=== PATIENT | female | born 1935 | race Caucasian/White ===

== ENCOUNTER → 2017-11-17 | Outpatient (CLI) | payer MEDICARE, OTHER ==
[2017-11-17 09:54] LABS: Calcium 9.6 mg/dL (8.4-10.2); Potassium 4.7 mmol/L (3.5-5.1); Total Bilirubin 0.3 mg/dL (0.2-1.3); Total Protein 6.7 g/dL (6.3-8.2)
[2017-11-17 20:37] LABS: Hemoglobin A1C 9.2 % (4.0-6.0)
== END | disposition home or self-care (01) ==
LOC: LABWHC1 08:15
PROVIDERS: ATTEND Internal Medicine Endocrinology, Diabetes & Metabolism
DX: E11.65 Type 2 diabetes mellitus with hyperglycemia (principal); E55.9 Vitamin D deficiency, unspecified
CPT/HCPCS: 36415; 80053; 80061; 82043; 82306; 82570; 83036; 84443

== ENCOUNTER 2018-09-14 23:30 | Emergency (ER) | payer MEDICARE, OTHER ==
[2018-09-14 23:53] LABS: Glucose,Whole Blood >600 mg/dL (75-99)
[2018-09-15] MEDS ORDERED: SODIUM CHLORIDE 0.9% 1,000 ML IV ONE (00:22)
--- NOTE | 2018-09-15 00:31 | ED ---
Recheck HPI - General Chief Complaint: Recheck/Abnormal Lab/Rx Stated Complaint: Blood sugar <600 Time Seen by Provider: 09/15/18 00:07 Source: patient Mode of arrival: ambulatory Limitations: no limitations - History of Present Illness Initial Comments: Geovanna is an 83-year-old female with a history of type 1 insulin-dependent diabetes who presents the emergency department today for evaluation of hyperglycemia. Patient reports her sugars been mildly high throughout the day, she believes is about 200 at lunchtime, 300 at supper and this evening she noted it was greater than 600. Patient has an insulin pump and is concerned she may have had a pump failure. Prior coming to the emergency department she did give herself 2 units of insulin and change her pump. Patient reports that she's otherwise been in her usual state of health with absolutely no complaints. She's had no fevers, chills, nausea, vomiting. She's been eating her regular diet. Patient is a very strict compliant diabetic, she weighs all of her foods at documents everything that she eats. She has not had any diabetic emergencies for approximately 4 years and her last one was also due to pump failure. The patient reports that she's feeling well aside from a constant urge to urinate, she is experiencing no dysuria or hematuria or malodorous urine. - Related Data Home Medications Medication Instructions Recorded Confirmed B12/Levomefolate Calcium/B-6 1 each PO DAILY 02/15/15 11/16/15 [Foltx Tablet] Ergocalciferol [Vitamin D2 50,000 units PO WE 02/15/15 11/16/15 (DRISDOL)] Insulin Lispro [humaLOG] See Protocol SQ CONTINUOUS 02/15/15 11/16/15 Ketorolac Tromethamine [Acular LS 1 drop LEFT EYE BID 02/15/15 11/16/15 0.4%] LORazepam [Ativan] 0.5 mg PO TID 02/15/15 11/16/15 Lansoprazole [Prevacid] 15 mg PO HS 02/15/15 11/16/15 Latanoprost Ophth [Xalatan 0.005%] 1 drops LEFT EYE HS 02/15/15 11/16/15 Levothyroxine Sodium [Synthroid] 50 mcg PO MOTUTHFRSA 02/15/15 11/16/15 Levothyroxine Sodium [Synthroid] 75 mcg PO SUWE 02/15/15 11/16/15 Propylene Glycol/Peg 400/Pf 1 drop BOTH EYES DAILY PRN 02/15/15 11/16/15 [Systane 0.3-0.4% Eye Drops] Previous Rx's Medication Instructions Recorded Artificial Tears-Hypromellose 1 drops BOTH EYES BID PRN #0 bottle 11/25/15 [Artificial Tear Drops] Aspirin 162 mg PO DAILY #60 chew 11/25/15 Atorvastatin [Lipitor] 80 mg PO HS #30 tab 11/25/15 Bxdjijjueyopus-FC-Dwvrgdwlod 1 each PO DAILY@1200 tab 11/25/15 [Folbic] Docusate [Colace] 100 mg PO DAILY cap 11/25/15 Ergocalciferol [Vitamin D2 50,000 unit PO WE cap 11/25/15 (DRISDOL)] HYDROcodone/APAP 5-325MG [[place] 1 each PO Q4HR PRN #30 tab 11/25/15 5-325] Ketorolac Tromethamine [Acular Ls 1 drop RIGHT EYE BID 11/25/15 0.4%] Latanoprost Ophth [Xalatan 0.005%] 1 drops RIGHT EYE HS ml 11/25/15 Levothyroxine Sodium [Synthroid] 50 mcg PO MoTuThFrSa@0630 tab 11/25/15 Levothyroxine Sodium [Synthroid] 75 mcg PO SuWe@0630 tab 11/25/15 Metoprolol Tartrate [Lopressor] 25 mg PO BID #60 tab 11/25/15 Ramipril [Altace] 20 mg PO HS #30 cap 11/25/15 predniSONE 1 mg PO DAILY #30 tab 11/25/15 Allergies Allergy/AdvReac Type Severity Reaction Status Date / Time Iodinated Contrast- Oral and Allergy Anaphylaxis Verified 09/14/18 23:48 IV Dye iodine Allergy Swelling Verified 09/14/18 23:48 NSAIDS (Non-Steroidal Allergy Rash/Hives Verified 09/14/18 23:48 Anti-Inflamma Sulfa (Sulfonamide Allergy Rash/Hives Verified 09/14/18 23:48 Antibiotics) Review of Systems ROS Statement: Those systems with pertinent positive or pertinent negative responses have been documented in the HPI. ROS Other: All systems not noted in ROS Statement are negative. Past Medical History Past Medical History: Cancer, CVA/TIA, Diabetes Mellitus, Hypertension Additional Past Medical History / Comment(s): temporal arteritis, breast CA, padgets disease History of Any Multi-Drug Resistant Organisms: None Reported Past Surgical History: Hysterectomy Additional Past Surgical History / Comment(s): right mastectomy Past Anesthesia/Blood Transfusion Reactions: No Reported Reaction Past Psychological History: Anxiety Smoking Status: Former smoker Past Alcohol Use History: None Reported Past Drug Use History: None Reported - Past Family History Mother Family Medical History: Cancer, Diabetes Mellitus Father Family Medical History: Cancer, Coronary Artery Disease (CAD) General Exam - General Exam Comments Initial Comments: Physical Exam GENERAL: Patient is well-developed and well-nourished. Patient is nontoxic and well- hydrated and is in no distress. HENT: Normocephalic, Atraumatic. EYES: PERRL, EOMI PULMONARY: Unlabored respirations. No audible rales rhonchi or wheezing was noted. No Kuss[place]al respirations CARDIOVASCULAR: There is a regular rate and rhythm without any murmurs gallops or rubs. ABDOMEN: Soft and nontender with normal bowel sounds. SKIN: Skin is clear with no lesions or rashes and otherwise unremarkable. : Deferred NEUROLOGIC: Patient is alert and oriented x3. Moving all extremities spontaneously MUSCULOSKELETAL: Normal extremities with adequate strength and full range of motion. No lower extremity swelling or edema. No calf tenderness. PSYCHIATRIC: Normal psychiatric evaluation. Limitations: no limitations Limitations: no limitations Course Vital Signs 09/14/18 09/15/18 09/15/18 23:44 03:35 03:46 Temperature 98.6 F 97.1 F L 97.1 F L Pulse Rate 72 65 60 Respiratory 18 16 16 Rate Blood Pressure 143/77 127/58 127/65 O2 Sat by Pulse 95 96 100 Oximetry Medical Decision Making - Medical Decision Making Patient was seen and evaluated Triage blood glucose was greater than 600 DKA order set ordered sign bedside commode provided as the patient has difficulty with ambulating and is urinating frequently Absent consistent with hyperglycemia with no evidence of DKA Patient was noted to be mildly hyperkalemic, IV insulin was ordered Patient was evaluated for 90 minutes after IV insulin, her glucose is trending downward but not dangerous matter. At this time the patient is comfortable with the plan for discharge home, she will continue to monitor her glucose, She has replaced her insulin pump needle and tubing and believes it is flushing well now. At this time I feel the patient is stable for discharge home, I suspect that her hyperglycemia secondary to pump failure however it is now functioning and the patient is comfortable for discharge home. Patient lives at home with her daughters who will observe her. Patient will awaken 4 AM to monitor her glucose. Return parameters were discussed all questions pertaining care were answered patient was discharged home in stable condition. - Lab Data Result diagrams: 09/15/18 00:39 09/15/18 00:39 Lab Results 09/14/18 09/15/18 09/15/18 Range/Units 23:51 00:21 00:39 WBC (3.8-10.6) k/uL RBC (3.80-5.40) m/uL Hgb (11.4-16.0) gm/dL Hct (34.0-46.0) % MCV (80.0-100.0) fL MCH (25.0-35.0) pg MCHC (31.0-37.0) g/dL RDW (11.5-15.5) % Plt Count (150-450) k/uL Neutrophils % % Lymphocytes % % Monocytes % % Eosinophils % % Basophils % % Neutrophils # (1.3-7.7) k/uL Lymphocytes # (1.0-4.8) k/uL Monocytes # (0-1.0) k/uL Eosinophils # (0-0.7) k/uL Basophils # (0-0.2) k/uL Sodium 133 L (137-145) mmol/L Potassium 5.8 H (3.5-5.1) mmol/L Chloride 97 L (98-107) mmol/L Carbon Dioxide 25 (22-30) mmol/L Anion Gap 11 mmol/L BUN 36 H (7-17) mg/dL Creatinine 1.22 H (0.52-1.04) mg/dL Est GFR (CKD-EPI)AfAm 48 (>60 ml/min/1.73 sqM) Est GFR (CKD-EPI)NonAf 41 (>60 ml/min/1.73 sqM) Glucose 588 H* (74-99) mg/dL POC Glucose (mg/dL) >600 H (75-99) mg/dL POC Glu Document Preparer Microfilming ID Lisette Ball Plasma Lactic Acid Alex (0.7-2.0) mmol/L Calcium 9.3 (8.4-10.2) mg/dL Total Bilirubin 0.4 (0.2-1.3) mg/dL AST 27 (14-36) U/L ALT 22 (9-52) U/L Alkaline Phosphatase 76 (38-126) U/L Troponin I (0.000-0.034) ng/mL Total Protein 6.6 (6.3-8.2) g/dL Albumin 4.0 (3.5-5.0) g/dL Lipase 164 (23-300) U/L Urine Color Light Yellow Urine Appearance Clear (Clear) Urine pH 5.0 (5.0-8.0) Ur Specific [place] 1.023 (1.001-1.035) Urine Protein Negative (Negative) Urine Glucose (UA) 4+ H (Negative) Urine Ketones 1+ H (Negative) Urine Blood Trace H (Negative) Urine Nitrite Negative (Negative) Urine Bilirubin Negative (Negative) Urine Urobilinogen <2.0 (<2.0) mg/dL Ur Leukocyte Esterase Negative (Negative) Urine RBC 2 (0-5) /hpf Urine WBC 3 (0-5) /hpf Urine WBC Clumps Rare H (None) /hpf Ur Squamous Epith Cells <1 (0-4) /hpf Acetone, Qual Negative (Negative) 09/15/18 09/15/18 09/15/18 Range/Units 00:39 00:39 00:39 WBC 5.4 (3.8-10.6) k/uL RBC 4.00 (3.80-5.40) m/uL Hgb 12.6 (11.4-16.0) gm/dL Hct 40.0 (34.0-46.0) % MCV 100.1 H (80.0-100.0) fL MCH 31.6 (25.0-35.0) pg MCHC 31.6 (31.0-37.0) g/dL RDW 12.7 (11.5-15.5) % Plt Count 241 (150-450) k/uL Neutrophils % 75 % Lymphocytes % 11 % Monocytes % 7 % Eosinophils % 3 % Basophils % 1 % Neutrophils # 4.1 (1.3-7.7) k/uL Lymphocytes # 0.6 L (1.0-4.8) k/uL Monocytes # 0.4 (0-1.0) k/uL Eosinophils # 0.2 (0-0.7) k/uL Basophils # 0.0 (0-0.2) k/uL Sodium (137-145) mmol/L Potassium (3.5-5.1) mmol/L Chloride (98-107) mmol/L Carbon Dioxide (22-30) mmol/L Anion Gap mmol/L BUN (7-17) mg/dL Creatinine (0.52-1.04) mg/dL Est GFR (CKD-EPI)AfAm (>60 ml/min/1.73 sqM) Est GFR (CKD-EPI)NonAf (>60 ml/min/1.73 sqM) Glucose (74-99) mg/dL POC Glucose (mg/dL) (75-99) mg/dL POC Glu Document Preparer Microfilming ID Plasma Lactic Acid Alex 1.4 (0.7-2.0) mmol/L Calcium (8.4-10.2) mg/dL Total Bilirubin (0.2-1.3) mg/dL AST (14-36) U/L ALT (9-52) U/L Alkaline Phosphatase (38-126) U/L Troponin I <0.012 (0.000-0.034) ng/mL Total Protein (6.3-8.2) g/dL Albumin (3.5-5.0) g/dL Lipase (23-300) U/L Urine Color Urine Appearance (Clear) Urine pH (5.0-8.0) Ur Specific [place] (1.001-1.035) Urine Protein (Negative) Urine Glucose (UA) (Negative) Urine Ketones (Negative) Urine Blood (Negative) Urine Nitrite (Negative) Urine Bilirubin (Negative) Urine Urobilinogen (<2.0) mg/dL Ur Leukocyte Esterase (Negative) Urine RBC (0-5) /hpf Urine WBC (0-5) /hpf Urine WBC Clumps (None) /hpf Ur Squamous Epith Cells (0-4) /hpf Acetone, Qual (Negative) 09/15/18 09/15/18 09/15/18 Range/Units 02:21 02:53 03:33 WBC (3.8-10.6) k/uL RBC (3.80-5.40) m/uL Hgb (11.4-16.0) gm/dL Hct (34.0-46.0) % MCV (80.0-100.0) fL MCH (25.0-35.0) pg MCHC (31.0-37.0) g/dL RDW (11.5-15.5) % Plt Count (150-450) k/uL Neutrophils % % Lymphocytes % % Monocytes % % Eosinophils % % Basophils % % Neutrophils # (1.3-7.7) k/uL Lymphocytes # (1.0-4.8) k/uL Monocytes # (0-1.0) k/uL Eosinophils # (0-0.7) k/uL Basophils # (0-0.2) k/uL Sodium (137-145) mmol/L Potassium (3.5-5.1) mmol/L Chloride (98-107) mmol/L Carbon Dioxide (22-30) mmol/L Anion Gap mmol/L BUN (7-17) mg/dL Creatinine (0.52-1.04) mg/dL Est GFR (CKD-EPI)AfAm (>60 ml/min/1.73 sqM) Est GFR (CKD-EPI)NonAf (>60 ml/min/1.73 sqM) Glucose (74-99) mg/dL POC Glucose (mg/dL) 424 H 360 H 289 H (75-99) mg/dL POC Glu Document Preparer Microfilming CRYSTAL Lewis, Jamaal Joshua, Jamaal Lewis, Jamaal Plasma Lactic Acid Alex (0.7-2.0) mmol/L Calcium (8.4-10.2) mg/dL Total Bilirubin (0.2-1.3) mg/dL AST (14-36) U/L ALT (9-52) U/L Alkaline Phosphatase (38-126) U/L Troponin I (0.000-0.034) ng/mL Total Protein (6.3-8.2) g/dL Albumin (3.5-5.0) g/dL Lipase (23-300) U/L Urine Color Urine Appearance (Clear) Urine pH (5.0-8.0) Ur Specific [place] (1.001-1.035) Urine Protein (Negative) Urine Glucose (UA) (Negative) Urine Ketones (Negative) Urine Blood (Negative) Urine Nitrite (Negative) Urine Bilirubin (Negative) Urine Urobilinogen (<2.0) mg/dL Ur Leukocyte Esterase (Negative) Urine RBC (0-5) /hpf Urine WBC (0-5) /hpf Urine WBC Clumps (None) /hpf Ur Squamous Epith Cells (0-4) /hpf Acetone, Qual (Negative) Disposition Clinical Impression: Hyperglycemia due to type 1 diabetes mellitus, Insulin pump mechanical complication Disposition: HOME SELF-CARE Condition: Good Instructions: Diabetic Ketoacidosis (DC), Type 1 Diabetes in Adults: New Diagnosis (ED) Is patient prescribed a controlled substance at d/c from ED?: No Referrals: Tony Thomas DO [Primary Care Provider] - 1-2 days
[2018-09-15 00:52] LABS: Basophils % (A) 1 %; Eosinophils # (A) 0.2 k/uL (0-0.7); Eosinophils % (A) 3 %; HGB 12.6 gm/dL (11.4-16.0); Lymphocytes # (A) 0.6 k/uL (1.0-4.8); Lymphocytes % (A) 11 %; MCH 31.6 pg (25.0-35.0); MCHC 31.6 g/dL (31.0-37.0); MCV 100.1 fL (80.0-100.0); Mean Platelet Volume 7.7; Monocytes # (A) 0.4 k/uL (0-1.0); Monocytes % (A) 7 %; Neutrophils # (A) 4.1 k/uL (1.3-7.7); Neutrophils % (A) 75 %; Platelet Count 241 k/uL (150-450); RDW 12.7 % (11.5-15.5); WBC 5.4 k/uL (3.8-10.6)
[2018-09-15 01:04] LABS: ALT 22 U/L (9-52); AST 27 U/L (14-36); Alkaline Phosphatase 76 U/L (38-126); Anion Gap 11 mmol/L; Blood Urea Nitrogen 36 mg/dL (7-17); Calcium 9.3 mg/dL (8.4-10.2); Carbon Dioxide 25 mmol/L (22-30); Chloride 97 mmol/L (98-107); Lipase 164 U/L (23-300); Potassium 5.8 mmol/L (3.5-5.1); Sodium 133 mmol/L (137-145); Total Bilirubin 0.4 mg/dL (0.2-1.3); Total Protein 6.6 g/dL (6.3-8.2)
[2018-09-15 01:12] LABS: Glucose 588 mg/dL (74-99)
[2018-09-15 01:17] LABS: Appearance,Urine Clear (Clear); Bilirubin,Urine Negative (Negative); Blood,Urine Trace (Negative); Color,Urine Light Yellow; Glucose,Urine (UA) 4+ (Negative); Ketones,Urine 1+ (Negative); Leukocyte Esterase,Urine Negative (Negative); Nitrite,Urine Negative (Negative); Protein,Urine Negative (Negative); RBC,Urine 2 /hpf (0-5); Specific Gravity,Urine 1.023 (1.001-1.035); Squamous Epithelial Cell,Urine <1 /hpf (0-4); Urobilinogen,Urine <2.0 mg/dL (<2.0); WBC,Urine 3 /hpf (0-5)
[2018-09-15] MEDS ORDERED: INSULIN REGULAR 100 UNIT/ML VIAL IV ONE (01:55)
[2018-09-15 02:33] LABS: Glucose,Whole Blood 424 mg/dL (75-99)
[2018-09-15 02:55] LABS: Glucose,Whole Blood 360 mg/dL (75-99)
[2018-09-15 03:35] LABS: Glucose,Whole Blood 289 mg/dL (75-99)
[2018-09-15 03:40] VITALS: RESP 16; TEMP 97.1
[2018-09-15 03:48] VITALS: BP 127/65; PULSE 60
== END 2018-09-15 03:46 | disposition home or self-care (01) ==
LOC: EC 23:30
DX: T85.694A Other mechanical complication of insulin pump, initial encounter (principal); E10.65 Type 1 diabetes mellitus with hyperglycemia; E87.5 Hyperkalemia; I10 Essential (primary) hypertension; F41.9 Anxiety disorder, unspecified; Z86.73 Personal history of transient ischemic attack (TIA), and cerebral infarction without residual deficits; Z87.891 Personal history of nicotine dependence; Z85.3 Personal history of malignant neoplasm of breast; Z79.4 Long term (current) use of insulin; Z79.899 Other long term (current) drug therapy; Z88.2 Allergy status to sulfonamides; Z88.6 Allergy status to analgesic agent; Z88.8 Allergy status to other drugs, medicaments and biological substances; Z91.041 Radiographic dye allergy status
CPT/HCPCS: 36415; 80053; 81001; 82009; 83605; 83690; 83930; 84484; 85025; 96360; 99284

== ENCOUNTER 2018-10-13 18:15 | Emergency (ER) | payer MEDICARE, OTHER ==
--- NOTE | 2018-10-13 21:01 | CT ---
EXAMINATION TYPE: CT brain cricket dwyer DATE OF EXAM: 10/13/2018 COMPARISON: CT brain 11/05/2011 HISTORY: Fall. Headache. Neck pain CT DLP: 1134.4 mGycm Automated exposure control for dose reduction was used. TECHNIQUE: CT scan of the head and cervical spine are performed without contrast. FINDINGS: There is cerebral cortical atrophy. There is no mass effect nor midline shift. There is n o sign of intracranial hemorrhage. The calvarium is intact. The cervical vertebra have fairly normal alignment. There is moderate narrowing and spur formation at C5-6. Facet joints are intact. There is mild facet arthropathy. The skull base is intact. IMPRESSION: Cerebral atrophy. No acute intracranial abnormality. Brain unchanged. Spondylotic change at C5-6. No fracture seen.
--- NOTE | 2018-10-13 21:03 | XR ---
EXAMINATION TYPE: XR ribs LT w pa chest xray DATE OF EXAM: 10/13/2018 COMPARISON: 11/25/2015 HISTORY: Pneumonia chest pain TECHNIQUE: 5 views FINDINGS: There is no heart failure nor confluent pneumonic infiltrate. There is no sign of pleural e ffusion or pneumothorax. Heart size is normal. Thoracic aorta is atheromatous. The left ribs appear i ntact. IMPRESSION: No active cardiopulmonary disease. No rib fracture. There is clearing of bilateral pleura l effusion compared to old exam.
--- NOTE | 2018-10-13 21:15 | ED ---
General Adult HPI - General Chief complaint: Fall Stated complaint: fall, back pain Time Seen by Provider: 10/13/18 19:45 Source: patient, RN notes reviewed Mode of arrival: ambulatory Limitations: no limitations - History of Present Illness Initial comments: Patient 83-year-old female presenting to the emergency room today with a chief complaint of a fall that occurred earlier. Patient states that she accidentally rolled out of bed this afternoon. Patient admits that she did hit the left side of her head. She does admit to pain to the left side of the ribs. States is worse with certain movements when she goes from a seated to standing position. Patient denies any other injury or complaint. States she's not on any blood thinners. Patient denies any recent fever, chills, shortness of breath, chest pain, back pain, abdominal pain, nausea or vomiting, numbness or tingling, dysuria or hematuria, constipation or diarrhea, headaches or visual changes, or any other complaints. - Related Data Home Medications Medication Instructions Recorded Confirmed Insulin Lispro [humaLOG] See Protocol SQ CONTINUOUS 02/15/15 10/13/18 LORazepam [Ativan] 0.5 mg PO TID 02/15/15 10/13/18 Propylene Glycol/Peg 400/Pf 1 drop BOTH EYES DAILY PRN 02/15/15 10/13/18 [Systane 0.3-0.4% Eye Drops] Doxycycline [Vibramycin] 50 mg PO BID 10/13/18 10/13/18 Escitalopram [Lexapro] 5 mg PO HS 10/13/18 10/13/18 Ezetimibe [Zetia] 10 mg PO DAILY 10/13/18 10/13/18 Levothyroxine Sodium [Synthroid] 75 mcg PO MOTUWETHFRSA 10/13/18 10/13/18 Loratadine [Claritin] 10 mg PO DAILY 10/13/18 10/13/18 Losartan [Cozaar] 25 mg PO HS 10/13/18 10/13/18 Pantoprazole [Protonix] 40 mg PO HS 10/13/18 10/13/18 Polyethylene Glycol 3350 [Miralax] 17 gm PO DAILY 10/13/18 10/13/18 Pravastatin Sodium [Pravachol] 20 mg PO HS 10/13/18 10/13/18 amLODIPine [Norvasc] 2.5 mg PO HS 10/13/18 10/13/18 Previous Rx's Medication Instructions Recorded Artificial Tears-Hypromellose 1 drops BOTH EYES BID PRN #0 bottle 11/25/15 [Artificial Tear Drops] Aspirin 162 mg PO DAILY #60 chew 11/25/15 Pypocduphkikvr-FT-Lywqpqdmxc 1 each PO DAILY@1200 tab 11/25/15 [Folbic] Ergocalciferol [Vitamin D2 50,000 unit PO WE cap 11/25/15 (DRISDOL)] Ketorolac Tromethamine [Acular Ls 1 drop RIGHT EYE BID 11/25/15 0.4%] Latanoprost Ophth [Xalatan 0.005%] 1 drops RIGHT EYE HS ml 11/25/15 Metoprolol Tartrate [Lopressor] 25 mg PO BID #60 tab 11/25/15 predniSONE 1 mg PO DAILY #30 tab 11/25/15 Allergies Allergy/AdvReac Type Severity Reaction Status Date / Time Iodinated Contrast- Oral and Allergy Anaphylaxis Verified 10/13/18 20:52 IV Dye iodine Allergy Swelling Verified 10/13/18 20:52 NSAIDS (Non-Steroidal Allergy Rash/Hives Verified 10/13/18 20:52 Anti-Inflamma Sulfa (Sulfonamide Allergy Rash/Hives Verified 10/13/18 20:52 Antibiotics) Review of Systems ROS Statement: Those systems with pertinent positive or pertinent negative responses have been documented in the HPI. ROS Other: All systems not noted in ROS Statement are negative. Past Medical History Past Medical History: Cancer, CVA/TIA, Diabetes Mellitus, Hypertension Additional Past Medical History / Comment(s): temporal arteritis, breast CA, padgets disease History of Any Multi-Drug Resistant Organisms: None Reported Past Surgical History: Hysterectomy Additional Past Surgical History / Comment(s): right mastectomy Past Anesthesia/Blood Transfusion Reactions: No Reported Reaction Past Psychological History: Anxiety Smoking Status: Former smoker Past Alcohol Use History: None Reported Past Drug Use History: None Reported - Past Family History Mother Family Medical History: Cancer, Diabetes Mellitus Father Family Medical History: Cancer, Coronary Artery Disease (CAD) General Exam - General Exam Comments Initial Comments: General: The patient is awake and alert, in no distress, and does not appear acutely ill. Eye: Pupils are equal, round and reactive to light, extra-ocular movements are intact. No nystagmus. There is normal conjunctiva bilaterally. No signs of icterus. Ears, nose, mouth and throat: There are moist mucous membranes and no oral lesions. Neck: The neck is supple Cardiovascular: There is a regular rate and rhythm. No murmur, rub or gallop is appreciated. Respiratory: Lungs are clear to auscultation, respirations are non-labored, breath sounds are equal. No wheezes, stridor, rales, or rhonchi. Gastrointestinal: Abdomen soft on palpation. Musculoskeletal: Normal ROM,. Tender to palpation over the lateral aspect of the lower left ribs. No step-off or deformity appreciated. Tenderness in cervical, thoracic or lumbar spine. Strength 5/5. Sensation intact. Pulses equal bilaterally 2+. Neurological: A&O x 3. CN II-XII intact, There are no obvious motor or sensory deficits. Coordination appears grossly intact. Speech is normal. Skin: Skin is warm and dry and no rashes or lesions are noted. Psychiatric: Cooperative, appropriate mood & affect, normal judgment. Limitations: no limitations Course Vital Signs 10/13/18 18:18 Temperature 97.5 F L Pulse Rate 72 Respiratory 20 Rate Blood Pressure 156/70 O2 Sat by Pulse 99 Oximetry Medical Decision Making - Medical Decision Making CT the head negative. X-ray of the left ribs and chest are negative for any acute abnormalities. Results were discussed with patient. Patient advised Tylenol for pain. Advised follow-up the family doctor if symptoms persist or return if any symptoms increase or worsen. Disposition Clinical Impression: Fall, Contusion of rib on left side Disposition: HOME SELF-CARE Condition: Good Instructions: Rib Contusion (ED) Additional Instructions: Please use medication as discussed. Please follow-up with family doctor in the next 2 days of symptoms have not improved. Please return to emergency room if the symptoms increase or worsen or for any other concerns. Is patient prescribed a controlled substance at d/c from ED?: No Referrals: Tony Thomas DO [Primary Care Provider] - 1-2 days Time of Disposition: 21:14
[2018-10-13 21:27] VITALS: BP 151/66; PULSE 78; RESP 16; TEMP 98.2
== END 2018-10-13 21:28 | disposition home or self-care (01) ==
LOC: EC 18:15
DX: S20.212A Contusion of left front wall of thorax, initial encounter (principal); E11.9 Type 2 diabetes mellitus without complications; I10 Essential (primary) hypertension; F41.9 Anxiety disorder, unspecified; Z86.73 Personal history of transient ischemic attack (TIA), and cerebral infarction without residual deficits; Z85.3 Personal history of malignant neoplasm of breast; Z87.891 Personal history of nicotine dependence; Z79.4 Long term (current) use of insulin; Z79.899 Other long term (current) drug therapy; Z91.048 Other nonmedicinal substance allergy status; Z91.041 Radiographic dye allergy status; Z88.6 Allergy status to analgesic agent; Z88.2 Allergy status to sulfonamides; W06.XXXA Fall from bed, initial encounter; Y92.009 Unspecified place in unspecified non-institutional (private) residence as the place of occurrence of the external cause
CPT/HCPCS: 70450; 72125; 99284

== ENCOUNTER 2019-11-12 09:19 | Inpatient (IN) | payer MEDICARE, OTHER ==
[2019-11-12] MEDS ORDERED: SODIUM CHLORIDE 0.9% 1,000 ML IV STA (10:17)
--- NOTE | 2019-11-12 10:24 | ED ---
General Adult HPI - General Chief complaint: Weakness Stated complaint: near syncope Time Seen by Provider: 11/12/19 09:35 Source: patient, family, EMS, RN notes reviewed Mode of arrival: EMS Limitations: altered mental status, physical limitation - History of Present Illness Initial comments: Patient is a pleasant 84-year-old female present to the emergency department with syncopal versus near syncopal episode. Patient occasionally has staring episodes when her sugar is low. Sugar was checked and was 130. Patient woke up this morning and went to the bathroom. Patient was walking to breakfast and slow down and started becoming less responsive.Please use medication as discussed. Please follow-up with family doctor in the next 2 days of symptoms have not improved. Please return to emergency room if the symptoms increase or worsen or for any other concerns. Legs felt weak and was lowered to the ground by the family. Family states patient was unresponsive for just a couple of seconds. Patient states at this time she feels fine and is symptom-free, no complaints. No headache or chest pain or back pain or abdominal pain. No dyspnea. No weakness. No change in mental status. - Related Data Home Medications Medication Instructions Recorded Confirmed Insulin Lispro [humaLOG] See Protocol SQ CONTINUOUS 02/15/15 10/13/18 LORazepam [Ativan] 0.5 mg PO TID 02/15/15 10/13/18 Propylene Glycol/Peg 400/Pf 1 drop BOTH EYES DAILY PRN 02/15/15 10/13/18 [Systane 0.3-0.4% Eye Drops] Doxycycline [Vibramycin] 50 mg PO BID 10/13/18 10/13/18 Escitalopram [Lexapro] 5 mg PO HS 10/13/18 10/13/18 Ezetimibe [Zetia] 10 mg PO DAILY 10/13/18 10/13/18 Levothyroxine Sodium [Synthroid] 75 mcg PO MOTUWETHFRSA 10/13/18 10/13/18 Loratadine [Claritin] 10 mg PO DAILY 10/13/18 10/13/18 Losartan [Cozaar] 25 mg PO HS 10/13/18 10/13/18 Pantoprazole [Protonix] 40 mg PO HS 10/13/18 10/13/18 Polyethylene Glycol 3350 [Miralax] 17 gm PO DAILY 10/13/18 10/13/18 Pravastatin Sodium [Pravachol] 20 mg PO HS 10/13/18 10/13/18 amLODIPine [Norvasc] 2.5 mg PO HS 10/13/18 10/13/18 Previous Rx's Medication Instructions Recorded Artificial Tears-Hypromellose 1 drops BOTH EYES BID PRN #0 bottle 11/25/15 [Artificial Tear Drops] Aspirin 162 mg PO DAILY #60 chew 11/25/15 Emavjurrugnxfw-VK-Nzmodskkxw 1 each PO DAILY@1200 tab 11/25/15 [Folbic] Ergocalciferol [Vitamin D2 50,000 unit PO WE cap 11/25/15 (DRISDOL)] Ketorolac Tromethamine [Acular Ls 1 drop RIGHT EYE BID 11/25/15 0.4%] Latanoprost Ophth [Xalatan 0.005%] 1 drops RIGHT EYE HS ml 11/25/15 Metoprolol Tartrate [Lopressor] 25 mg PO BID #60 tab 11/25/15 predniSONE 1 mg PO DAILY #30 tab 11/25/15 Allergies Allergy/AdvReac Type Severity Reaction Status Date / Time Iodinated Contrast Media Allergy Anaphylaxis Verified 11/12/19 09:40 iodine Allergy Swelling Verified 11/12/19 09:40 NSAIDS (Non-Steroidal Allergy Rash/Hives Verified 11/12/19 09:40 Anti-Inflamma Sulfa (Sulfonamide Allergy Rash/Hives Verified 11/12/19 09:40 Antibiotics) Review of Systems ROS Statement: Those systems with pertinent positive or pertinent negative responses have been documented in the HPI. ROS Other: All systems not noted in ROS Statement are negative. Constitutional: Denies: fever Eyes: Denies: eye pain ENT: Denies: ear pain Respiratory: Denies: cough Cardiovascular: Denies: chest pain Endocrine: Denies: fatigue Gastrointestinal: Denies: abdominal pain Genitourinary: Denies: dysuria Musculoskeletal: Denies: back pain Skin: Denies: rash Neurological: Reports: as per HPI Past Medical History Past Medical History: Cancer, CVA/TIA, Diabetes Mellitus, Hypertension Additional Past Medical History / Comment(s): temporal arteritis, breast CA, padgets disease History of Any Multi-Drug Resistant Organisms: None Reported Past Surgical History: Hysterectomy Additional Past Surgical History / Comment(s): right mastectomy Past Anesthesia/Blood Transfusion Reactions: No Reported Reaction Past Psychological History: Anxiety Smoking Status: Former smoker Past Alcohol Use History: None Reported Past Drug Use History: None Reported - Past Family History Mother Family Medical History: Cancer, Diabetes Mellitus Father Family Medical History: Cancer, Coronary Artery Disease (CAD) General Exam Limitations: altered mental status, physical limitation General appearance: alert, in no apparent distress Head exam: Present: normocephalic Eye exam: Present: normal appearance, PERRL, EOMI ENT exam: Present: normal oropharynx Neck exam: Present: normal inspection Respiratory exam: Present: normal lung sounds bilaterally Cardiovascular Exam: Present: regular rate, normal rhythm GI/Abdominal exam: Present: soft. Absent: tenderness Extremities exam: Present: normal inspection Back exam: Present: normal inspection Neurological exam: Present: alert, CN II-XII intact. Absent: motor sensory deficit Expanded Neurological exam: Present: protecting the airway Patient oriented to: Present: person, place. Absent: time Speech: Present: fluid speech Cranial nerves: EOM's Intact: Normal, Facial Sensation: Normal Sensory exam: Upper Extremity Light Touch: Normal, Lower Extremity Light Touch: Normal Motor strength exam: RUE: 5, LUE: 5, RLE: 5, LLE: 5 Eye Response: (4) open spontaneously Motor Response: (6) obeys commands Verbal Response: (5) oriented Psychiatric exam: Present: normal affect, normal mood Skin exam: Present: normal color Course Vital Signs 11/12/19 11/12/19 09:21 11:06 Temperature 97.9 F Pulse Rate 75 76 Respiratory 18 18 Rate Blood Pressure 142/70 126/54 O2 Sat by Pulse 97 100 Oximetry EKG Findings - EKG Comments: EKG Findings:: Sinus rhythm at 74. For screening AV block with a OR of 222. QRS 86. QT 394. QTC 437. Normal axis. Normal QRS. No acute ST change. Medical Decision Making - Medical Decision Making Patient reevaluated and updated. Family present and updated. Case discussed with Dr. Thomas, who will admit his patient. - Lab Data Result diagrams: 11/12/19 09:49 11/12/19 09:49 Lab Results 11/12/19 11/12/19 11/12/19 Range/Units 09:49 09:49 09:49 WBC 7.3 (3.8-10.6) k/uL RBC 4.48 (3.80-5.40) m/uL Hgb 13.8 (11.4-16.0) gm/dL Hct 43.1 (34.0-46.0) % MCV 96.2 (80.0-100.0) fL MCH 30.7 (25.0-35.0) pg MCHC 31.9 (31.0-37.0) g/dL RDW 13.0 (11.5-15.5) % Plt Count 221 (150-450) k/uL Neutrophils % 75 % Lymphocytes % 8 % Monocytes % 11 % Eosinophils % 2 % Basophils % 1 % Neutrophils # 5.5 (1.3-7.7) k/uL Lymphocytes # 0.6 L (1.0-4.8) k/uL Monocytes # 0.8 (0-1.0) k/uL Eosinophils # 0.2 (0-0.7) k/uL Basophils # 0.1 (0-0.2) k/uL PT 9.5 (9.0-12.0) sec INR 0.9 (<1.2) APTT 23.2 (22.0-30.0) sec Sodium 137 (137-145) mmol/L Potassium 4.9 (3.5-5.1) mmol/L Chloride 99 (98-107) mmol/L Carbon Dioxide 29 (22-30) mmol/L Anion Gap 9 mmol/L BUN 31 H (7-17) mg/dL Creatinine 0.97 (0.52-1.04) mg/dL Est GFR (CKD-EPI)AfAm 63 (>60 ml/min/1.73 sqM) Est GFR (CKD-EPI)NonAf 54 (>60 ml/min/1.73 sqM) Glucose 150 H (74-99) mg/dL Calcium 9.8 (8.4-10.2) mg/dL Magnesium 1.9 (1.6-2.3) mg/dL Total Bilirubin 0.6 (0.2-1.3) mg/dL AST 38 H (14-36) U/L ALT 20 (4-34) U/L Alkaline Phosphatase 89 (38-126) U/L Troponin I (0.000-0.034) ng/mL Total Protein 7.2 (6.3-8.2) g/dL Albumin 4.3 (3.5-5.0) g/dL 11/12/19 Range/Units 09:49 WBC (3.8-10.6) k/uL RBC (3.80-5.40) m/uL Hgb (11.4-16.0) gm/dL Hct (34.0-46.0) % MCV (80.0-100.0) fL MCH (25.0-35.0) pg MCHC (31.0-37.0) g/dL RDW (11.5-15.5) % Plt Count (150-450) k/uL Neutrophils % % Lymphocytes % % Monocytes % % Eosinophils % % Basophils % % Neutrophils # (1.3-7.7) k/uL Lymphocytes # (1.0-4.8) k/uL Monocytes # (0-1.0) k/uL Eosinophils # (0-0.7) k/uL Basophils # (0-0.2) k/uL PT (9.0-12.0) sec INR (<1.2) APTT (22.0-30.0) sec Sodium (137-145) mmol/L Potassium (3.5-5.1) mmol/L Chloride (98-107) mmol/L Carbon Dioxide (22-30) mmol/L Anion Gap mmol/L BUN (7-17) mg/dL Creatinine (0.52-1.04) mg/dL Est GFR (CKD-EPI)AfAm (>60 ml/min/1.73 sqM) Est GFR (CKD-EPI)NonAf (>60 ml/min/1.73 sqM) Glucose (74-99) mg/dL Calcium (8.4-10.2) mg/dL Magnesium (1.6-2.3) mg/dL Total Bilirubin (0.2-1.3) mg/dL AST (14-36) U/L ALT (4-34) U/L Alkaline Phosphatase (38-126) U/L Troponin I <0.012 (0.000-0.034) ng/mL Total Protein (6.3-8.2) g/dL Albumin (3.5-5.0) g/dL - Radiology Data Radiology results: report reviewed (Computed tomography scan of the brain shows age-related changes, no acute process), image reviewed (Chest x-ray shows no acute process) Disposition Clinical Impression: Syncope Disposition: ADMITTED IP TO THIS HOSP Is patient prescribed a controlled substance at d/c from ED?: No Referrals: Tony Thomas DO [Primary Care Provider] - 1-2 days Decision Time: 11:53
[2019-11-12 10:29] LABS: Basophils # (A) 0.1 k/uL (0-0.2); Basophils % (A) 1 %; Eosinophils # (A) 0.2 k/uL (0-0.7); Eosinophils % (A) 2 %; HCT 43.1 % (34.0-46.0); HGB 13.8 gm/dL (11.4-16.0); Lymphocytes # (A) 0.6 k/uL (1.0-4.8); Lymphocytes % (A) 8 %; MCH 30.7 pg (25.0-35.0); MCHC 31.9 g/dL (31.0-37.0); MCV 96.2 fL (80.0-100.0); Mean Platelet Volume 8.3; Monocytes # (A) 0.8 k/uL (0-1.0); Monocytes % (A) 11 %; Neutrophils # (A) 5.5 k/uL (1.3-7.7); Neutrophils % (A) 75 %; Platelet Count 221 k/uL (150-450); RBC 4.48 m/uL (3.80-5.40); WBC 7.3 k/uL (3.8-10.6)
[2019-11-12 10:49] LABS: Albumin 4.3 g/dL (3.5-5.0); Calcium 9.8 mg/dL (8.4-10.2); Magnesium 1.9 mg/dL (1.6-2.3); Potassium 4.9 mmol/L (3.5-5.1); Total Bilirubin 0.6 mg/dL (0.2-1.3); Total Protein 7.2 g/dL (6.3-8.2)
--- NOTE | 2019-11-12 11:04 | CT ---
EXAMINATION TYPE: CT brain wo con DATE OF EXAM: 11/12/2019 HISTORY: Altered mental status CT DLP: 1095.4 mGycm. Automated Exposure Control for Dose Reduction was Utilized. TECHNIQUE: CT scan of the head is performed without contrast. COMPARISON: CT brain October 13, 2018 and older CTs. FINDINGS: There is no acute intracranial hemorrhage or midline shift identified. There is diffuse v entricular and sulcal prominence consistent with diffuse age-related cerebral atrophy. There is low- attenuation in the periventricular white matter consistent with chronic small vessel ischemic change. Calcification of the distal internal carotid and vertebral arteries bilaterally is redemonstrated. V isualized sinuses are clear and globes are intact IMPRESSION: No acute intracranial hemorrhage or midline shift. There is mohf-ay-byhscudw diffuse ag e-related cerebral atrophy and mild chronic small vessel ischemic change redemonstrated. No signific ant change from most recent prior CT.
[2019-11-12 11:06] LABS: INR 0.9 (<1.2); Partial Thromboplastin Time 23.2 sec (22.0-30.0); Prothrombin Time 9.5 sec (9.0-12.0)
--- NOTE | 2019-11-12 11:06 | XR ---
EXAMINATION TYPE: XR chest 2V DATE OF EXAM: 11/12/2019 COMPARISON: 10/13/2018 HISTORY: Syncope TECHNIQUE: Frontal and lateral views of the chest are obtained. FINDINGS: There is no focal air space opacity, pleural effusion, or pneumothorax seen. There is hernando lar unfolding of the aorta and post CABG change. There is tortuosity of the descending thoracic aorta . Surgical clips are seen within the right breast. There is diffuse osseous demineralization. The oss eous structures are intact. IMPRESSION: No acute cardiopulmonary process.
[2019-11-12] MEDS ORDERED: ACETAMINOPHEN TAB 500 MG TAB PO STA (11:10)
[2019-11-12] MEDS ORDERED: NALOXONE 0.4 MG/ML 1 ML VIAL IV PRN (11:54)
[2019-11-12 13:06] LABS: Appearance,Urine Cloudy (Clear); Bacteria,Urine Occasional /hpf; Bilirubin,Urine Negative (Negative); Blood,Urine Trace (Negative); Color,Urine Yellow; Glucose,Urine (UA) Negative (Negative); Ketones,Urine 1+ (Negative); Leukocyte Esterase,Urine Large (Negative); Nitrite,Urine Negative (Negative); PH, Urine 5.5 (5.0-8.0); Protein,Urine Trace (Negative); RBC,Urine 2 /hpf (0-5); Specific Gravity,Urine 1.015 (1.001-1.035); Squamous Epithelial Cell,Urine <1 /hpf (0-4); Urobilinogen,Urine <2.0 mg/dL (<2.0); WBC,Urine 81 /hpf (0-5)
[2019-11-12 13:21] LABS: Glucose,Whole Blood 312 mg/dL (75-99)
--- NOTE | 2019-11-12 16:55 | P.CRDCN ---
History of Present Illness History of present illness: This is Katt Chaudhari PA-C dictating a consult on this patient The patient was interviewed and examined by me as well as by Dr. Church Case discussed with Dr. Church and he agrees with the plan of care HPI Patient is an 84-year-old female with a past medical history significant for CAD status post CABG, diabetes, hypertension, peripheral neuropathy, legally blind, temporal arteritis who presented with syncope. Patient's daughter is at the bedside, the patient is unable to recall the events of her syncopal episode and history was obtained from her daughter. She is a patient of Dr. MARCOS Hampton. Her daughter states she was in the bathroom brushing her teeth and then she walked out looking very pale with a "fixed" look in her eyes. She was walking with her walker. Her other daughter was there and witnessed the incident. She slowly lowered her to the ground and she did not fall or completely lose consciousness according to the EMS note. This has never happened to her before. She has had a lot of recent falls however they were mechanical falls due to difficulty ac cessing certain rooms in her home with her walker. She did not eat breakfast that morning. Her daughter states her blood sugar was normal. According to the EMS note her vital signs were stable and her blood pressure was in the 160s over 80s. The patient states she did not have any chest pain, shortness of breath, palpitations, nausea or vomiting, or diaphoresis before or during or after the incident. Upon arrival to the emergency department, her pulse was 75 and blood pressure was 142/70, oxygen saturation 97% on room air. EKG shows sinus mechanism with mild first-degree AV block, very subtle ST depressions in the lateral precordial leads, less than 0.5 mm. Chest x-ray showed no acute process. Brain CT showed no acute intracranial hemorrhage or midline shift, mild to moderate diffuse age-related renal atrophy and mild chronic small vessel ischemic change. No change from most recent prior CT. Patient seen and examined resting in bed in the emergency department. Denies any dizziness, nausea, chest pain, shortness of breath, palpitations. She is complaining of back discomfort she recently injured her spine a few months ago when she fell. ROS: No fevers, chills or rigors, no cough, phlegm or expectoration, no nausea, vomiting or diarrhea, no hematuria, dysuria, Positive for back pain no strokes or seizures, no skin lesions. EXAMINATION: Patient is afebrile, pulse in the 80s, respirations 16, blood pressure 129/49, oxygen saturation 94% on room air Patient seen and examined resting in bed, appears in no acute distress Lungs are clear to auscultation bilaterally no wheezing or rhonchi or crackles appreciated Heart is regular, systolic murmur audible No visible elevated JVD No lower extremity edema REVIEW OF LABS, ECG & MEDICAL DATA WBC 7.3, hemoglobin 13.8, platelets 221, potassium 4.9, BUN 31, creatinine 0.97 Troponin negative 1 IMPRESSION / ASSESSMENT: Presyncope, possibly related to orthostatic hypotension, mildly prolonged MT interval, first troponin negative CAD status post CABG Diabetes, not well controlled, daughter states her last A1c was 9 Hypertension Peripheral neuropathy Temporal arteritis PLAN: Obtain orthostatic blood pressure Monitor telemetry for any arrhythmias or bradycardia trend troponins Past Medical History Past Medical History: Cancer, CVA/TIA, Diabetes Mellitus, Hyperlipidemia, Hypertension, Myocardial Infarction (OR), Thyroid Disorder Additional Past Medical History / Comment(s): R breast cancer/padget's disease with mastectomy, TIA x3 in 2010, IDDM type II with insulin pump, legally blind bilaterally/diabetic retinopathy, diabetic neuropathy bilateral feet, temporal arteritis, tailbone fracture a few months ago still has pain, hypothyroid, c onstipation, varicosities. Last Myocardial Infarction Date:: 2015 History of Any Multi-Drug Resistant Organisms: None Reported Past Surgical History: Breast Surgery, Coronary Bypass/CABG, Heart Catheterization, Hysterectomy Additional Past Surgical History / Comment(s): 2016 CABG 3 vessel, right mas tectomy, R temporal arteritis, bilateral cataracts removed/bilateral laser eye surgery. Past Anesthesia/Blood Transfusion Reactions: No Reported Reaction Additional Past Anesthesia/Blood Transfusion Reaction / Comment(s): Pt has received blood in past without reaction. Smoking Status: Former smoker - Past Family History Mother Family Medical History: Cancer, Diabetes Mellitus, Vascular Disorder Additional Family Medical History / Comment(s): Breast cancer, autoimmune disease, aneurysm in brain Father Family Medical History: Cancer, Coronary Artery Disease (CAD) Additional Family Medical History / Comment(s): Laryngeal cancer. Father was a smoker. Medications and Allergies Home Medications Medication Instructions Recorded Confirmed Type LORazepam [Ativan] 0.5 mg PO BID 02/15/15 11/12/19 History Propylene Glycol/Peg 400/Pf 1 drop BOTH EYES DAILY PRN 02/15/15 11/12/19 History [Systane 0.3-0.4% Eye Drops] Latanoprost Ophth [Xalatan 0.005%] 1 drops RIGHT EYE HS ml 11/25/15 11/12/19 Rx Metoprolol Tartrate [Lopressor] 25 mg PO BID #60 tab 11/25/15 11/12/19 Rx predniSONE 1 mg PO DAILY #30 tab 11/25/15 11/12/19 Rx Escitalopram [Lexapro] 5 mg PO HS 10/13/18 11/12/19 History Ezetimibe [Zetia] 10 mg PO DAILY 10/13/18 11/12/19 History Levothyroxine Sodium [Synthroid] 75 mcg PO MOTUWETHFRSA@1200 10/13/18 11/12/19 History Loratadine [Claritin] 10 mg PO DAILY@1200 10/13/18 11/12/19 History Losartan [Cozaar] 25 mg PO HS 10/13/18 11/12/19 History Pantoprazole [Protonix] 40 mg PO HS 10/13/18 11/12/19 History Pravastatin Sodium [Pravachol] 20 mg PO HS 10/13/18 11/12/19 History amLODIPine [Norvasc] 2.5 mg PO HS 10/13/18 11/12/19 History Aspirin 162 mg PO HS 11/12/19 11/12/19 History Lnqtrspwluksas-OP-Xapmhsjova 1 tab PO AC-BRKFST 11/12/19 11/12/19 History [Folbic] Insulin Aspart (For Pump) [NovoLOG 0.01 unit SQ-PUMP CONTINUOUS 11/12/19 11/12/19 History (For Pump)] Vitamin D3(Unknown Dose) 1 tab PO DAILY 11/12/19 11/12/19 History Allergies Allergy/AdvReac Type Severity Reaction Status Date / Time Iodinated Contrast Media Allergy Anaphylaxis Verified 11/12/19 12:21 iodine Allergy Swelling Verified 11/12/19 12:21 NSAIDS (Non-Steroidal Allergy Rash/Hives Verified 11/12/19 12:21 Anti-Inflamma Sulfa (Sulfonamide Allergy Rash/Hives Verified 11/12/19 12:21 Antibiotics) Physical Exam Vitals: Vital Signs Temp Pulse Resp BP Pulse Ox 11/12/19 15:16 81 16 129/49 94 L 11/12/19 15:15 74 100/59 11/12/19 13:30 78 16 115/52 95 11/12/19 11:06 76 18 126/54 100 11/12/19 09:21 97.9 F 75 18 142/70 97 Intake and Output 11/12/19 11/12/19 11/12/19 06:59 14:59 22:59 Other: Weight 71.668 kg Results 11/12/19 09:49 11/12/19 09:49 Cardiac Enzymes 11/12/19 11/12/19 Range/Units 09:49 09:49 AST 38 H (14-36) U/L Troponin I <0.012 (0.000-0.034) ng/mL Coagulation 11/12/19 Range/Units 09:49 PT 9.5 (9.0-12.0) sec APTT 23.2 (22.0-30.0) sec CBC 11/12/19 Range/Units 09:49 WBC 7.3 (3.8-10.6) k/uL RBC 4.48 (3.80-5.40) m/uL Hgb 13.8 (11.4-16.0) gm/dL Hct 43.1 (34.0-46.0) % Plt Count 221 (150-450) k/uL Comprehensive Metabolic Panel 11/12/19 Range/Units 09:49 Sodium 137 (137-145) mmol/L Potassium 4.9 (3.5-5.1) mmol/L Chloride 99 (98-107) mmol/L Carbon Dioxide 29 (22-30) mmol/L BUN 31 H (7-17) mg/dL Creatinine 0.97 (0.52-1.04) mg/dL Glucose 150 H (74-99) mg/dL Calcium 9.8 (8.4-10.2) mg/dL AST 38 H (14-36) U/L ALT 20 (4-34) U/L Alkaline Phosphatase 89 (38-126) U/L Total Protein 7.2 (6.3-8.2) g/dL Albumin 4.3 (3.5-5.0) g/dL Current Medications Generic Name Dose Route Start Last Admin Trade Name Freq PRN Reason Stop Dose Admin Sodium Chloride 1,000 mls @ 100 mls/hr 11/12/19 10:17 11/12/19 11:44 Saline 0.9% IV 11/12/19 20:16 100 mls/hr .Q10H STA Administration Sodium Chloride 1,000 mls @ 75 mls/hr 11/12/19 12:00 Saline 0.9% IV .[id number] [facility] Naloxone HCl 0.2 mg 11/12/19 11:54 Narcan IV Q2M PRN Opioid Reversal Intake and Output 11/12/19 11/12/19 11/12/19 06:59 14:59 22:59 Other: Weight 71.668 kg Patient Weight 11/13/19 06:59 Weight 71.668 kg 11/12/19 09:49 11/12/19 09:49
[2019-11-12] MEDS: traMADol 50 MG TAB PO PRN (19:35)
[2019-11-12 19:59] VITALS: RESP 18
[2019-11-12] MEDS: SODIUM CHLORIDE 0.9% 1,000 ML IV SCH ×2 (20:39→23:39)
[2019-11-12 22:33] LABS: Glucose,Whole Blood 371 mg/dL (75-99)
[2019-11-12] MEDS ORDERED: INSULIN ASPART (NovoLOG) 100 UNIT/ML VIAL SQ PRN (22:37)
[2019-11-12] MEDS ORDERED: INSULIN PUMP BASAL RATES 1 EACH MISC MISCELLANE PRN (22:37)
[2019-11-12] MEDS ORDERED: ARTIFICIAL TEARS-HYPROMELLOSE DROPS 15 ML BTL BOTH EYES PRN (23:00)
[2019-11-12] MEDS ORDERED: Insulin Aspart (For Pump) 100 UNIT/ML VIAL SQ-PUMP SCH (23:00)
[2019-11-13 03:57] LABS: Glucose,Whole Blood 255 mg/dL (75-99)
[2019-11-13] MEDS: traMADol 50 MG TAB PO PRN ×3 (03:58→20:03)
[2019-11-13 06:41] LABS: Glucose,Whole Blood 252 mg/dL (75-99)
[2019-11-13] MEDS: LORazepam 0.5 MG TAB PO SCH ×2 (09:02→20:03)
[2019-11-13] MEDS: EZETIMIBE 10 MG TAB PO SCH (09:03)
[2019-11-13] MEDS: CYANOCOBALAMIN-FA-PYRIDOXINE 1 EACH TAB PO SCH (09:03)
[2019-11-13] MEDS: predniSONE 1 MG TAB PO SCH (09:03)
[2019-11-13] MEDS: METOPROLOL TARTRATE 25 MG TAB PO SCH ×2 (09:03→20:03)
--- NOTE | 2019-11-13 10:59 | P.PN ---
Subjective This is a pleasant 84-year-old female past medical history significant for coronary artery disease status post bypass grafting, diabetes mellitus, hypertension, peripheral neuropathy and temporal arteriolitis. She follows in the office with Dr. Hampton. She is seen and examined sitting up in bed in no acute distress. Family is at the bedside. The patient denies any further symptoms of feeling lightheaded. Telemetry tracings have been unremarkable. Per the daughter at the bedside the patient seems to be increasingly confused since this episode. Neurology has been placed on consult. Blood pressure 152/76 heart rate 90 afebrile maintaining oxygen saturation on room air. Laboratory data reviewed, cardiac enzymes negative 3. Currently maintained on aspirin 162 mg daily, lopressor 25 mg BID, amlodipine 2.5 mg at bedtime, zetia 10 mg daily and losartan 25 mg at bedtime. GENERAL: Well-appearing, well-nourished and in no acute distress. NECK: Supple without JVD or thyromegaly. LUNGS: Breath sounds clear to auscultation bilaterally. Respiration equal and unlabored. No wheezes, rales or rhonchi. HEART: Regular rate and rhythm with systolic ejection murmur at the left sternal border, no rubs or gallops. S1 and S2 heard. EXTREMITIES: Normal range of motion, no edema. No clubbing or cyanosis. Peripheral pulses intact. ASSESSMENT Near syncope, likely secondary to orthostatic hypotension History of coronary artery disease status post bypass grafting Hypertension Diabetes mellitus Peripheral neuropathy PLAN Decrease aspirin to 81 mg daily. Ongoing evaluation per neurology. Follow up in the office with Dr. Hampton, recommend outpatient event monitoring. Nurse Practitioner note has been reviewed, I agree with a documented findings and plan of care. Patient was seen and examined. Objective - Vital Signs Vital signs: Vital Signs Temp 97.5 F L 11/13/19 07:10 Pulse 90 11/13/19 07:10 Resp 18 11/13/19 07:10 BP 152/76 11/13/19 07:10 Pulse Ox 95 11/13/19 07:10 Intake & Output 11/12/19 11/13/19 11/13/19 18:59 06:59 18:59 Intake Total 200 Balance 200 Weight 71.668 kg 135 kg Intake: Oral 200 Other: Voiding Method Bedside Commode Bedside Commode # Voids 1 1 - Labs CBC & Chem 7: 11/12/19 09:49 11/12/19 09:49 Labs: Abnormal Lab Results - Last 24 Hours (Table) 11/12/19 11/12/19 11/12/19 Range/Units 12:13 13:19 22:32 POC Glucose (mg/dL) 312 H 371 H (75-99) mg/dL Urine Appearance Cloudy H (Clear) Urine Protein Trace H (Negative) Urine Ketones 1+ H (Negative) Urine Blood Trace H (Negative) Ur Leukocyte Esterase Large H (Negative) Urine WBC 81 H (0-5) /hpf Urine Bacteria Occasional H (None) /hpf 11/13/19 11/13/19 Range/Units 03:52 06:39 POC Glucose (mg/dL) 255 H 252 H (75-99) mg/dL Urine Appearance (Clear) Urine Protein (Negative) Urine Ketones (Negative) Urine Blood (Negative) Ur Leukocyte Esterase (Negative) Urine WBC (0-5) /hpf Urine Bacteria (None) /hpf
[2019-11-13 11:41] LABS: Glucose,Whole Blood 305 mg/dL (75-99)
[2019-11-13] MEDS ORDERED: LEVOTHYROXINE 75 MCG TAB PO SCH (12:00)
[2019-11-13] MEDS ORDERED: LORATADINE 10 MG TAB PO SCH (12:00)
[2019-11-13] MEDS ORDERED: INSULIN PUMP ACTIVE INSULIN 1 EACH MISC MISCELLANE PRN (12:18)
[2019-11-13] MEDS ORDERED: INSULIN PUMP TARGET GLUCOSE 1 EACH MISC MISCELLANE PRN (12:18)
[2019-11-13] MEDS ORDERED: INSPUCOR MISCELLANE PRN (12:18)
[2019-11-13] MEDS ORDERED: INSULIN PUMP BASAL RATES 1 EACH MISC MISCELLANE PRN (12:20)
--- NOTE | 2019-11-13 12:57 | P.CNNES ---
History of Present Illness Consult date: 11/13/19 Reason for Consult: syncope History of Present Illness: HISTORY OF PRESENT ILLNESS: Thank you for allowing me to evaluate Ms. Geovanna Chaney. Ms. Chaney is an 84 year-old woman with PMhx of DM, HTN, breast cancer, stroke/T IA, Paget's disease, temporal arteritis, anxiety, who presented to [facility] after an episode of near syncope. Patient's daughter, who lives with patient, is at bedside. Daughter states she has some staring episodes when her sugar is low, but during this episode, her sugar was 130. Yesterday morning, patient got up and went to the bathroom, and while waiting for breakfast, patient's daughter found pt having a blank stare for a few seconds, and then her legs getting week, and pt almost falling but daughter caught the patient. Daughter states that patient never lost consciousness, but had the blank stare and patient soon came out of it. Patient did not have any abnormal movements, tongue biting, or urinary/bowel incontinence. Daughter states that the night before, patient's sugar was in the 400s, but her sugar is brittle/labile, and for that reason, pt has an insulin pump. Daughter was going to take pt to cross roller for the insulin pump adjustment yesterday, but patient had the blank-stare episode. Patient has not been sick recent, didn't complain of any headache, nausea, vomiting, diarrhea, constipation. Patient also denies dysuria or increased frequency. PAST MEDICAL HISTORY: DM, HTN, breast cancer, stroke/TIA, Paget's disease, temporal arteritis, anxiety PAST SURGICAL HISTORY: Hysterectomy, R mastectomy HOME MEDICATIONS: Metoprolol, prednisone, amlodipine, pravastatin, losartan, protonix, Ezetimibe, Escitalopram, levothyroxine, ASA, Vitamin B12, insulin pump ALLERGIES: Contrast, iodine, NSAIDs, sulfa SOCIAL HISTORY: Former smoker FAMILY HISTORY: Mother with cancer and DM. Father with cancer and CAD REVIEW OF SYSTEMS: The 14 systems are reviewed and no additional points are identified compared to the review of systems documented history and physical PHYSICAL EXAMINATION: VITAL SIGNS: T 97.5 HR 90 RR 18 BP 152/76 O2 sat 95% on RA GEN.: NAD, pleasant and cooperative HEENT: NCAT, sclera without icterus NECK: Supple SKIN AND EXTREMITIES: Warm to touch, no edema NEURO: MENTAL STATUS: [Patient alert and oriented to self, place, time. Able to name the current president. Speech fluent, able to name and repeat, following all commands readily. CRANIAL NERVES II THROUGH XII: II: Pupils are equal and minimally reactive to light symmetrically. Patient with diabetic retinopathy, difficulty seeing clearly but able to tell shape. III, IV, : No ptosis. Extraocular movements full. No nystagmus. V: Facial sensation intact from V1-3. VII. No clear facial asymmetry. VIII: Hearing intact to finger rub bilaterally. IX, X: Symmetric palate elevation. XI: Shoulder shrug intact. XII: Tongue midline without fasciculation or atrophy. MOTOR: Normal bulk/tone. No pronator drift. Action tremor of b/l UE. Strength is 5/5 throughout all 4 extremities. SENSORY: Intact to light touch in all 4 extremities. REFLEXES: 2+ throughout. Toes are downgoing. COORDINATION: Finger to nose intact. No dysmetria. GAIT: Patient able to stand up on her own. She feels that her legs will give out when she walks. DIAGNOSTIC TESTING: LABORATORY: WBC 7.3 Hgb 13.8 Platelet 221 Na 137 K 4.9 Cl 99 CO2 29 BUN 31 Cr 0.97 glucose 150 AST 38 ALT 20 AlkPhos 89 urinalysis positive for leukesterase, WBC IMAGING: CT Head w/o contrast 11/12/2019: No intracranial hemorrhage or midline shift. There is mild to moderate diffuse age-related cervical atrophy mild chronic small vessel ischemic changes redemonstrated. No sleep change from most recent prior CT taken on 10/13/2018. ASSESSMENT/RECOMMENDATIONS: 84 year-old woman with PMhx of DM, HTN, breast cancer, stroke/TIA, Paget's disease, temporal arteritis, anxiety, who presented to [facility] after an episode of near syncope. Patient's blood glucose has been consistently elevated, since last night, it's been in [id number], along with patient found with UTI. Patient likely had her event in the setting of hyperglycemia and infe ction causing a dehydrated state. No additional studies recommended at this time. Neurology will sign off at this time. Please feel free to contact Neurology again if with additional questions or concerns. Past Medical History Past Medical History: Cancer, CVA/TIA, Diabetes Mellitus, Hyperlipidemia, Hypertension, Myocardial Infarction ([place]), Thyroid Disorder Additional Past Medical History / Comment(s): R breast cancer/padget's disease with mastectomy, TIA x3 in 2010, IDDM type II with insulin pump, legally blind bilaterally/diabetic retinopathy, diabetic neuropathy bilateral feet, temporal arteritis, tailbone fracture a few months ago still has pain, hypothyroid, constipation, varicosities. Last Myocardial Infarction Date:: 2015 History of Any Multi-Drug Resistant Organisms: None Reported Past Surgical History: Breast Surgery, Coronary Bypass/CABG, Heart Catheterization, Hysterectomy Additional Past Surgical History / Comment(s): 2016 CABG 3 vessel, right mastectomy, R temporal arteritis, bilateral cataracts removed/bilateral laser eye surgery. Past Anesthesia/Blood Transfusion Reactions: No Reported Reaction Additional Past Anesthesia/Blood Transfusion Reaction / Comment(s): Pt has received blood in past without reaction. Smoking Status: Former smoker - Past Family History Mother Family Medical History: Cancer, Diabetes Mellitus, Vascular Disorder Additional Family Medical History / Comment(s): Breast cancer, autoimmune disease, aneurysm in brain Father Family Medical History: Cancer, Coronary Artery Disease (CAD) Additional Family Medical History / Comment(s): Laryngeal cancer. Father was a smoker. Medications and Allergies Home Medications Medication Instructions Recorded Confirmed Type LORazepam [Ativan] 0.5 mg PO BID 02/15/15 11/12/19 History Propylene Glycol/Peg 400/Pf 1 drop BOTH EYES DAILY PRN 02/15/15 11/12/19 History [Systane 0.3-0.4% Eye Drops] Latanoprost Ophth [Xalatan 0.005%] 1 drops RIGHT EYE HS ml 11/25/15 11/12/19 Rx Metoprolol Tartrate [Lopressor] 25 mg PO BID #60 tab 11/25/15 11/12/19 Rx predniSONE 1 mg PO DAILY #30 tab 11/25/15 11/12/19 Rx Escitalopram [Lexapro] 5 mg PO HS 10/13/18 11/12/19 History Ezetimibe [Zetia] 10 mg PO DAILY 10/13/18 11/12/19 History Levothyroxine Sodium [Synthroid] 75 mcg PO MOTUWETHFRSA@1200 10/13/18 11/12/19 History Loratadine [Claritin] 10 mg PO DAILY@1200 10/13/18 11/12/19 History Losartan [Cozaar] 25 mg PO HS 10/13/18 11/12/19 History Pantoprazole [Protonix] 40 mg PO HS 10/13/18 11/12/19 History Pravastatin Sodium [Pravachol] 20 mg PO HS 10/13/18 11/12/19 History amLODIPine [Norvasc] 2.5 mg PO HS 10/13/18 11/12/19 History Aspirin 162 mg PO HS 11/12/19 11/12/19 History Lchahocakoqhmb-XG-Flbcydibtl 1 tab PO AC-BRKFST 11/12/19 11/12/19 History [Folbic] Insulin Aspart (For Pump) [NovoLOG 0.01 unit SQ-PUMP CONTINUOUS 11/12/19 11/12/19 History (For Pump)] Vitamin D3(Unknown Dose) 1 tab PO DAILY 11/12/19 11/12/19 History Allergies Allergy/AdvReac Type Severity Reaction Status Date / Time Iodinated Contrast Media Allergy Anaphylaxis Verified 11/12/19 12:21 iodine Allergy Swelling Verified 11/12/19 12:21 NSAIDS (Non-Steroidal Allergy Rash/Hives Verified 11/12/19 12:21 Anti-Inflamma Sulfa (Sulfonamide Allergy Rash/Hives Verified 11/12/19 12:21 Antibiotics) Physical Examination - Vital Signs Vital Signs: Vital Signs Temp Pulse Pulse Resp BP BP Pulse Ox 11/13/19 07:10 97.5 F L 90 18 152/76 95 11/13/19 04:00 98.0 F 96 18 167/76 93 L 11/13/19 00:00 82 18 11/12/19 23:19 97.6 F 82 18 151/70 96 11/12/19 20:00 98.1 F 82 18 153/74 94 L 11/12/19 19:57 98.1 F 75 18 129/49 98 11/12/19 15:16 81 16 129/49 94 L 11/12/19 15:15 74 100/59 11/12/19 13:30 78 16 115/52 95 11/12/19 11:06 76 18 126/54 100 Intake and Output 11/12/19 11/13/19 11/13/19 22:59 06:59 14:59 Intake Total 200 Balance 200 Intake: Oral 200 Other: Voiding Method Bedside Commode Bedside Commode Bedside Commode # Voids 1 1 Weight 135 kg Results - Laboratory Findings CBC and BMP: 11/12/19 09:49 11/12/19 09:49 Abnormal Lab Findings: Abnormal Labs 11/12/19 11/12/19 11/12/19 09:49 09:49 12:13 Lymphocytes # 0.6 L BUN 31 H Glucose 150 H POC Glucose (mg/dL) AST 38 H Urine Appearance Cloudy H Urine Protein Trace H Urine Ketones 1+ H Urine Blood Trace H Ur Leukocyte Esterase Large H Urine WBC 81 H Urine Bacteria Occasional H 11/12/19 11/12/19 11/13/19 13:19 22:32 03:52 Lymphocytes # BUN Glucose POC Glucose (mg/dL) 312 H 371 H 255 H AST Urine Appearance Urine Protein Urine Ketones Urine Blood Ur Leukocyte Esterase Urine WBC Urine Bacteria 11/13/19 06:39 Lymphocytes # BUN Glucose POC Glucose (mg/dL) 252 H AST Urine Appearance Urine Protein Urine Ketones Urine Blood Ur Leukocyte Esterase Urine WBC Urine Bacteria
[2019-11-13] MEDS: INSULIN PUMP MEAL BOLUS 1 UNIT MISC MISCELLANE SCH ×4 (14:25→22:39)
[2019-11-13] MEDS: SODIUM CHLORIDE 0.9% 1,000 ML IV SCH ×2 (15:44→23:57)
[2019-11-13 16:43] LABS: Glucose,Whole Blood 380 mg/dL (75-99)
[2019-11-13 20:18] LABS: Glucose,Whole Blood 410 mg/dL (75-99)
[2019-11-13] MEDS ORDERED: LOSARTAN 25 MG TAB PO SCH (21:00)
[2019-11-13] MEDS ORDERED: ASPIRIN 81 MG PO SCH ×2 (21:00)
[2019-11-13] MEDS ORDERED: PRAVASTATIN SODIUM 20 MG TAB PO SCH (21:00)
[2019-11-13] MEDS ORDERED: ESCITALOPRAM 5 MG TAB PO SCH (21:00)
[2019-11-13] MEDS ORDERED: PANTOPRAZOLE 40 MG TABLET PO SCH (21:00)
[2019-11-13] MEDS ORDERED: LATANOPROST 0.005% OPHTH DROPS 2.5 ML BTL RIGHT EYE SCH (21:00)
[2019-11-13] MEDS ORDERED: amLODIPine 2.5 MG TAB PO SCH (21:00)
--- NOTE | 2019-11-13 21:15 | P.HPIM ---
History of Present Illness H&P Date: 11/13/19 This is a pleasant 84-year-old white female who is admitted after daughter witnessed her on her way to the bathroom getting lightheaded dizzy and feeling faint she immediately sat her down and she did not sustain a fall patient does not recall the events of yesterday that led up to the hospitalization. Of note she was found to have sugars in the 200-300 range and at admission was found to have a urinary tract infection. As well as dehydration. Patient was confused and trouble finding her words. Also patient family said she was very weak in the knees and could not ambulate this has since resolved and she seems to be getting back to baseline she denies any current loss of consciousness headache dizziness blurred vision and slurred speech and her strength is equal and strong bilateral upper and lower extremities. She is currently with family at bedside. Review of Systems GENERAL: Patient denies fever. Denies chills. EYES: Denies blurred vision. Denies vision changes. Denies eye pain. EARS, NOSE, MOUTH, & THROAT: Denies headache. Denies sore throat. Denies ear pain. RESPIRATORY: Denies cough. Denies shortness of breath. Denies sputum production. Denies hemoptysis. CARDIOVASCULAR: Denies chest pain or pressure. Denies palpitations. Denies arrhythmias. GASTROINTESTINAL: Denies abdominal pain. Denies diarrhea. Denies constipation. Denies nausea. Denies vomiting. Denies heartburn. Denies blood in the stool. GENITOURINARY: Has ch ronic urinary frequency. burning. cloudy urine. Denies blood in the urine. MUSCULOSKELETAL: Denies myalgias. Denies joint swelling. Denies decreased range of motion beyond patients baseline. INTEGUMENTARY: Denies pruitis. Denies rash. PSYCHIATRIC: Denies suicidal or homicial ideations. ENDOCRINE: Denies weight change admits to diabetes with hyperglycemic events. HEMATOLOGIC: Denies bleeding disorders. Past Medical History Past Medical History: Cancer, CVA/TIA, Diabetes Mellitus, Hyperlipidemia, Hypertension, Myocardial Infarction ([place]), Thyroid Disorder Additional Past Medical History / Comment(s): R breast cancer/padget's disease w ith mastectomy, TIA x3 in 2010, IDDM type II with insulin pump, legally blind bilaterally/diabetic retinopathy, diabetic neuropathy bilateral feet, temporal arteritis, tailbone fracture a few months ago still has pain, hypothyroid, constipation, varicosities. Last Myocardial Infarction Date:: 2015 History of Any Multi-Drug Resistant Organisms: None Reported Past Surgical History: Breast Surgery, Coronary Bypass/CABG, Heart Catheterization, Hysterectomy Additional Past Surgical History / Comment(s): 2016 CABG 3 vessel, right mastectomy, R temporal arteritis, bilateral cataracts removed/bilateral laser eye surgery. Past Anesthesia/Blood Transfusion Reactions: No Reported Reaction Additional Past Anesthesia/Blood Transfusion Reaction / Comment(s): Pt has received blood in past without reaction. Smoking Status: Former smoker - Past Family History Mother Family Medical History: Cancer, Diabetes Mellitus, Vascular Disorder Additional Family Medical History / Comment(s): Breast cancer, autoimmune disease, aneurysm in brain Father Family Medical History: Cancer, Coronary Artery Disease (CAD) Additional Family Medical History / Comment(s): Laryngeal cancer. Father was a smoker. Medications and Allergies Home Medications Medication Instructions Recorded Confirmed Type LORazepam [Ativan] 0.5 mg PO BID 02/15/15 11/12/19 History Propylene Glycol/Peg 400/Pf 1 drop BOTH EYES DAILY PRN 02/15/15 11/12/19 History [Systane 0.3-0.4% Eye Drops] Latanoprost Ophth [Xalatan 0.005%] 1 drops RIGHT EYE HS ml 11/25/15 11/12/19 Rx Metoprolol Tartrate [Lopressor] 25 mg PO BID #60 tab 11/25/15 11/12/19 Rx predniSONE 1 mg PO DAILY #30 tab 11/25/15 11/12/19 Rx Escitalopram [Lexapro] 5 mg PO HS 10/13/18 11/12/19 History Ezetimibe [Zetia] 10 mg PO DAILY 10/13/18 11/12/19 History Levothyroxine Sodium [Synthroid] 75 mcg PO MOTUWETHFRSA@1200 10/13/18 11/12/19 History Loratadine [Claritin] 10 mg PO DAILY@1200 10/13/18 11/12/19 History Losartan [Cozaar] 25 mg PO HS 10/13/18 11/12/19 History Pantoprazole [Protonix] 40 mg PO HS 10/13/18 11/12/19 History Pravastatin Sodium [Pravachol] 20 mg PO HS 10/13/18 11/12/19 History amLODIPine [Norvasc] 2.5 mg PO HS 10/13/18 11/12/19 History Aspirin 162 mg PO HS 11/12/19 11/12/19 History Qoptnwjonwrbiw-CL-Dftlarxzud 1 tab PO AC-BRKFST 11/12/19 11/12/19 History [Folbic] Insulin Aspart (For Pump) [NovoLOG 0.01 unit SQ-PUMP CONTINUOUS 11/12/19 11/12/19 History (For Pump)] Vitamin D3(Unknown Dose) 1 tab PO DAILY 11/12/19 11/12/19 History Allergies Allergy/AdvReac Type Severity Reaction Status Date / Time Iodinated Contrast Media Allergy Anaphylaxis Verified 11/12/19 12:21 iodine Allergy Swelling Verified 11/12/19 12:21 NSAIDS (Non-Steroidal Allergy Rash/Hives Verified 11/12/19 12:21 Anti-Inflamma Sulfa (Sulfonamide Allergy Rash/Hives Verified 11/12/19 12:21 Antibiotics) Physical Exam Osteopathic Statement: *. No significant issues noted on an osteopathic structural exam other than those noted in the History and Physical/Consult. Vitals: Vital Signs Temp Pulse Resp BP Pulse Ox 11/13/19 19:37 98.2 F 77 18 144/75 94 L 11/13/19 16:22 97.4 F L 77 154/65 92 L 11/13/19 11:20 98.1 F 73 18 147/80 94 L 11/13/19 07:10 97.5 F L 90 18 152/76 95 11/13/19 04:00 98.0 F 96 18 167/76 93 L 11/13/19 00:00 82 18 11/12/19 23:19 97.6 F 82 18 151/70 96 Intake and Output 11/13/19 11/13/19 11/13/19 06:59 14:59 22:59 Intake Total 200 Balance 200 Intake: Other 200 Other: Voiding Method Bedside Commode Bedside Commode Bedside Commode # Voids 1 1 Weight 135 kg GENERAL: This is a -84 year-old in no apparent distress at the time of examination. Pleasant and cooperative. HEENT: Head is atraumatic, normocephalic. Pupils are equal, round, and reactive to light. Sclerae anicteric. Conjunctivae are clear. Mucus membranes of the mouth are moist. Neck is supple. RESPIRATORY: Clear to auscultation. No wheezes, rales, or rhonchi side. No chest wall tenderness is noted on palpation or with deep breathing. CARDIOVASCULAR: Regular rate and rhythm. . GASTROINTESTINAL: No distention noted. Abdomen soft and round. Normal active bowel sounds auscultated x 4 quadrants. No pain or tenderness noted upon palpation. INTEGUMENTARY: No cyanosis. No jaundice. No rashes noted. No cellulitis noted. EXTREMITIES: 2+ peripheral pulses. No evidence of peripheral edema. No calf tenderness noted. NEUROLOGIC: Cranial nerves II-XII intact. PSYCHIATRIC: Awake, alert, and oriented X 3. Appropriate affect. Intact judgement and insight. Results CBC & Chem 7: 11/12/19 09:49 11/12/19 09:49 Labs: Abnormal Lab Results - Last 24 Hours (Table) 11/12/19 11/13/19 11/13/19 Range/Units 22:32 03:52 06:39 POC Glucose (mg/dL) 371 H 255 H 252 H (75-99) mg/dL 11/13/19 11/13/19 11/13/19 Range/Units 11:39 16:42 20:15 POC Glucose (mg/dL) 305 H 380 H 410 H (75-99) mg/dL Microbiology - Last 24 Hours (Table) 11/13/19 10:05 Urine Culture - Preliminary Urine,Voided Thrombosis Risk Factor Assmnt - Choose All That Apply Any of the Below Risk Factors Present?: Yes Other Risk Factors: Yes Each Risk Factor Represents 2 Points: Malignancy Each Risk Factor Represents 3 Points: Age 75 years or older Other congenital or acquired thrombophilia - If yes, enter type in comment: No Thrombosis Risk Factor Assessment Total Risk Factor Score: 5 Thrombosis Risk Factor Assessment Level: High Risk Assessment and Plan (1) Acute urinary tract infection Current Visit: Yes Status: Acute Code(s): N39.0 - URINARY TRACT INFECTION, SITE NOT SPECIFIED SNOMED Code(s): 809517171 (2) Acute metabolic encephalopathy Current Visit: Yes Status: Acute Code(s): G93.41 - METABOLIC ENCEPHALOPATHY SNOMED Code(s): 89872651 (3) Syncope Current Visit: Yes Status: Acute Code(s): R55 - SYNCOPE AND COLLAPSE SNOMED Code(s): 382277781 (4) Acute hyperglycemia Current Visit: No Status: Acute Code(s): R73.9 - HYPERGLYCEMIA, UNSPECIFIED SNOMED Code(s): 522720848 (5) Diabetes mellitus type 2, uncontrolled Current Visit: No Status: Acute Code(s): E11.65 - TYPE 2 DIABETES MELLITUS WITH HYPERGLYCEMIA SNOMED Code(s): 347356768 (6) History of CVA (cerebrovascular accident) Current Visit: No Status: Acute Code(s): Z86.73 - PRSNL HX OF TIA (TIA), AND CEREB INFRC W/O RESID DEFICITS SNOMED Code(s): 672085474 (7) Hypertension Current Visit: No Status: Acute Code(s): I10 - ESSENTIAL (PRIMARY) HYPERTENSION SNOMED Code(s): 09821449 (8) Insulin dependent diabetes mellitus Current Visit: No Status: Acute Code(s): E11.9 - TYPE 2 DIABETES MELLITUS WITHOUT COMPLICATIONS SNOMED Code(s): 92827843 (9) Acute dehydration Current Visit: Yes Status: Acute Code(s): E86.0 - DEHYDRATION SNOMED Code(s): 27282000 Plan: Plan admit patient full consultations by cardiology and neurology in progress will continue to monitor patient over the next 24 hours for any signs of TIA. Add antibiotics for urinary tract infection. Family's at bedside and questions answered. We'll discharge when patient is back to baseline soon 24-36 hours
[2019-11-13 22:12] LABS: Glucose,Whole Blood 335 mg/dL (75-99)
[2019-11-14 06:50] LABS: Glucose,Whole Blood 121 mg/dL (75-99)
[2019-11-14 07:57] VITALS: BP 151/72; PULSE 82; TEMP 97.5
[2019-11-14] MEDS: predniSONE 1 MG TAB PO SCH (10:03)
[2019-11-14] MEDS: CYANOCOBALAMIN-FA-PYRIDOXINE 1 EACH TAB PO SCH (10:03)
[2019-11-14] MEDS: LORazepam 0.5 MG TAB PO SCH (10:03)
[2019-11-14] MEDS: METOPROLOL TARTRATE 25 MG TAB PO SCH (10:03)
[2019-11-14] MEDS: EZETIMIBE 10 MG TAB PO SCH (10:03)
[2019-11-14] MEDS: INSULIN PUMP MEAL BOLUS 1 UNIT MISC MISCELLANE SCH (10:04)
== END 2019-11-14 11:28 | disposition home health service (06) | DRG 689 ==
LOC: EC 09:19 → 1SOBS 12:00 → OBSVTOIN 11-14 08:48
PROVIDERS: ADMIT Family Medicine; ATTEND Family Medicine
DX: N39.0 Urinary tract infection, site not specified (principal); G93.41 Metabolic encephalopathy; E11.319 Type 2 diabetes mellitus with unspecified diabetic retinopathy without macular edema; E11.42 Type 2 diabetes mellitus with diabetic polyneuropathy; E11.65 Type 2 diabetes mellitus with hyperglycemia; I95.1 Orthostatic hypotension; I44.0 Atrioventricular block, first degree; I25.2 Old myocardial infarction; I25.10 Atherosclerotic heart disease of native coronary artery without angina pectoris; I10 Essential (primary) hypertension; H54.8 Legal blindness, as defined in USA; E86.0 Dehydration; E78.5 Hyperlipidemia, unspecified; E03.9 Hypothyroidism, unspecified; F41.9 Anxiety disorder, unspecified; R29.6 Repeated falls; R01.1 Cardiac murmur, unspecified; I83.90 Asymptomatic varicose veins of unspecified lower extremity; Z79.4 Long term (current) use of insulin; Z79.82 Long term (current) use of aspirin; Z79.890 Hormone replacement therapy; Z79.899 Other long term (current) drug therapy; Z79.52 Long term (current) use of systemic steroids; Z88.2 Allergy status to sulfonamides; Z88.6 Allergy status to analgesic agent; Z91.041 Radiographic dye allergy status; Z85.3 Personal history of malignant neoplasm of breast; Z86.73 Personal history of transient ischemic attack (TIA), and cerebral infarction without residual deficits; Z87.891 Personal history of nicotine dependence; Z90.11 Acquired absence of right breast and nipple; Z90.710 Acquired absence of both cervix and uterus; Z95.1 Presence of aortocoronary bypass graft; Z96.41 Presence of insulin pump (external) (internal); Z98.42 Cataract extraction status, left eye; Z98.41 Cataract extraction status, right eye; Z96.1 Presence of intraocular lens; Z80.2 Family history of malignant neoplasm of other respiratory and intrathoracic organs; Z82.49 Family history of ischemic heart disease and other diseases of the circulatory system; Z83.3 Family history of diabetes mellitus; Z80.3 Family history of malignant neoplasm of breast; W19.XXXA Unspecified fall, initial encounter
CPT/HCPCS: 36415; 70450; 71046; 80053; 81001; 83735; 84484; 85025; 85610; 85730; 87086; 93005; 96360; 96361; 99285

== ENCOUNTER 2020-07-17 01:15 | Emergency (ER) | payer MEDICARE, OTHER ==
[2020-07-17 01:28] VITALS: RESP 18; TEMP 97.7
[2020-07-17] MEDS ORDERED: ACETAMINOPHEN TAB 325 MG TAB PO STA (01:36)
--- NOTE | 2020-07-17 01:44 | ED ---
Lower Extremity Injury HPI - General Source: patient, family Mode of arrival: EMS <Gillian Nolan - Last Filed: 07/17/20 03:01> <Fabio Trinh - Last Filed: 07/17/20 06:22> - General Chief Complaint: Extremity Injury, Lower Stated Complaint: Flank Pain Time Seen by Provider: 07/17/20 01:26 - History of Present Illness Initial Comments: Patient is an 84-year-old female, history diabetes, hypertension, legally blind, presenting to emergency Department with complaints of left lower leg pain that started 2 hours ago. Patient denies any injuries or falls. Patient states she is trying to get into bed and was unable to lift up her left leg secondary to pain. She denies any previous injuries, surgeries to her left leg. She did adm it to history of CABG, they took vessels from her left lower leg. She is not on blood thinners. She denies history of DVTs. She denies history of fever, chills. She states she is currently being treated for UTI with Cipro. She did not take anything for her pain. She has no further complaints at this time. (Gillian Nolan) - Related Data Home Medications Medication Instructions Recorded Confirmed LORazepam [Ativan] 0.5 mg PO BID 02/15/15 11/12/19 Propylene Glycol/Peg 400/Pf 1 drop BOTH EYES DAILY PRN 02/15/15 11/12/19 [Systane 0.3-0.4% Eye Drops] Escitalopram [Lexapro] 5 mg PO HS 10/13/18 11/12/19 Ezetimibe [Zetia] 10 mg PO DAILY 10/13/18 11/12/19 Levothyroxine Sodium [Synthroid] 75 mcg PO MOTUWETHFRSA@1200 10/13/18 11/12/19 Loratadine [Claritin] 10 mg PO DAILY@1200 10/13/18 11/12/19 Losartan [Cozaar] 25 mg PO HS 10/13/18 11/12/19 Pantoprazole [Protonix] 40 mg PO HS 10/13/18 11/12/19 Pravastatin Sodium [Pravachol] 20 mg PO HS 10/13/18 11/12/19 amLODIPine [Norvasc] 2.5 mg PO HS 10/13/18 11/12/19 Aspirin 162 mg PO HS 11/12/19 11/12/19 Jztvyhhhwkerkm-JJ-Irjjyhqfxy 1 tab PO AC-BRKFST 11/12/19 11/12/19 [Folbic] Insulin Aspart (For Pump) [NovoLOG 0.01 unit SQ-PUMP CONTINUOUS 11/12/19 11/12/19 (For Pump)] Vitamin D3(Unknown Dose) 1 tab PO DAILY 11/12/19 11/12/19 Previous Rx's Medication Instructions Recorded Latanoprost Ophth [Xalatan 0.005%] 1 drops RIGHT EYE HS ml 11/25/15 Metoprolol Tartrate [Lopressor] 25 mg PO BID #60 tab 11/25/15 predniSONE 1 mg PO DAILY #30 tab 11/25/15 Cefuroxime Axetil [Ceftin] 500 mg PO BID #14 tab 11/14/19 traMADol HCl [Ultram] 50 mg PO TID PRN #9 tab 11/14/19 Hydrocodone/Acetaminophen [[place] 1 each PO Q6HR PRN #20 tab 07/17/20 5-325] Allergies Allergy/AdvReac Type Severity Reaction Status Date / Time Iodinated Contrast Media Allergy Anaphylaxis Verified 07/17/20 01:28 iodine Allergy Swelling Verified 07/17/20 01:28 NSAIDS (Non-Steroidal Allergy Rash/Hives Verified 07/17/20 01:28 Anti-Inflamma Sulfa (Sulfonamide Allergy Rash/Hives Verified 07/17/20 01:28 Antibiotics) Review of Systems ROS Other: All systems not noted in ROS Statement are negative. <Gillian Nolan - Last Filed: 07/17/20 03:01> ROS Other: All systems not noted in ROS Statement are negative. <Fabio Trinh - Last Filed: 07/17/20 06:22> ROS Statement: Those systems with pertinent positive or pertinent negative responses have been documented in the HPI. Past Medical History Past Medical History: Cancer, CVA/TIA, Diabetes Mellitus, Hyperlipidemia, Hypertension, Myocardial Infarction ([place]), Thyroid Disorder Additional Past Medical History / Comment(s): R breast cancer/padget's disease with mastectomy, TIA x3 in 2010, IDDM type II with insulin pump, legally blind bilaterally/diabetic retinopathy, diabetic neuropathy bilateral feet, temporal arteritis, tailbone fracture a few months ago still has pain, hypothyroid, constipation, varicosities. Last Myocardial Infarction Date:: 2016 History of Any Multi-Drug Resistant Organisms: None Reported Past Surgical History: Breast Surgery, Coronary Bypass/CABG, Heart Catheterization, Hysterectomy Additional Past Surgical History / Comment(s): 2016 CABG 3 vessel, right mastectomy, R temporal arteritis, bilateral cataracts removed/bilateral laser eye surgery. Past Anesthesia/Blood Transfusion Reactions: No Reported Reaction Additional Past Anesthesia/Blood Transfusion Reaction / Comment(s): Pt has received blood in past without reaction. Past Psychological History: Anxiety Smoking Status: Former smoker Past Alcohol Use History: None Reported Past Drug Use History: None Reported - Past Family History Mother Family Medical History: Cancer, Diabetes Mellitus, Vascular Disorder Additional Family Medical History / Comment(s): Breast cancer, autoimmune disease, aneurysm in brain Father Family Medical History: Cancer, Coronary Artery Disease (CAD) Additional Family Medical History / Comment(s): Laryngeal cancer. Father was a smoker. <Gillian Nolan - Last Filed: 07/17/20 03:01> General Exam <Gillian Nolan - Last Filed: 07/17/20 03:01> - General Exam Comments Initial Comments: GENERAL: Patient is well-developed and well-nourished. Patient is nontoxic and in no acute distress. HEAD: Atraumatic, normocephalic. EYES: Pupils equal round and reactive to light, extraocular movements intact, sclera anicteric, conjunctiva are normal. Eyelids were unremarkable. Legally blind. ENT: TMs normal, nares patent, oropharynx clear without exudates. Moist mucous membranes. NECK: Normal range of motion, supple without lymphadenopathy or JVD. LUNGS: Unlabored respirations. Breath sounds clear to auscultation bilaterally and equal. No wheezes rales or rhonchi. HEART: Regular rate and rhythm without murmurs, rubs or gallops. ABDOMEN: Soft, nontender, normoactive bowel sounds. No guarding, no rebound. No masses appreciated. : Deferred MUSCULOSKELETAL: Pain with palpation of the posterior aspect of the left lower leg, posterior left knee. Patient is unable to flex the left knee secondary to pain. His neurovascular intact. There is no significant lower leg edema, no erythema or signs of infection. No clubbing or cyanosis. NEUROLOGICAL: Patient is alert and oriented x 3. Motor and sensory are also intact. Cranial nerves II through XII grossly intact. Symmetrical smile. Normal speech. PSYCH: Normal mood, normal affect. SKIN: Warm, Dry, normal turgor, no rashes or lesions noted. (Gillain Nolan) Course <Gillian Nolan - Last Filed: 07/17/20 03:01> Vital Signs 07/17/20 01:26 Temperature 97.7 F Pulse Rate 64 Respiratory 18 Rate Blood Pressure 196/87 O2 Sat by Pulse 97 Oximetry - Reevaluation(s) Reevaluation #1: 07/17/20 03:01 Patient is comfortable at this time. Ultrasound is pending. Patient care transferred to Dr. Trinh at 3:02 (Gillian Nolan) Medical Decision Making <Gillian Nolan - Last Filed: 07/17/20 03:01> - Medical Decision Making Patient is an 84-year-old female here for left lower leg pain 2 hours. She denies any injuries or trauma, no previous surgeries or injuries. (Gillian Nolan) Disposition <Gillian Nolan - Last Filed: 07/17/20 03:01> Is patient prescribed a controlled substance at d/c from ED?: Yes When asked, does pt state using other controlled substances?: No If prescribed controlled substance>3 days was MAPS reviewed?: Prescribed <3 Days If opioid is for acute pain is fill amount 7 days or less?: Yes If Rx opioid, was Start Talking consent form obtained?: Yes <Fabio Trinh - Last Filed: 07/17/20 06:22> Clinical Impression: Leg pain Disposition: HOME SELF-CARE Condition: Good Instructions (If sedation given, give patient instructions): Leg Pain (ED) Prescriptions: Hydrocodone/Acetaminophen [[place] 5-325] 1 each PO Q6HR PRN #20 tab PRN Reason: Pain Referrals: Tony Thomas DO [Primary Care Provider] - 1-2 days
--- NOTE | 2020-07-17 03:13 | US ---
EXAMINATION TYPE: US venous doppler duplex LE LT DATE OF EXAM: 07/17/2020 2:56 AM COMPARISON: NONE CLINICAL HISTORY: pain, swelling. Pain and swelling to left lower extremity x 2.5 hours. No hx of DVT . Patient takes aspirin. SIDE PERFORMED: Left TECHNIQUE: The lower extremity deep venous system is examined utilizing real time linear array sonog martita with graded compression, doppler sonography and color-flow sonography. VESSELS IMAGED: External Iliac Vein (EIV) Common Femoral Vein Deep Femoral Vein Greater Saphenous Vein * Femoral Vein Popliteal Vein Small Saphenous Vein * Proximal Calf Veins (* superficial vessels) Left Leg: No evidence of DVT in veins imaged at this time from prox calf veins to EIV. Duplicate fem oral vein seen at mid and distal segments. Limitation noted while scanning posterior to the knee. Patient's leg needed to be held up. Patient un able to move into proper position due to pain. Color flow and compression of popliteal vein seen; art ifact is visualized due to limitation. IMPRESSION: No sign of deep vein thrombosis in the left leg.
[2020-07-17] MEDS ORDERED: HYDROmorphone 0.5 MG/0.5 ML SYRINGE IVP STA (04:43)
--- NOTE | 2020-07-17 05:11 | XR ---
EXAMINATION TYPE: XR femur LT DATE OF EXAM: 07/17/2020 COMPARISON: NONE HISTORY: Leg pain TECHNIQUE: 4 views FINDINGS: There is mild acetabular spurring. There is mild narrowing of the medial joint space of the knee. I see no fracture nor dislocation. There is vascular calcification. IMPRESSION: No acute abnormality of the left femur. No fracture seen.
[2020-07-17 06:43] VITALS: BP 155/66; PULSE 68
== END 2020-07-17 06:42 | disposition home or self-care (01) ==
LOC: EC 01:15
DX: M79.662 Pain in left lower leg (principal); E11.319 Type 2 diabetes mellitus with unspecified diabetic retinopathy without macular edema; E11.42 Type 2 diabetes mellitus with diabetic polyneuropathy; E03.9 Hypothyroidism, unspecified; H54.8 Legal blindness, as defined in USA; F41.9 Anxiety disorder, unspecified; E78.5 Hyperlipidemia, unspecified; I10 Essential (primary) hypertension; I25.2 Old myocardial infarction; Z79.890 Hormone replacement therapy; Z79.4 Long term (current) use of insulin; Z79.899 Other long term (current) drug therapy; Z79.82 Long term (current) use of aspirin; Z91.041 Radiographic dye allergy status; Z88.6 Allergy status to analgesic agent; Z88.2 Allergy status to sulfonamides; Z91.048 Other nonmedicinal substance allergy status; Z96.41 Presence of insulin pump (external) (internal); Z86.72 Personal history of thrombophlebitis; Z85.3 Personal history of malignant neoplasm of breast; Z86.73 Personal history of transient ischemic attack (TIA), and cerebral infarction without residual deficits; Z95.1 Presence of aortocoronary bypass graft; Z95.5 Presence of coronary angioplasty implant and graft; Z98.890 Other specified postprocedural states; Z87.891 Personal history of nicotine dependence
CPT/HCPCS: 73552; 93971; 96374; 99284; J1170

== ENCOUNTER 2020-07-22 18:11 | Emergency (ER) | payer MEDICARE, OTHER ==
[2020-07-22 18:21] VITALS: BP 138/62; PULSE 65; RESP 18; TEMP 98.3
[2020-07-22] MEDS ORDERED: HYDROcodone/APAP 5-325MG 1 EACH TAB PO STA (18:33)
[2020-07-22] MEDS ORDERED: LIDOCAINE 5% PATCH TOPICAL STA (18:33)
--- NOTE | 2020-07-22 18:36 | ED ---
General Adult HPI - General Chief complaint: Extremity Injury, Lower Stated complaint: recheck - lt hip pain Time Seen by Provider: 07/22/20 18:24 Source: patient Mode of arrival: ambulatory Limitations: no limitations - History of Present Illness Initial comments: Dictation was produced using [employer] dictation software. please excuse any grammatical, word or spelling errors. This patient was cared for during a federal and state declared state of emergency secondary to Covid 19 Chief Complaint: 84-year-old female presents with atraumatic left hip pain History of Present Illness: 84-year-old female presents with left hip pain. Patient denies any trauma to the hip. She was seen in the emergency department. One week ago where she was evaluated. She was evaluated at that time for left lower extremity pain. She had a negative femur x-ray 5 days ago. She also had a venous Doppler study that was found to be unremarkable. Patient complains of pain to the left lateral hip, patient states the pain radiates down the side of her left thigh. She denies a fever, chills or night sweats. The ROS documented in this emergency department record has been reviewed and confirmed by me. Those systems with pertinent positive or negative responses have been documented in the HPI. All other systems are other negative and/or noncontributory. PHYSICAL EXAM: General Impression: Alert and oriented x3, not in acute distress HEENT: Normocephalic atraumatic, extra-ocular movements intact, pupils equal and reactive to light bilaterally, mucous membranes moist. Cardiovascular: Heart regular rate and rhythm Chest: Able to complete full sentences, no retractions, no tachypnea Abdomen: abdomen soft, non-tender, non-distended, no organomegaly Musculoskeletal: Pulses present and equal in all extremities, no peripheral edema Left hip: No skin changes, tenderness to palpation of the ASIS, lateral greater trochanter. She does have pain with external rotation of the left lower extremity Motor: no focal deficits noted Neurological: CN II-XII grossly intact, no focal motor or sensory deficits noted Skin: Intact with no visualized rashes Psych: Normal affect and mood ED course: 84-year-old female presents with left hip pain. Signs upon arrival are within acceptable limits. Chart review was performed. She had a femur x- ray done 5 days ago showed no acute abnormality of the left femur. Hip x-ray shows no acute processes however there is fairly moderate axial joint space loss of the left hip. Patient given another patch and [place] pill. Patient will be discharged with by mouth analgesics and referral to orthopedic surgery. - Related Data Home Medications Medication Instructions Recorded Confirmed LORazepam [Ativan] 0.5 mg PO BID 02/15/15 11/12/19 Propylene Glycol/Peg 400/Pf 1 drop BOTH EYES DAILY PRN 02/15/15 11/12/19 [Systane 0.3-0.4% Eye Drops] Escitalopram [Lexapro] 5 mg PO HS 10/13/18 11/12/19 Ezetimibe [Zetia] 10 mg PO DAILY 10/13/18 11/12/19 Levothyroxine Sodium [Synthroid] 75 mcg PO MOTUWETHFRSA@1200 10/13/18 11/12/19 Loratadine [Claritin] 10 mg PO DAILY@1200 10/13/18 11/12/19 Losartan [Cozaar] 25 mg PO HS 10/13/18 11/12/19 Pantoprazole [Protonix] 40 mg PO HS 10/13/18 11/12/19 Pravastatin Sodium [Pravachol] 20 mg PO HS 10/13/18 11/12/19 amLODIPine [Norvasc] 2.5 mg PO HS 10/13/18 11/12/19 Aspirin 162 mg PO HS 11/12/19 11/12/19 Gwelyxsbdgoxgu-XQ-Yhkvjcqxyx 1 tab PO AC-BRKFST 11/12/19 11/12/19 [Folbic] Insulin Aspart (For Pump) [NovoLOG 0.01 unit SQ-PUMP CONTINUOUS 11/12/19 11/12/19 (For Pump)] Vitamin D3(Unknown Dose) 1 tab PO DAILY 11/12/19 11/12/19 Previous Rx's Medication Instructions Recorded Latanoprost Ophth [Xalatan 0.005%] 1 drops RIGHT EYE HS ml 11/25/15 Metoprolol Tartrate [Lopressor] 25 mg PO BID #60 tab 11/25/15 predniSONE 1 mg PO DAILY #30 tab 11/25/15 Cefuroxime Axetil [Ceftin] 500 mg PO BID #14 tab 11/14/19 traMADol HCl [Ultram] 50 mg PO TID PRN #9 tab 11/14/19 Hydrocodone/Acetaminophen [[place] 1 each PO Q6HR PRN #20 tab 07/17/20 5-325] HYDROcodone/APAP 5-325MG [[place] 1 tab PO Q6HR PRN 3 Days #12 tab 07/22/20 5-325] Allergies Allergy/AdvReac Type Severity Reaction Status Date / Time Iodinated Contrast Media Allergy Anaphylaxis Verified 07/22/20 18:21 iodine Allergy Swelling Verified 07/22/20 18:21 NSAIDS (Non-Steroidal Allergy Rash/Hives Verified 07/22/20 18:21 Anti-Inflamma Sulfa (Sulfonamide Allergy Rash/Hives Verified 07/22/20 18:21 Antibiotics) Review of Systems ROS Statement: Those systems with pertinent positive or pertinent negative responses have been documented in the HPI. ROS Other: All systems not noted in ROS Statement are negative. Past Medical History Past Medical History: Cancer, CVA/TIA, Diabetes Mellitus, Hyperlipidemia, Hypertension, Myocardial Infarction ([place]), Thyroid Disorder Additional Past Medical History / Comment(s): R breast cancer/padget's disease with mastectomy, TIA x3 in 2010, IDDM type II with insulin pump, legally blind bilaterally/diabetic retinopathy, diabetic neuropathy bilateral feet, temporal arteritis, tailbone fracture a few months ago still has pain, hypothyroid, constipation, varicosities. Last Myocardial Infarction Date:: 2015 History of Any Multi-Drug Resistant Organisms: None Reported Past Surgical History: Breast Surgery, Coronary Bypass/CABG, Heart Catheterization, Hysterectomy Additional Past Surgical History / Comment(s): 2016 CABG 3 vessel, right mastectomy, R temporal arteritis, bilateral cataracts removed/bilateral laser eye surgery. Past Anesthesia/Blood Transfusion Reactions: No Reported Reaction Additional Past Anesthesia/Blood Transfusion Reaction / Comment(s): Pt has received blood in past without reaction. Past Psychological History: Anxiety Smoking Status: Former smoker Past Alcohol Use History: None Reported Past Drug Use History: None Reported - Past Family History Mother Family Medical History: Cancer, Diabetes Mellitus, Vascular Disorder Additional Family Medical History / Comment(s): Breast cancer, autoimmune disease, aneurysm in brain Father Family Medical History: Cancer, Coronary Artery Disease (CAD) Additional Family Medical History / Comment(s): Laryngeal cancer. Father was a smoker. General Exam Limitations: no limitations Course Vital Signs 07/22/20 18:17 Temperature 98.3 F Pulse Rate 65 Respiratory 18 Rate Blood Pressure 138/62 O2 Sat by Pulse 100 Oximetry Disposition Clinical Impression: Hip pain Disposition: HOME SELF-CARE Condition: Good Instructions (If sedation given, give patient instructions): Hip Pain (ED) Prescriptions: HYDROcodone/APAP 5-325MG [[place] 5-325] 1 tab PO Q6HR PRN 3 Days #12 tab PRN Reason: Severe Pain Is patient prescribed a controlled substance at d/c from ED?: Yes If prescribed controlled substance>3 days was MAPS reviewed?: Prescribed <3 Days Referrals: Bravo Moctezuma MD [STAFF PHYSICIAN] - 1-2 days Time of Disposition: 19:15
--- NOTE | 2020-07-22 19:02 | XR ---
EXAMINATION TYPE: XR Hip Complete LT, XR femur LT DATE OF EXAM: 07/22/2020 CLINICAL HISTORY: Pain for 5 days. TECHNIQUE: AP and frogleg views of the left hip are obtained. 2 views left femur. COMPARISON: Left femur x-ray 5 days ago. FINDINGS: There is no acute fracture/dislocation evident in the left hip. Fairly moderate axial join t space loss left hip redemonstrated. Stable mild acetabular spurring Medial left groin calcification again seen. Images of the left femur show no acute fracture or dislocation. Moderate medial tibiofemoral and mendez llofemoral compartment narrowing left knee redemonstrated. Surgical clips from venous harvesting proc edure medially again seen. Vascular calcification redemonstrated posteriorly medially. IMPRESSION: As above. No significant change from prior study.
== END 2020-07-22 19:31 | disposition home or self-care (01) ==
LOC: EC 18:11
DX: M25.552 Pain in left hip (principal); E11.319 Type 2 diabetes mellitus with unspecified diabetic retinopathy without macular edema; E11.42 Type 2 diabetes mellitus with diabetic polyneuropathy; E78.5 Hyperlipidemia, unspecified; I10 Essential (primary) hypertension; E03.9 Hypothyroidism, unspecified; F41.9 Anxiety disorder, unspecified; I25.2 Old myocardial infarction; Z79.890 Hormone replacement therapy; Z79.4 Long term (current) use of insulin; Z79.82 Long term (current) use of aspirin; Z79.899 Other long term (current) drug therapy; Z87.891 Personal history of nicotine dependence; Z91.041 Radiographic dye allergy status; Z88.6 Allergy status to analgesic agent; Z88.2 Allergy status to sulfonamides; Z91.048 Other nonmedicinal substance allergy status; Z85.3 Personal history of malignant neoplasm of breast; Z98.890 Other specified postprocedural states; Z83.3 Family history of diabetes mellitus; Z86.73 Personal history of transient ischemic attack (TIA), and cerebral infarction without residual deficits; Z95.1 Presence of aortocoronary bypass graft; Z96.41 Presence of insulin pump (external) (internal)
CPT/HCPCS: 73502; 99283

== ENCOUNTER → 2020-08-04 | Outpatient (CLI) | payer MEDICARE, OTHER ==
[2020-08-04 18:31] LABS: African American GFR (CKD) 43.9 (60.0-200.0); Anion Gap 9.7 mmol/L (4.00-12.00); BUN/Creat Ratio 19.23 Ratio (12.00-20.00); Calcium 9.5 mg/dL (8.7-10.3); Carbon Dioxide 27.3 mmol/L (21.6-31.8); Non-African American GFR(CKD) 37.9 (60.0-200.0)
== END | disposition home or self-care (01) ==
LOC: LABWHC1 13:14
PROVIDERS: ATTEND Internal Medicine
DX: N17.9 Acute kidney failure, unspecified (principal)
CPT/HCPCS: 36415; 80048

== ENCOUNTER → 2020-09-24 | Outpatient (CLI) | payer MEDICARE, OTHER ==
[2020-09-24 13:52] LABS: Basophils % (A) 1 %; Eosinophils # (A) 0.2 k/uL (0-0.7); Eosinophils % (A) 4 %; HCT 38.7 % (34.0-46.0); HGB 12.6 gm/dL (11.4-16.0); Lymphocytes # (A) 0.7 k/uL (1.0-4.8); Lymphocytes % (A) 14 %; MCH 31.1 pg (25.0-35.0); MCHC 32.4 g/dL (31.0-37.0); MCV 95.9 fL (80.0-100.0); Mean Platelet Volume 7.7; Monocytes # (A) 0.5 k/uL (0-1.0); Monocytes % (A) 11 %; Neutrophils # (A) 3.3 k/uL (1.3-7.7); Neutrophils % (A) 68 %; Platelet Count 211 k/uL (150-450); RBC 4.04 m/uL (3.80-5.40); RDW 13.1 % (11.5-15.5); WBC 4.8 k/uL (3.8-10.6)
[2020-09-24 14:21] LABS: Albumin 3.8 g/dL (3.5-5.0); Calcium 9.2 mg/dL (8.4-10.2); Magnesium 1.8 mg/dL (1.6-2.3); Phosphorus 4.5 mg/dL (2.5-4.5); Potassium 4.9 mmol/L (3.5-5.1); Total Bilirubin 0.4 mg/dL (0.2-1.3); Total Protein 6.3 g/dL (6.3-8.2); Uric Acid 4.8 mg/dL (3.7-7.4)
[2020-09-24 14:29] LABS: Appearance,Urine Clear (Clear); Bilirubin,Urine Negative (Negative); Blood,Urine Trace (Negative); Color,Urine Light Yellow; Glucose,Urine (UA) Negative (Negative); Hyaline Casts,Urine 1 /lpf (0-2); Ketones,Urine Negative (Negative); Leukocyte Esterase,Urine Negative (Negative); Nitrite,Urine Negative (Negative); PH, Urine 5.5 (5.0-8.0); Protein,Urine Negative (Negative); RBC,Urine <1 /hpf (0-5); Specific Gravity,Urine 1.012 (1.001-1.035); Urobilinogen,Urine <2.0 mg/dL (<2.0); WBC,Urine 1 /hpf (0-5)
--- NOTE | 2020-09-24 15:00 | US ---
EXAMINATION TYPE: US kidneys/renal and bladder DATE OF EXAM: 09/24/2020 COMPARISON: CT 2009 CLINICAL HISTORY: N17.9 ACUTE KIDNEY INJURY. EXAM MEASUREMENTS: Right Kidney: 10.2 x 3.5 x 3.5 cm Left Kidney: 10.1 x 4.5 x 4.5 cm Technically difficult and limited study due to patient body habitus Right Kidney: no hydronephrosis or masses seen Left Kidney: no hydronephrosis or masses seen Bladder: not fully distended, appears wnl as seen Bilateral Jets seen: no There is no evidence for hydronephrosis at this point in time. No nephrolithiasis is seen. No ferdinand s are identified. The urinary bladder is anechoic. Bilateral ureteral jets are seen. Cortical medullary differentiation is maintained bilaterally IMPRESSION: No hydronephrosis
[2020-09-25 04:31] LABS: % Iron Saturation 26.97 (12.00-45.00)
== END | disposition home or self-care (01) ==
LOC: RADUSWWP 13:20
PROVIDERS: ATTEND Internal Medicine
DX: N17.9 Acute kidney failure, unspecified (principal); D64.9 Anemia, unspecified; E55.9 Vitamin D deficiency, unspecified; M10.9 Gout, unspecified; N39.0 Urinary tract infection, site not specified; N25.81 Secondary hyperparathyroidism of renal origin
CPT/HCPCS: 76770; 80053; 81001; 82306; 82728; 83540; 83550; 83735; 83970; 84100; 84550; 85025

== ENCOUNTER → 2020-09-30 | Outpatient (CLI) | payer MEDICARE, OTHER ==
[2020-09-30 20:00] LABS: African American GFR (CKD) 53.4 (60.0-200.0); Anion Gap 8.1 mmol/L (4.00-12.00); BUN/Creat Ratio 24.55 Ratio (12.00-20.00); Calcium 9.3 mg/dL (8.7-10.3); Carbon Dioxide 28.9 mmol/L (21.6-31.8); Non-African American GFR(CKD) 46.1 (60.0-200.0); Potassium 4.8 mmol/L (3.5-5.5)
== END | disposition home or self-care (01) ==
LOC: LABWHC1 14:15
PROVIDERS: ATTEND Internal Medicine
DX: N17.9 Acute kidney failure, unspecified (principal); D64.9 Anemia, unspecified; N39.0 Urinary tract infection, site not specified; N25.81 Secondary hyperparathyroidism of renal origin; E55.9 Vitamin D deficiency, unspecified; M10.9 Gout, unspecified
CPT/HCPCS: 36415; 80048

== ENCOUNTER 2021-03-17 23:28 | Inpatient (IN) | payer MEDICARE, OTHER ==
[2021-03-18] MEDS ORDERED: SODIUM CHLORIDE 0.9% 1,000 ML IV STA (00:02)
[2021-03-18] MEDS ORDERED: MORPHINE SULFATE 4 MG/ML SYRINGE IV STA (00:02)
--- NOTE | 2021-03-18 00:02 | ED ---
Fall HPI - General Chief Complaint: Fall Stated Complaint: Fall Time Seen by Provider: 03/17/21 23:33 Source: patient, EMS, RN notes reviewed, old records reviewed Mode of arrival: EMS Limitations: no limitations - History of Present Illness Initial Comments: This is an 85-year-old female after fall from bed, patient was at home. Patient fell on the left hip rolling out of bed. Patient has severe left hip pain left leg pain. EMS called the patient'spresented to ER unable to stand or bear weight. Severe left-sided pain. Ration does have diabetes high blood pressure high cholesterol history of heart MD Complaint: fall -: hour(s) Fall From: out of bed When Fall Occurred: unsure Fall Witnessed: no Place Fall Occurred: home Loss of Consciousness: none Prolonged Down Time?: no Symptoms Prior to Fall: none Location - Extremities: Left: Leg Severity: severe Severity scale (1-10): 9 Quality: sharp Context: tripped/slipped Associated Symptoms: denies - Related Data Home Medications Medication Instructions Recorded Confirmed LORazepam [Ativan] 0.5 mg PO BID 02/15/15 11/12/19 Propylene Glycol/Peg 400/Pf 1 drop BOTH EYES DAILY PRN 02/15/15 11/12/19 [Systane 0.3-0.4% Eye Drops] Escitalopram [Lexapro] 5 mg PO HS 10/13/18 11/12/19 Ezetimibe [Zetia] 10 mg PO DAILY 10/13/18 11/12/19 Levothyroxine Sodium [Synthroid] 75 mcg PO MOTUWETHFRSA@1200 10/13/18 11/12/19 Loratadine [Claritin] 10 mg PO DAILY@1200 10/13/18 11/12/19 Losartan [Cozaar] 25 mg PO HS 10/13/18 11/12/19 Pantoprazole [Protonix] 40 mg PO HS 10/13/18 11/12/19 Pravastatin Sodium [Pravachol] 20 mg PO HS 10/13/18 11/12/19 amLODIPine [Norvasc] 2.5 mg PO HS 10/13/18 11/12/19 Aspirin 162 mg PO HS 11/12/19 11/12/19 Kqgrgqzaxjzhqa-SM-Aosiudcpbi 1 tab PO AC-BRKFST 11/12/19 11/12/19 [Folbic] Insulin Aspart (For Pump) [NovoLOG 0.01 unit SQ-PUMP CONTINUOUS 11/12/19 11/12/19 (For Pump)] Vitamin D3(Unknown Dose) 1 tab PO DAILY 11/12/19 11/12/19 Previous Rx's Medication Instructions Recorded Latanoprost Ophth [Xalatan 0.005%] 1 drops RIGHT EYE HS ml 11/25/15 Metoprolol Tartrate [Lopressor] 25 mg PO BID #60 tab 11/25/15 predniSONE 1 mg PO DAILY #30 tab 11/25/15 Cefuroxime Axetil [Ceftin] 500 mg PO BID #14 tab 11/14/19 traMADol HCl [Ultram] 50 mg PO TID PRN #9 tab 11/14/19 Hydrocodone/Acetaminophen [[place] 1 each PO Q6HR PRN #20 tab 07/17/20 5-325] HYDROcodone/APAP 5-325MG [[place] 1 tab PO Q6HR PRN 3 Days #12 tab 07/22/20 5-325] Allergies Allergy/AdvReac Type Severity Reaction Status Date / Time Iodinated Contrast Media Allergy Anaphylaxis Verified 07/22/20 18:21 iodine Allergy Swelling Verified 07/22/20 18:21 NSAIDS (Non-Steroidal Allergy Rash/Hives Verified 07/22/20 18:21 Anti-Inflamma Sulfa (Sulfonamide Allergy Rash/Hives Verified 07/22/20 18:21 Antibiotics) Review of Systems ROS Statement: Those systems with pertinent positive or pertinent negative responses have been documented in the HPI. ROS Other: All systems not noted in ROS Statement are negative. Past Medical History Past Medical History: Cancer, CVA/TIA, Diabetes Mellitus, Hyperlipidemia, Hypertension, Myocardial Infarction ([place]), Thyroid Disorder Additional Past Medical History / Comment(s): R breast cancer/padget's disease with mastectomy, TIA x3 in 2010, IDDM type II with insulin pump, legally blind bilaterally/diabetic retinopathy, diabetic neuropathy bilateral feet, temporal arteritis, tailbone fracture a few months ago still has pain, hypothyroid, constipation, varicosities. Last Myocardial Infarction Date:: 2015 History of Any Multi-Drug Resistant Organisms: None Reported Past Surgical History: Breast Surgery, Coronary Bypass/CABG, Heart Catheterization, Hysterectomy Additional Past Surgical History / Comment(s): 2016 CABG 3 vessel, right mastectomy, R temporal arteritis, bilateral cataracts removed/bilateral laser eye surgery. Past Anesthesia/Blood Transfusion Reactions: No Reported Reaction Additional Past Anesthesia/Blood Transfusion Reaction / Comment(s): Pt has received blood in past without reaction. Past Psychological History: Anxiety Smoking Status: Former smoker Past Alcohol Use History: None Reported Past Drug Use History: None Reported - Past Family History Mother Family Medical History: Cancer, Diabetes Mellitus, Vascular Disorder Additional Family Medical History / Comment(s): Breast cancer, autoimmune disease, aneurysm in brain Father Family Medical History: Cancer, Coronary Artery Disease (CAD) Additional Family Medical History / Comment(s): Laryngeal cancer. Father was a smoker. General Exam - General Exam Comments Initial Comments: Left leg is shortened and rotated Limitations: no limitations General appearance: alert, in no apparent distress Head exam: Present: atraumatic, normocephalic, normal inspection Eye exam: Present: normal appearance, PERRL, EOMI. Absent: scleral icterus, conjunctival injection, periorbital swelling ENT exam: Present: normal exam, mucous membranes moist Neck exam: Present: normal inspection. Absent: tenderness, meningismus, lymphadenopathy Respiratory exam: Present: normal lung sounds bilaterally. Absent: respiratory distress, wheezes, rales, rhonchi, stridor Cardiovascular Exam: Present: regular rate, normal rhythm, normal heart sounds. Absent: systolic murmur, diastolic murmur, rubs, gallop, clicks GI/Abdominal exam: Present: soft, normal bowel sounds. Absent: distended, tenderness, guarding, rebound, rigid Extremities exam: Present: normal inspection, full ROM, normal capillary refill. Absent: tenderness, pedal edema, joint swelling, calf tenderness Back exam: Present: normal inspection Neurological exam: Present: alert, oriented X3, CN II-XII intact Psychiatric exam: Present: normal affect, normal mood Skin exam: Present: warm, dry, intact, normal color. Absent: rash Course Vital Signs 03/17/21 23:33 Temperature 97.7 F Pulse Rate 72 Respiratory 16 Rate Blood Pressure 192/81 O2 Sat by Pulse 98 Oximetry - Reevaluation(s) Reevaluation #1: 03/18/21 01:24 Medical records reviewed Reevaluation #2: 03/18/21 01:24 Patient has now improved pain control Reevaluation #3: 03/18/21 01:24 Patient informed results and questions have been answered - Consultations Consultation #1: Still with orthopedics on-call to admit the patient Medical Decision Making - Medical Decision Making 85 female status post slip and fall. Patient does have left hip fracture. Patient will be admitted for orthopedic evaluation management, - Lab Data Result diagrams: 03/18/21 00:27 03/18/21 00:27 Lab Results 03/18/21 03/18/21 03/18/21 Range/Units 00:27 00:27 00:27 WBC 4.6 (3.8-10.6) k/uL RBC 4.50 (3.80-5.40) m/uL Hgb 14.3 (11.4-16.0) gm/dL Hct 43.3 (34.0-46.0) % MCV 96.3 (80.0-100.0) fL MCH 31.9 (25.0-35.0) pg MCHC 33.1 (31.0-37.0) g/dL RDW 13.4 (11.5-15.5) % Plt Count 188 (150-450) k/uL MPV 8.3 Neutrophils % 80 % Lymphocytes % 8 % Monocytes % 7 % Eosinophils % 2 % Basophils % 1 % Neutrophils # 3.7 (1.3-7.7) k/uL Lymphocytes # 0.4 L (1.0-4.8) k/uL Monocytes # 0.3 (0-1.0) k/uL Eosinophils # 0.1 (0-0.7) k/uL Basophils # 0.0 (0-0.2) k/uL PT 9.7 (9.0-12.0) sec INR 0.9 (<1.2) APTT 24.6 (22.0-30.0) sec Sodium 131 L (137-145) mmol/L Potassium 5.3 H (3.5-5.1) mmol/L Chloride 95 L (98-107) mmol/L Carbon Dioxide 32 H (22-30) mmol/L Anion Gap 4 mmol/L BUN 26 H (7-17) mg/dL Creatinine 0.83 (0.52-1.04) mg/dL Est GFR (CKD-EPI)AfAm 75 (>60 ml/min/1.73 sqM) Est GFR (CKD-EPI)NonAf 65 (>60 ml/min/1.73 sqM) Glucose 238 H (74-99) mg/dL Plasma Lactic Acid Alex (0.7-2.0) mmol/L Calcium 9.6 (8.4-10.2) mg/dL Phosphorus 3.4 (2.5-4.5) mg/dL Magnesium 2.0 (1.6-2.3) mg/dL Total Bilirubin 0.3 (0.2-1.3) mg/dL AST 39 H (14-36) U/L ALT 30 (4-34) U/L Alkaline Phosphatase 126 (38-126) U/L Creatine Kinase 90 (30-135) U/L Total Protein 6.9 (6.3-8.2) g/dL Albumin 4.2 (3.5-5.0) g/dL 03/18/21 Range/Units 00:27 WBC (3.8-10.6) k/uL RBC (3.80-5.40) m/uL Hgb (11.4-16.0) gm/dL Hct (34.0-46.0) % MCV (80.0-100.0) fL MCH (25.0-35.0) pg MCHC (31.0-37.0) g/dL RDW (11.5-15.5) % Plt Count (150-450) k/uL MPV Neutrophils % % Lymphocytes % % Monocytes % % Eosinophils % % Basophils % % Neutrophils # (1.3-7.7) k/uL Lymphocytes # (1.0-4.8) k/uL Monocytes # (0-1.0) k/uL Eosinophils # (0-0.7) k/uL Basophils # (0-0.2) k/uL PT (9.0-12.0) sec INR (<1.2) APTT (22.0-30.0) sec Sodium (137-145) mmol/L Potassium (3.5-5.1) mmol/L Chloride (98-107) mmol/L Carbon Dioxide (22-30) mmol/L Anion Gap mmol/L BUN (7-17) mg/dL Creatinine (0.52-1.04) mg/dL Est GFR (CKD-EPI)AfAm (>60 ml/min/1.73 sqM) Est GFR (CKD-EPI)NonAf (>60 ml/min/1.73 sqM) Glucose (74-99) mg/dL Plasma Lactic Acid Alex 1.0 (0.7-2.0) mmol/L Calcium (8.4-10.2) mg/dL Phosphorus (2.5-4.5) mg/dL Magnesium (1.6-2.3) mg/dL Total Bilirubin (0.2-1.3) mg/dL AST (14-36) U/L ALT (4-34) U/L Alkaline Phosphatase (38-126) U/L Creatine Kinase (30-135) U/L Total Protein (6.3-8.2) g/dL Albumin (3.5-5.0) g/dL Disposition Clinical Impression: Fall, Closed left hip fracture Disposition: ADMITTED IP TO THIS HOSP Condition: Fair Is patient prescribed a controlled substance at d/c from ED?: No Referrals: Tony Thomas DO [Primary Care Provider] - 1-2 days
[2021-03-18 00:56] LABS: Basophils % (A) 1 %; Eosinophils # (A) 0.1 k/uL (0-0.7); Eosinophils % (A) 2 %; HCT 43.3 % (34.0-46.0); HGB 14.3 gm/dL (11.4-16.0); Lymphocytes # (A) 0.4 k/uL (1.0-4.8); Lymphocytes % (A) 8 %; MCH 31.9 pg (25.0-35.0); MCHC 33.1 g/dL (31.0-37.0); MCV 96.3 fL (80.0-100.0); Mean Platelet Volume 8.3; Monocytes # (A) 0.3 k/uL (0-1.0); Monocytes % (A) 7 %; Neutrophils # (A) 3.7 k/uL (1.3-7.7); Neutrophils % (A) 80 %; Platelet Count 188 k/uL (150-450); RDW 13.4 % (11.5-15.5); WBC 4.6 k/uL (3.8-10.6)
[2021-03-18 01:06] LABS: INR 0.9 (<1.2); Partial Thromboplastin Time 24.6 sec (22.0-30.0); Prothrombin Time 9.7 sec (9.0-12.0)
[2021-03-18 01:17] LABS: Albumin 4.2 g/dL (3.5-5.0); Calcium 9.6 mg/dL (8.4-10.2); Phosphorus 3.4 mg/dL (2.5-4.5); Potassium 5.3 mmol/L (3.5-5.1); Total Bilirubin 0.3 mg/dL (0.2-1.3); Total Protein 6.9 g/dL (6.3-8.2)
[2021-03-18] MEDS ORDERED: ONDANSETRON 4 MG/2 ML VIAL IVP PRN (01:26)
[2021-03-18] MEDS ORDERED: MORPHINE SULFATE 4 MG/ML SYRINGE IV PRN (01:26)
[2021-03-18] MEDS ORDERED: NALOXONE 0.4 MG/ML 1 ML VIAL IV PRN (01:26)
--- NOTE | 2021-03-18 01:31 | XR ---
EXAM: XR Pelvis Complete, 3 or More Views CLINICAL HISTORY: ITS.REASON XR Reason: fall TECHNIQUE: Frontal and lateral or oblique views of the pelvis. COMPARISON: No relevant prior studies available. IMPRESSION: Left femoral neck fracture with shortening. Hip joints demonstrate mild osteoarthrosis.
--- NOTE | 2021-03-18 01:31 | XR ---
EXAM: XR Chest, 1 View CLINICAL HISTORY: ITS.REASON XR Reason: Weakness TECHNIQUE: Frontal view of the chest. COMPARISON: 11/12/2019 FINDINGS: Lungs: No consolidation or mass. Pleural space: No acute findings Heart: Mild cardiomegaly. Prominent tortuous aorta. Bones/joints: No acute findings. IMPRESSION: No acute cardiopulmonary process. Mild cardiomegaly. Prominent tortuous aorta.
[2021-03-18] MEDS ORDERED: HYDROmorphone 1 MG/ML 1 ML SYRINGE IVP STA (03:09)
[2021-03-18] MEDS: HYDROmorphone 1 MG/ML 1 ML SYRINGE IVP PRN ×2 (08:48→18:23)
[2021-03-18 09:04] LABS: Appearance,Urine Clear (Clear); Bilirubin,Urine Negative (Negative); Blood,Urine Trace (Negative); Color,Urine Light Yellow; Glucose,Urine (UA) 3+ (Negative); Ketones,Urine 1+ (Negative); Leukocyte Esterase,Urine Negative (Negative); Nitrite,Urine Negative (Negative); PH, Urine 6.5 (5.0-8.0); Protein,Urine Trace (Negative); RBC,Urine 2 /hpf (0-5); Urobilinogen,Urine <2.0 mg/dL (<2.0); WBC,Urine 1 /hpf (0-5)
[2021-03-18] MEDS ORDERED: ARTIFICIAL TEARS-HYPROMELLOSE DROPS 15 ML BTL BOTH EYES PRN (09:49)
[2021-03-18] MEDS: LORazepam 0.5 MG TAB PO SCH ×2 (09:58→21:24)
[2021-03-18] MEDS: PANTOPRAZOLE 40 MG/10 ML VIAL IVP SCH (11:01)
[2021-03-18] MEDS: METOPROLOL TARTRATE 25 MG TAB PO SCH ×2 (11:01→21:24)
[2021-03-18] MEDS: NITROFURANTOIN MONOHYD/M-CRYST 100 MG CAP PO SCH ×2 (11:02→21:24)
[2021-03-18] MEDS: LEVOTHYROXINE 75 MCG TAB PO SCH (11:14)
[2021-03-18] MEDS: INSULIN ASPART (NovoLOG) 100 UNIT/ML VIAL SQ SCH ×3 (14:25→21:25)
--- NOTE | 2021-03-18 14:47 | P.CONS ---
History of Present Illness - Reason for Consult Consult date: 03/18/21 Medical management diabetes mellitus, hypertension, CAD Requesting physician: Bravo Moctezuma - Chief Complaint Left hip pain/fracture, status post fall - History of Present Illness This is an 85-year-old female with past medical history of CAD, CABG,TIA/CVA, diabetes mellitus, hypertension, temporal arteritis, Paget's disease and history of anxiety, presented to the ER status post fall with resulting severe left hip/ leg pain. Patient is currently sedated recently receiving Dilaudid for pain management. Family at bedside stating patient lost balance while attempting to go to bed and fell. EKG reporting sinus rhythm with first-degree AV block, nonspecific ST/T-wave abnormality-no change as per Dr. Thomas' review. Troponin negative 3. Hematology, coagulation panels unremarkable. Sodium 131 potassium 5.3 chloride 95. 26, creatinine 0.83. Glucose 238. Lactic acid 1, magnesium 2. AST 39. UA negative, coronavirus detected. Chest x-ray reported no acute cardiopulmonary process, mild cardiomegaly, prominent tortuous aorta. Left hip/pelvis x-ray reported left femoral neck fracture with shortening, hip joints demonstrated a mild osteoarthrosis. Review of Systems Review systems unable to be obtained at this time as patient recently received Dilaudid, sleeping Past Medical History Past Medical History: Cancer, CVA/TIA, Diabetes Mellitus, Hyperlipidemia, Hypertension, Myocardial Infarction ([place]), Thyroid Disorder Additional Past Medical History / Comment(s): R breast cancer/padget's disease with mastectomy, TIA x3 in 2010, IDDM type II with insulin pump, legally blind bilaterally/diabetic retinopathy, diabetic neuropathy bilateral feet, temporal arteritis, tailbone fracture a few months ago still has pain, hypothyroid, constipation, varicosities. Last Myocardial Infarction Date:: 2016 History of Any Multi-Drug Resistant Organisms: None Reported Past Surgical History: Breast Surgery, Coronary Bypass/CABG, Heart Catheterization, Hysterectomy Additional Past Surgical History / Comment(s): 2016 CABG 3 vessel, right mastectomy, R temporal arteritis, bilateral cataracts removed/bilateral laser eye surgery. Past Anesthesia/Blood Transfusion Reactions: No Reported Reaction Additional Past Anesthesia/Blood Transfusion Reaction / Comm: Pt has received blood in past without reaction. Past Psychological History: Anxiety Smoking Status: Former smoker Past Alcohol Use History: None Reported Past Drug Use History: None Reported - Past Family History Mother Family Medical History: Cancer, Diabetes Mellitus, Vascular Disorder Additional Family Medical History / Comment(s): Breast cancer, autoimmune disease, aneurysm in brain Father Family Medical History: Cancer, Coronary Artery Disease (CAD) Additional Family Medical History / Comment(s): Laryngeal cancer. Father was a smoker. Medications and Allergies Home Medications Medication Instructions Recorded Confirmed Type LORazepam [Ativan] 0.5 mg PO BID 02/15/15 03/18/21 History Propylene Glycol/Peg 400/Pf 1 drop BOTH EYES DAILY PRN 02/15/15 03/18/21 History [Systane 0.3-0.4% Eye Drops] Latanoprost Ophth [Xalatan 0.005%] 1 drops RIGHT EYE HS ml 11/25/15 03/18/21 Rx Metoprolol Tartrate [Lopressor] 25 mg PO BID #60 tab 11/25/15 03/18/21 Rx Escitalopram [Lexapro] 5 mg PO HS 10/13/18 03/18/21 History Ezetimibe [Zetia] 10 mg PO DAILY 10/13/18 03/18/21 History Levothyroxine Sodium [Synthroid] 75 mcg PO MOTUWETHFRSA@1200 10/13/18 03/18/21 H istory Loratadine [Claritin] 10 mg PO DAILY@1200 10/13/18 03/18/21 History Pantoprazole [Protonix] 40 mg PO HS 10/13/18 03/18/21 History Pravastatin Sodium [Pravachol] 20 mg PO HS 10/13/18 03/18/21 History amLODIPine [Norvasc] 2.5 mg PO HS 10/13/18 03/18/21 History Aspirin 162 mg PO HS 11/12/19 03/18/21 History Hwjwcxtwxteysv-OF-Htnsxjmiro 1 tab PO AC-BRKFST 11/12/19 03/18/21 History [Folbic] Insulin Aspart (For Pump) [NovoLOG 0.01 unit SQ-PUMP CONTINUOUS 11/12/19 03/18/21 History (For Pump)] traMADol HCl [Ultram] 50 mg PO TID PRN #9 tab 11/14/19 03/18/21 Rx Nitrofurantoin Monohyd/M-Cryst 100 mg PO Q12HR 03/18/21 03/18/21 History [Macrobid] Allergies Allergy/AdvReac Type Severity Reaction Status Date / Time Iodinated Contrast Media Allergy Anaphylaxis Verified 03/18/21 07:18 iodine Allergy Swelling Verified 03/18/21 07:18 NSAIDS (Non-Steroidal Allergy Rash/Hives Verified 03/18/21 07:18 Anti-Inflamma Sulfa (Sulfonamide Allergy Rash/Hives Verified 03/18/21 07:18 Antibiotics) Physical Exam Vitals: Vital Signs Temp Pulse Resp BP Pulse Ox 03/18/21 08:57 99.0 F 86 16 108/67 03/18/21 08:54 99.0 F 03/18/21 08:02 85 16 146/72 96 03/18/21 07:04 84 16 161/79 96 03/18/21 03:30 97.7 F 82 16 152/61 96 03/18/21 02:55 80 16 155/64 95 03/18/21 01:25 76 18 182/77 96 03/17/21 23:33 97.7 F 72 16 192/81 98 Intake and Output 03/17/21 03/18/21 03/18/21 22:59 06:59 14:59 Other: Weight 77.111 kg - Exam PHYSICAL EXAM: VITALS: As noted above. GENERAL APPEARANCE: Sitting up on stretcher ,No acute distress at rest. EYES: Pupils equal, round, conjunctiva normal. Legally blind. NECK:supple without lymphadenopathy, no JVD. LUNGS: Breath sounds essentially clear to auscultation bilaterally. Bilateral bases diminished HEART: S1, S2 audible Regular rate and rhythm. No murmurs, rubs or gallops. ABDOMEN: Soft, nontender, nondistended, normoactive bowel sounds. No guarding, no rebound. No masses or organomegaly appreciated. EXTREMITIES: 2+ peripheral pulses.Left lower extremity rotated out, warm, NEUROLOGICAL: currently unable to evaluate, recently receiving Dilaudid, sleeping SKIN: Warm, dry, No rashes Results CBC & Chem 7: 03/18/21 00:27 03/18/21 00:27 Labs: Abnormal Lab Results - Last 24 Hours (Table) 03/18/21 03/18/21 03/18/21 Range/Units 00:27 00:27 08:44 Lymphocytes # 0.4 L (1.0-4.8) k/uL Sodium 131 L (137-145) mmol/L Potassium 5.3 H (3.5-5.1) mmol/L Chloride 95 L (98-107) mmol/L Carbon Dioxide 32 H (22-30) mmol/L BUN 26 H (7-17) mg/dL Glucose 238 H (74-99) mg/dL AST 39 H (14-36) U/L Urine Protein Trace H (Negative) Urine Glucose (UA) 3+ H (Negative) Urine Ketones 1+ H (Negative) Urine Blood Trace H (Negative) Assessment and Plan Assessment: Left femoral neck fracture with shortening, status post fall, surgical intervention pending. CAD, history of CABG History of TIA, CVA Diabetes mellitus II Diabetic retinopathy Legally blind Hypothyroidism Hypertension Hyperlipidemia History of temporal arteritis History of Paget's disease History of right mastectomy History of anxiety Remote nicotine dependence Plan: Continue on current medication regime ,monitoring and symptomatic treatment. Surgical repair/pinning, pending as per orthopedic surgery. GI prophylaxis in place. DVT and pain management as per primary. Thank you Dr. Moctezuma for the consult. The impression and plan of care has been dictated as directed. : I performed a history and examination of this patient, discussed the same with the dictator. I agree with the dictator's note ,documented as a scribe. Any additional findings or plans will be noted.
[2021-03-18] MEDS: SODIUM CHLORIDE 0.9% 1,000 ML IV SCH (16:09)
[2021-03-18 17:02] LABS: Glucose,Whole Blood 386 mg/dL (75-99)
[2021-03-18 20:01] LABS: Glucose,Whole Blood 395 mg/dL (75-99)
[2021-03-18] MEDS: LATANOPROST 0.005% OPHTH DROPS 2.5 ML BTL RIGHT EYE SCH (21:25)
[2021-03-19] MEDS: SODIUM CHLORIDE 0.9% 1,000 ML IV SCH ×2 (04:15→17:35)
[2021-03-19 07:16] LABS: Glucose,Whole Blood 346 mg/dL (75-99)
[2021-03-19 08:10] LABS: Basophils % (A) 0 %; Eosinophils # (A) 0.1 k/uL (0-0.7); Eosinophils % (A) 1 %; HCT 42.7 % (34.0-46.0); HGB 13.3 gm/dL (11.4-16.0); Lymphocytes # (A) 0.4 k/uL (1.0-4.8); Lymphocytes % (A) 4 %; MCH 31.1 pg (25.0-35.0); MCHC 31.1 g/dL (31.0-37.0); MCV 100.1 fL (80.0-100.0); Mean Platelet Volume 8.8; Monocytes # (A) 0.7 k/uL (0-1.0); Monocytes % (A) 8 %; Neutrophils # (A) 7.9 k/uL (1.3-7.7); Neutrophils % (A) 85 %; Platelet Count 177 k/uL (150-450); RBC 4.26 m/uL (3.80-5.40); RDW 13.6 % (11.5-15.5); WBC 9.3 k/uL (3.8-10.6)
[2021-03-19] MEDS: INSULIN ASPART (NovoLOG) 100 UNIT/ML VIAL SQ SCH ×4 (08:18→21:10)
[2021-03-19] MEDS: PANTOPRAZOLE 40 MG/10 ML VIAL IVP SCH (08:18)
[2021-03-19] MEDS: METOPROLOL TARTRATE 25 MG TAB PO SCH ×2 (08:19→20:58)
[2021-03-19] MEDS: LORazepam 0.5 MG TAB PO SCH ×2 (08:26→20:58)
[2021-03-19 09:15] LABS: ALT 23 U/L (4-34); AST 42 U/L (14-36); African American GFR (CKD) 37 (>60 ml/min/1.73 sqM); Albumin 3.6 g/dL (3.5-5.0); Albumin/Globulin Ratio 1.4; Alkaline Phosphatase 117 U/L (38-126); Anion Gap 11 mmol/L; Blood Urea Nitrogen 38 mg/dL (7-17); Calcium 9.2 mg/dL (8.4-10.2); Carbon Dioxide 21 mmol/L (22-30); Chloride 99 mmol/L (98-107); Globulin 2.6 g/dL; Glucose 333 mg/dL (74-99); Magnesium 1.9 mg/dL (1.6-2.3); Non-African American GFR(CKD) 32 (>60 ml/min/1.73 sqM); Phosphorus 3.3 mg/dL (2.5-4.5); Potassium 5.3 mmol/L (3.5-5.1); Sodium 131 mmol/L (137-145); Total Bilirubin 0.7 mg/dL (0.2-1.3); Total Protein 6.2 g/dL (6.3-8.2)
[2021-03-19 10:04] LABS: INR 0.9 (<1.2)
--- NOTE | 2021-03-19 11:03 | P.HPOR ---
History of Present Illness H&P Date: 03/19/21 Chief Complaint: left hip fracture Patient is an 85-year-old female seen at bedside this am. She was admitted through the ED yesterday, 03/18/21, after a fall from her bed while at home the evening before. Patient fell on the left hip rolling out of bed. Patient has severe left hip pain left leg pain as expected. She denies new numbness or tingling. She denies calf pain. PMH is positive for IDDM, CAD, HTN and high cholesterol. She has no other complaints currently. She is blind and accompanied by her daughters who assist with her care. Review of Systems All systems: negative Constitutional: Denies chills, Denies fever Eyes: denies blurred vision, denies pain Ears, nose, mouth and throat: Denies headache, Denies sore throat Cardiovascular: Denies chest pain, Denies shortness of breath Respiratory: Denies cough Gastrointestinal: Denies abdominal pain, Denies diarrhea, Denies nausea, Denies vomiting Genitourinary: Denies dysuria, Denies hematuria Musculoskeletal: Denies myalgias Integumentary: Denies pruritus, Denies rash Neurological: Denies numbness, Denies weakness Psychiatric: Denies anxiety, Denies depression Endocrine: Denies fatigue, Denies weight change Past Medical History Past Medical History: Cancer, CVA/TIA, Diabetes Mellitus, Hyperlipidemia, Hypertension, Myocardial Infarction ([place]), Thyroid Disorder Additional Past Medical History / Comment(s): R breast cancer/padget's disease with mastectomy, TIA x3 in 2010, IDDM type II with insulin pump, legally blind bilaterally/diabetic retinopathy, diabetic neuropathy bilateral feet, temporal a rteritis, tailbone fracture a few months ago still has pain, hypothyroid, constipation, varicosities. Last Myocardial Infarction Date:: 2016 History of Any Multi-Drug Resistant Organisms: None Reported Past Surgical History: Breast Surgery, Coronary Bypass/CABG, Heart Catheterization, Hysterectomy Additional Past Surgical History / Comment(s): 2016 CABG 3 vessel, right mastectomy, R temporal arteritis, bilateral cataracts removed/bilateral laser eye surgery. Past Anesthesia/Blood Transfusion Reactions: No Reported Reaction Additional Past Anesthesia/Blood Transfusion Reaction / Comment(s): Pt has received blood in past without reaction. Past Psychological History: Anxiety Smoking Status: Former smoker Past Alcohol Use History: None Reported Past Drug Use History: None Reported - Past Family History Mother Family Medical History: Cancer, Diabetes Mellitus, Vascular Disorder Additional Family Medical History / Comment(s): Breast cancer, autoimmune disease, aneurysm in brain Father Family Medical History: Cancer, Coronary Artery Disease (CAD) Additional Family Medical History / Comment(s): Laryngeal cancer. Father was a smoker. Medications and Allergies Home Medications Medication Instructions Recorded Confirmed Type LORazepam [Ativan] 0.5 mg PO BID 02/15/15 03/18/21 History Propylene Glycol/Peg 400/Pf 1 drop BOTH EYES DAILY PRN 02/15/15 03/18/21 History [Systane 0.3-0.4% Eye Drops] Latanoprost Ophth [Xalatan 0.005%] 1 drops RIGHT EYE HS ml 11/25/15 03/18/21 Rx Metoprolol Tartrate [Lopressor] 25 mg PO BID #60 tab 11/25/15 03/18/21 Rx Escitalopram [Lexapro] 5 mg PO HS 10/13/18 03/18/21 History Ezetimibe [Zetia] 10 mg PO DAILY 10/13/18 03/18/21 History Levothyroxine Sodium [Synthroid] 75 mcg PO MOTUWETHFRSA@1200 10/13/18 03/18/21 History Loratadine [Claritin] 10 mg PO DAILY@1200 10/13/18 03/18/21 History Pantoprazole [Protonix] 40 mg PO HS 10/13/18 03/18/21 History Pravastatin Sodium [Pravachol] 20 mg PO HS 10/13/18 03/18/21 History amLODIPine [Norvasc] 2.5 mg PO HS 10/13/18 03/18/21 History Aspirin 162 mg PO HS 11/12/19 03/18/21 History Ngiotetawwifyx-EZ-Okqlbmcrct 1 tab PO AC-BRKFST 11/12/19 03/18/21 History [Folbic] Insulin Aspart (For Pump) [NovoLOG 0.01 unit SQ-PUMP CONTINUOUS 11/12/19 03/18/21 History (For Pump)] traMADol HCl [Ultram] 50 mg PO TID PRN #9 tab 11/14/19 03/18/21 Rx Nitrofurantoin Monohyd/M-Cryst 100 mg PO Q12HR 03/18/21 03/18/21 History [Macrobid] Allergies Allergy/AdvReac Type Severity Reaction Status Date / Time Iodinated Contrast Media Allergy Anaphylaxis Verified 03/18/21 07:18 iodine Allergy Swelling Verified 03/18/21 07:18 NSAIDS (Non-Steroidal Allergy Rash/Hives Verified 03/18/21 07:18 Anti-Inflamma Sulfa (Sulfonamide Allergy Rash/Hives Verified 03/18/21 07:18 Antibiotics) Physical Examination Inspection of the left lower extremity shows a shortened externally rotated leg. There are no wounds, erythema or ecchymoses. There is no other deformity. Nik gomes has no tenderness at the knee, ankle and foot. There is no joint effusion. She has painless passive range of motion at the knee, ankle and foot. Neurovascular status is grossly intact with motor and sensation throughout the left lower extremity. Calf is soft and Nontender. She has 2+ dorsalis pedis pulse and less than 2 second capillary refill. Results X-ray of the pelvis left hip shows displaced left femoral neck fracture - Labs Labs: Abnormal Lab Results - Last 24 Hours (Table) 03/18/21 03/18/21 03/19/21 Range/Units 17:01 19:57 06:39 MCV 100.1 H (80.0-100.0) fL Neutrophils # 7.9 H (1.3-7.7) k/uL Lymphocytes # 0.4 L (1.0-4.8) k/uL Sodium (137-145) mmol/L Potassium (3.5-5.1) mmol/L Carbon Dioxide (22-30) mmol/L BUN (7-17) mg/dL Creatinine (0.52-1.04) mg/dL Glucose (74-99) mg/dL POC Glucose (mg/dL) 386 H 395 H (75-99) mg/dL AST (14-36) U/L Total Protein (6.3-8.2) g/dL 03/19/21 03/19/21 Range/Units 06:39 07:14 MCV (80.0-100.0) fL Neutrophils # (1.3-7.7) k/uL Lymphocytes # (1.0-4.8) k/uL Sodium 131 L (137-145) mmol/L Potassium 5.3 H (3.5-5.1) mmol/L Carbon Dioxide 21 L (22-30) mmol/L BUN 38 H (7-17) mg/dL Creatinine 1.49 H (0.52-1.04) mg/dL Glucose 333 H (74-99) mg/dL POC Glucose (mg/dL) 346 H (75-99) mg/dL AST 42 H (14-36) U/L Total Protein 6.2 L (6.3-8.2) g/dL H & H 03/18/21 03/19/21 Range/Units 00:27 06:39 Hgb 14.3 13.3 (11.4-16.0) gm/dL Hct 43.3 42.7 (34.0-46.0) % Coagulation 03/18/21 03/19/21 Range/Units 00:27 09:26 INR 0.9 0.9 (<1.2) Result Diagrams: 03/19/21 06:39 03/19/21 06:39 - Diagnostic results Hip x-ray: report reviewed, image reviewed Assessment and Plan (1) Closed left hip fracture Narrative/Plan: The patient has been reviewed with Dr. Moctezuma. We have recommended proceeding with surgical intervention including left hip hemiarthroplasty for her left femoral neck fracture. The risks, complications and benefits of the surgery reviewed with the patient and her daughters. They desire to proceed. The procedure has been boarded and preoperative medical clearance has been requested. She has been nothing by mouth. She'll resume routine postop orthopedic protocol postoperatively and will require discharge planning. Current Visit: Yes Status: Acute Code(s): S72.002A - FRACTURE OF UNSP PART OF NECK OF LEFT FEMUR, INIT SNOMED Code(s): 546825648 Time with Patient: Less than 30
[2021-03-19] MEDS: INSULIN DETEMIR (LEVEMIR) 100 UNIT/ML SYR SQ SCH (11:05)
[2021-03-19] MEDS ORDERED: HYDROmorphone 0.2 MG/1 ML SYRINGE IVP PRN (11:07)
[2021-03-19] MEDS ORDERED: traMADol 50 MG TAB PO PRN (11:07)
[2021-03-19] MEDS ORDERED: MAGNESIUM HYDROXIDE 2,400 MG/10 ML CUP PO PRN (11:07)
[2021-03-19] MEDS ORDERED: HYDROmorphone 0.5 MG/0.5 ML SYRINGE IVP PRN ×2 (11:07)
[2021-03-19] MEDS ORDERED: HYDROcodone/APAP 10-325MG 1 EACH TAB PO PRN (11:07)
[2021-03-19 11:30] LABS: Glucose,Whole Blood 300 mg/dL (75-99)
[2021-03-19] MEDS ORDERED: IV FLUID CONTINUATION 1,000 ML IV ONE (11:43)
[2021-03-19] MEDS ORDERED: ONDANSETRON 4 MG/2 ML VIAL IVP ONE (12:09)
[2021-03-19] MEDS ORDERED: SODIUM CHLORIDE 0.9% 100 ML BAG ONE (13:02)
[2021-03-19] MEDS ORDERED: PHENYLEPHRINE-0.9% NACL SYG 1,000 MCG/10 ML SYRINGE ONE (13:02)
[2021-03-19] MEDS ORDERED: ePHEDrine SULFATE/0.9% NACL/PF 50 MG/5 ML SYRINGE IV ONE (13:02)
[2021-03-19] MEDS ORDERED: MIDAZOLAM 2 MG/2 ML VIAL ONE (13:02)
[2021-03-19] MEDS ORDERED: fentaNYL (PF) 50 MCG/ML 2 ML AMP ONE (13:02)
[2021-03-19] MEDS ORDERED: TRANEXAMIC ACID 1,000 MG/10 ML VIAL ONE (13:02)
[2021-03-19] MEDS ORDERED: KETAMINE 10 MG/ML 20 ML VIAL ONE (13:02)
[2021-03-19] MEDS ORDERED: PROPOFOL 10 MG/ML 20 ML VIAL IV ONE (13:02)
[2021-03-19] MEDS ORDERED: LACTATED RINGERS 1,000 ML IV ONE (13:40)
[2021-03-19] MEDS: NITROFURANTOIN MONOHYD/M-CRYST 100 MG CAP PO SCH ×2 (14:27→20:58)
[2021-03-19] MEDS: LEVOTHYROXINE 75 MCG TAB PO SCH (14:27)
[2021-03-19] MEDS: TRANEXAMIC ACID 1,000 MG in SODIUM CHLORIDE 0.9% 100 ML IVPB SCH ×2 (14:28→15:07)
[2021-03-19] MEDS: MULTIVITAMINS, THERA 1 EACH TAB PO SCH (14:28)
[2021-03-19] MEDS ORDERED: ceFAZolin 3,000 MG in SODIUM CHLORIDE 0.9% IRRIGATIO 3,000 ML IRRIGATION ONE (14:30)
--- NOTE | 2021-03-19 15:04 | P.PN ---
Subjective Progress Note Date: 03/19/21 This is an 85-year-old female with past medical history of CAD, CABG,TIA/CVA, diabetes mellitus, hypertension, temporal arteritis, Paget's disease and history of anxiety, presented to the ER status post fall with resulting severe left hip/ leg pain. Patient is currently sedated recently receiving Dilaudid for pain management. Family at bedside stating patient lost balance while attempting to go to bed and fell. EKG reporting sinus rhythm with first-degree AV block, nonspecific ST/T-wave abnormality-no change as per Dr. Thomas' review. Troponin negative 3. Hematology, coagulation panels unremarkable. Sodium 131 potassium 5.3 chloride 95. 26, creatinine 0.83. Glucose 238. Lactic acid 1, magnesium 2. AST 39. UA negative, coronavirus detected. Chest x-ray reported no acute cardiopulmonary process, mild cardiomegaly, prominent tortuous aorta. Left hip/pelvis x-ray reported left femoral neck fracture with shortening, hip joints demonstrated a mild osteoarthrosis. 03/19/2021 NPO, scheduled for left hip hemiarthroplasty today. Blood sugars elevated, small dose of Levemir ordered. Complains of left hip/left leg pain. Denies chest pain, palpitations or shortness of breath. Afebrile, T-max 99., WBC 9.3. Creatinine up to 1.49. Objective - Vital Signs Vital signs: Vital Signs Temp 98.3 F 03/19/21 04:58 Pulse 76 03/19/21 11:43 Resp 14 03/19/21 11:43 BP 142/63 03/19/21 11:43 Pulse Ox 97 03/19/21 11:43 Intake & Output 03/18/21 03/19/21 03/19/21 18:59 06:59 18:59 Intake Total 140 960 851 Output Total 250 250 400 Balance -110 710 451 Weight 77.586 kg 77.586 kg Intake: IV 851 Intake, IV Titration 80 960 Amount Sodium Chloride 0.9% 1, 80 960 000 ml @ 80 mls/hr IV . [id number] [facility] Rx#:[id number] Oral 60 Output: Urine 250 250 300 Estimated Blood Loss 100 Other: Voiding Method Indwelling Catheter Indwelling Catheter Indwelling Catheter # Voids 1 - Exam - Exam PHYSICAL EXAM: VITALS: As noted above. GENERAL APPEARANCE: Sitting up in bed ,No acute distress. EYES: Pupils equal, round, conjunctiva normal. Legally blind. NECK:supple without lymphadenopathy, no JVD. LUNGS: Breath sounds essentially clear to auscultation bilaterally. Bilateral bases diminished HEART: S1, S2 audible Regular rate and rhythm. No murmurs, rubs or gallops. ABDOMEN: Soft, nontender, nondistended, normoactive bowel sounds. No guarding, no rebound. EXTREMITIES: 2+ peripheral pulses.Left lower extremity rotated out, warm, NEUROLOGICAL: Cranial nerves II through XII grossly intact/legally blind. Alert and oriented 2. SKIN: Warm, dry, No rashes - Labs CBC & Chem 7: 03/19/21 06:39 03/19/21 06:39 Labs: Abnormal Lab Results - Last 24 Hours (Table) 03/18/21 03/18/21 03/19/21 Range/Units 17:01 19:57 06:39 MCV 100.1 H (80.0-100.0) fL Neutrophils # 7.9 H (1.3-7.7) k/uL Lymphocytes # 0.4 L (1.0-4.8) k/uL Sodium (137-145) mmol/L Potassium (3.5-5.1) mmol/L Carbon Dioxide (22-30) mmol/L BUN (7-17) mg/dL Creatinine (0.52-1.04) mg/dL Glucose (74-99) mg/dL POC Glucose (mg/dL) 386 H 395 H (75-99) mg/dL AST (14-36) U/L Total Protein (6.3-8.2) g/dL 03/19/21 03/19/21 03/19/21 Range/Units 06:39 07:14 11:26 MCV (80.0-100.0) fL Neutrophils # (1.3-7.7) k/uL Lymphocytes # (1.0-4.8) k/uL Sodium 131 L (137-145) mmol/L Potassium 5.3 H (3.5-5.1) mmol/L Carbon Dioxide 21 L (22-30) mmol/L BUN 38 H (7-17) mg/dL Creatinine 1.49 H (0.52-1.04) mg/dL Glucose 333 H (74-99) mg/dL POC Glucose (mg/dL) 346 H 300 H (75-99) mg/dL AST 42 H (14-36) U/L Total Protein 6.2 L (6.3-8.2) g/dL Assessment and Plan Assessment: Left femoral neck fracture with shortening, status post fall, surgical in tervention pending. CAD, history of CABG History of TIA, CVA Diabetes mellitus II Diabetic retinopathy Legally blind Hypothyroidism Hypertension Hyperlipidemia History of temporal arteritis History of Paget's disease History of right mastectomy History of anxiety Remote nicotine dependence Plan: Continue on current medication regime ,monitoring and symptomatic treatment. Surgical repair/pinning, pending as per orthopedic surgery. Patient currently off insulin pump. Low-dose Levemir added to med regimen in addition to NovoLog sliding scale. Close monitoring of Accu-Cheks. Pain management /anticoagulation as per orthopedic surgery. The impression and plan of care has been dictated as directed. : I performed a history and examination of this patient, discussed the same with the dictator. I agree with the dictator's note ,documented as a scribe. Any additional findings or plans will be noted.
--- NOTE | 2021-03-19 15:32 | XR ---
EXAMINATION TYPE: XR Hip Limited LT DATE OF EXAM: 03/19/2021 CLINICAL HISTORY: Left hip fracture. TECHNIQUE: Single AP portable view of left hip is obtained immediately postoperatively. COMPARISON: Pelvic and left hip x-ray from yesterday. FINDINGS: Metallic hardware from last hip arthroplasty is seen and appears satisfactory in alignment and position. There is evidence of recent surgery with adjacent subcutaneous gas noted laterally. M edial arterial vascular calcification is seen. IMPRESSION: Metallic hardware from left hip arthroplasty is satisfactory in position.
[2021-03-19] MEDS ORDERED: SODIUM CHLORIDE 0.9% 1,000 ML IV ONE (16:02)
[2021-03-19 17:07] LABS: Glucose,Whole Blood 293 mg/dL (75-99)
[2021-03-19] MEDS: SENNOSIDES-DOCUSATE SODIUM 1 EACH TAB PO SCH (20:58)
[2021-03-19] MEDS: LATANOPROST 0.005% OPHTH DROPS 2.5 ML BTL RIGHT EYE SCH (20:58)
[2021-03-19 21:00] LABS: Glucose,Whole Blood 274 mg/dL (75-99)
--- NOTE | 2021-03-20 00:09 | OP ---
OPERATIVE REPORT DATE OF PROCEDURE: 03/19/2021 SURGEON: Bravo Moctezuma MD. CURATOR OF PHOTOGRAPHY AND PRINTS: Ross FERRO. PREOPERATIVE DIAGNOSIS: Left displaced femoral neck fracture. POSTOP DIAGNOSIS: Left displaced femoral neck fracture. PROCEDURE PERFORMED: Left hip hemiarthroplasty. ANESTHESIA: Spinal with sedation. ESTIMATED BLOOD LOSS: 100 mL. TOURNIQUET: None. DRAINS: None. COMPLICATIONS: None apparent. DISPOSITION: Postanesthesia care unit. INDICATIONS: Geovanna is a very pleasant 85-year-old female who fell at home onto her left hip. She was brought via ambulance to [facility]. Workup including x-rays revealed a displaced femoral neck fracture. She is an independent ambulator at home. She lives with her daughter. Decision was made to proceed with left hip hemiarthroplasty. The risks of procedure were discussed in detail. These risks included, but were not limited to risk of infection, nerve damage, bleeding, pain, and a small risk of deep vein thrombosis which could lead to fatal pulmonary embolism. Further risks include periprosthetic fracture, and the possibility for instability in the hip in the future. All of her questions with regard to the procedure were answered to her satisfaction. Appropriate informed consent was obtained. DESCRIPTION OF THE PROCEDURE: The patient was identified in preoperative holding area. Surgical site was marked by both the patient and myself. She is given 2 grams of Ancef IV for prophylactic purposes. She was then transported to the operative suite. She was placed supine on the operative table. A spinal anesthetic was then administered and dosed per the anesthesia without apparent complication. The patient was then placed in the right lateral decubitus position well-padded in preparation for surgery. Great care was taken to ensure that her legs were appropriately padded and that a well-padded axillary roll was placed as well. The patient's left lower extremity was then prepped and draped in usual sterile fashion. Standard surgical pause undertaken to ensure that we were operating on the correct site and that appropriate preoperative antibiotics were given. All staff in the room agreement. We proceeded. The tip of the greater trochanter was marked. A planned 10-15 cm incision centered over the tip of the greater trochanter in line with the femur was then made. The incision was then made with a 10 blade scalpel. Dissection carried down sharply to the tensor fascia. The hemostasis achieved with electrocautery. The tensor fascia was then incised in line with the incision. A Charnley retractor was then placed. This exposed the underlying gluteus medius and lateral hip. A Barry's type anterolateral approach was then done. The raphae between the anterior 1/3 posterior 2/3 of the gluteus medius was identified. We then peeled off the gluteus medius, minimus and anterior capsule, anterior 3rd of the gluteus medius and minimus and anterior capsule in a sleeve. This exposed the femoral neck. I then utilized the resection guide and the reciprocating saw to make a fresh femoral neck cut. The [place] femoral head was then removed utilizing the corkscrew. This was then measured. A size 45. The 45 trial was placed on the lollipop. Had a good suction fit in the acetabulum. Acetabulum was also inspected. There was no evidence of fracture. It was also inspected for any loose bodies. I then proceeded with preparation of the proximal femur. The hip was then flexed and externally rotated over the side. This gave me good exposure of the proximal femur. The hot box spotter was then utilized to gain entry of the femoral canal. The starting reamer was then utilized. I then reamed with a 7 mm reamer. We then proceeded with broaching. Started with a size 7 broach and then incrementally increased up to a size 9 broach. It was a very tight fit with a size 9 broach. I then proceeded with trial. I started with a -3 neck and a 45 mm trial head. The hip was reduced. I then further trialed with a standard neck and a 45 mm head. It felt much better. The leg lengths were approximately equal. The had very minimal Shuck and the hip was 3 stable throughout a full range of motion. The hip was then very carefully redislocated. It was noted at this time that there was a small crack in the calcar. It did not propagate down to the lesser trochanter. However, I made a decision at this point to place a cable as to protect this from any further propagation. A cable was then passed using standard technique and then tightened. I then had the representative government relations open a size 9 Biomet Echo fracture stem, a standard neck and a 45 mm monopolar head. The fracture stem was then impacted into the proximal femur in approximately 15 degrees of anteversion. This had a very good press-fit into the proximal femur. The monopolar head and the standard neck were then impacted on the back table. This was this was then impacted onto a dry [place] taper. The hip was then very carefully reduced. It was very stable throughout a full range of motion. The leg lengths were were approximately equal and there was very minimal shuck. At this point in time, no further work was deemed necessary. We proceeded with closure. The wound was thoroughly irrigated with sterile saline solution with antibiotic added. The anterior capsule, gluteus medius and minimus were re-repaired back to the anterior aspect of the greater trochanter utilizing #5 Ethibond transosseous sutures. The raphae between the anterior 1/3 and posterior 2/3 of the gluteus medius was repaired with 0 Vicryl interrupted suture. The Charnley retractor was removed. Again the wound was thoroughly irrigated. The tensor fascia was then closed with a running #2 Quill suture. The subcutaneous tissue closed with 2-0 Vicryl interrupted suture and the skin was closed with a running 3-0 Quill suture. Dermabond applied to incision and sterile dressings were applied. The patient was placed into a hip abduction pillow. All sponge and needle counts were deemed correct prior to closure. The patient tolerated the procedure without apparent complication. She was transferred recovery room in stable condition. MMODL / IJN: [id number] /
[2021-03-20] MEDS: HYDROmorphone 1 MG/ML 1 ML SYRINGE IVP PRN (01:33)
[2021-03-20] MEDS: SODIUM CHLORIDE 0.9% 1,000 ML IV SCH ×3 (05:17→22:11)
[2021-03-20 06:43] LABS: Basophils % (A) 0 %; Eosinophils # (A) 0.1 k/uL (0-0.7); Eosinophils % (A) 1 %; HCT 35.9 % (34.0-46.0); Lymphocytes # (A) 0.4 k/uL (1.0-4.8); Lymphocytes % (A) 5 %; MCH 30.7 pg (25.0-35.0); MCHC 30.7 g/dL (31.0-37.0); MCV 100.1 fL (80.0-100.0); Mean Platelet Volume 8.4; Monocytes # (A) 0.8 k/uL (0-1.0); Monocytes % (A) 9 %; Neutrophils % (A) 83 %; Platelet Count 134 k/uL (150-450); RBC 3.59 m/uL (3.80-5.40); RDW 13.7 % (11.5-15.5); WBC 8.4 k/uL (3.8-10.6)
[2021-03-20 07:13] LABS: Glucose,Whole Blood 277 mg/dL (75-99)
[2021-03-20] MEDS: INSULIN ASPART (NovoLOG) 100 UNIT/ML VIAL SQ SCH ×4 (07:58→21:27)
[2021-03-20] MEDS: INSULIN DETEMIR (LEVEMIR) 100 UNIT/ML SYR SQ SCH (07:58)
[2021-03-20] MEDS: FAMOTIDINE 20 MG TAB PO SCH (07:59)
[2021-03-20] MEDS: METOPROLOL TARTRATE 25 MG TAB PO SCH ×2 (07:59→21:26)
[2021-03-20] MEDS: PANTOPRAZOLE 40 MG/10 ML VIAL IVP SCH (07:59)
[2021-03-20] MEDS: LORazepam 0.5 MG TAB PO SCH ×2 (07:59→21:34)
[2021-03-20] MEDS: NITROFURANTOIN MONOHYD/M-CRYST 100 MG CAP PO SCH ×2 (07:59→21:28)
[2021-03-20 11:27] LABS: Glucose,Whole Blood 440 mg/dL (75-99)
--- NOTE | 2021-03-20 12:05 | P.PN ---
Subjective Progress Note Date: 03/20/21 Principal diagnosis: Left hip fracture Patient is seen at bedside this morning. She is postop day #1 from left hip hemiarthroplasty. She has pain at the surgical site as expected but denies any new complaints. She denies numbness, tingling or calf pain. Review of systems is negative for fever, chills, chest pain, shortness of breath or other Objective - Vital Signs Vital signs: Vital Signs Temp 98.3 F 03/20/21 11:30 Pulse 80 03/20/21 11:30 Resp 16 03/20/21 11:30 BP 161/72 03/20/21 11:30 Pulse Ox 94 L 03/20/21 11:30 Intake & Output 03/19/21 03/20/21 03/20/21 18:59 06:59 18:59 Intake Total 1711 1640 Output Total 630 400 Balance 1081 1240 Weight 77.586 kg Intake: IV 1551 Intake, IV Titration 160 960 Amount Sodium Chloride 0.9% 1, 160 960 000 ml @ 80 mls/hr IV . [id number] [facility] Rx#:[id number] Oral 680 Output: Urine 530 400 Estimated Blood Loss 100 Other: Voiding Method Indwelling Catheter Indwelling Catheter Indwelling Catheter - Exam Inspection reveals a benign surgical wound. There is no active bleeding or drainage. Neurovascular status is intact throughout the lower extremity with motor and sensation fully intact. Calf is soft and nontender. 2+ dorsalis pedis pulse and less than 2 second cap refill is present. - Constitutional General appearance: Present: no acute distress - Labs CBC & Chem 7: 03/20/21 06:10 03/19/21 06:39 Labs: Abnormal Lab Results - Last 24 Hours (Table) 03/19/21 03/19/21 03/20/21 Range/Units 17:06 20:58 06:10 RBC 3.59 L (3.80-5.40) m/uL Hgb 11.0 L (11.4-16.0) gm/dL MCV 100.1 H (80.0-100.0) fL MCHC 30.7 L (31.0-37.0) g/dL Plt Count 134 L (150-450) k/uL Lymphocytes # 0.4 L (1.0-4.8) k/uL POC Glucose (mg/dL) 293 H 274 H (75-99) mg/dL 03/20/21 03/20/21 Range/Units 07:02 11:25 RBC (3.80-5.40) m/uL Hgb (11.4-16.0) gm/dL MCV (80.0-100.0) fL MCHC (31.0-37.0) g/dL Plt Count (150-450) k/uL Lymphocytes # (1.0-4.8) k/uL POC Glucose (mg/dL) 277 H 440 H (75-99) mg/dL Assessment and Plan (1) Closed left hip fracture Narrative/Plan: She will continue with routine postop orthopedic protocol including pain management, wound care, PT, DVT prophylaxis and medical management. Expect that he will transfer to home in next 1-2 days Current Visit: Yes Status: Acute Code(s): S72.002A - FRACTURE OF UNSP PART OF NECK OF LEFT FEMUR, INIT SNOMED Code(s): 456085181 Time with Patient: Less than 30
[2021-03-20] MEDS: LEVOTHYROXINE 75 MCG TAB PO SCH (12:37)
[2021-03-20] MEDS: MULTIVITAMINS, THERA 1 EACH TAB PO SCH (12:38)
[2021-03-20 13:31] LABS: African American GFR (CKD) 53.4 (60.0-200.0); Anion Gap 10.9 mmol/L (4.00-12.00); BUN/Creat Ratio 28.18 Ratio (12.00-20.00); Calcium 8.9 mg/dL (8.7-10.3); Carbon Dioxide 23.1 mmol/L (21.6-31.8); Non-African American GFR(CKD) 46.1 (60.0-200.0)
--- NOTE | 2021-03-20 14:47 | P.PN ---
Subjective Progress Note Date: 03/20/21 This is an 85-year-old female with past medical history of CAD, CABG,TIA/CVA, diabetes mellitus, hypertension, temporal arteritis, Paget's disease and history of anxiety, presented to the ER status post fall with resulting severe left hip/ leg pain. Patient is currently sedated recently receiving Dilaudid for pain management. Family at bedside stating patient lost balance while attempting to go to bed and fell. EKG reporting sinus rhythm with first-degree AV block, nonspecific ST/T-wave abnormality-no change as per Dr. Thomas' review. Troponin negative 3. Hematology, coagulation panels unremarkable. Sodium 131 potassium 5.3 chloride 95. 26, creatinine 0.83. Glucose 238. Lactic acid 1, magnesium 2. AST 39. UA negative, coronavirus detected. Chest x-ray reported no acute cardiopulmonary process, mild cardiomegaly, prominent tortuous aorta. Left hip/pelvis x-ray reported left femoral neck fracture with shortening, hip joints demonstrated a mild osteoarthrosis. 03/19/2021 NPO, scheduled for left hip hemiarthroplasty today. Blood sugars elevated, small dose of Levemir ordered. Complains of left hip/left leg pain. Denies chest pain, palpitations or shortness of breath. Afebrile, T-max 99., WBC 9.3. Creatinine up to 1.49. 03/20/2021 postop day 1 left hip hemiarthroplasty, tolerated procedure well. Pain controlled. Creatinine improving down to 1.1. Good diet intake with no nausea vomiting or diarrhea. Passing flatus. Hyperglycemic, blood sugars in the 200s, Insulin pump has not yet been resumed, family is bringing in. Afebrile, maintaining O2 sats in the 90s on 2 L nasal cannula. Denies chest pain, palpitations or increased shortness of breath. Objective - Vital Signs Vital signs: Vital Signs Temp 98.6 F 03/20/21 04:40 Pulse 86 03/20/21 04:40 Resp 16 03/20/21 04:40 BP 135/72 03/20/21 04:40 Pulse Ox 93 L 03/20/21 04:40 Intake & Output 03/19/21 03/20/21 03/20/21 18:59 06:59 18:59 Intake Total 1711 1640 Output Total 630 400 Balance 1081 1240 Weight 77.586 kg Intake: IV 1551 Intake, IV Titration 160 960 Amount Sodium Chloride 0.9% 1, 160 960 000 ml @ 80 mls/hr IV . [id number] [facility] Rx#:[id number] Oral 680 Output: Urine 530 400 Estimated Blood Loss 100 Other: Voiding Method Indwelling Catheter Indwelling Catheter Indwelling Catheter - Exam - Exam PHYSICAL EXAM: VITALS: As noted above. GENERAL APPEARANCE: Sitting up in bed ,No acute distress. EYES: Pupils equal, round, conjunctiva normal. Legally blind. NECK:supple without lymphadenopathy, no JVD. LUNGS: Breath sounds essentially clear to auscultation bilaterally. Bilateral bases diminished HEART: S1, S2 audible Regular rate and rhythm. No murmurs, rubs or gallops. ABDOMEN: Soft, nontender, nondistended, normoactive bowel sounds. No guarding, no rebound. EXTREMITIES: 2+ peripheral pulses.Left lower extremity dressing clean dry and intact, +2 DP, warm, no edema, sensation intact NEUROLOGICAL: Cranial nerves II through XII grossly intact/legally blind. Alert and oriented 2. SKIN: Warm, dry, No rashes - Labs CBC & Chem 7: 03/20/21 06:10 03/20/21 06:10 Labs: Abnormal Lab Results - Last 24 Hours (Table) 03/19/21 03/19/21 03/19/21 Range/Units 11:26 17:06 20:58 RBC (3.80-5.40) m/uL Hgb (11.4-16.0) gm/dL MCV (80.0-100.0) fL MCHC (31.0-37.0) g/dL Plt Count (150-450) k/uL Lymphocytes # (1.0-4.8) k/uL POC Glucose (mg/dL) 300 H 293 H 274 H (75-99) mg/dL 03/20/21 03/20/21 Range/Units 06:10 07:02 RBC 3.59 L (3.80-5.40) m/uL Hgb 11.0 L (11.4-16.0) gm/dL MCV 100.1 H (80.0-100.0) fL MCHC 30.7 L (31.0-37.0) g/dL Plt Count 134 L (150-450) k/uL Lymphocytes # 0.4 L (1.0-4.8) k/uL POC Glucose (mg/dL) 277 H (75-99) mg/dL Assessment and Plan Assessment: Left femoral neck fracture with shortening, status post fall, status post left hip hemiarthroplasty CAD, history of CABG History of TIA, CVA Diabetes mellitus II Diabetic retinopathy Legally blind Hypothyroidism Hypertension Hyperlipidemia History of temporal arteritis History of Paget's disease History of right mastectomy History of anxiety Remote nicotine dependence Plan: Continue on current medication regime ,monitoring and symptomatic treatment. Family is bringing in insulin pump/supplies.Levemir dose increased. Close monitoring of Accu-Cheks. Pain management/anticoagulation as per orthopedic surgery. Aggressive pulmonary toileting with incentive spirometer reinforced. The impression and plan of care has been dictated as directed. : I performed a history and examination of this patient, discussed the same with the dictator. I agree with the dictator's note ,documented as a scribe. Any additional findings or plans will be noted.
[2021-03-20] MEDS ORDERED: INSULIN DETEMIR (LEVEMIR) 100 UNIT/ML SYR SQ ONE (15:00)
[2021-03-20] MEDS: HYDROcodone/APAP 5-325MG 1 EACH TAB PO PRN ×2 (16:51→22:10)
[2021-03-20 17:25] LABS: Glucose,Whole Blood 400 mg/dL (75-99)
[2021-03-20 20:09] LABS: Glucose,Whole Blood 452 mg/dL (75-99)
[2021-03-20] MEDS: SENNOSIDES-DOCUSATE SODIUM 1 EACH TAB PO SCH (21:26)
[2021-03-20] MEDS: LATANOPROST 0.005% OPHTH DROPS 2.5 ML BTL RIGHT EYE SCH (21:28)
[2021-03-21] MEDS ORDERED: INSULIN DETEMIR (LEVEMIR) 100 UNIT/ML SYR SQ SCH (07:00)
[2021-03-21 07:03] LABS: Glucose,Whole Blood 160 mg/dL (75-99)
[2021-03-21] MEDS: INSULIN ASPART (NovoLOG) 100 UNIT/ML VIAL SQ SCH ×4 (08:31→22:11)
[2021-03-21] MEDS: NITROFURANTOIN MONOHYD/M-CRYST 100 MG CAP PO SCH ×2 (08:32→22:06)
[2021-03-21] MEDS: LORazepam 0.5 MG TAB PO SCH ×2 (08:32→22:03)
[2021-03-21] MEDS: METOPROLOL TARTRATE 25 MG TAB PO SCH ×2 (08:32→22:03)
[2021-03-21] MEDS: PANTOPRAZOLE 40 MG/10 ML VIAL IVP SCH (08:32)
[2021-03-21] MEDS: FAMOTIDINE 20 MG TAB PO SCH (08:32)
[2021-03-21] MEDS: SODIUM CHLORIDE 0.9% 1,000 ML IV SCH (10:44)
[2021-03-21 12:04] LABS: Glucose,Whole Blood 166 mg/dL (75-99)
[2021-03-21] MEDS: HYDROcodone/APAP 5-325MG 1 EACH TAB PO PRN (12:19)
[2021-03-21 12:45] VITALS: RESP 16
--- NOTE | 2021-03-21 12:47 | P.PN ---
Progress Note - Text Progress Note Date: 03/21/21 Orthopedics: History of present illness: Patient is a very pleasant 85-year-old female who is seen and examined at bedside with her family present. Patient is status post left hip hemiarthroplasty for a left displaced femoral neck fracture. Surgery was performed on 03/19/[address] Bravo Moctezuma. She does continue to have some pain at the left hip but her pain has been controlled with medications. She is weightbearing as tolerated on the left lower extremity with the assistance of a walker. She has only been able take a couple steps to a bedside chair. She has been working with physical therapy. She continues keep her abductor pillow int act. Her family at the bedside states the patient is legally blind. They state it would be difficult for the patient to be at a rehabilitation facility given her blindness and her inability for family to visit. The family is planning for discharge home once the patient is able to continue improving postoperatively. They are requesting a hospital bed at the time of discharge home. She continues to be seen and examined by medicine for her other medical diagnoses. Physical Exam Hip Hemiarthroplasty: Status post surgical day number 2 Patient is examined lying in bed Patient is awake, alert, and oriented 3 Vital signs stable Good chest excursion with deep inspiration and expiration Abdomen soft nontender No signs or symptoms of DVT; mild generalized bilateral calf pain with palpation even with light palpation Calves are soft with no significant swelling or erythema Negative Js sign Lower extremity cuffs in place bilaterally Abductor pillow intact Dressing of the hip is clean, dry, and intact; no erythema, purulence, or signs of infection No significant pain with palpation over the surgical site Full range of motion of ankles bilaterally Dorsiflexion, plantarflexion, and extensor hallucis longus positive sustained bilaterally Neurovascularly intact bilateral lower extremities Capillary refill less than 2 seconds bilateral lower extremities Assessment: Status post left hip hemiarthroplasty for left displaced femoral neck fracture Status post fall Left hip pain Coronary artery disease with history of CABG History of TIA, CVA Diabetes mellitus II Diabetic retinopathy Legally blind Hypothyroidism Hypertension Hyperlipidemia History of temporal arteritis History of Paget's disease History of right mastectomy History of anxiety Plan: 1. Patient may continue to weight-bear as tolerated on the left lower extremity; patient may work with physical therapy to increase mobility and ambulation 2. Continue pain control acetaminophen 650 mg, [place], and Dilaudid as prescribed as needed for control of her symptoms 3. Abductor pillow to remain in place at all times except while working with therapy or while sitting in a bedside chair 4. Medicine to continue following the patient for their other medical diagnoses 5. We will add aspirin 325 mg twice a day for anticoagulation therapy; patient states she has taken aspirin in the past without any difficulty 6. We'll continue to follow the patient 7. Depending on her progress, we will plan for discharge home as early as tomorrow, 03/22/2021, or this coming 03/23/2021; we will plan for discharge home with a hospital bed. Prescription has been written and provided to case management to obtain his hospital bed prior to her discharge 8. Patient can follow-up with Dr. Bravo Moctezuma at [facility] in 2-3 weeks following discharge
[2021-03-21] MEDS: MULTIVITAMINS, THERA 1 EACH TAB PO SCH (13:03)
[2021-03-21] MEDS: LEVOTHYROXINE 75 MCG TAB PO SCH (13:03)
--- NOTE | 2021-03-21 14:35 | PN ---
PROGRESS NOTE DATE OF SERVICE: 03/21/2021 I am covering for Dr. Thomas. HISTORY OF PRESENT ILLNESS: This 85-year-old woman with a past medical history of multiple medical problems admitted with left femoral neck fracture. The patient underwent left hip hemiarthroplasty. Patient closely monitored. The patient has some pain at this time. Patient mildly confused. PT/OT evaluated the patient for possible ECF rehab being planned at this time. The blood sugar is also being monitored. Hemoglobin 11. The patient had hyponatremia and hyperkalemia which was also being monitored. Blood sugars also been elevated to 452. PAST MEDICAL: Reviewed. REVIEW OF SYSTEMS: CARDIOVASCULAR No angina or palpitations. RESPIRATORY As mentioned earlier. GI No nausea, vomiting, or diarrhea. No dysuria or hematuria. NERVOUS No numbness or weakness. CURRENT MEDICATIONS: Reviewed include Tylenol, [place], Artificial Tears, aspirin, Pepcid, Dilaudid p.r.n., Levemir, Ativan, Lopressor. PHYSICAL EXAMINATION: The patient is alert and oriented x2. Pulse is 80, blood pressure 129/77, respirations 16, temperature 98.6, pulse ox 100% on 2 L agents. HEENT: Conjunctivae normal. Oral mucosa moist. NECK: No jugular venous distention. No lymph node enlargement. CARDIOVASCULAR: S1, S2, muffled. No S3, no S4, RESPIRATORY: Diminished breath sounds at the bases. Bilateral scattered rhonchi and crackles. ABDOMEN: Soft, nontender. LEGS: Status post surgery. NERVOUS SYSTEM: Higher functions as mentioned. Moves all four limbs. LYMPHATICS: No lymph node in neck or axilla. SKIN: No rash. JOINTS: As mentioned earlier. LAB STUDIES: WBC 8, hemoglobin 11, sodium 137, potassium 5. ASSESSMENT: 1. Left femoral neck fracture status post hip hemiarthroplasty. 2. History of coronary artery disease, CABG. 3. Hyponatremia. 4. Hyperkalemia. 5. Diabetes mellitus type 2 uncontrolled with hyperglycemia. 6. History of TIA, CVA. 7. Diabetic retinopathy. 8. Legally blind. 9. Hypertension. 10.Hypothyroidism. 11.Hyperlipidemia. 12.History of temporal arteritis. 13.History of ( ). 14.History of anxiety. 15.Remote history of nicotine dependence. RECOMMENDATIONS: Recommend to continue current management and symptomatic treatment. Continue the DVT prophylaxis. Otherwise, I would recommend Pain Management. Monitor blood sugars closely. The patient is currently on Lantus 20 units subcu q.h.s. Patient is on a regular diet. We will discontinue the IV fluids. Follow up labs in the morning. Guarded prognosis. Further recommendations to follow. MMODL / IJN: [id number] /
[2021-03-21] MEDS: ASPIRIN 325 MG TAB PO SCH ×2 (15:03→22:05)
[2021-03-21 17:09] LABS: Glucose,Whole Blood 210 mg/dL (75-99)
[2021-03-21 20:41] LABS: Glucose,Whole Blood 347 mg/dL (75-99)
[2021-03-21] MEDS: SENNOSIDES-DOCUSATE SODIUM 1 EACH TAB PO SCH (22:03)
[2021-03-21] MEDS: LATANOPROST 0.005% OPHTH DROPS 2.5 ML BTL RIGHT EYE SCH (22:07)
[2021-03-21] MEDS: INSULIN DETEMIR (LEVEMIR) 100 UNIT/ML SYR SQ SCH ×2 (22:15)
[2021-03-22 03:55] LABS: Basophils % (A) 1 %; Eosinophils # (A) 0.3 k/uL (0-0.7); Eosinophils % (A) 5 %; HCT 30.3 % (34.0-46.0); HGB 9.6 gm/dL (11.4-16.0); Lymphocytes # (A) 0.5 k/uL (1.0-4.8); Lymphocytes % (A) 8 %; MCH 31.2 pg (25.0-35.0); MCHC 31.5 g/dL (31.0-37.0); Mean Platelet Volume 9.2; Monocytes # (A) 0.5 k/uL (0-1.0); Monocytes % (A) 8 %; Neutrophils # (A) 4.9 k/uL (1.3-7.7); Neutrophils % (A) 75 %; Platelet Count 125 k/uL (150-450); RBC 3.06 m/uL (3.80-5.40); RDW 13.8 % (11.5-15.5); WBC 6.5 k/uL (3.8-10.6)
[2021-03-22 04:57] LABS: Glucose,Whole Blood 124 mg/dL (75-99)
[2021-03-22 07:18] LABS: Glucose,Whole Blood 129 mg/dL (75-99)
[2021-03-22] MEDS: ACETAMINOPHEN TAB 325 MG TAB PO PRN ×2 (08:11→23:05)
[2021-03-22 09:59] LABS: African American GFR (CKD) 68.1 (60.0-200.0); Anion Gap 4.7 mmol/L (4.00-12.00); BUN/Creat Ratio 36.67 Ratio (12.00-20.00); Calcium 8.4 mg/dL (8.7-10.3); Carbon Dioxide 27.3 mmol/L (21.6-31.8); Non-African American GFR(CKD) 58.7 (60.0-200.0); Potassium 4.1 mmol/L (3.5-5.5)
[2021-03-22] MEDS: INSULIN ASPART (NovoLOG) 100 UNIT/ML VIAL SQ SCH ×4 (10:33→21:27)
[2021-03-22] MEDS: ASPIRIN 325 MG TAB PO SCH ×2 (10:48→21:18)
[2021-03-22] MEDS: LORazepam 0.5 MG TAB PO SCH ×2 (10:48→21:18)
[2021-03-22] MEDS: FAMOTIDINE 20 MG TAB PO SCH (10:48)
[2021-03-22] MEDS: METOPROLOL TARTRATE 25 MG TAB PO SCH ×2 (10:48→21:18)
[2021-03-22] MEDS: NITROFURANTOIN MONOHYD/M-CRYST 100 MG CAP PO SCH ×2 (10:49→21:19)
[2021-03-22] MEDS: PANTOPRAZOLE 40 MG/10 ML VIAL IVP SCH (10:49)
[2021-03-22 11:10] LABS: Glucose,Whole Blood 127 mg/dL (75-99)
--- NOTE | 2021-03-22 12:20 | P.PN ---
Progress Note - Text Progress Note Date: 03/22/21 Orthopedics: History of present illness: Patient is a very pleasant 85-year-old female who is seen and examined at bedside with her family present. Patient is status post left hip hemiarthroplasty for a left displaced femoral neck fracture. Surgery was performed on 03/19/[address] Bravo Moctezuma. She does continue to have some pain at the left hip but her pain has been controlled with medications. She is weightbearing as tolerated on the left lower extremity with the assistance of a walker. She has only been able take a couple steps to a bedside chair. She has been working with physical therapy. She continues keep her abductor pillow intact. Her family at the bedside states the patient is legally blind. They state it would be difficult for the patient to be at a rehabilitation facility given her blindness and her inability for family to visit. The family is planning for discharge home once the patient is able to continue improving postoperatively. They are requesting a hospital bed at the time of discharge home. She does continue to have difficulty with mobility and would have significant difficulty trying to get in and out of bed. She continues to be seen and examined by medicine for her other medical diagnoses. Physical Exam Hip Hemiarthroplasty: Status post surgical day number 3 Patient is examined lying in bed Patient is awake, alert, and oriented 3 Vital signs stable Good chest excursion with deep inspiration and expiration Abdomen soft nontender No signs or symptoms of DVT; mild generalized bilateral calf pain with palpation even with light palpation Calves are soft with no significant swelling or erythema Negative Js sign Lower extremity cuffs in place bilaterally Abductor pillow intact Dressing of the hip is clean, dry, and intact; no erythema, purulence, or signs of infection No significant pain with palpation over the surgical site Full range of motion of ankles bilaterally Dorsiflexion, plantarflexion, and extensor hallucis longus positive sustained b ilaterally Neurovascularly intact bilateral lower extremities Capillary refill less than 2 seconds bilateral lower extremities Assessment: Status post left hip hemiarthroplasty for left displaced femoral neck fracture Status post fall Left hip pain Coronary artery disease with history of CABG History of TIA, CVA Diabetes mellitus II Diabetic retinopathy Legally blind Hypothyroidism Hypertension Hyperlipidemia History of temporal arteritis History of Paget's disease History of right mastectomy History of anxiety Plan: 1. Patient may continue to weight-bear as tolerated on the left lower extremity; patient may work with physical therapy to increase mobility and ambulation 2. Continue pain control acetaminophen 650 mg, [place], and Dilaudid as prescribed as needed for control of her symptoms 3. Abductor pillow to remain in place at all times except while working with therapy or while sitting in a bedside chair 4. Medicine to continue following the patient for their other medical diagnoses 5. Patient will continue with anticoagulation with aspirin 325 mg twice a day for anticoagulation therapy; patient states she has taken aspirin in the past without any difficulty 6. We'll continue to follow the patient 7. Depending on her progress, we will plan for discharge home as early as this coming 03/23/2021; we will plan for discharge home with a hospital bed. Patient has had significant difficulty with mobilization postoperatively and would have difficulty trying to get in and out of her bed. She could benefit from having a hospital bed with railings. Prescription has been written and provided to case management to obtain his hospital bed prior to her discharge 8. Patient can follow-up with Dr. Bravo Moctezuma at [facility] in 2-3 weeks following discharge
[2021-03-22] MEDS: MULTIVITAMINS, THERA 1 EACH TAB PO SCH (12:45)
[2021-03-22 14:35] LABS: Glucose,Whole Blood 249 mg/dL (75-99)
[2021-03-22 17:55] LABS: Glucose,Whole Blood 148 mg/dL (75-99)
[2021-03-22 20:43] LABS: Glucose,Whole Blood 142 mg/dL (75-99)
[2021-03-22] MEDS: LATANOPROST 0.005% OPHTH DROPS 2.5 ML BTL RIGHT EYE SCH (21:19)
[2021-03-22] MEDS: SENNOSIDES-DOCUSATE SODIUM 1 EACH TAB PO SCH (21:19)
[2021-03-22] MEDS: INSULIN DETEMIR (LEVEMIR) 100 UNIT/ML SYR SQ SCH (21:27)
--- NOTE | 2021-03-22 22:33 | PN ---
PROGRESS NOTE DATE OF SERVICE: 03/22/2021. I am covering for Dr. Tony Thomas. This 86-year-old woman who was admitted after left hip fracture and left hip hemiarthroplasty. No chest pain. No palpitations. No fever. ECF rehab is being planned. PHYSICAL EXAMINATION: Alert and oriented x3. Pulse is 67, blood pressure 161/70, respirations 16, temperature 97.2, pulse ox 98% on 2 L. HEENT: Conjunctivae normal. NECK: No JVD. CARDIOVASCULAR: S1, S2 muffled. RESPIRATORY: Breath sounds diminished at the bases. A few scattered rhonchi. ABDOMEN: Soft, nontender. LEGS: No edema. No swelling. NERVOUS SYSTEM: No focal deficits. LAB STUDIES: WBC 9.6. Other labs are noted. ASSESSMENT: 1. Left femoral neck fracture status post left hip hemiarthroplasty. 2. History of coronary artery disease, coronary artery bypass grafting. 3. Hyponatremia. 4. Hyperkalemia. 5. Diabetes mellitus type 2, uncontrolled with hyperglycemia. 6. History of transient ischemic attack and cerebrovascular accident. 7. Diabetic retinopathy. 8. Legally blind. 9. Hypertension. 10.Hypothyroidism. 11.Hyperlipidemia. 12.History of temporal arteritis. 13.History of anxiety. 14.Remote history of nicotine dependence. RECOMMENDATIONS AND DISCUSSION: I recommend to continue current medications, monitoring and symptomatic treatment. Otherwise DVT prophylaxis. PT/OT evaluation, possible ECF rehab. Dr. Thomas will follow tomorrow. MMODL / IJN: [id number] /
[2021-03-23 06:59] LABS: Glucose,Whole Blood 155 mg/dL (75-99)
[2021-03-23 07:17] LABS: Basophils % (A) 1 %; Eosinophils # (A) 0.3 k/uL (0-0.7); Eosinophils % (A) 6 %; HCT 28.3 % (34.0-46.0); HGB 9.7 gm/dL (11.4-16.0); Lymphocytes # (A) 0.4 k/uL (1.0-4.8); Lymphocytes % (A) 7 %; MCH 33.2 pg (25.0-35.0); MCHC 34.2 g/dL (31.0-37.0); Mean Platelet Volume 8.9; Monocytes # (A) 0.5 k/uL (0-1.0); Monocytes % (A) 10 %; Neutrophils % (A) 75 %; Platelet Count 162 k/uL (150-450); RBC 2.92 m/uL (3.80-5.40); RDW 13.2 % (11.5-15.5); WBC 5.4 k/uL (3.8-10.6)
[2021-03-23] MEDS: INSULIN ASPART (NovoLOG) 100 UNIT/ML VIAL SQ SCH ×2 (07:47→14:36)
[2021-03-23] MEDS: LORazepam 0.5 MG TAB PO SCH (07:48)
[2021-03-23] MEDS: PANTOPRAZOLE 40 MG/10 ML VIAL IVP SCH (07:48)
[2021-03-23] MEDS: NITROFURANTOIN MONOHYD/M-CRYST 100 MG CAP PO SCH (07:48)
[2021-03-23] MEDS: ASPIRIN 325 MG TAB PO SCH (07:48)
[2021-03-23] MEDS: METOPROLOL TARTRATE 25 MG TAB PO SCH (07:48)
[2021-03-23] MEDS: FAMOTIDINE 20 MG TAB PO SCH (07:48)
[2021-03-23 11:27] VITALS: BP 151/73; PULSE 63; TEMP 98.3
--- NOTE | 2021-03-23 11:31 | P.DS ---
Providers Date of admission: 03/18/21 01:28 Expected date of discharge: 03/23/21 Attending physician: Bravo Moctezuma Consults: 03/18/21 01:27 Consult Physician Routine Consulting Provider: Tony Thomas Reason/Comments: known Do you want consulting provider notified?: Yes Primary care physician: Tony Thomas - Discharge Diagnosis(es) (1) Closed left hip fracture Patient was admitted to the OR on 03/19/21 to undergo a left hip hemiarthroplasty. She had suffered a fall at home resulting in a left femoral neck fracture and desired to proceed with elective surgery after given informed consent. She underwent the above procedure which she tolerated well without complication. Postoperative hospital course has remained without complication. On day of discharge she is afebrile, vital signs stable, labs within acceptable ranges, tolerating by mouth meds and diet, voiding without difficulty, positive flatus, denies abdominal pain or calf pain, pain is controlled on oral pain medication and has no new complaints. Wound is benign, neurovascular status is intact, calf is soft and nontender, abdomen soft and nontender. Review of systems is negative for numbness, tingling, fever, chills, chest pain, shortness of breath, nausea, vomiting, dizziness, headaches, slurred speech or other. Current Visit: Yes Status: Acute Priority: Medium Procedures: Left hip hemiarthroplasty for left hip fracture Patient Condition at Discharge: Fair Plan - Discharge Summary Discharge Rx Participant: No New Discharge Prescriptions: New Docusate [Colace] 100 mg PO BID #60 capsule HYDROcodone/APAP 5-325MG [[place] 5-325] 1 tab PO Q4HR PRN #42 tab PRN Reason: Pain Aspirin [Adult Low Dose Aspirin EC] 81 mg PO BID #60 tablet.dr No Action LORazepam [Ativan] 0.5 mg PO BID Propylene Glycol/Peg 400/Pf [Systane 0.3-0.4% Eye Drops] 1 drop BOTH EYES DAILY PRN PRN Reason: Dry Eye(S) Latanoprost Ophth [Xalatan 0.005%] 1 drops RIGHT EYE HS ml Metoprolol Tartrate [Lopressor] 25 mg PO BID #60 tab amLODIPine [Norvasc] 2.5 mg PO HS Pravastatin Sodium [Pravachol] 20 mg PO HS Pantoprazole [Protonix] 40 mg PO HS Loratadine [Claritin] 10 mg PO DAILY@1200 Ezetimibe [Zetia] 10 mg PO DAILY Escitalopram [Lexapro] 5 mg PO HS Levothyroxine Sodium [Synthroid] 75 mcg PO MOTUWETHFRSA@1200 Insulin Aspart (For Pump) [NovoLOG (For Pump)] 0.01 unit SQ-PUMP CONTINUOUS Aspirin 162 mg PO HS Bythvhntxsawfo-OS-Wcsbgiguur [Folbic] 1 tab PO AC-BRKFST traMADol HCl [Ultram] 50 mg PO TID PRN #9 tab PRN Reason: Pain Nitrofurantoin Monohyd/M-Cryst [Macrobid] 100 mg PO Q12HR Discharge Medication List LORazepam [Ativan] 0.5 mg PO BID 02/15/15 [History] Propylene Glycol/Peg 400/Pf [Systane 0.3-0.4% Eye Drops] 1 drop BOTH EYES DAILY PRN 02/15/15 [History] Latanoprost Ophth [Xalatan 0.005%] 1 drops RIGHT EYE HS ml 11/25/15 [Rx] Metoprolol Tartrate [Lopressor] 25 mg PO BID #60 tab 11/25/15 [Rx] Escitalopram [Lexapro] 5 mg PO HS 10/13/18 [History] Ezetimibe [Zetia] 10 mg PO DAILY 10/13/18 [History] Levothyroxine Sodium [Synthroid] 75 mcg PO MOTUWETHFRSA@1200 10/13/18 [History] Loratadine [Claritin] 10 mg PO DAILY@1200 10/13/18 [History] Pantoprazole [Protonix] 40 mg PO HS 10/13/18 [History] Pravastatin Sodium [Pravachol] 20 mg PO HS 10/13/18 [History] amLODIPine [Norvasc] 2.5 mg PO HS 10/13/18 [History] Aspirin 162 mg PO HS 11/12/19 [History] Jwlwlunshkdjif-PL-Ojlzogwsfo [Folbic] 1 tab PO AC-BRKFST 11/12/19 [History] Insulin Aspart (For Pump) [NovoLOG (For Pump)] 0.01 unit SQ-PUMP CONTINUOUS 11/12/19 [History] traMADol HCl [Ultram] 50 mg PO TID PRN #9 tab 11/14/19 [Rx] Nitrofurantoin Monohyd/M-Cryst [Macrobid] 100 mg PO Q12HR 03/18/21 [History] Aspirin [Adult Low Dose Aspirin EC] 81 mg PO BID #60 tablet.dr 03/20/21 [Rx] Docusate [Colace] 100 mg PO BID #60 capsule 03/20/21 [Rx] HYDROcodone/APAP 5-325MG [[place] 5-325] 1 tab PO Q4HR PRN #42 tab 03/20/21 [Rx] Follow up Appointment(s)/Referral(s): Tony Thomas DO [Primary Care Provider] - 1-2 days [facility], [NON-STAFF] - Bravo Moctezuma MD [STAFF PHYSICIAN] - 10 Days Activity/Diet/Wound Care/Special Instructions: Keep wound clean and dry Take meds as directed Follow-up with Dr. Moctezuma in office Weight bear as tolerated May shower in 3 days if no bleeding Patient requires hospital bed to alleviate pain related to hip fracture that cannot be done with an ordinary bed which includes having the head of the bed elevated 30 degrees or more most of the time. Discharge Disposition: HOME WITH HOME HEALTH SERVICES
--- NOTE | 2021-03-23 12:08 | P.PN ---
Subjective Progress Note Date: 03/23/21 This is an 85-year-old female with past medical history of CAD, CABG,TIA/CVA, diabetes mellitus, hypertension, temporal arteritis, Paget's disease and history of anxiety, presented to the ER status post fall with resulting severe left hip/ leg pain. Patient is currently sedated recently receiving Dilaudid for pain management. Family at bedside stating patient lost balance while attempting to go to bed and fell. EKG reporting sinus rhythm with first-degree AV block, nonspecific ST/T-wave abnormality-no change as per Dr. Thomas' review. Troponin negative 3. Hematology, coagulation panels unremarkable. Sodium 131 potassium 5.3 chloride 95. 26, creatinine 0.83. Glucose 238. Lactic acid 1, magnesium 2. AST 39. UA negative, coronavirus detected. Chest x-ray reported no acute cardiopulmonary process, mild cardiomegaly, prominent tortuous aorta. Left hip/pelvis x-ray reported left femoral neck fracture with shortening, hip joints demonstrated a mild osteoarthrosis. 03/19/2021 NPO, scheduled for left hip hemiarthroplasty today. Blood sugars elevated, small dose of Levemir ordered. Complains of left hip/left leg pain. Denies chest pain, palpitations or shortness of breath. Afebrile, T-max 99., WBC 9.3. Creatinine up to 1.49. 03/20/2021 postop day 1 left hip hemiarthroplasty, tolerated procedure well. Pain controlled. Creatinine improving down to 1.1. Good diet intake with no nausea vomiting or diarrhea. Passing flatus. Hyperglycemic, blood sugars in the 200s, Insulin pump has not yet been resumed, family is bringing in. Afebrile, maintaining O2 sats in the 90s on 2 L nasal cannula. Denies chest pain, palpitations or increased shortness of breath. 03/23/2021 pain controlled, passing flatus. Good diet intake, with no nausea vomiting or diarrhea. VSS, maintaining O2 sats in the 90s on room air. Afebrile, normal WBC. Denies chest pain, palpitations or shortness of breath. Declining subacute rehab. Objective - Vital Signs Vital signs: Vital Signs Temp 98.3 F 03/23/21 11:26 Pulse 63 03/23/21 11:26 Resp 16 03/23/21 11:26 BP 151/73 06/07/21 11:26 Pulse Ox 95 03/23/21 11:26 Intake & Output 03/22/21 03/23/21 03/23/21 18:59 06:59 18:59 Output Total 600 Balance -600 Output: Urine 600 Other: Voiding Method Indwelling Catheter External Catheter Diaper External Catheter # Voids 1 0 - Exam - Exam PHYSICAL EXAM: VITALS: As noted above. GENERAL APPEARANCE: Sitting up in bed ,No acute distress. EYES: Pupils equal, round, conjunctiva normal. Legally blind. NECK:supple, no JVD. LUNGS: Breath sounds essentially clear to auscultation bilaterally. Bilateral bases diminished HEART: S1, S2 audible Regular rate and rhythm. No murmurs, rubs or gallops. ABDOMEN: Soft, nontender, nondistended, normoactive bowel sounds. No guarding, no rebound. EXTREMITIES: 2+ peripheral pulses.Left lower extremity dressing clean dry and intact, +2 DP, warm, no edema, sensation intact NEUROLOGICAL: Cranial nerves II through XII grossly intact/legally blind. Alert and oriented 3 SKIN: Warm, dry, No rashes - Labs CBC & Chem 7: 03/23/21 06:02 03/22/21 03:34 Labs: Abnormal Lab Results - Last 24 Hours (Table) 03/22/21 03/22/21 03/22/21 Range/Units 14:31 17:54 20:39 RBC (3.80-5.40) m/uL Hgb (11.4-16.0) gm/dL Hct (34.0-46.0) % Lymphocytes # (1.0-4.8) k/uL POC Glucose (mg/dL) 249 H 148 H 142 H (75-99) mg/dL 03/23/21 03/23/21 Range/Units 06:02 06:55 RBC 2.92 L (3.80-5.40) m/uL Hgb 9.7 L (11.4-16.0) gm/dL Hct 28.3 L (34.0-46.0) % Lymphocytes # 0.4 L (1.0-4.8) k/uL POC Glucose (mg/dL) 155 H (75-99) mg/dL Assessment and Plan Assessment: Left femoral neck fracture with shortening, status post fall, status post left hip hemiarthroplasty Acute blood loss anemia, postoperative, expected outcome CAD, history of CABG History of TIA, CVA Diabetes mellitus II Diabetic retinopathy Legally blind Hypothyroidism Hypertension Hyperlipidemia History of temporal arteritis History of Paget's disease History of right mastectomy History of anxiety Remote nicotine dependence Plan: Continue on current medication regime ,monitoring and symptomatic treatment. Pain management/anticoagulation as per orthopedic surgery. Continue aggressive pulmonary toileting with incentive spirometer at discharge, reinforced. Continue on insulin pump with close monitoring of Accu-Cheks. F/U with PCP in 1 week. The impression and plan of care has been dictated as directed. : I performed a history and examination of this patient, discussed the same with the dictator. I agree with the dictator's note ,documented as a scribe. Any additional findings or plans will be noted.
[2021-03-23] MEDS: MULTIVITAMINS, THERA 1 EACH TAB PO SCH (13:03)
[2021-03-23] MEDS: LEVOTHYROXINE 75 MCG TAB PO SCH (13:03)
[2021-03-23 14:00] LABS: African American GFR (CKD) 78.5 (60.0-200.0); Anion Gap 6.7 mmol/L (4.00-12.00); BUN/Creat Ratio 28.75 Ratio (12.00-20.00); Carbon Dioxide 24.3 mmol/L (21.6-31.8); Non-African American GFR(CKD) 67.7 (60.0-200.0)
== END 2021-03-23 14:36 | disposition home health service (06) | DRG 522 ==
LOC: EC 23:28 → 5NMEDONC 03-18 01:28
PROVIDERS: ADMIT Orthopaedic Surgery Sports Medicine; ATTEND Orthopaedic Surgery Sports Medicine
PROC: 0SRS0JZ Replacement of Left Hip Joint, Femoral Surface with Synthetic Substitute, Open Approach (ICD-10-PCS; principal; 2021-03-19 11:55)
DX: S72.002A Fracture of unspecified part of neck of left femur, initial encounter for closed fracture (principal); E87.1 Hypo-osmolality and hyponatremia; D62 Acute posthemorrhagic anemia; W06.XXXA Fall from bed, initial encounter; Y92.003 Bedroom of unspecified non-institutional (private) residence as the place of occurrence of the external cause; E11.319 Type 2 diabetes mellitus with unspecified diabetic retinopathy without macular edema; E78.00 Pure hypercholesterolemia, unspecified; Z79.890 Hormone replacement therapy; I25.2 Old myocardial infarction; Z86.73 Personal history of transient ischemic attack (TIA), and cerebral infarction without residual deficits; Z20.822 Contact with and (suspected) exposure to COVID-19; Z96.41 Presence of insulin pump (external) (internal); Z95.1 Presence of aortocoronary bypass graft; Z87.891 Personal history of nicotine dependence; Z82.49 Family history of ischemic heart disease and other diseases of the circulatory system; Z79.4 Long term (current) use of insulin; Z79.82 Long term (current) use of aspirin; H54.8 Legal blindness, as defined in USA; I10 Essential (primary) hypertension; F41.9 Anxiety disorder, unspecified; E03.9 Hypothyroidism, unspecified; Z90.11 Acquired absence of right breast and nipple; E78.5 Hyperlipidemia, unspecified; E11.40 Type 2 diabetes mellitus with diabetic neuropathy, unspecified; E11.65 Type 2 diabetes mellitus with hyperglycemia; M19.90 Unspecified osteoarthritis, unspecified site; I44.0 Atrioventricular block, first degree; E87.5 Hyperkalemia; I25.10 Atherosclerotic heart disease of native coronary artery without angina pectoris; Z80.3 Family history of malignant neoplasm of breast; Z85.3 Personal history of malignant neoplasm of breast; Z90.710 Acquired absence of both cervix and uterus; Z83.3 Family history of diabetes mellitus; Z80.2 Family history of malignant neoplasm of other respiratory and intrathoracic organs
CPT/HCPCS: 36415; 71045; 73501; 73502; 80048; 80053; 81001; 82550; 83605; 83735; 84100; 84484; 85025; 85610; 85730; 86850; 86900; 86901; 87635; 88305; 88311; 93005; 96361; 96374; 99285

== ENCOUNTER 2021-08-02 10:55 | Inpatient (IN) | payer MEDICARE, OTHER ==
[2021-08-02] MEDS ORDERED: SODIUM CHLORIDE 0.9% 500 ML 500 ML IV STA ×2 (11:13→14:31)
[2021-08-02] MEDS ORDERED: SODIUM CHLORIDE 0.9% 1,000 ML IV STA (11:13)
[2021-08-02 11:14] LABS: Glucose,Whole Blood 361 mg/dL (75-99)
--- NOTE | 2021-08-02 11:16 | ED ---
Weakness HPI - General Chief complaint: Weakness Stated complaint: Weakness Time Seen by Provider: 08/02/21 11:04 Source: patient, family, EMS, RN notes reviewed Mode of arrival: EMS Limitations: no limitations - History of Present Illness Initial comments: 85-year-old female with insulin-dependent diabetes who woke up this way feeling very weak demonstrate some difficulty walking she does use a walker normally has had recent hip surgery. No fevers chills nausea vomiting sweats reported just generalized weakness no dysuria. No cough no exposure to any infectious diseases noted complaints modifying factors. Patient apparently is had some erratic blood sugars recently and had similar symptoms about a week ago which did improve. MD Complaint: generalized weakness - Related Data Home Medications Medication Instructions Recorded Confirmed LORazepam [Ativan] 0.5 mg PO BID 02/15/15 08/02/21 Propylene Glycol/Peg 400/Pf 1 drop BOTH EYES BID 02/15/15 08/02/21 [Systane 0.3-0.4% Eye Drops] Escitalopram [Lexapro] 5 mg PO HS 10/13/18 08/02/21 Ezetimibe [Zetia] 10 mg PO DAILY 10/13/18 08/02/21 Levothyroxine Sodium [Synthroid] 75 mcg PO MOTUWETHFRSA@1200 10/13/18 08/02/21 Loratadine [Claritin] 10 mg PO DAILY@1200 10/13/18 08/02/21 Pantoprazole [Protonix] 40 mg PO HS 10/13/18 08/02/21 Pravastatin Sodium [Pravachol] 20 mg PO HS 10/13/18 08/02/21 amLODIPine [Norvasc] 2.5 mg PO HS 10/13/18 08/02/21 Kytyjujrirnepv-RG-Uzwswgtrdh 1 tab PO DAILY 11/12/19 08/02/21 [Folbic] Insulin Aspart (For Pump) [NovoLOG 0.01 unit SQ-PUMP CONTINUOUS 11/12/19 08/02/21 (For Pump)] Aspirin [Adult Low Dose Aspirin EC] 162 mg PO HS 08/02/21 08/02/21 Latanoprost Ophth [Xalatan 0.005%] 1 drop RIGHT EYE HS 08/02/21 08/02/21 traMADol HCl [Ultram] 50 mg PO HS 08/02/21 08/02/21 Previous Rx's Medication Instructions Recorded Metoprolol Tartrate [Lopressor] 25 mg PO BID #60 tab 11/25/15 Allergies Allergy/AdvReac Type Severity Reaction Status Date / Time Iodinated Contrast Media Allergy Anaphylaxis Verified 08/02/21 14:24 iodine Allergy Swelling Verified 08/02/21 14:24 NSAIDS (Non-Steroidal Allergy Rash/Hives Verified 08/02/21 14:24 Anti-Inflamma Sulfa (Sulfonamide Allergy Rash/Hives Verified 08/02/21 14:24 Antibiotics) adhesive tape AdvReac Rash/Hives Verified 08/02/21 14:24 Review of Systems ROS Statement: Those systems with pertinent positive or pertinent negative responses have been documented in the HPI. ROS Other: All systems not noted in ROS Statement are negative. Past Medical History Past Medical History: Cancer, CVA/TIA, Diabetes Mellitus, Hyperlipidemia, Hypertension, Myocardial Infarction ([place]), Thyroid Disorder Additional Past Medical History / Comment(s): R breast cancer/padget's disease with mastectomy, TIA x3 in 2010, IDDM type II with insulin pump, legally blind bilaterally/diabetic retinopathy, diabetic neuropathy bilateral feet, temporal arteritis, tailbone fracture a few months ago still has pain, hypothyroid, constipation, varicosities. Last Myocardial Infarction Date:: 2015 History of Any Multi-Drug Resistant Organisms: None Reported Past Surgical History: Breast Surgery, Coronary Bypass/CABG, Heart Catheterization, Hysterectomy, Orthopedic Surgery Additional Past Surgical History / Comment(s): 2016 CABG 3 vessel, right mastectomy, R temporal arteritis, bilateral cataracts removed/bilateral laser eye surgery. Past Anesthesia/Blood Transfusion Reactions: No Reported Reaction Additional Past Anesthesia/Blood Transfusion Reaction / Comment(s): Pt has received blood in past without reaction. Past Psychological History: Anxiety Smoking Status: Former smoker Past Alcohol Use History: None Reported Past Drug Use History: None Reported - Past Family History Mother Family Medical History: Cancer, Diabetes Mellitus, Vascular Disorder Additional Family Medical History / Comment(s): Breast cancer, autoimmune disease, aneurysm in brain Father Family Medical History: Cancer, Coronary Artery Disease (CAD) Additional Family Medical History / Comment(s): Laryngeal cancer. Father was a smoker. General Exam - General Exam Comments Initial Comments: This is a well-developed well-nourished awake alert oriented 3 female Limitations: no limitations General appearance: alert, lethargic Head exam: Present: atraumatic, normocephalic, normal inspection Eye exam: Present: normal appearance, PERRL, EOMI. Absent: scleral icterus, conjunctival injection, periorbital swelling ENT exam: Present: mucous membranes dry Neck exam: Present: normal inspection. Absent: tenderness, meningismus, lymphad enopathy Respiratory exam: Present: normal lung sounds bilaterally. Absent: respiratory distress, wheezes, rales, rhonchi, stridor Cardiovascular Exam: Present: regular rate, normal rhythm, normal heart sounds. Absent: systolic murmur, diastolic murmur, rubs, gallop, clicks GI/Abdominal exam: Present: soft, normal bowel sounds. Absent: distended, tenderness, guarding, rebound, rigid Extremities exam: Present: normal inspection, full ROM, normal capillary refill. Absent: tenderness, pedal edema, joint swelling, calf tenderness Back exam: Present: normal inspection Neurological exam: Present: alert, oriented X3, CN II-XII intact Psychiatric exam: Present: normal affect, normal mood Skin exam: Present: warm, dry, intact, normal color. Absent: rash Course Vital Signs 08/02/21 10:58 Temperature 97.8 F Pulse Rate 60 Respiratory 18 Rate Blood Pressure 153/59 O2 Sat by Pulse 96 Oximetry - Reevaluation(s) Reevaluation #1: 08/02/21 14:23 Repeat EKG shows sinus rhythm of 58. We'll 250 QRS 80 daily since QTC 444/435 sinus bradycardia with a first-degree AV block EKG EKG Findings - EKG Results: EKG: interpreted by MARIJA, sinus rhythm (Sinus bradycardia with first-degree AV block rate 59. Interval 224 QRS duration 84 daily since QTC 460/463 LVH. Posterior changes) Medical Decision Making - Medical Decision Making I did discuss findings with the patient family as well as Dr. Cody who did come see the patient patient will be admitted urinary tract infection dehydration and hyperglycemia - Lab Data Result diagrams: 08/02/21 12:03 08/02/21 12:03 Lab Results 08/02/21 08/02/21 08/02/21 Range/Units 11:11 12:03 12:03 WBC 5.1 (3.8-10.6) k/uL RBC 4.66 (3.80-5.40) m/uL Hgb 14.4 (11.4-16.0) gm/dL Hct 44.2 (34.0-46.0) % MCV 95.0 (80.0-100.0) fL MCH 31.0 (25.0-35.0) pg MCHC 32.6 (31.0-37.0) g/dL RDW 12.8 (11.5-15.5) % Plt Count 258 (150-450) k/uL MPV 8.0 Neutrophils % 76 % Lymphocytes % 9 % Monocytes % 8 % Eosinophils % 4 % Basophils % 1 % Neutrophils # 3.9 (1.3-7.7) k/uL Lymphocytes # 0.5 L (1.0-4.8) k/uL Monocytes # 0.4 (0-1.0) k/uL Eosinophils # 0.2 (0-0.7) k/uL Basophils # 0.0 (0-0.2) k/uL Sodium 128 L (137-145) mmol/L Potassium 4.8 (3.5-5.1) mmol/L Chloride 90 L (98-107) mmol/L Carbon Dioxide 29 (22-30) mmol/L Anion Gap 9 mmol/L BUN 18 H (7-17) mg/dL Creatinine 1.02 (0.52-1.04) mg/dL Est GFR (CKD-EPI)AfAm 59 (>60 ml/min/1.73 sqM) Est GFR (CKD-EPI)NonAf 51 (>60 ml/min/1.73 sqM) Glucose 358 H (74-99) mg/dL POC Glucose (mg/dL) 361 H (75-99) mg/dL POC Glu [employer] ID Rosalie Romero Calcium 9.9 (8.4-10.2) mg/dL Magnesium 1.8 (1.6-2.3) mg/dL Total Bilirubin 0.5 (0.2-1.3) mg/dL AST 28 (14-36) U/L ALT 14 (4-34) U/L Alkaline Phosphatase 102 (38-126) U/L Creatine Kinase 52 (30-135) U/L Troponin I (0.000-0.034) ng/mL Total Protein 7.2 (6.3-8.2) g/dL Albumin 4.2 (3.5-5.0) g/dL Lipase 125 (23-300) U/L Urine Color Urine Appearance (Clear) Urine pH (5.0-8.0) Ur Specific [facility] (1.001-1.035) Urine Protein (Negative) Urine Glucose (UA) (Negative) Urine Ketones (Negative) Urine Blood (Negative) Urine Nitrite (Negative) Urine Bilirubin (Negative) Urine Urobilinogen (<2.0) mg/dL Ur Leukocyte Esterase (Negative) Urine RBC (0-5) /hpf Urine WBC (0-5) /hpf Urine WBC Clumps (None) /hpf Ur Squamous Epith Cells (0-4) /hpf Urine Bacteria (None) /hpf Urine Mucus (None) /hpf Acetone, Qual Negative (Negative) Influenza Type A (PCR) (Not Detectd) Influenza Type B (PCR) (Not Detectd) RSV (PCR) (Not Detectd) SARS-CoV-2 (PCR) (Not Detectd) 08/02/21 08/02/21 08/02/21 Range/Units 12:03 12:14 13:45 WBC (3.8-10.6) k/uL RBC (3.80-5.40) m/uL Hgb (11.4-16.0) gm/dL Hct (34.0-46.0) % MCV (80.0-100.0) fL MCH (25.0-35.0) pg MCHC (31.0-37.0) g/dL RDW (11.5-15.5) % Plt Count (150-450) k/uL MPV Neutrophils % % Lymphocytes % % Monocytes % % Eosinophils % % Basophils % % Neutrophils # (1.3-7.7) k/uL Lymphocytes # (1.0-4.8) k/uL Monocytes # (0-1.0) k/uL Eosinophils # (0-0.7) k/uL Basophils # (0-0.2) k/uL Sodium (137-145) mmol/L Potassium (3.5-5.1) mmol/L Chloride (98-107) mmol/L Carbon Dioxide (22-30) mmol/L Anion Gap mmol/L BUN (7-17) mg/dL Creatinine (0.52-1.04) mg/dL Est GFR (CKD-EPI)AfAm (>60 ml/min/1.73 sqM) Est GFR (CKD-EPI)NonAf (>60 ml/min/1.73 sqM) Glucose (74-99) mg/dL POC Glucose (mg/dL) 321 H (75-99) mg/dL POC Glu [employer] Bettie Jimenez Calcium (8.4-10.2) mg/dL Magnesium (1.6-2.3) mg/dL Total Bilirubin (0.2-1.3) mg/dL AST (14-36) U/L ALT (4-34) U/L Alkaline Phosphatase (38-126) U/L Creatine Kinase (30-135) U/L Troponin I <0.012 (0.000-0.034) ng/mL Total Protein (6.3-8.2) g/dL Albumin (3.5-5.0) g/dL Lipase (23-300) U/L Urine Color Urine Appearance (Clear) Urine pH (5.0-8.0) Ur Specific [facility] (1.001-1.035) Urine Protein (Negative) Urine Glucose (UA) (Negative) Urine Ketones (Negative) Urine Blood (Negative) Urine Nitrite (Negative) Urine Bilirubin (Negative) Urine Urobilinogen (<2.0) mg/dL Ur Leukocyte Esterase (Negative) Urine RBC (0-5) /hpf Urine WBC (0-5) /hpf Urine WBC Clumps (None) /hpf Ur Squamous Epith Cells (0-4) /hpf Urine Bacteria (None) /hpf Urine Mucus (None) /hpf Acetone, Qual (Negative) Influenza Type A (PCR) Not Detected (Not Detectd) Influenza Type B (PCR) Not Detected (Not Detectd) RSV (PCR) Not Detected (Not Detectd) SARS-CoV-2 (PCR) Not Detected (Not Detectd) 08/02/21 Range/Units 14:31 WBC (3.8-10.6) k/uL RBC (3.80-5.40) m/uL Hgb (11.4-16.0) gm/dL Hct (34.0-46.0) % MCV (80.0-100.0) fL MCH (25.0-35.0) pg MCHC (31.0-37.0) g/dL RDW (11.5-15.5) % Plt Count (150-450) k/uL MPV Neutrophils % % Lymphocytes % % Monocytes % % Eosinophils % % Basophils % % Neutrophils # (1.3-7.7) k/uL Lymphocytes # (1.0-4.8) k/uL Monocytes # (0-1.0) k/uL Eosinophils # (0-0.7) k/uL Basophils # (0-0.2) k/uL Sodium (137-145) mmol/L Potassium (3.5-5.1) mmol/L Chloride (98-107) mmol/L Carbon Dioxide (22-30) mmol/L Anion Gap mmol/L BUN (7-17) mg/dL Creatinine (0.52-1.04) mg/dL Est GFR (CKD-EPI)AfAm (>60 ml/min/1.73 sqM) Est GFR (CKD-EPI)NonAf (>60 ml/min/1.73 sqM) Glucose (74-99) mg/dL POC Glucose (mg/dL) (75-99) mg/dL POC Glu [employer] ID Calcium (8.4-10.2) mg/dL Magnesium (1.6-2.3) mg/dL Total Bilirubin (0.2-1.3) mg/dL AST (14-36) U/L ALT (4-34) U/L Alkaline Phosphatase (38-126) U/L Creatine Kinase (30-135) U/L Troponin I (0.000-0.034) ng/mL Total Protein (6.3-8.2) g/dL Albumin (3.5-5.0) g/dL Lipase (23-300) U/L Urine Color Light Yellow Urine Appearance Cloudy H (Clear) Urine pH 5.5 (5.0-8.0) Ur Specific [facility] 1.011 (1.001-1.035) Urine Protein Negative (Negative) Urine Glucose (UA) 4+ H (Negative) Urine Ketones Negative (Negative) Urine Blood Trace H (Negative) Urine Nitrite Negative (Negative) Urine Bilirubin Negative (Negative) Urine Urobilinogen <2.0 (<2.0) mg/dL Ur Leukocyte Esterase Large H (Negative) Urine RBC 3 (0-5) /hpf Urine WBC 67 H (0-5) /hpf Urine WBC Clumps Moderate H (None) /hpf Ur Squamous Epith Cells 14 H (0-4) /hpf Urine Bacteria Moderate H (None) /hpf Urine Mucus Rare H (None) /hpf Acetone, Qual (Negative) Influenza Type A (PCR) (Not Detectd) Influenza Type B (PCR) (Not Detectd) RSV (PCR) (Not Detectd) SARS-CoV-2 (PCR) (Not Detectd) - Radiology Data Radiology results: report reviewed (Imaging reviewed no acute findings), image reviewed Disposition Clinical Impression: Urinary tract infection, Dehydration, Hyperglycemia due to diabetes mellitus, Weakness Disposition: ADMITTED IP TO THIS HOSP Condition: Fair Referrals: Tony Thomas DO [Primary Care Provider] - 1-2 days
[2021-08-02 12:16] LABS: Glucose,Whole Blood 321 mg/dL (75-99)
[2021-08-02 12:20] LABS: Basophils % (A) 1 %; Eosinophils # (A) 0.2 k/uL (0-0.7); Eosinophils % (A) 4 %; HCT 44.2 % (34.0-46.0); HGB 14.4 gm/dL (11.4-16.0); Lymphocytes # (A) 0.5 k/uL (1.0-4.8); Lymphocytes % (A) 9 %; MCHC 32.6 g/dL (31.0-37.0); Monocytes # (A) 0.4 k/uL (0-1.0); Monocytes % (A) 8 %; Neutrophils # (A) 3.9 k/uL (1.3-7.7); Neutrophils % (A) 76 %; Platelet Count 258 k/uL (150-450); RBC 4.66 m/uL (3.80-5.40); RDW 12.8 % (11.5-15.5); WBC 5.1 k/uL (3.8-10.6)
[2021-08-02 12:32] LABS: ALT 14 U/L (4-34); AST 28 U/L (14-36); African American GFR (CKD) 59 (>60 ml/min/1.73 sqM); Albumin 4.2 g/dL (3.5-5.0); Alkaline Phosphatase 102 U/L (38-126); Anion Gap 9 mmol/L; Blood Urea Nitrogen 18 mg/dL (7-17); Calcium 9.9 mg/dL (8.4-10.2); Carbon Dioxide 29 mmol/L (22-30); Chloride 90 mmol/L (98-107); Creatine Kinase 52 U/L (30-135); Glucose 358 mg/dL (74-99); Lipase 125 U/L (23-300); Magnesium 1.8 mg/dL (1.6-2.3); Non-African American GFR(CKD) 51 (>60 ml/min/1.73 sqM); Potassium 4.8 mmol/L (3.5-5.1); Sodium 128 mmol/L (137-145); Total Bilirubin 0.5 mg/dL (0.2-1.3); Total Protein 7.2 g/dL (6.3-8.2)
--- NOTE | 2021-08-02 12:37 | XR ---
EXAMINATION TYPE: XR chest 2V DATE OF EXAM: 08/02/2021 COMPARISON: 03/18/2021 HISTORY: 85 years Female. STUDY INDICATION GIVEN: Weakness . TECHNIQUE: Frontal lateral chest radiographs IMPRESSION: Mild prominence of the lung interstitium likely reflects a background of chronic lung disease COPD/em physema. No focal airspace disease, pneumothorax or pleural effusion. Mild prominence of the heart silhouette similar to prior study with postsurgical changes. New surgica l device seen in the anterior mid mediastinum. Clinical/history correlation recommended. Surgical peter again seen over the right axillary region. No acute osseous abnormalities seen. There is mild generalized osteopenia.
[2021-08-02 14:38] LABS: Appearance,Urine Cloudy (Clear); Bacteria,Urine Moderate /hpf; Bilirubin,Urine Negative (Negative); Blood,Urine Trace (Negative); Color,Urine Light Yellow; Glucose,Urine (UA) 4+ (Negative); Ketones,Urine Negative (Negative); Leukocyte Esterase,Urine Large (Negative); Mucus,Urine Rare /hpf; Nitrite,Urine Negative (Negative); PH, Urine 5.5 (5.0-8.0); Protein,Urine Negative (Negative); RBC,Urine 3 /hpf (0-5); Specific Gravity,Urine 1.011 (1.001-1.035); Squamous Epithelial Cell,Urine 14 /hpf (0-4); Urobilinogen,Urine <2.0 mg/dL (<2.0); WBC,Urine 67 /hpf (0-5)
[2021-08-02] MEDS ORDERED: cefTRIAXone IN SWFI 1,000 MG/10 ML SYRINGE IVP STA (15:28)
[2021-08-02] MEDS ORDERED: ACETAMINOPHEN TAB 325 MG TAB PO PRN (15:29)
[2021-08-02] MEDS ORDERED: NALOXONE 0.4 MG/ML 1 ML VIAL IV PRN (15:29)
[2021-08-02] MEDS ORDERED: Insulin Aspart (For Pump) 100 UNIT/ML VIAL SQ-PUMP SCH (15:30)
--- NOTE | 2021-08-02 19:48 | HP ---
HISTORY AND PHYSICAL I am covering for Dr. Thomas. DATE OF SERVICE: 08/02/2021 CHIEF COMPLAINT: Weakness. HISTORY OF PRESENT ILLNESS: This 85-year-old woman with a past medical history of CVA, TIA, diabetes mellitus, hypertension, hyperlipidemia, history of myocardial infarction, history of breast cancer, history of Paget's disease, being followed by Dr. Thomas in the outpatient setting, also had recent hip surgery apparently. The patient is currently complaining of severe weakness. There is no history of any fever, rigor or chills. The patient was unable to ambulate and the patient also was generally weak and had a poor appetite. She was taken to [facility] and admitted for further evaluation and treatment. UA showed possible UTI. There is no history of any rigors. COVID-19 is negative. There is no evidence of diabetic ketoacidosis. The patient was admitted for further evaluation and treatment. PAST MEDICAL HISTORY: History of CVA, diabetes mellitus, hypertension, hyperlipidemia, history of myocardial infarction, hypothyroidism. HOME MEDICATIONS: Reviewed. They include metoprolol, Lopressor 25 mg b.i.d., Ativan, NovoLog scale, Zetia, Folbic, Ultram, Norvasc, Pravachol, Protonix, Claritin, Symbicort, Xalatan, Lexapro and aspirin. ALLERGIES: IODINATED CONTRAST DYE NSAIDS, SULFA, ADHESIVE TAPE. FAMILY HISTORY: History of cancer, diabetes mellitus, type 2, breast cancer, autoimmune disease. SOCIAL HISTORY: Previous history of smoking. No current smoking. REVIEW OF SYSTEMS: ENT: Diminished hearing. Diminished vision. CARDIOVASCULAR SYSTEM: No angina, palpitations. RESPIRATORY SYSTEM: As mentioned earlier. GI: As mentioned earlier. : No dysuria. NERVOUS SYSTEM: No numbness, weakness. ALLERGY/IMMUNOLOGY: No asthma or hay fever. MUSCULOSKELETAL: As mentioned earlier. HEMATOLOGY/ONCOLOGY: No history of anemia. ENDOCRINE: No history of diabetes or hypothyroidism. CONSTITUTIONAL: As mentioned earlier. DERMATOLOGY: Negative. RHEUMATOLOGY: Negative. PSYCHIATRY: As mentioned earlier. PHYSICAL EXAMINATION: Alert and oriented x3. Pulse is 61, blood pressure 173/69, respirations 16, temperature 97.2, pulse ox 94% on room air. HEENT: Conjunctivae normal. NECK: No jugular venous distention. CARDIOVASCULAR: S1, S2 muffled. RESPIRATION: Breath sounds diminished at the bases. Scattered rhonchi. ABDOMEN: Soft, non-tender. No mass palpable. LEGS: No edema. No swelling. NERVOUS SYSTEM: Higher functions as mentioned earlier. Moves all 4 limbs. Diffusely weak. SKIN: No ulcer, rash, bleeding. JOINTS: No active deforming arthropathy. LABS: CBC within normal limits. Sodium . Other labs are noted. ASSESSMENT: 1. Generalized weakness for evaluation. 2. Acute urinary tract infection. 3. Hyponatremia. 4. Diabetes mellitus, type 2, uncontrolled with hyperglycemia. 5. Hypertension. 6. Hyperlipidemia. 7. History of myocardial infarction. 8. History of coronary artery disease, coronary artery bypass grafting. 9. History of anxiety. 10.FULL CODE. RECOMMENDATIONS AND DISCUSSION: In this 85-year-old woman who presented with multiple complex medical issues, we will monitor the patient closely, continue the current medications, continue symptomatic treatment, initiate broad-spectrum IV antibiotics, resume the home medications. PT/OT evaluation. Continue to monitor. Guarded prognosis. Discussed with the patient and Dr. Thomas, who will follow tomorrow. MMODL / IJN: [id number] /
[2021-08-02 22:17] LABS: Glucose,Whole Blood 293 mg/dL (75-99)
[2021-08-03] MEDS: ASPIRIN 81 MG PO SCH ×2 (00:24→20:47)
[2021-08-03] MEDS: LORazepam 0.5 MG TAB PO SCH ×3 (00:24→20:47)
[2021-08-03] MEDS: PRAVASTATIN SODIUM 20 MG TAB PO SCH ×2 (00:25→20:47)
[2021-08-03] MEDS: METOPROLOL TARTRATE 25 MG TAB PO SCH ×3 (00:25→20:47)
[2021-08-03] MEDS: amLODIPine 2.5 MG TAB PO SCH ×2 (00:25→20:47)
[2021-08-03] MEDS: traMADol 50 MG TAB PO SCH ×2 (00:25→20:47)
[2021-08-03] MEDS: PANTOPRAZOLE 40 MG TABLET PO SCH ×2 (00:25→20:47)
[2021-08-03] MEDS: ARTIFICIAL TEARS-HYPROMELLOSE DROPS 15 ML BTL BOTH EYES SCH ×3 (02:51→20:48)
[2021-08-03] MEDS: LATANOPROST 0.005% OPHTH DROPS 2.5 ML BTL RIGHT EYE SCH ×2 (02:52→20:48)
[2021-08-03] MEDS: ESCITALOPRAM 5 MG TAB PO SCH ×3 (02:52→21:25)
[2021-08-03 06:17] LABS: Glucose,Whole Blood 277 mg/dL (75-99)
[2021-08-03 08:27] LABS: Basophils % (A) 1 %; Eosinophils # (A) 0.2 k/uL (0-0.7); Eosinophils % (A) 4 %; HCT 43.1 % (34.0-46.0); HGB 14.3 gm/dL (11.4-16.0); Lymphocytes # (A) 0.8 k/uL (1.0-4.8); Lymphocytes % (A) 18 %; MCH 31.5 pg (25.0-35.0); MCHC 33.3 g/dL (31.0-37.0); MCV 94.8 fL (80.0-100.0); Mean Platelet Volume 7.7; Monocytes # (A) 0.4 k/uL (0-1.0); Monocytes % (A) 10 %; Neutrophils # (A) 2.7 k/uL (1.3-7.7); Neutrophils % (A) 63 %; Platelet Count 224 k/uL (150-450); RBC 4.55 m/uL (3.80-5.40); RDW 12.9 % (11.5-15.5); WBC 4.3 k/uL (3.8-10.6)
[2021-08-03] MEDS: CYANOCOBALAMIN-FA-PYRIDOXINE 1 EACH TAB PO SCH (08:27)
[2021-08-03] MEDS: EZETIMIBE 10 MG TAB PO SCH (08:27)
[2021-08-03] MEDS ORDERED: INSULIN PUMP BASAL RATES 1 EACH MISC MISCELLANE PRN (08:43)
[2021-08-03] MEDS ORDERED: cefTRIAXone IN SWFI 1,000 MG/10 ML SYRINGE IVP SCH (09:00)
[2021-08-03 10:15] LABS: Calcium 9.8 mg/dL (8.4-10.2); Potassium 4.4 mmol/L (3.5-5.1)
[2021-08-03 11:05] VITALS: BMI 28.7
[2021-08-03] MEDS ORDERED: LEVOTHYROXINE 75 MCG TAB PO SCH (12:00)
[2021-08-03] MEDS ORDERED: LORATADINE 10 MG TAB PO SCH (12:00)
[2021-08-03 12:19] LABS: Glucose,Whole Blood 385 mg/dL (75-99)
[2021-08-03] MEDS: INSULIN PUMP MEAL BOLUS 1 UNIT MISC MISCELLANE SCH ×3 (13:30→20:50)
[2021-08-03] MEDS ORDERED: INSPUCOR MISCELLANE PRN (16:47)
[2021-08-03 16:48] LABS: Glucose,Whole Blood 354 mg/dL (75-99)
[2021-08-03 20:16] LABS: Glucose,Whole Blood 331 mg/dL (75-99)
--- NOTE | 2021-08-03 22:03 | P.PN ---
Subjective Progress Note Date: 08/03/21 Patient was seen today she is feeling much better than the previous day she denies any fever cough or congestion she denies any dysuria or incontinence. She did say her blood sugars were highly elevated 1-2 days prior to admission. Objective - Vital Signs Vital signs: Vital Signs Temp 97.7 F 08/03/21 16:46 Pulse 65 08/03/21 16:46 Resp 18 08/03/21 16:46 BP 162/77 08/03/21 16:46 Pulse Ox 97 08/03/21 16:46 Intake & Output 08/03/21 08/03/21 08/04/21 06:59 18:59 06:59 Intake Total 250 420 Output Total 1200 160 Balance 250 -780 -160 Weight 73.5 kg 73.5 kg Intake: Oral 250 420 Output: Urine 1200 160 Other: Voiding Method Diaper Diaper External Catheter External Catheter # Bowel Movements 0 - Exam GENERAL: This is a 85-year-old in no apparent distress at the time of examination. Pleasant and cooperative. HEENT: Head is atraumatic, normocephalic. Pupils are equal, round, and reactive to light. Sclerae anicteric. Conjunctivae are clear. Mucus membranes of the mouth are moist. Neck is supple. RESPIRATORY: Clear to auscultation. No wheezes, rales, or rhonchi. No use of accessory muscles. CARDIOVASCULAR: Regular rate and rhythm. S1 and S2 noted. No systolic or diastolic murmur auscultated. No JVD noted. No S3 or S4 noted. GASTROINTESTINAL: No distention noted. Abdomen soft and round. Normal active bowel sounds auscultated x 4 quadrants. No pain or tenderness noted upon palpation. INTEGUMENTARY: No cyanosis. No jaundice. No rashes noted. No cellulitis noted. EXTREMITIES: 2+ peripheral pulses. No evidence of peripheral edema. No calf tenderness noted. NEUROLOGIC: Cranial nerves II-XII intact. PSYCHIATRIC: Awake, alert, and oriented X 3. Appropriate affect. Intact judgement and insight. - Labs CBC & Chem 7: 08/03/21 07:16 08/03/21 07:16 Labs: Abnormal Lab Results - Last 24 Hours (Table) 08/02/21 08/03/21 08/03/21 Range/Units 22:15 05:50 07:16 Lymphocytes # 0.8 L (1.0-4.8) k/uL Sodium (137-145) mmol/L Chloride (98-107) mmol/L Glucose (74-99) mg/dL POC Glucose (mg/dL) 293 H 277 H (75-99) mg/dL Hemoglobin A1c (4.0-6.0) % 08/03/21 08/03/21 08/03/21 Range/Units 07:16 07:16 12:13 Lymphocytes # (1.0-4.8) k/uL Sodium 132 L (137-145) mmol/L Chloride 95 L (98-107) mmol/L Glucose 245 H (74-99) mg/dL POC Glucose (mg/dL) 385 H (75-99) mg/dL Hemoglobin A1c 10.4 H (4.0-6.0) % 08/03/21 08/03/21 Range/Units 16:46 20:15 Lymphocytes # (1.0-4.8) k/uL Sodium (137-145) mmol/L Chloride (98-107) mmol/L Glucose (74-99) mg/dL POC Glucose (mg/dL) 354 H 331 H (75-99) mg/dL Hemoglobin A1c (4.0-6.0) % Microbiology - Last 24 Hours (Table) 08/02/21 12:00 Blood Culture - Preliminary Blood No Growth after 24 hours 08/02/21 14:31 Urine Culture - Preliminary Urine,Clean Catch Assessment and Plan (1) Dehydration Current Visit: Yes Status: Acute Code(s): E86.0 - DEHYDRATION SNOMED Code(s): 18616706 (2) Hyperglycemia due to diabetes mellitus Current Visit: Yes Status: Acute Code(s): E11.65 - TYPE 2 DIABETES MELLITUS WITH HYPERGLYCEMIA SNOMED Code(s): 130480906 (3) Hyponatremia Current Visit: Yes Status: Acute Code(s): E87.1 - HYPO-OSMOLALITY AND HYPONATREMIA SNOMED Code(s): 63500729 (4) Urinary tract infection Current Visit: Yes Status: Acute Code(s): N39.0 - URINARY TRACT INFECTION, SITE NOT SPECIFIED SNOMED Code(s): 87124318 (5) Weakness Current Visit: Yes Status: Acute Code(s): R53.1 - WEAKNESS SNOMED Code(s): 21251206 Plan: Continue IV antibiotics continue IV hydration continue to follow patient's progress.
[2021-08-04 06:06] LABS: Glucose,Whole Blood 252 mg/dL (75-99)
[2021-08-04] MEDS: INSULIN PUMP MEAL BOLUS 1 UNIT MISC MISCELLANE SCH (06:36)
[2021-08-04] MEDS: METOPROLOL TARTRATE 25 MG TAB PO SCH (07:52)
[2021-08-04] MEDS: EZETIMIBE 10 MG TAB PO SCH (07:53)
[2021-08-04] MEDS: CYANOCOBALAMIN-FA-PYRIDOXINE 1 EACH TAB PO SCH (07:53)
[2021-08-04] MEDS: LORazepam 0.5 MG TAB PO SCH (07:53)
[2021-08-04 07:58] VITALS: BP 167/71; PULSE 65; RESP 16; TEMP 97.8
[2021-08-04] MEDS: ARTIFICIAL TEARS-HYPROMELLOSE DROPS 15 ML BTL BOTH EYES SCH (09:27)
--- NOTE | 2021-08-04 11:36 | P.DS ---
Providers Date of admission: 08/02/21 15:29 Expected date of discharge: 08/04/21 Attending physician: Tony Thomas Primary care physician: [facility] Course: Final Diagnoses: (1) Dehydration Current Visit: Yes Status: Acute Code(s): E86.0 - DEHYDRATION SNOMED Code(s): 65361614 (2) Hyperglycemia due to diabetes mellitus Current Visit: Yes Status: Acute Code(s): E11.65 - TYPE 2 DIABETES MELLITUS WITH HYPERGLYCEMIA SNOMED Code(s): 392685079 (3) Hyponatremia Current Visit: Yes Status: Acute Code(s): E87.1 - HYPO-OSMOLALITY AND HYPONATREMIA SNOMED Code(s): 31480258 (4) Urinary tract infection, gram-negative bacilli, and finalizing in progress Current Visit: Yes Status: Acute Code(s): N39.0 - URINARY TRACT INFECTION, SITE NOT SPECIFIED SNOMED Code(s): 36730393 (5) Weakness Current Visit: Yes Status: Acute Code(s): R53.1 - WEAKNESS SNOMED Code(s): 14965490 Hospital course: This is an 85-year-old female admitted with multiple medical issues including dehydration, generalized weakness, acute UTI currently growing gram-negative bacilli and finalizing. Maintained on gentle IV fluid hydration, IV antibiotics of Rocephin with significant clinical improvement. Patient will be discharged home today in stable condition with guarded prognosis, on Keflex with final culture to be reviewed with PCP for follow-up. The impression and plan of care has been dictated as directed. : I performed a history and examination of this patient, discussed the same with the dictator. I agree with the dictator's note ,documented as a scribe. Any additional findings or plans will be noted. Microbiology 08/02/21 14:31 Urine,Clean Catch Urine Culture - Preliminary Gram Neg Bacilli 08/02/21 12:00 Blood Blood Culture - Preliminary No Growth after 24 hours Patient Condition at Discharge: Stable Plan - Discharge Summary Discharge Rx Participant: Yes New Discharge Prescriptions: New Cephalexin [Keflex] 500 mg PO Q6HR 1 Days #20 cap Continue LORazepam [Ativan] 0.5 mg PO BID Propylene Glycol/Peg 400/Pf [Systane 0.3-0.4% Eye Drops] 1 drop BOTH EYES BID Metoprolol Tartrate [Lopressor] 25 mg PO BID #60 tab amLODIPine [Norvasc] 2.5 mg PO HS Pravastatin Sodium [Pravachol] 20 mg PO HS Pantoprazole [Protonix] 40 mg PO HS Loratadine [Claritin] 10 mg PO DAILY@1200 Ezetimibe [Zetia] 10 mg PO DAILY Escitalopram [Lexapro] 5 mg PO HS Levothyroxine Sodium [Synthroid] 75 mcg PO MOTUWETHFRSA@1200 Insulin Aspart (For Pump) [NovoLOG (For Pump)] 0.01 unit SQ-PUMP CONTINUOUS Khotcwtafasyjc-BU-Qicxadgmtc [Folbic] 1 tab PO DAILY Aspirin [Adult Low Dose Aspirin EC] 162 mg PO HS Latanoprost Ophth [Xalatan 0.005%] 1 drop RIGHT EYE HS traMADol HCl [Ultram] 50 mg PO HS Discharge Medication List LORazepam [Ativan] 0.5 mg PO BID 02/15/15 [History] Propylene Glycol/Peg 400/Pf [Systane 0.3-0.4% Eye Drops] 1 drop BOTH EYES BID 02/15/15 [History] Metoprolol Tartrate [Lopressor] 25 mg PO BID #60 tab 11/25/15 [Rx] Escitalopram [Lexapro] 5 mg PO HS 10/13/18 [History] Ezetimibe [Zetia] 10 mg PO DAILY 10/13/18 [History] Levothyroxine Sodium [Synthroid] 75 mcg PO MOTUWETHFRSA@1200 10/13/18 [History] Loratadine [Claritin] 10 mg PO DAILY@1200 10/13/18 [History] Pantoprazole [Protonix] 40 mg PO HS 10/13/18 [History] Pravastatin Sodium [Pravachol] 20 mg PO HS 10/13/18 [History] amLODIPine [Norvasc] 2.5 mg PO HS 10/13/18 [History] Zbrmcvtijzkpsn-QN-Nkabwckzlj [Folbic] 1 tab PO DAILY 11/12/19 [History] Insulin Aspart (For Pump) [NovoLOG (For Pump)] 0.01 unit SQ-PUMP CONTINUOUS 11/12/19 [History] Aspirin [Adult Low Dose Aspirin EC] 162 mg PO HS 08/02/21 [History] Latanoprost Ophth [Xalatan 0.005%] 1 drop RIGHT EYE HS 08/02/21 [History] traMADol HCl [Ultram] 50 mg PO HS 08/02/21 [History] Cephalexin [Keflex] 500 mg PO Q6HR 1 Days #20 cap 08/04/21 [Rx] Follow up Appointment(s)/Referral(s): Tony Thomas DO [Primary Care Provider] - 3 Days [facility], [NON-STAFF] - 1-2 Days Activity/Diet/Wound Care/Special Instructions: Urine culture growing gram-negative bacilli, final culture results pending Discharge/Stand Alone Forms: [facility] Home
[2021-08-04 11:40] LABS: Glucose,Whole Blood 265 mg/dL (75-99)
== END 2021-08-04 12:57 | disposition home health service (06) | DRG 690 ==
LOC: EC 10:55 → 3SCARD 15:29
PROVIDERS: ADMIT Family Medicine; ATTEND Family Medicine
DX: N39.0 Urinary tract infection, site not specified (principal); E87.1 Hypo-osmolality and hyponatremia; M31.6 Other giant cell arteritis; E11.40 Type 2 diabetes mellitus with diabetic neuropathy, unspecified; E11.319 Type 2 diabetes mellitus with unspecified diabetic retinopathy without macular edema; B96.89 Other specified bacterial agents as the cause of diseases classified elsewhere; E11.65 Type 2 diabetes mellitus with hyperglycemia; Z79.4 Long term (current) use of insulin; Z20.822 Contact with and (suspected) exposure to COVID-19; E86.0 Dehydration; H54.8 Legal blindness, as defined in USA; E78.5 Hyperlipidemia, unspecified; I10 Essential (primary) hypertension; I44.0 Atrioventricular block, first degree; I25.2 Old myocardial infarction; E03.9 Hypothyroidism, unspecified; I25.10 Atherosclerotic heart disease of native coronary artery without angina pectoris; F41.9 Anxiety disorder, unspecified; K59.00 Constipation, unspecified; I83.90 Asymptomatic varicose veins of unspecified lower extremity; H91.90 Unspecified hearing loss, unspecified ear; R26.2 Difficulty in walking, not elsewhere classified; Z79.82 Long term (current) use of aspirin; Z79.890 Hormone replacement therapy; Z79.891 Long term (current) use of opiate analgesic; Z79.899 Other long term (current) drug therapy; Z96.41 Presence of insulin pump (external) (internal); Z87.891 Personal history of nicotine dependence; Z86.73 Personal history of transient ischemic attack (TIA), and cerebral infarction without residual deficits; Z90.11 Acquired absence of right breast and nipple; Z85.3 Personal history of malignant neoplasm of breast; Z87.81 Personal history of (healed) traumatic fracture; Z95.1 Presence of aortocoronary bypass graft; Z90.710 Acquired absence of both cervix and uterus; Z87.42 Personal history of other diseases of the female genital tract; Z98.42 Cataract extraction status, left eye; Z98.41 Cataract extraction status, right eye; Z87.39 Personal history of other diseases of the musculoskeletal system and connective tissue; Z98.890 Other specified postprocedural states; Z88.6 Allergy status to analgesic agent; Z91.041 Radiographic dye allergy status; Z88.2 Allergy status to sulfonamides; Z88.8 Allergy status to other drugs, medicaments and biological substances; Z91.048 Other nonmedicinal substance allergy status; Z80.3 Family history of malignant neoplasm of breast; Z83.3 Family history of diabetes mellitus; Z82.49 Family history of ischemic heart disease and other diseases of the circulatory system; Z80.2 Family history of malignant neoplasm of other respiratory and intrathoracic organs; Z83.2 Family history of diseases of the blood and blood-forming organs and certain disorders involving the immune mechanism; Z81.2 Family history of tobacco abuse and dependence
CPT/HCPCS: 36415; 71046; 80048; 80053; 81001; 82009; 82550; 83036; 83690; 83735; 84484; 85025; 87040; 87077; 87086; 87186; 87636; 93005; 96361; 96374; 99285

== ENCOUNTER 2022-04-27 02:36 | Emergency (ER) | payer MEDICARE, OTHER ==
[2022-04-27 02:40] VITALS: TEMP 97.2
[2022-04-27] MEDS ORDERED: MAG HYDROX/AL HYDROX/SIMETH 30 ML, HYOSCYAMINE ELIXIR 10 ML, LIDOCAINE VISCOUS 2% 10 ML PO STA ×3 (02:54)
[2022-04-27 03:34] LABS: Albumin 3.7 g/dL (3.5-5.0); Basophils # (A) 0.1 k/uL (0-0.2); Basophils % (A) 1 %; Calcium 8.6 mg/dL (8.4-10.2); Eosinophils # (A) 0.1 k/uL (0-0.7); Eosinophils % (A) 1 %; HCT 40.9 % (34.0-46.0); HGB 13.4 gm/dL (11.4-16.0); Lymphocytes # (A) 0.6 k/uL (1.0-4.8); Lymphocytes % (A) 9 %; MCH 31.8 pg (25.0-35.0); MCHC 32.8 g/dL (31.0-37.0); MCV 97.1 fL (80.0-100.0); Mean Platelet Volume 8.6; Monocytes # (A) 0.6 k/uL (0-1.0); Monocytes % (A) 9 %; Neutrophils # (A) 5.4 k/uL (1.3-7.7); Neutrophils % (A) 77 %; Platelet Count 317 k/uL (150-450); Potassium 4.7 mmol/L (3.5-5.1); RBC 4.21 m/uL (3.80-5.40); RDW 13.6 % (11.5-15.5); Total Bilirubin 0.3 mg/dL (0.2-1.3); Total Protein 6.3 g/dL (6.3-8.2)
[2022-04-27] MEDS ORDERED: SODIUM CHLORIDE 0.9% 500 ML 500 ML IV STA (04:40)
--- NOTE | 2022-04-27 04:59 | XR ---
EXAM: XR Chest, 1 View CLINICAL HISTORY: ITS.REASON XR Reason: abdominal pain TECHNIQUE: Frontal view of the chest. COMPARISON: 08/02/2021 FINDINGS: Lungs: Unremarkable. No consolidation. Pleural space: Unremarkable. No pneumothorax. Heart: Unremarkable. No cardiomegaly. Mediastinum: Median sternotomy wires in place. Surgical clips in the right axilla. Bones/joints: Unremarkable. Elevated left hemidiaphragm with dilated air-filled stomach and the left hemidiaphragm IMPRESSION: No acute pulmonary process.
--- NOTE | 2022-04-27 05:20 | ED ---
Abdominal Pain HPI - General Chief Complaint: Abdominal Pain Stated Complaint: Abdominal Pain Time Seen by Provider: 04/27/22 02:46 Source: EMS Mode of arrival: EMS Limitations: no limitations - History of Present Illness Initial Comments: This patient is an 86-year-old woman who presents to be evaluated for upper abdominal pain. She states that it had come on while she was trying sleep. She indicates the upper abdomen. No radiation. MD Complaint: abdominal pain Onset/Timin -: hour(s) Location: LUQ, RUQ Radiation: none Migration to: no migration Severity: moderate Quality: dull Consistency: constant Improves With: nothing Worsens With: nothing - Related Data Home Medications Medication Instructions Recorded Confirmed LORazepam [Ativan] 0.5 mg PO BID 02/15/15 08/02/21 Propylene Glycol/Peg 400/Pf 1 drop BOTH EYES BID 02/15/15 08/02/21 [Systane 0.3-0.4% Eye Drops] Escitalopram [Lexapro] 5 mg PO HS 10/13/18 08/02/21 Ezetimibe [Zetia] 10 mg PO DAILY 10/13/18 08/02/21 Levothyroxine Sodium [Synthroid] 75 mcg PO MOTUWETHFRSA@1200 10/13/18 08/02/21 Loratadine [Claritin] 10 mg PO DAILY@1200 10/13/18 08/02/21 Pantoprazole [Protonix] 40 mg PO HS 10/13/18 08/02/21 Pravastatin Sodium [Pravachol] 20 mg PO HS 10/13/18 08/02/21 amLODIPine [Norvasc] 2.5 mg PO HS 10/13/18 08/02/21 [id number]-WB-[id number] 1 tab PO DAILY 11/12/19 08/02/21 [Folbic] Insulin Aspart (For Pump) [NovoLOG 0.01 unit SQ-PUMP CONTINUOUS 11/12/19 08/02/21 (For Pump)] Aspirin [Adult Low Dose Aspirin EC] 162 mg PO HS 08/02/21 08/02/21 Latanoprost Ophth [Xalatan 0.005%] 1 drop RIGHT EYE HS 08/02/21 08/02/21 traMADol HCl [Ultram] 50 mg PO HS 08/02/21 08/02/21 Previous Rx's Medication Instructions Recorded Metoprolol Tartrate [Lopressor] 25 mg PO BID #60 tab 11/25/15 Cephalexin [Keflex] 500 mg PO Q8HR 5 Days #15 cap 08/04/21 Allergies Allergy/AdvReac Type Severity Reaction Status Date / Time Iodinated Contrast Media Allergy Anaphylaxis Verified 08/02/21 14:24 iodine Allergy Swelling Verified 08/02/21 14:24 NSAIDS (Non-Steroidal Allergy Rash/Hives Verified 08/02/21 14:24 Anti-Inflamma Sulfa (Sulfonamide Allergy Rash/Hives Verified 08/02/21 14:24 Antibiotics) adhesive tape AdvReac Rash/Hives Verified 08/02/21 14:24 Review of Systems ROS Statement: Those systems with pertinent positive or pertinent negative responses have been documented in the HPI. ROS Other: All systems not noted in ROS Statement are negative. Constitutional: Denies: fever, chills Respiratory: Denies: cough, dyspnea Cardiovascular: Denies: chest pain, palpitations, edema Gastrointestinal: Reports: abdominal pain. Denies: nausea, vomiting, diarrhea, constipation Genitourinary: Denies: dysuria, frequency, hematuria Musculoskeletal: Denies: back pain Skin: Denies: rash Neurological: Denies: headache, weakness, numbness Past Medical History Past Medical History: Coronary Artery Disease (CAD), Cancer, CVA/TIA, Diabetes Mellitus, Hyperlipidemia, Hypertension, Myocardial Infarction ([place]), Thyroid Disorder Additional Past Medical History / Comment(s): R breast cancer/padget's disease with mastectomy, TIA x3 in 2010, IDDM type II with insulin pump, legally blind bilaterally/diabetic retinopathy, diabetic neuropathy bilateral feet, temporal arteritis, tailbone fracture a few months ago still has pain, hypothyroid, constipation, varicosities. Last Myocardial Infarction Date:: 2016 History of Any Multi-Drug Resistant Organisms: None Reported Past Surgical History: Breast Surgery, Coronary Bypass/CABG, Heart Catheterization, Hysterectomy, Orthopedic Surgery Additional Past Surgical History / Comment(s): 2016 CABG 3 vessel, right mastectomy, R temporal arteritis, bilateral cataracts removed/bilateral laser eye surgery. Past Anesthesia/Blood Transfusion Reactions: No Reported Reaction Additional Past Anesthesia/Blood Transfusion Reaction / Comment(s): Pt has received blood in past without reaction. Past Psychological History: Anxiety Additional Psychological History / Comment(s): Pt's Nicky grimes resides with her and is her caregiver. Pt uses a walker mostly and has a cane. Pam's drive her to [facility]. Smoking Status: Former smoker Past Alcohol Use History: None Reported Additional Past Alcohol Use History / Comment(s): Pt started smoking in 1951 and quit in 1969. Past Drug Use History: None Reported - Past Family History Mother Family Medical History: Cancer, Diabetes Mellitus, Vascular Disorder Additional Family Medical History / Comment(s): Breast cancer, autoimmune disease, aneurysm in brain Father Family Medical History: Cancer, Coronary Artery Disease (CAD) Additional Family Medical History / Comment(s): Laryngeal cancer. Father was a smoker. General Exam Limitations: no limitations General appearance: alert, in no apparent distress Head exam: Present: atraumatic, normocephalic Eye exam: Present: normal appearance. Absent: scleral icterus, conjunctival injection Neck exam: Present: normal inspection, full ROM Respiratory exam: Present: normal lung sounds bilaterally. Absent: respiratory distress, wheezes, rales, rhonchi, stridor Cardiovascular Exam: Present: regular rate, normal rhythm, normal heart sounds GI/Abdominal exam: Present: soft, normal bowel sounds. Absent: distended, tenderness, guarding, rebound, rigid, mass, pulsatile mass, hernia Extremities exam: Present: normal inspection, normal capillary refill. Absent: pedal edema, calf tenderness Back exam: Present: normal inspection. Absent: CVA tenderness (R), CVA tenderness (L) Neurological exam: Present: alert Skin exam: Present: warm, dry, intact, normal color. Absent: rash Course Vital Signs 04/27/22 04/27/22 02:38 05:34 Temperature 97.2 F L Pulse Rate 68 66 Respiratory 18 14 Rate Blood Pressure 147/65 122/64 O2 Sat by Pulse 97 97 Oximetry Medical Decision Making - Medical Decision Making Shouldn't is an 86-year-old woman presenting with upper abdominal pain had come on while she was in bed. The symptoms have resolved, and the patient's workup is essentially benign other than some moderate hyponatremia. She does have chronic hyponatremia and this value is a little lower than her baseline. She is feeling much better and would like to go home, will have her follow with Dr. Thomas to recheck the sodium in approximately 2 days. - Lab Data Result diagrams: 04/27/22 03:11 04/27/22 03:11 Lab Results 04/27/22 04/27/22 04/27/22 Range/Units 03:11 03:11 03:11 WBC 7.0 (3.8-10.6) k/uL RBC 4.21 (3.80-5.40) m/uL Hgb 13.4 (11.4-16.0) gm/dL Hct 40.9 (34.0-46.0) % MCV 97.1 (80.0-100.0) fL MCH 31.8 (25.0-35.0) pg MCHC 32.8 (31.0-37.0) g/dL RDW 13.6 (11.5-15.5) % Plt Count 317 (150-450) k/uL MPV 8.6 Neutrophils % 77 % Lymphocytes % 9 % Monocytes % 9 % Eosinophils % 1 % Basophils % 1 % Neutrophils # 5.4 (1.3-7.7) k/uL Lymphocytes # 0.6 L (1.0-4.8) k/uL Monocytes # 0.6 (0-1.0) k/uL Eosinophils # 0.1 (0-0.7) k/uL Basophils # 0.1 (0-0.2) k/uL Sodium 124 L (137-145) mmol/L Potassium 4.7 (3.5-5.1) mmol/L Chloride 90 L (98-107) mmol/L Carbon Dioxide 26 (22-30) mmol/L Anion Gap 8 mmol/L BUN 27 H (7-17) mg/dL Creatinine 0.94 (0.52-1.04) mg/dL Est GFR (CKD-EPI)AfAm 64 (>60 ml/min/1.73 sqM) Est GFR (CKD-EPI)NonAf 56 (>60 ml/min/1.73 sqM) Glucose 242 H (74-99) mg/dL Calcium 8.6 (8.4-10.2) mg/dL Total Bilirubin 0.3 (0.2-1.3) mg/dL AST 32 (14-36) U/L ALT 18 (4-34) U/L Alkaline Phosphatase 111 (38-126) U/L Troponin I <0.012 (0.000-0.034) ng/mL Total Protein 6.3 (6.3-8.2) g/dL Albumin 3.7 (3.5-5.0) g/dL Amylase 65 (30-110) U/L Lipase 253 (23-300) U/L Disposition Clinical Impression: Hyponatremia, Abdominal pain Disposition: HOME SELF-CARE Condition: Good Instructions (If sedation given, give patient instructions): Hyponatremia (ED), Abdominal Pain (ED) Is patient prescribed a controlled substance at d/c from ED?: No Referrals: Tony Thomas DO [Primary Care Provider] - 1-2 days
[2022-04-27 05:35] VITALS: BP 122/64; PULSE 66; RESP 14
== END 2022-04-27 05:51 | disposition home or self-care (01) ==
LOC: EC 02:36
DX: R10.11 Right upper quadrant pain (principal); R10.12 Left upper quadrant pain; E87.1 Hypo-osmolality and hyponatremia; I10 Essential (primary) hypertension; E11.40 Type 2 diabetes mellitus with diabetic neuropathy, unspecified; E78.5 Hyperlipidemia, unspecified; I25.2 Old myocardial infarction; E11.319 Type 2 diabetes mellitus with unspecified diabetic retinopathy without macular edema; H54.8 Legal blindness, as defined in USA; E03.9 Hypothyroidism, unspecified; I25.10 Atherosclerotic heart disease of native coronary artery without angina pectoris; Z86.73 Personal history of transient ischemic attack (TIA), and cerebral infarction without residual deficits; Z91.041 Radiographic dye allergy status; Z88.8 Allergy status to other drugs, medicaments and biological substances; Z88.6 Allergy status to analgesic agent; Z88.2 Allergy status to sulfonamides; Z87.891 Personal history of nicotine dependence; Z91.09 Other allergy status, other than to drugs and biological substances; Z79.82 Long term (current) use of aspirin; Z79.899 Other long term (current) drug therapy; Z79.890 Hormone replacement therapy; Z79.4 Long term (current) use of insulin; Z96.41 Presence of insulin pump (external) (internal)
CPT/HCPCS: 36415; 71045; 80053; 82150; 83690; 84484; 85025; 93005; 96360; 99284

== ENCOUNTER 2022-05-12 14:29 | Inpatient (IN) | payer MEDICARE, OTHER ==
[2022-05-12 14:43] LABS: Glucose,Whole Blood 246 mg/dL (70-110)
[2022-05-12] MEDS ORDERED: SODIUM CHLORIDE 0.9% 1,000 ML IV STA (14:45)
[2022-05-12 14:58] LABS: Basophils % (A) 1 %; Eosinophils # (A) 0.1 k/uL (0-0.7); Eosinophils % (A) 2 %; HCT 36.8 % (34.0-46.0); HGB 11.9 gm/dL (11.4-16.0); Lymphocytes # (A) 0.6 k/uL (1.0-4.8); Lymphocytes % (A) 11 %; MCH 31.2 pg (25.0-35.0); MCHC 32.3 g/dL (31.0-37.0); MCV 96.5 fL (80.0-100.0); Mean Platelet Volume 8.2; Monocytes # (A) 0.4 k/uL (0-1.0); Monocytes % (A) 8 %; Neutrophils # (A) 3.8 k/uL (1.3-7.7); Neutrophils % (A) 76 %; Platelet Count 234 k/uL (150-450); RBC 3.82 m/uL (3.80-5.40); RDW 13.6 % (11.5-15.5)
--- NOTE | 2022-05-12 15:21 | XR ---
EXAMINATION TYPE: XR chest 2V DATE OF EXAM: 05/12/2022 COMPARISON: 04/27/2022 INDICATION: Weakness TECHNIQUE: Frontal and lateral views of the chest are obtained. FINDINGS: The heart size is normal. The pulmonary vasculature is normal. The lungs are clear. There is chronic elevation left diaphragm with distention of the stomach air. S ternotomy wires are present. IMPRESSION: 1. No acute pulmonary process.
[2022-05-12 16:04] LABS: Partial Thromboplastin Time 25.7 sec (22.0-30.0); Prothrombin Time 10.5 sec (9.0-12.0)
[2022-05-12 16:46] LABS: Appearance,Urine Turbid (Clear); Bacteria,Urine Many /hpf; Bilirubin,Urine Negative (Negative); Blood,Urine Trace (Negative); Budding Yeast,Urine Many /hpf; Color,Urine Light Yellow; Glucose,Urine (UA) 3+ (Negative); Hyphae Yeast, Urine Moderate /hpf; Ketones,Urine Negative (Negative); Leukocyte Esterase,Urine Large (Negative); Nitrite,Urine Negative (Negative); PH, Urine 5.5 (5.0-8.0); Protein,Urine Negative (Negative); RBC,Urine 121 /hpf (0-5); Specific Gravity,Urine 1.008 (1.001-1.035); Squamous Epithelial Cell,Urine 1 /hpf (0-4); Urobilinogen,Urine <2.0 mg/dL (<2.0); WBC,Urine <1 /hpf (0-5)
[2022-05-12] MEDS ORDERED: cefTRIAXone IN SWFI 1,000 MG/10 ML SYRINGE IVP STA (16:48)
[2022-05-12 18:20] LABS: Albumin 3.1 g/dL (3.5-5.0); Calcium 7.9 mg/dL (8.4-10.2); Magnesium 1.8 mg/dL (1.6-2.3); Phosphorus 2.9 mg/dL (2.5-4.5); Potassium 5.6 mmol/L (3.5-5.1); Total Bilirubin 0.9 mg/dL (0.2-1.3); Total Protein 5.8 g/dL (6.3-8.2)
[2022-05-12] MEDS ORDERED: SODIUM POLYSTYRENE SULFONATE 15 GM/60 ML BOTTLE PO STA (19:29)
[2022-05-12] MEDS ORDERED: ONDANSETRON 4 MG/2 ML VIAL IVP PRN (19:29)
[2022-05-12] MEDS ORDERED: ACETAMINOPHEN TAB 325 MG TAB PO PRN (19:29)
[2022-05-12] MEDS ORDERED: NALOXONE 0.4 MG/ML 1 ML VIAL IV PRN (19:29)
--- NOTE | 2022-05-12 19:29 | ED ---
Weakness HPI - General Chief complaint: Weakness Stated complaint: Weakness Time Seen by Provider: 05/12/22 14:37 Source: patient, EMS Mode of arrival: EMS Limitations: physical limitation - History of Present Illness Initial comments: This 86-year-old female presents with daughter with a complaint of weakness. She states that it came on this morning. She was so weak that she cannot even get out of her bed. She denies any frequency, urgency, or dysuria. She denies any abdominal pain or chest pain. There is no cough or shortness of breath. She denies any known sick contacts. She does have a history of previous urinary tract infections. The weakness is fairly severe. No other complaints or modifying factors. - Related Data Home Medications Medication Instructions Recorded Confirmed LORazepam [Ativan] 0.5 mg PO BID 02/15/15 05/12/22 Escitalopram [Lexapro] 5 mg PO DAILY 10/13/18 05/12/22 Ezetimibe [Zetia] 10 mg PO DAILY 10/13/18 05/12/22 Levothyroxine Sodium [Synthroid] 75 mcg PO DAILY@1200 10/13/18 05/12/22 Loratadine [Claritin] 10 mg PO DAILY@1200 10/13/18 05/12/22 Pantoprazole [Protonix] 40 mg PO HS 10/13/18 05/12/22 Pravastatin Sodium [Pravachol] 20 mg PO HS 10/13/18 05/12/22 amLODIPine [Norvasc] 2.5 mg PO HS 10/13/18 05/12/22 Tybqcrpzogscxp-NN-Fuclcjozox 1 tab PO DAILY 11/12/19 05/12/22 [Folbic] Insulin Aspart (For Pump) [NovoLOG 0.01 unit SQ-PUMP CONTINUOUS 11/12/19 05/12/22 (For Pump)] Aspirin [Adult Low Dose Aspirin EC] 162 mg PO HS 08/02/21 05/12/22 traMADol HCl [Ultram] 50 mg PO HS 08/02/21 05/12/22 Previous Rx's Medication Instructions Recorded Metoprolol Tartrate [Lopressor] 25 mg PO BID #60 tab 11/25/15 Allergies Allergy/AdvReac Type Severity Reaction Status Date / Time Iodinated Contrast Media Allergy Anaphylaxis Verified 05/12/22 16:01 iodine Allergy Swelling Verified 05/12/22 16:01 NSAIDS (Non-Steroidal Allergy Rash/Hives Verified 05/12/22 16:01 Anti-Inflamma Sulfa (Sulfonamide Allergy Rash/Hives Verified 05/12/22 16:01 Antibiotics) adhesive tape AdvReac Rash/Hives Verified 05/12/22 16:01 Review of Systems ROS Statement: Those systems with pertinent positive or pertinent negative responses have been documented in the HPI. ROS Other: All systems not noted in ROS Statement are negative. Past Medical History Past Medical History: Coronary Artery Disease (CAD), Cancer, CVA/TIA, Diabetes Mellitus, Hyperlipidemia, Hypertension, Myocardial Infarction ([place]), Thyroid Disorder Additional Past Medical History / Comment(s): R breast cancer/padget's disease with mastectomy, TIA x3 in 2010, IDDM type II with insulin pump, legally blind bilaterally/diabetic retinopathy, diabetic neuropathy bilateral feet, temporal arteritis, tailbone fracture a few months ago still has pain, hypothyroid, constipation, varicosities. Last Myocardial Infarction Date:: 2015 History of Any Multi-Drug Resistant Organisms: None Reported Past Surgical History: Breast Surgery, Coronary Bypass/CABG, Heart Catheterization, Hysterectomy, Orthopedic Surgery Additional Past Surgical History / Comment(s): 2016 CABG 3 vessel, right mastectomy, R temporal arteritis, bilateral cataracts removed/bilateral laser eye surgery. Past Anesthesia/Blood Transfusion Reactions: No Reported Reaction Additional Past Anesthesia/Blood Transfusion Reaction / Comment(s): Pt has received blood in past without reaction. Past Psychological History: Anxiety Smoking Status: Former smoker Past Alcohol Use History: None Reported Past Drug Use History: None Reported - Past Family History Mother Family Medical History: Cancer, Diabetes Mellitus, Vascular Disorder Additional Family Medical History / Comment(s): Breast cancer, autoimmune disease, aneurysm in brain Father Family Medical History: Cancer, Coronary Artery Disease (CAD) Additional Family Medical History / Comment(s): Laryngeal cancer. Father was a smoker. General Exam - General Exam Comments Initial Comments: GENERAL: The patient is well nourished and well hydrated. VITAL SIGNS: Heart rate, blood pressure, respiratory rate reviewed as recorded in nurse's notes. EYES: Pupils are round and reactive. Extraocular movements are intact. No conjunctival / lid redness or swelling. ENT: No external evidence of injury, swelling, or ecchymosis. Airway is patent. Throat is clear. NECK: Nontender. No swelling or evidence of injury. No subcutaneous emphysema. Trachea is midline. No thyroid mass. HEART: Regular rate and rhythm. Good peripheral pulses. LUNGS/CHEST: Breath sounds clear and equal bilaterally. No rales, rhonchi, or wheezes. No ecchymosis, subcutaneous emphysema, or tenderness. ABDOMEN: Abdomen soft without tenderness. No palpable masses or organomegaly. No peritoneal signs. No abdominal wall swelling or ecchymosis. EXTREMITIES: No extremity tenderness. Normal muscle tone and function. No thoracolumbar tenderness. NEUROLOGIC: Sensation is grossly intact. Cranial nerve exam reveals face is symmetrical, tongue is midline, speech is clear. SKIN: No abrasions or ecchymosis is noted. No induration or masses noted. PSYCHIATRIC: Alert and oriented. Appropriate behavior and judgment. Limitations: physical limitation Course Vital Signs 05/12/22 14:31 Temperature 98.7 F Pulse Rate 66 Respiratory 16 Rate Blood Pressure 144/56 O2 Sat by Pulse 96 Oximetry Medical Decision Making - Medical Decision Making The patient was seen and examined. All diagnostics are reviewed. An IV is established patient is hydrated. She also receives Rocephin intravenously after urinary tract infection is identified. She is feeling slightly improved on recheck. The urine does show a significant urinary tract infection. White blood cell count is normal. Sodium is decreased. Blood sugar is slighty elevated.It is felt as though her weakness is likely due to the urinary tract infection. Blood cultures taken and is pending. It is felt as though she would require admission to the hospital. She is too weak to sit, stand, or walk. Patient and family are agreeable with this plan. Case will be discussed with her doctor shortly and patient will be admitted for further treatment. Of note, EKG shows a normal sinus rhythm with a first-degree AV block at a rate of 62. There is some T-wave inversion in V2 but this is isolated. There is some flattened T waves in the lateral leads. The IL intervals 240, QRS duration is 82, and the QTc interval is 424. The [place] influenza tests are negative. Chest x-ray does not show any pneumonia. The potassium levels also slightly elevated at 5.6. - Lab Data Result diagrams: 05/12/22 14:29 05/12/22 18:07 Lab Results 05/12/22 05/12/22 05/12/22 Range/Units 14:29 14:29 14:29 WBC 5.0 (3.8-10.6) k/uL RBC 3.82 (3.80-5.40) m/uL Hgb 11.9 (11.4-16.0) gm/dL Hct 36.8 (34.0-46.0) % MCV 96.5 (80.0-100.0) fL MCH 31.2 (25.0-35.0) pg MCHC 32.3 (31.0-37.0) g/dL RDW 13.6 (11.5-15.5) % Plt Count 234 (150-450) k/uL MPV 8.2 Neutrophils % 76 % Lymphocytes % 11 % Monocytes % 8 % Eosinophils % 2 % Basophils % 1 % Neutrophils # 3.8 (1.3-7.7) k/uL Lymphocytes # 0.6 L (1.0-4.8) k/uL Monocytes # 0.4 (0-1.0) k/uL Eosinophils # 0.1 (0-0.7) k/uL Basophils # 0.0 (0-0.2) k/uL PT 10.5 (9.0-12.0) sec INR 1.0 (<1.2) APTT 25.7 (22.0-30.0) sec Sodium (137-145) mmol/L Potassium (3.5-5.1) mmol/L Chloride (98-107) mmol/L Carbon Dioxide (22-30) mmol/L Anion Gap mmol/L BUN (7-17) mg/dL Creatinine (0.52-1.04) mg/dL Est GFR (CKD-EPI)AfAm (>60 ml/min/1.73 sqM) Est GFR (CKD-EPI)NonAf (>60 ml/min/1.73 sqM) Glucose (74-99) mg/dL POC Glucose (mg/dL) (70-110) mg/dL POC Glu Pool Hall Inspector ID Plasma Lactic Acid Alex 1.7 (0.7-2.0) mmol/L Calcium (8.4-10.2) mg/dL Phosphorus (2.5-4.5) mg/dL Magnesium (1.6-2.3) mg/dL Total Bilirubin (0.2-1.3) mg/dL AST (14-36) U/L ALT (4-34) U/L Alkaline Phosphatase (38-126) U/L Troponin I (0.000-0.034) ng/mL Total Protein (6.3-8.2) g/dL Albumin (3.5-5.0) g/dL Lipase (23-300) U/L TSH (0.465-4.680) mIU/L Urine Color Urine Appearance (Clear) Urine pH (5.0-8.0) Ur Specific Sheldon (1.001-1.035) Urine Protein (Negative) Urine Glucose (UA) (Negative) Urine Ketones (Negative) Urine Blood (Negative) Urine Nitrite (Negative) Urine Bilirubin (Negative) Urine Urobilinogen (<2.0) mg/dL Ur Leukocyte Esterase (Negative) Urine RBC (0-5) /hpf Urine WBC (0-5) /hpf Urine WBC Clumps (None) /hpf Ur Squamous Epith Cells (0-4) /hpf Urine Bacteria (None) /hpf Ur Yeast w Hyphae (None) /hpf Urine Yeast (Budding) (None) /hpf Coronavirus (PCR) (Not Detectd) Influenza Type A RNA (Not Detectd) Influenza Type B (PCR) (Not Detectd) 05/12/22 05/12/22 05/12/22 Range/Units 14:40 15:25 15:25 WBC (3.8-10.6) k/uL RBC (3.80-5.40) m/uL Hgb (11.4-16.0) gm/dL Hct (34.0-46.0) % MCV (80.0-100.0) fL MCH (25.0-35.0) pg MCHC (31.0-37.0) g/dL RDW (11.5-15.5) % Plt Count (150-450) k/uL MPV Neutrophils % % Lymphocytes % % Monocytes % % Eosinophils % % Basophils % % Neutrophils # (1.3-7.7) k/uL Lymphocytes # (1.0-4.8) k/uL Monocytes # (0-1.0) k/uL Eosinophils # (0-0.7) k/uL Basophils # (0-0.2) k/uL PT (9.0-12.0) sec INR (<1.2) APTT (22.0-30.0) sec Sodium (137-145) mmol/L Potassium (3.5-5.1) mmol/L Chloride (98-107) mmol/L Carbon Dioxide (22-30) mmol/L Anion Gap mmol/L BUN (7-17) mg/dL Creatinine (0.52-1.04) mg/dL Est GFR (CKD-EPI)AfAm (>60 ml/min/1.73 sqM) Est GFR (CKD-EPI)NonAf (>60 ml/min/1.73 sqM) Glucose (74-99) mg/dL POC Glucose (mg/dL) 246 H (70-110) mg/dL POC Glu Pool Hall Inspector ID Juliette Hein Plasma Lactic Acid Alex (0.7-2.0) mmol/L Calcium (8.4-10.2) mg/dL Phosphorus (2.5-4.5) mg/dL Magnesium (1.6-2.3) mg/dL Total Bilirubin (0.2-1.3) mg/dL AST (14-36) U/L ALT (4-34) U/L Alkaline Phosphatase (38-126) U/L Troponin I (0.000-0.034) ng/mL Total Protein (6.3-8.2) g/dL Albumin (3.5-5.0) g/dL Lipase (23-300) U/L TSH (0.465-4.680) mIU/L Urine Color Urine Appearance (Clear) Urine pH (5.0-8.0) Ur Specific Sheldon (1.001-1.035) Urine Protein (Negative) Urine Glucose (UA) (Negative) Urine Ketones (Negative) Urine Blood (Negative) Urine Nitrite (Negative) Urine Bilirubin (Negative) Urine Urobilinogen (<2.0) mg/dL Ur Leukocyte Esterase (Negative) Urine RBC (0-5) /hpf Urine WBC (0-5) /hpf Urine WBC Clumps (None) /hpf Ur Squamous Epith Cells (0-4) /hpf Urine Bacteria (None) /hpf Ur Yeast w Hyphae (None) /hpf Urine Yeast (Budding) (None) /hpf Coronavirus (PCR) Not Detected (Not Detectd) Influenza Type A RNA Not Detected (Not Detectd) Influenza Type B (PCR) Not Detected (Not Detectd) 05/12/22 05/12/22 05/12/22 Range/Units 15:52 18:07 18:07 WBC (3.8-10.6) k/uL RBC (3.80-5.40) m/uL Hgb (11.4-16.0) gm/dL Hct (34.0-46.0) % MCV (80.0-100.0) fL MCH (25.0-35.0) pg MCHC (31.0-37.0) g/dL RDW (11.5-15.5) % Plt Count (150-450) k/uL MPV Neutrophils % % Lymphocytes % % Monocytes % % Eosinophils % % Basophils % % Neutrophils # (1.3-7.7) k/uL Lymphocytes # (1.0-4.8) k/uL Monocytes # (0-1.0) k/uL Eosinophils # (0-0.7) k/uL Basophils # (0-0.2) k/uL PT (9.0-12.0) sec INR (<1.2) APTT (22.0-30.0) sec Sodium 129 L (137-145) mmol/L Potassium 5.6 H (3.5-5.1) mmol/L Chloride 98 (98-107) mmol/L Carbon Dioxide 30 (22-30) mmol/L Anion Gap 1 mmol/L BUN 12 (7-17) mg/dL Creatinine 0.79 (0.52-1.04) mg/dL Est GFR (CKD-EPI)AfAm 80 (>60 ml/min/1.73 sqM) Est GFR (CKD-EPI)NonAf 69 (>60 ml/min/1.73 sqM) Glucose 172 H (74-99) mg/dL POC Glucose (mg/dL) (70-110) mg/dL POC Glu Pool Hall Inspector ID Plasma Lactic Acid Alex (0.7-2.0) mmol/L Calcium 7.9 L (8.4-10.2) mg/dL Phosphorus 2.9 (2.5-4.5) mg/dL Magnesium 1.8 (1.6-2.3) mg/dL Total Bilirubin 0.9 (0.2-1.3) mg/dL AST 65 H (14-36) U/L ALT 18 (4-34) U/L Alkaline Phosphatase 61 (38-126) U/L Troponin I <0.012 (0.000-0.034) ng/mL Total Protein 5.8 L (6.3-8.2) g/dL Albumin 3.1 L (3.5-5.0) g/dL Lipase 133 (23-300) U/L TSH 4.250 (0.465-4.680) mIU/L Urine Color Light Yellow Urine Appearance Turbid H (Clear) Urine pH 5.5 (5.0-8.0) Ur Specific Sheldon 1.008 (1.001-1.035) Urine Protein Negative (Negative) Urine Glucose (UA) 3+ H (Negative) Urine Ketones Negative (Negative) Urine Blood Trace H (Negative) Urine Nitrite Negative (Negative) Urine Bilirubin Negative (Negative) Urine Urobilinogen <2.0 (<2.0) mg/dL Ur Leukocyte Esterase Large H (Negative) Urine RBC 121 H (0-5) /hpf Urine WBC <1 (0-5) /hpf Urine WBC Clumps Many H (None) /hpf Ur Squamous Epith Cells 1 (0-4) /hpf Urine Bacteria Many H (None) /hpf Ur Yeast w Hyphae Moderate (None) /hpf Urine Yeast (Budding) Many H (None) /hpf Coronavirus (PCR) (Not Detectd) Influenza Type A RNA (Not Detectd) Influenza Type B (PCR) (Not Detectd) Disposition Clinical Impression: Weakness, UTI (urinary tract infection), Hyponatremia, Hyperkalemia, Insulin dependent diabetes mellitus Disposition: ADMITTED IP TO THIS [facility] Condition: Fair Is patient prescribed a controlled substance at d/c from ED?: No Referrals: Tony Thomas DO [Primary Care Provider] - 1-2 days Time of Disposition: 19:28 Decision Date: 05/12/22 Decision Time: 19:28
[2022-05-12] MEDS ORDERED: DEXTROSE 50% SYRINGE 50 ML IVP PRN ×2 (19:50)
[2022-05-12] MEDS: INSULIN ASPART (NovoLOG) 100 UNIT/ML VIAL SQ SCH (21:07)
[2022-05-12] MEDS: ASPIRIN 81 MG PO SCH (21:08)
[2022-05-12] MEDS: LORazepam 0.5 MG TAB PO SCH (21:08)
[2022-05-12] MEDS: traMADol 50 MG TAB PO SCH (21:08)
[2022-05-12] MEDS: METOPROLOL TARTRATE 25 MG TAB PO SCH (21:08)
[2022-05-12] MEDS: Insulin Aspart (For Pump) 100 UNIT/ML VIAL SQ-PUMP SCH (21:09)
[2022-05-12] MEDS: PRAVASTATIN SODIUM 20 MG TAB PO SCH (21:47)
[2022-05-12] MEDS: amLODIPine 2.5 MG TAB PO SCH (21:47)
[2022-05-12 23:31] LABS: Glucose,Whole Blood 198 mg/dL (70-110)
[2022-05-13 07:20] LABS: Glucose,Whole Blood 108 mg/dL (70-110)
[2022-05-13 08:59] LABS: African American GFR (CKD) 59.5 (60.0-200.0); Anion Gap 7.4 mmol/L (10.00-18.00); Calcium 8.3 mg/dL (8.7-10.3); Carbon Dioxide 30.6 mmol/L (20.0-27.5); Non-African American GFR(CKD) 51.3 (60.0-200.0)
[2022-05-13] MEDS: INSULIN ASPART (NovoLOG) 100 UNIT/ML VIAL SQ SCH ×4 (08:59→20:22)
[2022-05-13] MEDS: ENOXAPARIN 40 MG/0.4 ML SYRINGE SQ SCH (09:02)
[2022-05-13] MEDS: PANTOPRAZOLE 40 MG TABLET PO SCH (09:02)
[2022-05-13] MEDS: EZETIMIBE 10 MG TAB PO SCH (09:03)
[2022-05-13] MEDS: LORazepam 0.5 MG TAB PO SCH ×2 (09:03→20:21)
[2022-05-13] MEDS: METOPROLOL TARTRATE 25 MG TAB PO SCH ×2 (09:03→20:21)
[2022-05-13] MEDS: ESCITALOPRAM 5 MG TAB PO SCH (09:03)
[2022-05-13] MEDS: CYANOCOBALAMIN-FA-PYRIDOXINE 1 EACH TAB PO SCH (10:31)
[2022-05-13] MEDS: LORATADINE 10 MG TAB PO SCH (11:48)
[2022-05-13] MEDS: LEVOTHYROXINE 75 MCG TAB PO SCH (11:48)
[2022-05-13 12:27] LABS: Glucose,Whole Blood 111 mg/dL (70-110)
--- NOTE | 2022-05-13 17:18 | P.HPIM ---
History of Present Illness H&P Date: 05/13/22 This is a sedentary 86-year-old female admitted with multiple medical issues including dehydration, increased generalized weakness, possible acute UTI and multiple other medical issues. Denies nausea vomiting or diarrhea. Denies abdominal pain. Denies chest pain, palpitations or shortness of breath. Denies fevers cough or chills. UA reporting many bacteria, many WBC clumps, large leukocytes, negative nitrates, 3+ glucose. Afebrile, normal WBC, VSS, maintaining O2 sats in the high 90s to 100% on room air. Hematology, coagulation panels unremarkable. Admission sodium 129, potassium 5.6, bicarb 30, renal function stable, blood sugars in the 190s with A1c 9.8, magnesium 1.8, troponin negative 1, albumin low at 3.1. Douglas virus/influenza type a/type B not detected. Chest x-ray nonacute, chronic elevation of left diaphragm. IV fluids and ceftriaxone initiated. Review of Systems ROS Statement: Those systems with pertinent positive or pertinent negative responses have been documented in the HPI. ROS Other: All systems not noted in ROS Statement are negative. Past Medical History Past Medical History: Coronary Artery Disease (CAD), Cancer, CVA/TIA, Diabetes Mellitus, Hyperlipidemia, Hypertension, Myocardial Infarction (ND), Thyroid Disorder Additional Past Medical History / Comment(s): R breast cancer/padget's disease with mastectomy, TIA x3 in 2010, IDDM type II with insulin pump, legally blind bilaterally/diabetic retinopathy, diabetic neuropathy bilateral feet, temporal arteritis, tailbone fracture a few months ago still has pain, hypothyroid, constipation, varicosities. Last Myocardial Infarction Date:: 2015 History of Any Multi-Drug Resistant Organisms: None Reported Past Surgical History: Breast Surgery, Coronary Bypass/CABG, Heart Catheterization, Hysterectomy, Orthopedic Surgery Additional Past Surgical History / Comment(s): 2016 CABG 3 vessel, right mastectomy, R temporal arteritis, bilateral cataracts removed/bilateral laser eye surgery. Past Anesthesia/Blood Transfusion Reactions: No Reported Reaction Additional Past Anesthesia/Blood Transfusion Reaction / Comment(s): Pt has received blood in past without reaction. Past Psychological History: Anxiety Additional Psychological History / Comment(s): Pt's Nicky grimes resides with her and is her caregiver. Patient bedrest. Pam's drive her to appts. Smoking Status: Former smoker Past Alcohol Use History: None Reported Additional Past Alcohol Use History / Comment(s): Pt started smoking in 1952 and quit in 1969. Past Drug Use History: None Reported - Past Family History Mother Family Medical History: Cancer, Diabetes Mellitus, Vascular Disorder Additional Family Medical History / Comment(s): Breast cancer, autoimmune disease, aneurysm in brain Father Family Medical History: Cancer, Coronary Artery Disease (CAD) Additional Family Medical History / Comment(s): Laryngeal cancer. Father was a smoker. Medications and Allergies Home Medications Medication Instructions Recorded Confirmed Type LORazepam [Ativan] 0.5 mg PO BID 02/15/15 05/12/22 History Metoprolol Tartrate [Lopressor] 25 mg PO BID #60 tab 11/25/15 05/12/22 Rx Escitalopram [Lexapro] 5 mg PO DAILY 10/13/18 05/12/22 History Ezetimibe [Zetia] 10 mg PO DAILY 10/13/18 05/12/22 History Levothyroxine Sodium [Synthroid] 75 mcg PO DAILY@1200 10/13/18 05/12/22 History Loratadine [Claritin] 10 mg PO DAILY@1200 10/13/18 05/12/22 History Pantoprazole [Protonix] 40 mg PO HS 10/13/18 05/12/22 History Pravastatin Sodium [Pravachol] 20 mg PO HS 10/13/18 05/12/22 History amLODIPine [Norvasc] 2.5 mg PO HS 10/13/18 05/12/22 History Bzhirzcvxahrbl-LH-Rkrilwsncw 1 tab PO DAILY 11/12/19 05/12/22 History [Folbic] Insulin Aspart (For Pump) [NovoLOG 0.01 unit SQ-PUMP CONTINUOUS 11/12/19 05/12/22 History (For Pump)] Aspirin [Adult Low Dose Aspirin EC] 162 mg PO HS 08/02/21 05/12/22 History traMADol HCl [Ultram] 50 mg PO HS 08/02/21 05/12/22 History Allergies Allergy/AdvReac Type Severity Reaction Status Date / Time Iodinated Contrast Media Allergy Anaphylaxis Verified 05/12/22 16:01 iodine Allergy Swelling Verified 05/12/22 16:01 NSAIDS (Non-Steroidal Allergy Rash/Hives Verified 05/12/22 16:01 Anti-Inflamma Sulfa (Sulfonamide Allergy Rash/Hives Verified 05/12/22 16:01 Antibiotics) adhesive tape AdvReac Rash/Hives Verified 05/12/22 16:01 Physical Exam Vitals: Vital Signs Temp Pulse Resp BP Pulse Ox 05/13/22 13:43 97.9 F 57 L 13 145/63 97 05/13/22 08:50 74 151/66 100 05/13/22 06:00 97.5 F L 62 16 145/72 98 05/12/22 20:37 97.8 F 68 16 123/68 98 05/12/22 20:35 18 Intake and Output 05/13/22 05/13/22 05/13/22 06:59 14:59 22:59 Intake Total 200 Output Total 400 Balance -200 Intake: Oral 200 Output: Urine 400 Other: Voiding Method External Catheter # Voids 1 - Exam GENERAL: This is a 86-year-old in no apparent distress at the time of examination. Pleasant and cooperative. HEENT: Head is atraumatic, normocephalic. Pupils are equal, round, and reactive to light. Sclerae anicteric. Conjunctivae are clear. Mucus membranes of the mouth are moist. Neck is supple. RESPIRATORY: Clear to auscultation. No wheezes, rales, or rhonchi. No use of accessory muscles. CARDIOVASCULAR: Regular rate and rhythm. S1 and S2 noted. No systolic or diastolic murmur auscultated. No JVD noted. No S3 or S4 noted. GASTROINTESTINAL: No distention noted. Abdomen soft and round. Normal active bowel sounds auscultated x 4 quadrants. No pain or tenderness noted upon palpation. INTEGUMENTARY: No cyanosis. No jaundice. No rashes noted. No cellulitis noted. EXTREMITIES: 2+ peripheral pulses. No evidence of peripheral edema. No calf tenderness noted. NEUROLOGIC: Cranial nerves II-XII intact. PSYCHIATRIC: Awake, alert, and oriented X 3. Appropriate affect. Intact judgement and insight. Results CBC & Chem 7: 05/12/22 14:29 05/13/22 05:48 Labs: Abnormal Lab Results - Last 24 Hours (Table) 05/12/22 05/12/22 05/12/22 Range/Units 14:29 18:07 20:43 Sodium 129 L (137-145) mmol/L Potassium 5.6 H (3.5-5.1) mmol/L Carbon Dioxide (20.0-27.5) mmol/L Anion Gap (10.00-18.00) mmol/L Est GFR (CKD-EPI)AfAm (60.0-200.0) Est GFR (CKD-EPI)NonAf (60.0-200.0) BUN/Creatinine Ratio (12.00-20.00) Ratio Glucose 172 H (74-99) mg/dL POC Glucose (mg/dL) 198 H (70-110) mg/dL Hemoglobin A1c 9.8 H (0.0-6.0) % Calcium 7.9 L (8.4-10.2) mg/dL AST 65 H (14-36) U/L Total Protein 5.8 L (6.3-8.2) g/dL Albumin 3.1 L (3.5-5.0) g/dL 05/13/22 05/13/22 Range/Units 05:48 12:25 Sodium (137-145) mmol/L Potassium (3.5-5.1) mmol/L Carbon Dioxide 30.6 H (20.0-27.5) mmol/L Anion Gap 7.40 L (10.00-18.00) mmol/L Est GFR (CKD-EPI)AfAm 59.5 L (60.0-200.0) Est GFR (CKD-EPI)NonAf 51.3 L (60.0-200.0) BUN/Creatinine Ratio 9.00 L (12.00-20.00) Ratio Glucose (74-99) mg/dL POC Glucose (mg/dL) 111 H (70-110) mg/dL Hemoglobin A1c (0.0-6.0) % Calcium 8.3 L (8.4-10.2) mg/dL AST (14-36) U/L Total Protein (6.3-8.2) g/dL Albumin (3.5-5.0) g/dL Thrombosis Risk Factor Assmnt - Choose All That Apply Any of the Below Risk Factors Present?: Yes Each Factor Represents 1 point: Serious lung disease incl. pneumonia (< 1month), Swollen legs (current) Each Risk Factor Represents 3 Points: Age 75 years or older Thrombosis Risk Factor Assessment Total Risk Factor Score: 5 Thrombosis Risk Factor Assessment Level: High Risk Assessment and Plan Assessment: Hyponatremia Dehydration Possible Acute UTI Weakness, acute on chronic Diabetes mellitus, hyperglycemic, A1c 9.8, has insulin pump. Plan: Continue on current medication regime ,monitoring and symptomatic treatment. Initiate insulin pump orders. Maintain IV fluid hydration, IV antibiotics of ceftriaxone. Close monitoring of electrolytes with repeat labs ordered for a.m. PT OT consulted. Ankle pumps and leg lifts demonstrated and encouraged. Discharge planning in progress for 24-48 hours. Plan of care including discharge plan discussed with both daughters at bedside. Both verbalized understanding and agreement with. The impression and plan of care has been dictated as directed. : I performed a history and examination of this patient, discussed the same with the dictator. I agree with the dictator's note ,documented as a scribe. Any additional findings or plans will be noted.
[2022-05-13 17:25] LABS: Glucose,Whole Blood 137 mg/dL (70-110)
[2022-05-13] MEDS: SENNOSIDES-DOCUSATE SODIUM 1 EACH TAB PO SCH (18:07)
[2022-05-13] MEDS: traMADol 50 MG TAB PO SCH (20:21)
[2022-05-13] MEDS: amLODIPine 2.5 MG TAB PO SCH (20:21)
[2022-05-13] MEDS: PRAVASTATIN SODIUM 20 MG TAB PO SCH (20:21)
[2022-05-13] MEDS: DOCUSATE 100 MG CAP PO SCH (20:21)
[2022-05-13] MEDS: ASPIRIN 81 MG PO SCH (20:21)
[2022-05-13 20:48] LABS: Glucose,Whole Blood 194 mg/dL (70-110)
[2022-05-13] MEDS: Insulin Aspart (For Pump) 100 UNIT/ML VIAL SQ-PUMP SCH (21:24)
[2022-05-14 07:13] LABS: Glucose,Whole Blood 171 mg/dL (70-110)
[2022-05-14] MEDS: PANTOPRAZOLE 40 MG TABLET PO SCH (09:07)
[2022-05-14] MEDS: ENOXAPARIN 40 MG/0.4 ML SYRINGE SQ SCH (09:07)
[2022-05-14] MEDS: ESCITALOPRAM 5 MG TAB PO SCH (09:08)
[2022-05-14] MEDS: DOCUSATE 100 MG CAP PO SCH (09:09)
[2022-05-14] MEDS: EZETIMIBE 10 MG TAB PO SCH (09:09)
[2022-05-14] MEDS: METOPROLOL TARTRATE 25 MG TAB PO SCH (09:10)
[2022-05-14] MEDS: SENNOSIDES-DOCUSATE SODIUM 1 EACH TAB PO SCH (09:10)
[2022-05-14] MEDS: LORazepam 0.5 MG TAB PO SCH (09:10)
[2022-05-14] MEDS: CYANOCOBALAMIN-FA-PYRIDOXINE 1 EACH TAB PO SCH (09:10)
[2022-05-14] MEDS: INSULIN ASPART (NovoLOG) 100 UNIT/ML VIAL SQ SCH ×2 (09:18→12:37)
[2022-05-14 09:24] LABS: Basophils # (A) 0.07 X 10*3/uL (0.00-0.10); Basophils % (A) 1.7 %; Eosinophils # (A) 0.15 X 10*3/uL (0.04-0.35); Eosinophils % (A) 3.6 %; HCT 35.3 % (37.2-46.3); HGB 11.1 g/dL (12.0-15.0); Immature Grans, Automated 0.5 %; Lymphocytes % (A) 16.9 %; MCH 30.6 pg (27.0-32.0); MCHC 31.4 g/dL (32.0-37.0); MCV 97.2 fL (80.0-97.0); Mean Platelet Volume 10.8 fL (9.5-12.2); Monocytes # (A) 0.56 X 10*3/uL (0.20-1.00); Monocytes % (A) 13.6 %; NRBC Per 100 WBC 0 /100 WBCS (0.0-0.0); Neutrophils # (A) 2.63 X 10*3/uL (1.80-7.70); Neutrophils % (A) 63.7 %; Platelet Count 202 X 10*3/uL (140-440); RBC 3.63 X 10*6/uL (4.10-5.20); RDW 13.5 % (11.5-14.5); WBC 4.13 X 10*3/uL (4.50-10.00)
[2022-05-14] MEDS ORDERED: hydrALAZINE HCL 25 MG TAB PO SCH (10:00)
[2022-05-14 10:01] VITALS: PULSE 59; RESP 13
[2022-05-14 10:34] LABS: African American GFR (CKD) 56.1 (60.0-200.0); BUN/Creat Ratio 9.29 Ratio (12.00-20.00); Blood Urea Nitrogen 9.8 mg/dL (9.0-27.0); Calcium 8.7 mg/dL (8.7-10.3); Carbon Dioxide 32.6 mmol/L (20.0-27.5); Non-African American GFR(CKD) 48.4 (60.0-200.0); Potassium 4.4 mmol/L (3.5-5.5)
[2022-05-14 12:18] LABS: Glucose,Whole Blood 115 mg/dL (70-110)
--- NOTE | 2022-05-14 12:54 | P.DS ---
Providers Date of admission: 05/12/22 19:33 Expected date of discharge: 05/14/22 Attending physician: Tony Thomas Primary care physician: Tony Thomas [facility] Course: Final Diagnoses: Hyponatremia,resolved Dehydration,resolved Possible Acute UTI Weakness, acute on chronic Diabetes mellitus, hyperglycemic, A1c 9.8,(trending down from 10.4), has insulin pump. Continued outpatient diabetic education in clinic recommended. Hospital course: This is a sedentary 86-year-old female admitted with multiple medical issues including dehydration, increased generalized weakness, possible acute UTI and multiple other medical issues. Denies nausea vomiting or diarrhea. Denies abdominal pain. Denies chest pain, palpitations or shortness of breath. Denies fevers cough or chills. UA reporting many bacteria, many WBC clumps, large leukocytes, negative nitrates, 3+ glucose. Afebrile, normal WBC, VSS, maintaining O2 sats in the high 90s to 100% on room air. Hematology, coagulation panels unremarkable. Admission sodium 129, potassium 5.6, bicarb 30, renal function stable, blood sugars in the 190s with A1c 9.8, magnesium 1.8, troponin negative 1, albumin low at 3.1. Douglas virus/influenza type a/type B not detected. Chest x-ray nonacute, chronic elevation of left diaphragm. IV fluids and ceftriaxone initiated. Maintained on gentle IV fluid hydration, IV antibiotics of ceftriaxone with significant clinical improvement. Afebrile, WBC 4.13, coags stable, sodium normalized, 135, renal function stable. Blood sugars better controlled. Further outpatient diabetic education including clinic recommended. Daughter at bedside, updated on plan a care including discharge planning for today. Daughter in agreement with. Patient will be discharged home today in a stable condition with guarded prognosis. The impression and plan of care has been dictated as directed. : I performed a history and examination of this patient, discussed the same with the dictator. I agree with the dictator's note ,documented as a scribe. Any additional findings or plans will be noted. Patient Condition at Discharge: Stable Plan - Discharge Summary Discharge Rx Participant: No New Discharge Prescriptions: New Sennosides-Docusate Sodium [Senokot-S] 2 each PO BID tab hydrALAZINE HCL [Apresoline] 25 mg PO TID #30 tab cefUROXime axetiL [Ceftin] 500 mg PO BID 3 Days #6 tab Continue LORazepam [Ativan] 0.5 mg PO BID Metoprolol Tartrate [Lopressor] 25 mg PO BID #60 tab Pravastatin Sodium [Pravachol] 20 mg PO HS Pantoprazole [Protonix] 40 mg PO HS Loratadine [Claritin] 10 mg PO DAILY@1200 Ezetimibe [Zetia] 10 mg PO DAILY Escitalopram [Lexapro] 5 mg PO DAILY Levothyroxine Sodium [Synthroid] 75 mcg PO DAILY@1200 Insulin Aspart (For Pump) [NovoLOG (For Pump)] 0.01 unit SQ-PUMP CONTINUOUS Ekgxgggknsiebf-ZY-Rhuznyfnve [Folbic] 1 tab PO DAILY Aspirin [Adult Low Dose Aspirin EC] 162 mg PO HS traMADol HCl [Ultram] 50 mg PO HS Discontinued amLODIPine [Norvasc] 2.5 mg PO HS Discharge Medication List LORazepam [Ativan] 0.5 mg PO BID 02/15/15 [History] Metoprolol Tartrate [Lopressor] 25 mg PO BID #60 tab 11/25/15 [Rx] Escitalopram [Lexapro] 5 mg PO DAILY 10/13/18 [History] Ezetimibe [Zetia] 10 mg PO DAILY 10/13/18 [History] Levothyroxine Sodium [Synthroid] 75 mcg PO DAILY@1200 10/13/18 [History] Loratadine [Claritin] 10 mg PO DAILY@1200 10/13/18 [History] Pantoprazole [Protonix] 40 mg PO HS 10/13/18 [History] Pravastatin Sodium [Pravachol] 20 mg PO HS 10/13/18 [History] Zfjqxsuqexfjay-NV-Orihaoznro [Folbic] 1 tab PO DAILY 11/12/19 [History] Insulin Aspart (For Pump) [NovoLOG (For Pump)] 0.01 unit SQ-PUMP CONTINUOUS 11/12/19 [History] Aspirin [Adult Low Dose Aspirin EC] 162 mg PO HS 08/02/21 [History] traMADol HCl [Ultram] 50 mg PO HS 08/02/21 [History] Sennosides-Docusate Sodium [Senokot-S] 2 each PO BID tab 05/14/22 [Rx] cefUROXime axetiL [Ceftin] 500 mg PO BID 3 Days #6 tab 05/14/22 [Rx] hydrALAZINE HCL [Apresoline] 25 mg PO TID #30 tab 05/14/22 [Rx] Follow up Appointment(s)/Referral(s): [facility] [NON-STAFF] - 1 Week Tony Thomas DO [Primary Care Provider] - 1 Week Activity/Diet/Wound Care/Special Instructions: repeat BP pending
[2022-05-14] MEDS: LEVOTHYROXINE 75 MCG TAB PO SCH (13:25)
[2022-05-14] MEDS: LORATADINE 10 MG TAB PO SCH (13:25)
[2022-05-14 13:29] VITALS: BP 117/65; TEMP 97.5
== END 2022-05-14 15:30 | disposition home or self-care (01) | DRG 690 ==
LOC: EC 14:29 → 5NMEDONC 19:33
PROVIDERS: ADMIT Family Medicine; ATTEND Family Medicine
DX: N39.0 Urinary tract infection, site not specified (principal); E87.1 Hypo-osmolality and hyponatremia; I44.0 Atrioventricular block, first degree; H54.8 Legal blindness, as defined in USA; I10 Essential (primary) hypertension; I25.10 Atherosclerotic heart disease of native coronary artery without angina pectoris; I25.2 Old myocardial infarction; Z79.4 Long term (current) use of insulin; E03.9 Hypothyroidism, unspecified; E11.40 Type 2 diabetes mellitus with diabetic neuropathy, unspecified; E11.65 Type 2 diabetes mellitus with hyperglycemia; E11.319 Type 2 diabetes mellitus with unspecified diabetic retinopathy without macular edema; E86.0 Dehydration; E78.5 Hyperlipidemia, unspecified; E87.5 Hyperkalemia; F41.9 Anxiety disorder, unspecified; Z79.82 Long term (current) use of aspirin; Z79.890 Hormone replacement therapy; Z79.899 Other long term (current) drug therapy; Z82.49 Family history of ischemic heart disease and other diseases of the circulatory system; Z83.3 Family history of diabetes mellitus; Z80.3 Family history of malignant neoplasm of breast; Z80.2 Family history of malignant neoplasm of other respiratory and intrathoracic organs; Z87.440 Personal history of urinary (tract) infections; Z86.73 Personal history of transient ischemic attack (TIA), and cerebral infarction without residual deficits; Z87.891 Personal history of nicotine dependence; Z90.11 Acquired absence of right breast and nipple; Z96.41 Presence of insulin pump (external) (internal); Z72.3 Lack of physical exercise; Z85.3 Personal history of malignant neoplasm of breast; Z20.822 Contact with and (suspected) exposure to COVID-19; Z88.2 Allergy status to sulfonamides; Z88.6 Allergy status to analgesic agent; Z91.041 Radiographic dye allergy status; Z95.1 Presence of aortocoronary bypass graft
CPT/HCPCS: 36415; 71046; 80048; 80053; 81001; 83036; 83605; 83690; 83735; 84100; 84443; 84484; 85025; 85610; 85730; 87040; 87502; 87635; 93005; 96361; 96374; 99285

== ENCOUNTER 2022-06-05 15:15 | Emergency (ER) | payer MEDICARE, OTHER ==
[2022-06-05 15:30] VITALS: TEMP 97.7
[2022-06-05] MEDS ORDERED: SODIUM CHLORIDE 0.9% 1,000 ML IV STA ×2 (15:50→17:20)
--- NOTE | 2022-06-05 15:56 | ED ---
General Adult HPI - General Chief complaint: Weakness Stated complaint: UTI,Fatigue Time Seen by Provider: 06/05/22 15:45 Source: patient, RN notes reviewed, old records reviewed Mode of arrival: ambulatory Limitations: no limitations - History of Present Illness Initial comments: Patient is an 86-year-old female who presents emergency Department complaining of fatigue and not feeling well. She is a history of insulin dependent diabetes with an insulin pump, CAD, cardiac bypass, hypertension presents with 1 day of not feeling well. Patient started presents with the patient. She is normally alert and oriented 3-4 which she currently is. Patient's daughter noticed that she did not eat as much today, and seems weaker than normal. She is having difficulty getting up from her wheelchair. This occurred previously and she has had urinary tract infections. The [place] emergency department for further evaluation of a concern for an infectious process. Patient denies any chest pain, shortness of breath, abdominal pain. Denies any nausea or vomiting. Does endorse less of an appetite today. Endorses coughing with minimal production earlier this morning. Denies any worsening lower extremity swelling. Denies any change in stooling. Maybe had 1 loose stool per her daughter, however it was normal in appearance. Patient otherwise is acting normally per her daughter. No other acute complaints at this time. No sick contacts. She pr esents for further evaluation. Patient was vaccinated and boosted for COVID-19. - Related Data Home Medications Medication Instructions Recorded Confirmed LORazepam [Ativan] 0.5 mg PO BID 02/15/15 05/12/22 Escitalopram [Lexapro] 5 mg PO DAILY 10/13/18 05/12/22 Ezetimibe [Zetia] 10 mg PO DAILY 10/13/18 05/12/22 Levothyroxine Sodium [Synthroid] 75 mcg PO DAILY@1200 10/13/18 05/12/22 Loratadine [Claritin] 10 mg PO DAILY@1200 10/13/18 05/12/22 Pantoprazole [Protonix] 40 mg PO HS 10/13/18 05/12/22 Pravastatin Sodium [Pravachol] 20 mg PO HS 10/13/18 05/12/22 Wakcdjprhpnscr-WV-Dcuzffuysv 1 tab PO DAILY 11/12/19 05/12/22 [Folbic] Insulin Aspart (For Pump) [NovoLOG 0.01 unit SQ-PUMP CONTINUOUS 11/12/19 05/12/22 (For Pump)] Aspirin [Adult Low Dose Aspirin EC] 162 mg PO HS 08/02/21 05/12/22 traMADol HCl [Ultram] 50 mg PO HS 08/02/21 05/12/22 Previous Rx's Medication Instructions Recorded Metoprolol Tartrate [Lopressor] 25 mg PO BID #60 tab 11/25/15 Sennosides-Docusate Sodium 2 each PO BID tab 05/14/22 [Senokot-S] cefUROXime axetiL [Ceftin] 500 mg PO BID 3 Days #6 tab 05/14/22 hydrALAZINE HCL [Apresoline] 25 mg PO TID #30 tab 05/14/22 Cephalexin [Keflex] 500 mg PO Q12HR 7 Days #14 cap 06/05/22 Allergies Allergy/AdvReac Type Severity Reaction Status Date / Time Iodinated Contrast Media Allergy Anaphylaxis Verified 06/05/22 15:29 iodine Allergy Swelling Verified 06/05/22 15:29 NSAIDS (Non-Steroidal Allergy Rash/Hives Verified 06/05/22 15:29 Anti-Inflamma Sulfa (Sulfonamide Allergy Rash/Hives Verified 06/05/22 15:29 Antibiotics) adhesive tape AdvReac Rash/Hives Verified 06/05/22 15:29 Review of Systems ROS Statement: Those systems with pertinent positive or pertinent negative responses have been documented in the HPI. Review of Systems: CONST: Denies fever EYES: Denies blurry vision ENT: Denies nasal congestion C/V: Denies Chest pain RESP: Denies shortness of breath GI: Denies abdominal pain : Denies dysuria SKIN: Denies rash. MSK: Denies joint pain. NEURO: Denies headache ROS Other: All systems not noted in ROS Statement are negative. Past Medical History Past Medical History: Coronary Artery Disease (CAD), Cancer, CVA/TIA, Diabetes Mellitus, Hyperlipidemia, Hypertension, Myocardial Infarction ([place]), Thyroid Disorder Additional Past Medical History / Comment(s): R breast cancer/padget's disease with mastectomy, TIA x3 in 2010, IDDM type II with insulin pump, legally blind bilaterally/diabetic retinopathy, diabetic neuropathy bilateral feet, temporal arteritis, tailbone fracture a few months ago still has pain, hypothyroid, constipation, varicosities. Last Myocardial Infarction Date:: 2015 History of Any Multi-Drug Resistant Organisms: None Reported Past Surgical History: Breast Surgery, Coronary Bypass/CABG, Heart Catheterization, Hysterectomy, Orthopedic Surgery Additional Past Surgical History / Comment(s): 2016 CABG 3 vessel, right mastectomy, R temporal arteritis, bilateral cataracts removed/bilateral laser eye surgery. Past Anesthesia/Blood Transfusion Reactions: No Reported Reaction Additional Past Anesthesia/Blood Transfusion Reaction / Comment(s): Pt has received blood in past without reaction. Past Psychological History: Anxiety Smoking Status: Former smoker Past Alcohol Use History: None Reported Past Drug Use History: None Reported - Past Family History Mother Family Medical History: Cancer, Diabetes Mellitus, Vascular Disorder Additional Family Medical History / Comment(s): Breast cancer, autoimmune disease, aneurysm in brain Father Family Medical History: Cancer, Coronary Artery Disease (CAD) Additional Family Medical History / Comment(s): Laryngeal cancer. Father was a smoker. General Exam - General Exam Comments Initial Comments: General: Appears in no acute distress. HEAD: Normal with no signs of head trauma. EYES: PERRLA, EOMI, conjunctiva normal, no discharge. ENT: Hearing grossly intact, normal oropharynx. Dry mucous membranes. RESPIRATORY: Clear breath sounds bilaterally. No wheezes, rales, or rhonchi. No respiratory distress. C/V: Regular rate and rhythm. S1 and S2 auscultated, no edema, peripheral pulses 2+ and intact throughout ABD: Abd is soft, nontender, nondistended EXT: Normal range of motion, no obvious deformity SKIN: No rashes or lesions observed on exposed skin. NEURO: Alert and oriented x 3. Cranial nerves II-XII intact. No focal sensory or strength deficits. Patient uses a wheelchair at baseline. Required some assistance with movement from wheelchair to bed. Per daughter, this is more th an normal. Limitations: no limitations Course Vital Signs 06/05/22 06/05/22 06/05/22 15:27 16:23 17:39 Temperature 97.7 F Pulse Rate 72 70 67 Respiratory 20 18 18 Rate Blood Pressure 139/64 136/63 153/66 O2 Sat by Pulse 99 97 98 Oximetry 06/05/22 19:35 Temperature Pulse Rate 91 Respiratory 16 Rate Blood Pressure 142/74 O2 Sat by Pulse 97 Oximetry Medical Decision Making - Medical Decision Making Based on the patient's presentation and physical exam, concern for acute infectious etiology for the patient's weakness. His history of UTIs. Also has a significant cardiac history. We'll obtain cardiac labs, in addition to infectious labs, urine study. Chest x-ray and EKG will also be obtained. Patient will be administered 1 L fluid bolus. Patient as well as family members were in agreement this plan. Vital signs are within normal limits EKG shows no signs of ischemia.Chest x-ray shows no acute cardiopulmonary process. Has chronic left diaphragm elevation. Laboratory studies are remarkable for mild signs of dehydration including slight hyponatremic at 128. Patient is hyperglycemic to 341 but no signs of DKA. Troponin is undetectable. Urinalysis concerning for acute urinary tract infection. Covid is negative. On reevaluation, patient is feeling improved. I discussed results with the ciarra ent as well as her daughter. I believe it is safer to be discharged home on antibiotics. They're in agreement this plan. She'll receive a dose of Rocephin prior to discharge. Recommended strict return precautions as well as follow-up with PCP. Patient like to go home with possible and I believe this is reasonable. There were no agreement this plan. I will provide the patient with a prescription for Keflex. I instructed the patient to follow up with their PCP in the next 1-3 days.. I explained that the patient should return to the emergency department if they experience any worsening symptoms. Strict return precautions were discussed with the patient. The patient expressed understanding of these instructions. I answered all questions that the patient had. The patient was discharged home in good condition with their prescriptions and follow up information. - Lab Data Result diagrams: 06/05/22 16:05 06/05/22 16:47 Lab Results 06/05/22 06/05/22 06/05/22 Range/Units 16:05 16:05 16:05 WBC 4.7 (3.8-10.6) k/uL RBC 3.90 (3.80-5.40) m/uL Hgb 12.3 (11.4-16.0) gm/dL Hct 38.4 (34.0-46.0) % MCV 98.3 (80.0-100.0) fL MCH 31.5 (25.0-35.0) pg MCHC 32.0 (31.0-37.0) g/dL RDW 13.3 (11.5-15.5) % Plt Count 282 (150-450) k/uL MPV 8.3 Neutrophils % 71 % Lymphocytes % 14 % Monocytes % 8 % Eosinophils % 4 % Basophils % 1 % Neutrophils # 3.3 (1.3-7.7) k/uL Lymphocytes # 0.7 L (1.0-4.8) k/uL Monocytes # 0.4 (0-1.0) k/uL Eosinophils # 0.2 (0-0.7) k/uL Basophils # 0.0 (0-0.2) k/uL Hypochromasia Slight PT (9.0-12.0) sec INR (<1.2) APTT (22.0-30.0) sec Sodium (137-145) mmol/L Potassium (3.5-5.1) mmol/L Chloride (98-107) mmol/L Carbon Dioxide (22-30) mmol/L Anion Gap mmol/L BUN (7-17) mg/dL Creatinine (0.52-1.04) mg/dL Est GFR (CKD-EPI)AfAm (>60 ml/min/1.73 sqM) Est GFR (CKD-EPI)NonAf (>60 ml/min/1.73 sqM) Glucose (74-99) mg/dL POC Glucose (mg/dL) (70-110) mg/dL POC Glu Cancer Program Consultant ID Plasma Lactic Acid Alex 2.0 (0.7-2.0) mmol/L Calcium (8.4-10.2) mg/dL Magnesium (1.6-2.3) mg/dL Total Bilirubin (0.2-1.3) mg/dL AST (14-36) U/L ALT (4-34) U/L Alkaline Phosphatase (38-126) U/L Troponin I (0.000-0.034) ng/mL Total Protein (6.3-8.2) g/dL Albumin (3.5-5.0) g/dL Urine Color Urine Appearance (Clear) Urine pH (5.0-8.0) Ur Specific Elizabeth (1.001-1.035) Urine Protein (Negative) Urine Glucose (UA) (Negative) Urine Ketones (Negative) Urine Blood (Negative) Urine Nitrite (Negative) Urine Bilirubin (Negative) Urine Urobilinogen (<2.0) mg/dL Ur Leukocyte Esterase (Negative) Urine RBC (0-5) /hpf Urine WBC (0-5) /hpf Urine WBC Clumps (None) /hpf Ur Squamous Epith Cells (0-4) /hpf Urine Bacteria (None) /hpf Urine Yeast (Budding) (None) /hpf Coronavirus (PCR) Not Detected (Not Detectd) 06/05/22 06/05/22 06/05/22 Range/Units 16:11 16:47 16:47 WBC (3.8-10.6) k/uL RBC (3.80-5.40) m/uL Hgb (11.4-16.0) gm/dL Hct (34.0-46.0) % MCV (80.0-100.0) fL MCH (25.0-35.0) pg MCHC (31.0-37.0) g/dL RDW (11.5-15.5) % Plt Count (150-450) k/uL MPV Neutrophils % % Lymphocytes % % Monocytes % % Eosinophils % % Basophils % % Neutrophils # (1.3-7.7) k/uL Lymphocytes # (1.0-4.8) k/uL Monocytes # (0-1.0) k/uL Eosinophils # (0-0.7) k/uL Basophils # (0-0.2) k/uL Hypochromasia PT 10.5 (9.0-12.0) sec INR 1.0 (<1.2) APTT 24.7 (22.0-30.0) sec Sodium 128 L (137-145) mmol/L Potassium 4.5 (3.5-5.1) mmol/L Chloride 93 L (98-107) mmol/L Carbon Dioxide 26 (22-30) mmol/L Anion Gap 9 mmol/L BUN 17 (7-17) mg/dL Creatinine 0.85 (0.52-1.04) mg/dL Est GFR (CKD-EPI)AfAm 73 (>60 ml/min/1.73 sqM) Est GFR (CKD-EPI)NonAf 63 (>60 ml/min/1.73 sqM) Glucose 341 H (74-99) mg/dL POC Glucose (mg/dL) 376 H (70-110) mg/dL POC Glu Cancer Program Consultant Delon Mcgill Plasma Lactic Acid Alex (0.7-2.0) mmol/L Calcium 8.3 L (8.4-10.2) mg/dL Magnesium 1.7 (1.6-2.3) mg/dL Total Bilirubin 0.3 (0.2-1.3) mg/dL AST 23 (14-36) U/L ALT 12 (4-34) U/L Alkaline Phosphatase 81 (38-126) U/L Troponin I (0.000-0.034) ng/mL Total Protein 5.5 L (6.3-8.2) g/dL Albumin 3.1 L (3.5-5.0) g/dL Urine Color Urine Appearance (Clear) Urine pH (5.0-8.0) Ur Specific Elizabeth (1.001-1.035) Urine Protein (Negative) Urine Glucose (UA) (Negative) Urine Ketones (Negative) Urine Blood (Negative) Urine Nitrite (Negative) Urine Bilirubin (Negative) Urine Urobilinogen (<2.0) mg/dL Ur Leukocyte Esterase (Negative) Urine RBC (0-5) /hpf Urine WBC (0-5) /hpf Urine WBC Clumps (None) /hpf Ur Squamous Epith Cells (0-4) /hpf Urine Bacteria (None) /hpf Urine Yeast (Budding) (None) /hpf Coronavirus (PCR) (Not Detectd) 06/05/22 06/05/22 Range/Units 16:47 18:17 WBC (3.8-10.6) k/uL RBC (3.80-5.40) m/uL Hgb (11.4-16.0) gm/dL Hct (34.0-46.0) % MCV (80.0-100.0) fL MCH (25.0-35.0) pg MCHC (31.0-37.0) g/dL RDW (11.5-15.5) % Plt Count (150-450) k/uL MPV Neutrophils % % Lymphocytes % % Monocytes % % Eosinophils % % Basophils % % Neutrophils # (1.3-7.7) k/uL Lymphocytes # (1.0-4.8) k/uL Monocytes # (0-1.0) k/uL Eosinophils # (0-0.7) k/uL Basophils # (0-0.2) k/uL Hypochromasia PT (9.0-12.0) sec INR (<1.2) APTT (22.0-30.0) sec Sodium (137-145) mmol/L Potassium (3.5-5.1) mmol/L Chloride (98-107) mmol/L Carbon Dioxide (22-30) mmol/L Anion Gap mmol/L BUN (7-17) mg/dL Creatinine (0.52-1.04) mg/dL Est GFR (CKD-EPI)AfAm (>60 ml/min/1.73 sqM) Est GFR (CKD-EPI)NonAf (>60 ml/min/1.73 sqM) Glucose (74-99) mg/dL POC Glucose (mg/dL) (70-110) mg/dL POC Glu Cancer Program Consultant ID Plasma Lactic Acid Alex (0.7-2.0) mmol/L Calcium (8.4-10.2) mg/dL Magnesium (1.6-2.3) mg/dL Total Bilirubin (0.2-1.3) mg/dL AST (14-36) U/L ALT (4-34) U/L Alkaline Phosphatase (38-126) U/L Troponin I <0.012 (0.000-0.034) ng/mL Total Protein (6.3-8.2) g/dL Albumin (3.5-5.0) g/dL Urine Color Colorless Urine Appearance Cloudy H (Clear) Urine pH 5.5 (5.0-8.0) Ur Specific Elizabeth 1.004 (1.001-1.035) Urine Protein Negative (Negative) Urine Glucose (UA) 4+ H (Negative) Urine Ketones Negative (Negative) Urine Blood Negative (Negative) Urine Nitrite Negative (Negative) Urine Bilirubin Negative (Negative) Urine Urobilinogen <2.0 (<2.0) mg/dL Ur Leukocyte Esterase Large H (Negative) Urine RBC 3 (0-5) /hpf Urine WBC 31 H (0-5) /hpf Urine WBC Clumps Many H (None) /hpf Ur Squamous Epith Cells <1 (0-4) /hpf Urine Bacteria Rare H (None) /hpf Urine Yeast (Budding) Rare H (None) /hpf Coronavirus (PCR) (Not Detectd) - EKG Data -: EKG Interpreted by Me EKG Comments: 12-lead Electrocardiogram Interpretation Note EKG was reviewed and interpreted by myself. 12-lead ECG performed at 1554 is interpreted by me as revealing normal sinus rhythm with first-degree AV block at a rate of 70 beats per minute. [place] is normal. OH interval is 273 ms, QRS duration is 84 ms, QTc is 430 ms.. Patient has mild T-wave inversions in V2 which is chronic. Also mild T-wave inversions in aVL which is chronic. Seen on EKGs from April 2022. There were no acute ST or T wave abnormalities to suggest myocardial ischemia or injury. R wave progression across the precordium was satisfactory. By my interpretation this EKG is non-diagnostic for acute ischemia. Disposition Clinical Impression: UTI (urinary tract infection), Dehydration Disposition: HOME SELF-CARE Condition: Good Instructions (If sedation given, give patient instructions): Urinary Tract Infection in Women (ED) Prescriptions: Cephalexin [Keflex] 500 mg PO Q12HR 7 Days #14 cap Is patient prescribed a controlled substance at d/c from ED?: No Referrals: Tony Thomas DO [Primary Care Provider] - 1-2 days Time of Disposition: 18:35
[2022-06-05 16:15] LABS: Glucose,Whole Blood 376 mg/dL (70-110)
[2022-06-05 16:24] LABS: Basophils % (A) 1 %; Eosinophils # (A) 0.2 k/uL (0-0.7); Eosinophils % (A) 4 %; HCT 38.4 % (34.0-46.0); HGB 12.3 gm/dL (11.4-16.0); Hypochromasia Slight; Lymphocytes # (A) 0.7 k/uL (1.0-4.8); Lymphocytes % (A) 14 %; MCH 31.5 pg (25.0-35.0); MCV 98.3 fL (80.0-100.0); Mean Platelet Volume 8.3; Monocytes # (A) 0.4 k/uL (0-1.0); Monocytes % (A) 8 %; Neutrophils # (A) 3.3 k/uL (1.3-7.7); Neutrophils % (A) 71 %; Platelet Count 282 k/uL (150-450); RDW 13.3 % (11.5-15.5); WBC 4.7 k/uL (3.8-10.6)
--- NOTE | 2022-06-05 16:58 | XR ---
EXAMINATION TYPE: XR chest 2V DATE OF EXAM: 06/05/2022 COMPARISON: 05/12/2022 HISTORY: Weakness TECHNIQUE: 2 views FINDINGS: There is no heart failure nor confluent pneumonic infiltrate. Costophrenic angles are clear . There are sternal wires. Bony thorax is intact. There is slight elevated left diaphragm. There appe ars to be old compression fracture of T12. IMPRESSION: There is chronic elevation of the left diaphragm without change. No acute lung disease.
[2022-06-05 17:04] LABS: Albumin 3.1 g/dL (3.5-5.0); Calcium 8.3 mg/dL (8.4-10.2); Magnesium 1.7 mg/dL (1.6-2.3); Potassium 4.5 mmol/L (3.5-5.1); Total Bilirubin 0.3 mg/dL (0.2-1.3); Total Protein 5.5 g/dL (6.3-8.2)
[2022-06-05 17:07] LABS: Partial Thromboplastin Time 24.7 sec (22.0-30.0); Prothrombin Time 10.5 sec (9.0-12.0)
[2022-06-05 18:30] LABS: Appearance,Urine Cloudy (Clear); Bacteria,Urine Rare /hpf; Bilirubin,Urine Negative (Negative); Blood,Urine Negative (Negative); Budding Yeast,Urine Rare /hpf; Color,Urine Colorless; Glucose,Urine (UA) 4+ (Negative); Ketones,Urine Negative (Negative); Leukocyte Esterase,Urine Large (Negative); Nitrite,Urine Negative (Negative); PH, Urine 5.5 (5.0-8.0); Protein,Urine Negative (Negative); RBC,Urine 3 /hpf (0-5); Specific Gravity,Urine 1.004 (1.001-1.035); Squamous Epithelial Cell,Urine <1 /hpf (0-4); Urobilinogen,Urine <2.0 mg/dL (<2.0); WBC,Urine 31 /hpf (0-5)
[2022-06-05] MEDS ORDERED: cefTRIAXone IN SWFI 1,000 MG/10 ML SYRINGE IVP STA (18:50)
[2022-06-05 19:37] VITALS: BP 142/74; PULSE 91; RESP 16
== END 2022-06-05 19:37 | disposition home or self-care (01) ==
LOC: EC 15:15
DX: N39.0 Urinary tract infection, site not specified (principal); E86.0 Dehydration; E78.5 Hyperlipidemia, unspecified; I10 Essential (primary) hypertension; E11.9 Type 2 diabetes mellitus without complications; Z86.73 Personal history of transient ischemic attack (TIA), and cerebral infarction without residual deficits; E07.9 Disorder of thyroid, unspecified; Z79.899 Other long term (current) drug therapy; Z87.891 Personal history of nicotine dependence; Z20.822 Contact with and (suspected) exposure to COVID-19; Z88.2 Allergy status to sulfonamides; Z88.6 Allergy status to analgesic agent; Z91.040 Latex allergy status
CPT/HCPCS: 36415; 93005; 80053; 83605; 83735; 84484; 85025; 85610; 85730; 81001; 87086; 87077; 87186; 87635; 71046; 99285; 96374; 96361; J0696

== ENCOUNTER 2022-06-16 11:42 | Inpatient (IN) | payer MEDICARE, OTHER ==
--- NOTE | 2022-06-16 14:15 | ED ---
General Adult HPI - General Chief complaint: Weakness Stated complaint: lethargic, AMS Time Seen by Provider: 06/16/22 12:44 Source: patient, family, RN notes reviewed, old records reviewed Mode of arrival: wheelchair Limitations: no limitations - History of Present Illness Initial comments: Patient is an 86-year-old female with past medical history remarkable for CAD, CVA/TIA, diabetes, hypertension who presents emergency department over concern for weakness. Patient has also been more tired lately. Patient presents with her daughter who is the primary caregiver. I did evaluate the patient almost 2 weeks ago for similar complaints. She does seem more tired at this time. She was diagnosed with a UTI and sent home on antibiotics. Patient's daughter is concerned that she may still have a UTI. Patient otherwise is acting normally not complaining of chest pain, shortness of breath. His not having any focal sensory deficits or weakness. Just seems more fatigued lately. Denies cough, fevers. Denies any wounds. Denies any abdominal pain, nausea, vomiting. Is tolerating oral intake. Does have a history of diabetes on insulin pump. Presents for further evaluation at this time. - Related Data Home Medications Medication Instructions Recorded Confirmed LORazepam [Ativan] 0.5 mg PO BID 02/15/15 06/16/22 Escitalopram [Lexapro] 5 mg PO DAILY 10/13/18 06/16/22 Ezetimibe [Zetia] 10 mg PO DAILY 10/13/18 06/16/22 Levothyroxine Sodium [Synthroid] 75 mcg PO DAILY@1200 10/13/18 06/16/22 Loratadine [Claritin] 10 mg PO DAILY@1200 10/13/18 06/16/22 Pantoprazole [Protonix] 40 mg PO HS 10/13/18 06/16/22 Pravastatin Sodium [Pravachol] 20 mg PO HS 10/13/18 06/16/22 Ygsmlskiomzlio-FY-Uhhfvqfkbz 1 tab PO DAILY 11/12/19 06/16/22 [Folbic] Insulin Aspart (For Pump) [NovoLOG 0.01 unit SQ-PUMP CONTINUOUS 11/12/19 06/16/22 (For Pump)] Aspirin [Adult Low Dose Aspirin EC] 162 mg PO HS 08/02/21 06/16/22 traMADol HCl [Ultram] 50 mg PO HS 08/02/21 06/16/22 Furosemide [Lasix] 20 mg PO DAILY 06/16/22 06/16/22 Nitrofurantoin Monohyd/M-Cryst 100 mg PO Q12HR 06/16/22 06/16/22 [Macrobid] polyethylene glycoL 3350 [Miralax] 4.25 gm PO DAILY 06/16/22 06/16/22 Previous Rx's Medication Instructions Recorded Metoprolol Tartrate [Lopressor] 25 mg PO BID #60 tab 11/25/15 Allergies Allergy/AdvReac Type Severity Reaction Status Date / Time Iodinated Contrast Media Allergy Anaphylaxis Verified 06/16/22 13:26 iodine Allergy Swelling Verified 06/16/22 13:26 NSAIDS (Non-Steroidal Allergy Rash/Hives Verified 06/16/22 13:26 Anti-Inflamma Sulfa (Sulfonamide Allergy Rash/Hives Verified 06/16/22 13:26 Antibiotics) adhesive tape AdvReac Rash/Hives Verified 06/16/22 13:26 Review of Systems ROS Statement: Those systems with pertinent positive or pertinent negative responses have been documented in the HPI. Review of Systems: CONST: Denies fever EYES: Denies blurry vision ENT: Denies nasal congestion C/V: Denies Chest pain RESP: Denies shortness of breath GI: Denies abdominal pain : Denies dysuria SKIN: Denies rash. MSK: Denies joint pain. NEURO: Endorses fatigue ROS Other: All systems not noted in ROS Statement are negative. Past Medical History Past Medical History: Coronary Artery Disease (CAD), Cancer, CVA/TIA, Diabetes Mellitus, Hyperlipidemia, Hypertension, Myocardial Infarction ([place]), Thyroid Disorder Additional Past Medical History / Comment(s): R breast cancer/padget's disease with mastectomy, TIA x3 in 2010, IDDM type II with insulin pump, legally blind bilaterally/diabetic retinopathy, diabetic neuropathy bilateral feet, temporal arteritis, tailbone fracture a few months ago still has pain, hypothyroid, con stipation, varicosities. Last Myocardial Infarction Date:: 2015 History of Any Multi-Drug Resistant Organisms: VRE Date of last positivie culture/infection: 06/05/22 MDRO Source:: Urine Past Surgical History: Breast Surgery, Coronary Bypass/CABG, Heart Catheterization, Hysterectomy, Orthopedic Surgery Additional Past Surgical History / Comment(s): 2016 CABG 3 vessel, right mastectomy, R temporal arteritis, bilateral cataracts removed/bilateral laser eye surgery. Past Anesthesia/Blood Transfusion Reactions: No Reported Reaction Additional Past Anesthesia/Blood Transfusion Reaction / Comment(s): Pt has received blood in past without reaction. Past Psychological History: Anxiety Smoking Status: Former smoker Past Alcohol Use History: None Reported Past Drug Use History: None Reported - Past Family History Mother Family Medical History: Cancer, Diabetes Mellitus, Vascular Disorder Additional Family Medical History / Comment(s): Breast cancer, autoimmune disease, aneurysm in brain Father Family Medical History: Cancer, Coronary Artery Disease (CAD) Additional Family Medical History / Comment(s): Laryngeal cancer. Father was a smoker. General Exam - General Exam Comments Initial Comments: General: Appears in no acute distress. HEAD: Normal with no signs of head trauma. EYES: PERRLA, EOMI, conjunctiva normal, no discharge. Pupils 3 mm and equal bilaterally. ENT: Hearing grossly intact, normal oropharynx. Dry mucous membranes. RESPIRATORY: Clear breath sounds bilaterally. No wheezes, rales, or rhonchi. C/V: Regular rate and rhythm. S1 and S2 auscultated, no edema, peripheral pulses 2+ and intact throughout ABD: Abd is soft, nontender, nondistended EXT: Normal range of motion, no obvious deformity SKIN: No rashes or lesions observed on exposed skin. NEURO: Alert and oriented 3. No focal deficits. NIH of 0. GCS of 15. Limitations: no limitations Course Vital Signs 06/16/22 06/16/22 12:17 17:35 Temperature 98.1 F Pulse Rate 64 61 Respiratory 20 18 Rate Blood Pressure 152/70 201/81 O2 Sat by Pulse 96 95 Oximetry Medical Decision Making - Medical Decision Making Based on the patient's presentation and physical exam, she presents for weakness, as well as what appears to be dehydration. We'll obtain a general workup, as well as a CT brain. Cardiac labs will be obtained. Patient saw was in agreement this plan. Vitals are wnl. EKG showed no signs of acute ischemia. Chest x-ray showed chronic findings but no acute changes. Brain CT shows chronic findings but no acute changes. Degenerative changes present. Laboratory studies were remarkable for a hyperglycemia 410 without any signs of HHS or DKA at this time. Patient has a pseudohyponatremia of 127 and hypochloremia of 88. Troponin is undetectable. BNP is within normal limits. Patient's age. Urinalysis shows occasional yeast as well as a large amount of leukocyte esterase and 7 wbc's. Covid and Flu were negative. On reevaluation, patient is unchanged. Vital signs remained within normal limits. I discussed with the patient's daughter that I would like to admit her for her weakness as this is the second visit for similar symptoms. She'll be started empirically on antibiotics IV Rocephin as well as given a dose of fluconazole for her urine studies. We will fluid hydrate her as she does appear dehydrated. There were no agreement with this plan. I spoke with the patient's admitting physician, Dr. Tony Thomas who accepted the patient. Patient was admitted in stable condition. - Lab Data Result diagrams: 06/16/22 13:40 06/16/22 13:40 Lab Results 06/16/22 06/16/22 06/16/22 Range/Units 13:40 13:40 13:40 WBC 5.4 (3.8-10.6) k/uL RBC 4.38 (3.80-5.40) m/uL Hgb 13.4 (11.4-16.0) gm/dL Hct 42.1 (34.0-46.0) % MCV 96.2 (80.0-100.0) fL MCH 30.6 (25.0-35.0) pg MCHC 31.8 (31.0-37.0) g/dL RDW 13.2 (11.5-15.5) % Plt Count 233 (150-450) k/uL MPV 7.9 Neutrophils % 72 % Lymphocytes % 11 % Monocytes % 9 % Eosinophils % 4 % Basophils % 2 % Neutrophils # 3.9 (1.3-7.7) k/uL Lymphocytes # 0.6 L (1.0-4.8) k/uL Monocytes # 0.5 (0-1.0) k/uL Eosinophils # 0.2 (0-0.7) k/uL Basophils # 0.1 (0-0.2) k/uL PT 10.0 (9.0-12.0) sec INR 0.9 (<1.2) APTT 23.7 (22.0-30.0) sec Sodium (137-145) mmol/L Potassium (3.5-5.1) mmol/L Chloride (98-107) mmol/L Carbon Dioxide (22-30) mmol/L Anion Gap mmol/L BUN (7-17) mg/dL Creatinine (0.52-1.04) mg/dL Est GFR (CKD-EPI)AfAm (>60 ml/min/1.73 sqM) Est GFR (CKD-EPI)NonAf (>60 ml/min/1.73 sqM) Glucose (74-99) mg/dL Plasma Lactic Acid Alex (0.7-2.0) mmol/L Calcium (8.4-10.2) mg/dL Magnesium (1.6-2.3) mg/dL Total Bilirubin (0.2-1.3) mg/dL AST (14-36) U/L ALT (4-34) U/L Alkaline Phosphatase (38-126) U/L Troponin I (0.000-0.034) ng/mL NT-Pro-B Natriuret Pep pg/mL Total Protein (6.3-8.2) g/dL Albumin (3.5-5.0) g/dL Urine Color Yellow Urine Appearance Clear (Clear) Urine pH 6.0 (5.0-8.0) Ur Specific [place] 1.006 (1.001-1.035) Urine Protein Negative (Negative) Urine Glucose (UA) 3+ H (Negative) Urine Ketones Negative (Negative) Urine Blood Negative (Negative) Urine Nitrite Negative (Negative) Urine Bilirubin Negative (Negative) Urine Urobilinogen <2.0 (<2.0) mg/dL Ur Leukocyte Esterase Large H (Negative) Urine RBC 4 (0-5) /hpf Urine WBC 7 H (0-5) /hpf Urine Mucus Rare H (None) /hpf Ur Yeast w Hyphae Rare (None) /hpf Urine Yeast (Budding) Occasional H (None) /hpf Coronavirus (PCR) (Not Detectd) Influenza Type A RNA (Not Detectd) Influenza Type B (PCR) (Not Detectd) 06/16/22 06/16/22 06/16/22 Range/Units 13:40 13:40 13:40 WBC (3.8-10.6) k/uL RBC (3.80-5.40) m/uL Hgb (11.4-16.0) gm/dL Hct (34.0-46.0) % MCV (80.0-100.0) fL MCH (25.0-35.0) pg MCHC (31.0-37.0) g/dL RDW (11.5-15.5) % Plt Count (150-450) k/uL MPV Neutrophils % % Lymphocytes % % Monocytes % % Eosinophils % % Basophils % % Neutrophils # (1.3-7.7) k/uL Lymphocytes # (1.0-4.8) k/uL Monocytes # (0-1.0) k/uL Eosinophils # (0-0.7) k/uL Basophils # (0-0.2) k/uL PT (9.0-12.0) sec INR (<1.2) APTT (22.0-30.0) sec Sodium 127 L (137-145) mmol/L Potassium 4.7 (3.5-5.1) mmol/L Chloride 88 L (98-107) mmol/L Carbon Dioxide 27 (22-30) mmol/L Anion Gap 12 mmol/L BUN 19 H (7-17) mg/dL Creatinine 0.95 (0.52-1.04) mg/dL Est GFR (CKD-EPI)AfAm 64 (>60 ml/min/1.73 sqM) Est GFR (CKD-EPI)NonAf 55 (>60 ml/min/1.73 sqM) Glucose 410 H (74-99) mg/dL Plasma Lactic Acid Alex 2.0 (0.7-2.0) mmol/L Calcium 9.4 (8.4-10.2) mg/dL Magnesium 1.9 (1.6-2.3) mg/dL Total Bilirubin 0.5 (0.2-1.3) mg/dL AST 24 (14-36) U/L ALT 13 (4-34) U/L Alkaline Phosphatase 91 (38-126) U/L Troponin I <0.012 (0.000-0.034) ng/mL NT-Pro-B Natriuret Pep pg/mL Total Protein 6.6 (6.3-8.2) g/dL Albumin 4.0 (3.5-5.0) g/dL Urine Color Urine Appearance (Clear) Urine pH (5.0-8.0) Ur Specific [place] (1.001-1.035) Urine Protein (Negative) Urine Glucose (UA) (Negative) Urine Ketones (Negative) Urine Blood (Negative) Urine Nitrite (Negative) Urine Bilirubin (Negative) Urine Urobilinogen (<2.0) mg/dL Ur Leukocyte Esterase (Negative) Urine RBC (0-5) /hpf Urine WBC (0-5) /hpf Urine Mucus (None) /hpf Ur Yeast w Hyphae (None) /hpf Urine Yeast (Budding) (None) /hpf Coronavirus (PCR) (Not Detectd) Influenza Type A RNA (Not Detectd) Influenza Type B (PCR) (Not Detectd) 06/16/22 06/16/22 06/16/22 Range/Units 13:40 13:40 13:40 WBC (3.8-10.6) k/uL RBC (3.80-5.40) m/uL Hgb (11.4-16.0) gm/dL Hct (34.0-46.0) % MCV (80.0-100.0) fL MCH (25.0-35.0) pg MCHC (31.0-37.0) g/dL RDW (11.5-15.5) % Plt Count (150-450) k/uL MPV Neutrophils % % Lymphocytes % % Monocytes % % Eosinophils % % Basophils % % Neutrophils # (1.3-7.7) k/uL Lymphocytes # (1.0-4.8) k/uL Monocytes # (0-1.0) k/uL Eosinophils # (0-0.7) k/uL Basophils # (0-0.2) k/uL PT (9.0-12.0) sec INR (<1.2) APTT (22.0-30.0) sec Sodium (137-145) mmol/L Potassium (3.5-5.1) mmol/L Chloride (98-107) mmol/L Carbon Dioxide (22-30) mmol/L Anion Gap mmol/L BUN (7-17) mg/dL Creatinine (0.52-1.04) mg/dL Est GFR (CKD-EPI)AfAm (>60 ml/min/1.73 sqM) Est GFR (CKD-EPI)NonAf (>60 ml/min/1.73 sqM) Glucose (74-99) mg/dL Plasma Lactic Acid Alex (0.7-2.0) mmol/L Calcium (8.4-10.2) mg/dL Magnesium (1.6-2.3) mg/dL Total Bilirubin (0.2-1.3) mg/dL AST (14-36) U/L ALT (4-34) U/L Alkaline Phosphatase (38-126) U/L Troponin I (0.000-0.034) ng/mL NT-Pro-B Natriuret Pep 941 pg/mL Total Protein (6.3-8.2) g/dL Albumin (3.5-5.0) g/dL Urine Color Urine Appearance (Clear) Urine pH (5.0-8.0) Ur Specific [place] (1.001-1.035) Urine Protein (Negative) Urine Glucose (UA) (Negative) Urine Ketones (Negative) Urine Blood (Negative) Urine Nitrite (Negative) Urine Bilirubin (Negative) Urine Urobilinogen (<2.0) mg/dL Ur Leukocyte Esterase (Negative) Urine RBC (0-5) /hpf Urine WBC (0-5) /hpf Urine Mucus (None) /hpf Ur Yeast w Hyphae (None) /hpf Urine Yeast (Budding) (None) /hpf Coronavirus (PCR) Not Detected (Not Detectd) Influenza Type A RNA Not Detected (Not Detectd) Influenza Type B (PCR) Not Detected (Not Detectd) - EKG Data -: EKG Interpreted by Me EKG Comments: 12-lead Electrocardiogram Interpretation Note EKG was reviewed and interpreted by myself. 12-lead ECG performed at 1240 is interpreted by me as revealing normal sinus rhythm with first-degree AV block. At a rate of 60 beats per minute. [place] is normal. SC interval is prolonged at 267 ms, QRS duration is 92 ms, QTc is 447 ms.. There were no ST or T wave abnormalities to suggest myocardial ischemia or injury. R wave progression across the precordium was satisfactory. By my interpretation this EKG is non- diagnostic for acute ischemia. No change when compared to prior EKG from 06/05/2022. Disposition Clinical Impression: Dehydration, Weakness Disposition: ADMITTED IP TO THIS HOSP Condition: Stable Time of Disposition: 16:30
[2022-06-16 14:22] LABS: Calcium 9.4 mg/dL (8.4-10.2); Magnesium 1.9 mg/dL (1.6-2.3); Potassium 4.7 mmol/L (3.5-5.1); Total Bilirubin 0.5 mg/dL (0.2-1.3); Total Protein 6.6 g/dL (6.3-8.2)
--- NOTE | 2022-06-16 14:24 | CT ---
EXAMINATION TYPE: CT brain wo con DATE OF EXAM: 06/16/2022 COMPARISON: 11/12/2019 HISTORY: Lethargic CT DLP: 1098.4 mGycm Automated exposure control for dose reduction was used. FINDINGS: There is no acute intracranial hemorrhage or midline shift identified. There is moderate generalized degenerative change. Intracranial atherosclerotic changes seen. Mild changes of right mastoiditis.. There is low-attenuation in the periventricular white matter consistent with chronic small vessel isc hemic change. Calcification of the distal internal carotid and vertebral arteries bilaterally is rede monstrated. Visualized sinuses are clear and globes are intact IMPRESSION: 1. No acute hemorrhage or mass effect. 2. Degenerative and nonspecific white matter changes most typical of remote microvascular ischemia.
[2022-06-16 14:28] LABS: Basophils # (A) 0.1 k/uL (0-0.2); Basophils % (A) 2 %; Eosinophils # (A) 0.2 k/uL (0-0.7); Eosinophils % (A) 4 %; HCT 42.1 % (34.0-46.0); HGB 13.4 gm/dL (11.4-16.0); Lymphocytes # (A) 0.6 k/uL (1.0-4.8); Lymphocytes % (A) 11 %; MCH 30.6 pg (25.0-35.0); MCHC 31.8 g/dL (31.0-37.0); MCV 96.2 fL (80.0-100.0); Mean Platelet Volume 7.9; Monocytes # (A) 0.5 k/uL (0-1.0); Monocytes % (A) 9 %; Neutrophils # (A) 3.9 k/uL (1.3-7.7); Neutrophils % (A) 72 %; Platelet Count 233 k/uL (150-450); RBC 4.38 m/uL (3.80-5.40); RDW 13.2 % (11.5-15.5); WBC 5.4 k/uL (3.8-10.6)
[2022-06-16 14:31] LABS: INR 0.9 (<1.2); Partial Thromboplastin Time 23.7 sec (22.0-30.0)
--- NOTE | 2022-06-16 14:42 | XR ---
EXAMINATION TYPE: XR chest 2V DATE OF EXAM: 06/16/2022 COMPARISON: 06/05/2022 TECHNIQUE: PA and lateral views submitted. HISTORY: Weakness FINDINGS: Elevated left hemidiaphragm with prominent gastric bubble. Postsurgical change with calcified lymph n odes in the hilum and mediastinum. Diffuse osteopenia and arthropathy of the shoulders. Surgical pena ge overlying the right chest or breasts. No obvious new consolidation or interstitial edema. No pneum othorax. IMPRESSION: 1. Chronic elevated left hemidiaphragm with no definite acute process.
[2022-06-16] MEDS ORDERED: SODIUM CHLORIDE 0.9% 1,000 ML IV STA ×2 (15:06)
[2022-06-16 16:34] LABS: Appearance,Urine Clear (Clear); Bilirubin,Urine Negative (Negative); Blood,Urine Negative (Negative); Budding Yeast,Urine Occasional /hpf; Color,Urine Yellow; Glucose,Urine (UA) 3+ (Negative); Hyphae Yeast, Urine Rare /hpf; Ketones,Urine Negative (Negative); Leukocyte Esterase,Urine Large (Negative); Mucus,Urine Rare /hpf; Nitrite,Urine Negative (Negative); Protein,Urine Negative (Negative); RBC,Urine 4 /hpf (0-5); Specific Gravity,Urine 1.006 (1.001-1.035); Urobilinogen,Urine <2.0 mg/dL (<2.0); WBC,Urine 7 /hpf (0-5)
[2022-06-16] MEDS ORDERED: FLUCONAZOLE 100 MG TAB PO ONE (16:48)
[2022-06-16] MEDS ORDERED: NALOXONE 0.4 MG/ML 1 ML VIAL IV PRN (17:06)
[2022-06-16] MEDS: Insulin Aspart (For Pump) 100 UNIT/ML VIAL SQ-PUMP SCH (18:19)
[2022-06-16] MEDS: METOPROLOL TARTRATE 25 MG TAB PO SCH (20:00)
[2022-06-16 21:44] LABS: Glucose,Whole Blood 279 mg/dL (70-110)
[2022-06-16] MEDS: PRAVASTATIN SODIUM 20 MG TAB PO SCH (21:57)
[2022-06-16] MEDS: LORazepam 0.5 MG TAB PO SCH (21:57)
[2022-06-16] MEDS: ASPIRIN 81 MG PO SCH (21:57)
[2022-06-16] MEDS: PANTOPRAZOLE 40 MG TABLET PO SCH (21:57)
[2022-06-16] MEDS: traMADol 50 MG TAB PO SCH (21:57)
[2022-06-16] MEDS: HEPARIN SODIUM,PORCINE/PF 5,000 UNIT/0.5 ML SYRINGE SQ SCH (21:57)
[2022-06-17] MEDS ORDERED: INSULIN DETEMIR (LEVEMIR) 100 UNIT/ML SYR SQ SCH (07:00)
[2022-06-17] MEDS: EZETIMIBE 10 MG TAB PO SCH (08:52)
[2022-06-17] MEDS: LORazepam 0.5 MG TAB PO SCH ×2 (08:52→20:52)
[2022-06-17] MEDS: METOPROLOL TARTRATE 25 MG TAB PO SCH ×2 (08:53→20:53)
[2022-06-17] MEDS: polyethylene glycoL 3350 17 GM POWD.PACK PO SCH (08:53)
[2022-06-17] MEDS: HEPARIN SODIUM,PORCINE/PF 5,000 UNIT/0.5 ML SYRINGE SQ SCH ×2 (08:53→20:52)
[2022-06-17] MEDS ORDERED: FUROSEMIDE 20 MG TAB PO SCH (09:00)
[2022-06-17] MEDS: CYANOCOBALAMIN-FA-PYRIDOXINE 1 EACH TAB PO SCH (09:16)
[2022-06-17] MEDS: ESCITALOPRAM 5 MG TAB PO SCH (09:16)
[2022-06-17 09:45] LABS: Basophils # (A) 0.06 X 10*3/uL (0.00-0.10); Basophils % (A) 1.1 %; Eosinophils % (A) 5.5 %; HCT 33.9 % (37.2-46.3); HGB 11.4 g/dL (12.0-15.0); Immature Grans, Automated 0.4 %; Lymphocytes # (A) 0.75 X 10*3/uL (0.90-5.00); Lymphocytes % (A) 13.8 %; MCH 31.2 pg (27.0-32.0); MCHC 33.6 g/dL (32.0-37.0); MCV 92.9 fL (80.0-97.0); Mean Platelet Volume 10.8 fL (9.5-12.2); Monocytes # (A) 0.91 X 10*3/uL (0.20-1.00); Monocytes % (A) 16.8 %; NRBC Per 100 WBC 0 /100 WBCS (0.0-0.0); Neutrophils # (A) 3.39 X 10*3/uL (1.80-7.70); Neutrophils % (A) 62.4 %; Platelet Count 227 X 10*3/uL (140-440); RBC 3.65 X 10*6/uL (4.10-5.20); WBC 5.43 X 10*3/uL (4.50-10.00)
[2022-06-17 10:34] LABS: African American GFR (CKD) 70.8 (60.0-200.0); Anion Gap 4.8 mmol/L (10.00-18.00); BUN/Creat Ratio 15.01 Ratio (12.00-20.00); Calcium 8.8 mg/dL (8.7-10.3); Carbon Dioxide 32.1 mmol/L (20.0-27.5); Non-African American GFR(CKD) 61.1 (60.0-200.0); Potassium 4.3 mmol/L (3.5-5.5)
[2022-06-17] MEDS: SODIUM CHLORIDE 0.9% 1,000 ML IV SCH (10:47)
--- NOTE | 2022-06-17 11:38 | P.HPIM ---
History of Present Illness H&P Date: 06/17/22 Chief Complaint: increased weakness, dehydration,inc. confusion This is a pleasant,sedentary 86-year-old female recently treated for acute UTI approximately 2 weeks prior with past medical history of recurrent UTIs, CAD,SD, CABG, diabetes mellitus, diabetic retinopathy, diabetic Neuropathy, hypertension , right breast cancer, Paget's disease with mastectomy , hypothyroidism, anxiety , former nicotine dependence ,admitted with multiple medical issues including dehydration, increased generalized weakness, possible acute UTI and multiple other medical issues. Daughter at bedside reporting patient had not been eating or drinking well with higher blood sugars over the last couple of days with increased confusion, increased weakness transferring from her wheelchair .Denies nausea vomiting or diarrhea. Denies constipation. Denies abdominal pain. Denies chest pain, palpitations or shortness of breath. Denies fevers cough or chills. UA reporting occasional yeast, 7 WBCs, large leukocytes, negative nitrates. Brain CT reporting no acute hemorrhage or mass effect, degenerative and nonspecific white matter changes, most typical of remote microvascular ischemia. Chest x-ray reporting chronic elevated left hemidiaphragm with no acute process. Afebrile, normal WBC. Maintaining O2 sats in the 90s on room air. Hypertensive with blood pressure of 199/68 on admission. Hematology, coagulation panels unremarkable. Sodium 127, potassium 4.7, chloride 88, bicarb 27, BUN 19, creatinine 0.95, glucose 410, lactic acid 2, magnesium 1.9, LFTs within normal limits, troponin less than 0.012, BNP 941, albumin 4, coronavirus, influenza type A and B not detected. Received IV fluid boluses, dose of IV Diflucan and empiric IV antibiotics of ceftriaxone. Patient is currently sitting up in bed, smiling, eating breakfast. Review of Systems ROS Statement: Those systems with pertinent positive or pertinent negative responses have been documented in the HPI. ROS Other: All systems not noted in ROS Statement are negative. Past Medical History Past Medical History: Coronary Artery Disease (CAD), Cancer, CVA/TIA, Diabetes Mellitus, Hyperlipidemia, Hypertension, Myocardial Infarction ([place]), Thyroid Disorder Additional Past Medical History / Comment(s): R breast cancer/padget's disease with mastectomy, TIA x3 in 2010, IDDM type II with insulin pump, legally blind bilaterally/diabetic retinopathy, diabetic neuropathy bilateral feet, temporal arteritis, tailbone fracture a few months ago still has pain, hypothyroid, cons tipation, varicosities. Last Myocardial Infarction Date:: 2015 History of Any Multi-Drug Resistant Organisms: VRE Date of last positivie culture/infection: 06/05/22 MDRO Source:: Urine Past Surgical History: Breast Surgery, Coronary Bypass/CABG, Heart Catheterization, Hysterectomy, Orthopedic Surgery Additional Past Surgical History / Comment(s): 2015 CABG 3 vessel, right mastectomy, R temporal arteritis, bilateral cataracts removed/bilateral laser eye surgery. Past Anesthesia/Blood Transfusion Reactions: No Reported Reaction Additional Past Anesthesia/Blood Transfusion Reaction / Comment(s): Pt has received blood in past without reaction. Past Psychological History: Anxiety Additional Psychological History / Comment(s): Pt's Nicky grimes resides with her and is her caregiver. Patient bedrest. Pam's drive her to [facility]. Smoking Status: Former smoker Past Alcohol Use History: None Reported Additional Past Alcohol Use History / Comment(s): Pt started smoking in 1951 and quit in 1969. Past Drug Use History: None Reported - Past Family History Mother Family Medical History: Cancer, Diabetes Mellitus, Vascular Disorder Additional Family Medical History / Comment(s): Breast cancer, autoimmune disease, aneurysm in brain Father Family Medical History: Cancer, Coronary Artery Disease (CAD) Additional Family Medical History / Comment(s): Laryngeal cancer. Father was a smoker. Medications and Allergies Home Medications Medication Instructions Recorded Confirmed Type LORazepam [Ativan] 0.5 mg PO BID 02/15/15 06/16/22 History Metoprolol Tartrate [Lopressor] 25 mg PO BID #60 tab 11/25/15 06/16/22 Rx Escitalopram [Lexapro] 5 mg PO DAILY 10/13/18 06/16/22 History Ezetimibe [Zetia] 10 mg PO DAILY 10/13/18 06/16/22 History Levothyroxine Sodium [Synthroid] 75 mcg PO DAILY@1200 10/13/18 06/16/22 History Loratadine [Claritin] 10 mg PO DAILY@1200 10/13/18 06/16/22 History Pantoprazole [Protonix] 40 mg PO HS 10/13/18 06/16/22 History Pravastatin Sodium [Pravachol] 20 mg PO HS 10/13/18 06/16/22 History Vxyzsdrcuzdcul-LL-Lsmqanzlgb 1 tab PO DAILY 11/12/19 06/16/22 History [Folbic] Insulin Aspart (For Pump) [NovoLOG 0.01 unit SQ-PUMP CONTINUOUS 11/12/19 06/16/22 History (For Pump)] Aspirin [Adult Low Dose Aspirin EC] 162 mg PO HS 08/02/21 06/16/22 History traMADol HCl [Ultram] 50 mg PO HS 08/02/21 06/16/22 History Furosemide [Lasix] 20 mg PO DAILY 06/16/22 06/16/22 History Nitrofurantoin Monohyd/M-Cryst 100 mg PO Q12HR 06/16/22 06/16/22 History [Macrobid] polyethylene glycoL 3350 [Miralax] 4.25 gm PO DAILY 06/16/22 06/16/22 History Allergies Allergy/AdvReac Type Severity Reaction Status Date / Time Iodinated Contrast Media Allergy Anaphylaxis Verified 06/16/22 13:26 iodine Allergy Swelling Verified 06/16/22 13:26 NSAIDS (Non-Steroidal Allergy Rash/Hives Verified 06/16/22 13:26 Anti-Inflamma Sulfa (Sulfonamide Allergy Rash/Hives Verified 06/16/22 13:26 Antibiotics) adhesive tape AdvReac Rash/Hives Verified 06/16/22 13:26 Physical Exam Vitals: Vital Signs Temp Pulse Pulse Resp BP BP Pulse Ox 06/17/22 08:51 62 16 148/71 94 L 06/17/22 05:00 97.8 F 63 16 162/68 94 L 06/16/22 22:52 97.7 F 62 16 199/68 97 06/16/22 21:09 60 16 188/78 95 06/16/22 19:22 65 16 204/73 98 06/16/22 17:35 61 18 201/81 95 06/16/22 12:17 98.1 F 64 20 152/70 96 Intake and Output 06/16/22 06/17/22 06/17/22 22:59 06:59 14:59 Output Total 1200 450 Balance -1200 -450 Output: Urine 1200 450 Other: Voiding Method Incontinent External Catheter Weight 64.41 kg - Exam GENERAL: This is a 86-year-old in no apparent distress at the time of examination. Pleasant and cooperative. HEENT: Head is atraumatic, normocephalic. Pupils are equal, round, and reactive to light. Sclerae anicteric. Conjunctivae are clear. Mucus membranes of the mouth are moist. Neck is supple, no JVD. RESPIRATORY: Unlabored, Clear to auscultation. No wheezes, rales, or rhonchi. No use of accessory muscles. CARDIOVASCULAR: Regular rate and rhythm. S1 and S2 noted. No systolic or diastolic murmur auscultated. No JVD noted. No S3 or S4 noted. GASTROINTESTINAL: No distention noted. Abdomen soft and round. Normal active bowel sounds auscultated x 4 quadrants. No pain or tenderness noted upon palpation. INTEGUMENTARY: No cyanosis. No jaundice. No rashes noted. No cellulitis noted. EXTREMITIES: 2+ peripheral pulses. Mild peripheral edema. No calf tenderness noted. NEUROLOGIC: Cranial nerves II-XII intact. PSYCHIATRIC: Awake, alert, and oriented X 3. Mood and affect within normal limits. Results CBC & Chem 7: 06/17/22 06:24 06/17/22 06:24 Labs: Abnormal Lab Results - Last 24 Hours (Table) 06/16/22 06/16/22 06/16/22 Range/Units 13:40 13:40 13:40 Lymphocytes # 0.6 L (1.0-4.8) k/uL Sodium 127 L (137-145) mmol/L Chloride 88 L (98-107) mmol/L BUN 19 H (7-17) mg/dL Glucose 410 H (74-99) mg/dL POC Glucose (mg/dL) (70-110) mg/dL Urine Glucose (UA) 3+ H (Negative) Ur Leukocyte Esterase Large H (Negative) Urine WBC 7 H (0-5) /hpf Urine Mucus Rare H (None) /hpf Urine Yeast (Budding) Occasional H (None) /hpf 06/16/22 Range/Units 21:42 Lymphocytes # (1.0-4.8) k/uL Sodium (137-145) mmol/L Chloride (98-107) mmol/L BUN (7-17) mg/dL Glucose (74-99) mg/dL POC Glucose (mg/dL) 279 H (70-110) mg/dL Urine Glucose (UA) (Negative) Ur Leukocyte Esterase (Negative) Urine WBC (0-5) /hpf Urine Mucus (None) /hpf Urine Yeast (Budding) (None) /hpf Microbiology - Last 24 Hours (Table) 06/16/22 13:57 Blood Culture - Final Blood 06/16/22 13:40 Blood Culture - Final Blood Thrombosis Risk Factor Assmnt - Choose All That Apply Any of the Below Risk Factors Present?: Yes Each Factor Represents 1 point: Obesity (BMI >25) Each Risk Factor Represents 3 Points: Age 75 years or older Other congenital or acquired thrombophilia - If yes, enter type in comment: No Thrombosis Risk Factor Assessment Total Risk Factor Score: 4 Thrombosis Risk Factor Assessment Level: Moderate Risk Assessment and Plan Assessment: Reported change in mental status prior to admission, possible acute metabolic encephalopathy ,suspect related to hyperglycemia, electrolyte imbalance, resolved Dehydration Hyponatremia, hypovolemic secondary to dehydration Hypochloremia Possible acute UTI in apatient recently treated for acute UTI approximately 2 weeks ago with history of recurrent UTIs Weakness, acute on chronic Diabetes mellitus II, hyperglycemic, A1c 9.8,has insulin pump. Continued outpatient diabetic education in clinic recommended. Diabetic retinopathy Diabetic neuropathy CAD, history of SD, CABG Paget's disease Right breast cancer with mastectomy History of TIAs Hypothyroidism Prior nicotine dependence Anxiety Plan: Continue on current medication regime ,monitoring and symptomatic treatment. Labs pending. Maintain gentle IV fluid hydration, empiric antibiotics. DVT prophylaxis ordered. PPI for GI prophylaxis. Small dose of Norvasc added to med regimen.low-dose Lantus. Close monitoring of Accu-Cheks .close monitoring of electrolytes with repeat labs ordered for a.m. Discharge planning in progress for tomorrow for return home, discussed with both patient and daughter at bedside. The impression and plan of care has been dictated as directed. : I performed a history and examination of this patient, discussed the same with the dictator. I agree with the dictator's note ,documented as a scribe. Any additional findings or plans will be noted.
[2022-06-17] MEDS: INSULIN DETEMIR (LEVEMIR) 100 UNIT/ML SYR SQ SCH (11:44)
[2022-06-17] MEDS: amLODIPine 2.5 MG TAB PO SCH (12:00)
[2022-06-17] MEDS: LORATADINE 10 MG TAB PO SCH (13:13)
[2022-06-17] MEDS: LEVOTHYROXINE 75 MCG TAB PO SCH (13:13)
[2022-06-17] MEDS: Insulin Aspart (For Pump) 100 UNIT/ML VIAL SQ-PUMP SCH (17:23)
[2022-06-17] MEDS: PANTOPRAZOLE 40 MG TABLET PO SCH (20:52)
[2022-06-17] MEDS: ASPIRIN 81 MG PO SCH (20:53)
[2022-06-17] MEDS: PRAVASTATIN SODIUM 20 MG TAB PO SCH (20:53)
[2022-06-17] MEDS: traMADol 50 MG TAB PO SCH (20:53)
[2022-06-18] MEDS: SODIUM CHLORIDE 0.9% 1,000 ML IV SCH (04:28)
[2022-06-18] MEDS: INSULIN DETEMIR (LEVEMIR) 100 UNIT/ML SYR SQ SCH (08:35)
[2022-06-18] MEDS: LORazepam 0.5 MG TAB PO SCH (08:36)
[2022-06-18] MEDS: METOPROLOL TARTRATE 25 MG TAB PO SCH ×2 (08:36→21:23)
[2022-06-18] MEDS: polyethylene glycoL 3350 17 GM POWD.PACK PO SCH (08:36)
[2022-06-18] MEDS: amLODIPine 2.5 MG TAB PO SCH (08:36)
[2022-06-18] MEDS: CYANOCOBALAMIN-FA-PYRIDOXINE 1 EACH TAB PO SCH (08:36)
[2022-06-18] MEDS: ESCITALOPRAM 5 MG TAB PO SCH (08:36)
[2022-06-18] MEDS: EZETIMIBE 10 MG TAB PO SCH (08:36)
[2022-06-18] MEDS: HEPARIN SODIUM,PORCINE/PF 5,000 UNIT/0.5 ML SYRINGE SQ SCH ×2 (08:45→21:23)
[2022-06-18] MEDS: traMADol 50 MG TAB PO PRN (09:45)
[2022-06-18 11:09] LABS: Basophils # (A) 0.05 X 10*3/uL (0.00-0.10); Basophils % (A) 0.8 %; Eosinophils # (A) 0.18 X 10*3/uL (0.04-0.35); Eosinophils % (A) 2.8 %; HCT 31.8 % (37.2-46.3); HGB 10.5 g/dL (12.0-15.0); Immature Grans, Automated 0.8 %; Lymphocytes # (A) 0.27 X 10*3/uL (0.90-5.00); Lymphocytes % (A) 4.1 %; MCV 93.8 fL (80.0-97.0); Mean Platelet Volume 11.7 fL (9.5-12.2); Monocytes # (A) 0.62 X 10*3/uL (0.20-1.00); Monocytes % (A) 9.5 %; NRBC Per 100 WBC 0 /100 WBCS (0.0-0.0); Neutrophils # (A) 5.37 X 10*3/uL (1.80-7.70); Platelet Count 208 X 10*3/uL (140-440); RBC 3.39 X 10*6/uL (4.10-5.20); RDW 13.2 % (11.5-14.5); WBC 6.54 X 10*3/uL (4.50-10.00)
[2022-06-18 11:31] LABS: Anion Gap 8.4 mmol/L (10.00-18.00); BUN/Creat Ratio 13.36 Ratio (12.00-20.00); Blood Urea Nitrogen 14.7 mg/dL (9.0-27.0); Calcium 8.2 mg/dL (8.7-10.3); Carbon Dioxide 24.6 mmol/L (20.0-27.5); Non-African American GFR(CKD) 45.7 (60.0-200.0); Potassium 4.4 mmol/L (3.5-5.5)
[2022-06-18] MEDS: LORATADINE 10 MG TAB PO SCH (12:20)
[2022-06-18] MEDS: LEVOTHYROXINE 75 MCG TAB PO SCH (12:20)
[2022-06-18 13:08] VITALS: BMI 25.9
--- NOTE | 2022-06-18 13:51 | XR ---
EXAMINATION TYPE: XR chest 1V DATE OF EXAM: 06/18/2022 COMPARISON: 06/16/2022 INDICATION: CHF TECHNIQUE: Single frontal view of the chest is obtained. FINDINGS: The heart size is mildly prominent. The pulmonary vasculature is normal. The lungs are clear. Tenotomy wires are in the midline. IMPRESSION: 1. Mild cardiomegaly, similar to comparison.
--- NOTE | 2022-06-18 15:13 | P.PN ---
Subjective Progress Note Date: 06/18/22 07/08/2022 This is a patient of Dr Thomas. This is an 86 year old female brought in by family for altered mental status. Patient was found to have staphylococcus epidermidis bacteremia and also family reports she has been treated for frequent UTIs while outpatient. Urinalysis does show large leukocyte esterase, and occasional yeast. Urine culture was requested. Blood cultures possibly a contaminent, repeats have been taken today. Infectious disease has been consulted. Patient also presents with low sodium, 127, it did improved with IV fluids to 131, and today is now 129. Repeat chest xray is showing no acute disease. Repeat proBNP is ordered. For now will continue 0.9 normal saline at 50 cc per hour. Pt/OT has also been consulted. Patient uses insulin pump, blood glucose currently 301, if blood glucose does not improve would recommend insulin pump be discontinued and switch to hospital protocol for blood glucose management. Afebrile, heart rate 66, blood pressure 126/69, 94% room air. Review of Systems Constitutional: Reports fatigue denied any fever. Cardio vascular: denied any chest pain, palpitations Gastrointestinal: denied any nausea, vomiting, diarrhea, last BM 06/16 Pulmonary: Denied any shortness of breath cough Neurologic denied any new focal deficits All inpatient medications were reviewed and appropriate changes in these medications as dictated in the interval history and assessment and plan. PHYSICAL EXAMINATION: GENERAL: The patient is alert and oriented x1-2, not in any acute distress. Fatigued. Well developed, well nourished. HEENT: Pupils are round and equally reacting to light. EOMI. No scleral icterus. No conjunctival pallor. Normocephalic, atraumatic. No pharyngeal erythema. No thyromegaly. CARDIOVASCULAR: S1 and S2 present. No murmurs, rubs, or gallops. PULMONARY: Chest is clear to auscultation, no wheezing or crackles. ABDOMEN: Soft, nontender, nondistended, normoactive bowel sounds. No palpable organomegaly. MUSCULOSKELETAL: No joint swelling or deformity. EXTREMITIES: No cyanosis, clubbing, or pedal edema. NEUROLOGICAL: Gross neurological examination did not reveal any focal deficits. SKIN: Patient has some mild excoriation in groin bilaterally Assessment and Plan Assessment Altered mental status possible acute metabolic encephalopathy ,suspect related to hyperglycemia, electrolyte imbalance, Dehydration Hyponatremia, hypovolemic secondary to dehydration Hypochloremia, resolved Possible acute UTI in apatient recently treated for acute UTI approximately 2 weeks ago with history of recurrent UTIs Weakness, acute on chronic Diabetes mellitus II, hyperglycemic, A1c 9.8,has insulin pump. Continued outpatient diabetic education in clinic recommended. Diabetic retinopathy Diabetic neuropathy CAD, history of [place], CABG Paget's disease Right breast cancer with mastectomy History of TIAs Hypothyroidism Prior nicotine dependence Anxiety GI Prophylaxis DVT Prophylaxis Full Code Plan Repeat BNP Continue normal saline at 50 mls per hour Repeat BMP/CBC in AM PT/OT consultation in place Cultures pending ID consultation The impression and plan of care has been dictated by Helene Zamarripa, Nurse Practitioner as directed. Dr. Jv MD I have performed a history and physical examination and medical decision making of this patient, discussed the same with the dictator, and agree with the dictators assessment and plan as written, documented as a scribe. Based on total visit time, I have performed more than 50% of this visit. Objective - Vital Signs Vital signs: Vital Signs Temp 98.3 F 06/18/22 12:44 Pulse 66 06/18/22 12:44 Resp 16 06/18/22 12:44 BP 126/69 06/18/22 12:44 Pulse Ox 94 L 06/18/22 12:44 FiO2 Intake & Output 06/17/22 06/18/22 06/18/22 18:59 06:59 18:59 Intake Total 1600 840 Output Total 500 Balance 1600 340 Weight 64.41 kg Intake: Intake, IV Titration 450 600 Amount Sodium Chloride 0.9% 1, 400 600 000 ml @ 50 mls/hr IV . Q20H [facility] Rx#:[id number] cefTRIAXone 1 gm In 50 Sodium Chloride 0.9% 50 ml @ 100 mls/hr IVPB ONCE [facility] Rx#:[id number] Oral 1150 240 Output: Urine 500 Other: Voiding Method External Catheter External Catheter External Catheter # Voids 1 - Labs CBC & Chem 7: 06/18/22 06:43 06/18/22 06:43 Labs: Abnormal Lab Results - Last 24 Hours (Table) 06/18/22 06/18/22 Range/Units 06:43 06:43 RBC 3.39 L (4.10-5.20) X 10*6/uL Hgb 10.5 L (12.0-15.0) g/dL Hct 31.8 L (37.2-46.3) % Immature Gran # 0.05 H (0.00-0.04) X 10*3/uL Lymphocytes # 0.27 L (0.90-5.00) X 10*3/uL Sodium 129 L (135-145) mmol/L Anion Gap 8.40 L (10.00-18.00) mmol/L Est GFR (CKD-EPI)AfAm 53.0 L (60.0-200.0) Est GFR (CKD-EPI)NonAf 45.7 L (60.0-200.0) Glucose 301 H (70-110) mg/dL Calcium 8.2 L (8.7-10.3) mg/dL Microbiology - Last 24 Hours (Table) 06/16/22 13:57 Blood Culture Gram Stain - Preliminary Blood Blood Culture - Preliminary Coagulase Negative Staph 06/16/22 13:40 Blood Culture Gram Stain - Preliminary Blood Blood Culture - Preliminary Staphylococcus epidermidis Assessment and Plan Time with Patient: Less than 30
[2022-06-18] MEDS ORDERED: FUROSEMIDE 10 MG/ML 2 ML VIAL IV ONE (17:15)
[2022-06-18] MEDS: ASPIRIN 81 MG PO SCH (21:22)
[2022-06-18] MEDS: PANTOPRAZOLE 40 MG TABLET PO SCH (21:22)
[2022-06-18] MEDS: DOCUSATE 100 MG CAP PO SCH (21:23)
[2022-06-18] MEDS: NYSTATIN 100,000 UNIT/GM POWD 15 GM TOPICAL SCH (21:28)
[2022-06-18] MEDS: Insulin Aspart (For Pump) 100 UNIT/ML VIAL SQ-PUMP SCH (21:29)
--- NOTE | 2022-06-18 23:03 | P.CONS ---
History of Present Illness - Reason for Consult Consult date: 06/18/22 Positive blood culture Requesting physician: Sweetie Don - Chief Complaint Weakness x few days - History of Present Illness Patient is a 86-year-old female with a past medical history significant for recurrent urinary tract infection patient recently did have a UTI with urine culture finalized with VRE and the patient has been treated with the Macrobid patient was brought into the ER 2 days ago for evaluation of weakness patient apparently has been more tired lately the patient apparently was not acting normally however no clear history of any fever or any chills patient denies having any chest pain or shortness of breath or cough no nausea vomiting no abdominal pain or any diarrhea patient on presentation to the hospital was afebrile subsequently did have a low-grade fever of 99.2 F this morning patient did have a normal white count BUN was mildly elevated liver exams are normal patient did have positive UA with a culture pending influenza and fay PCR was negative patient did have a blood culture drawn which came back positive with staph epi patient was initially on Rocephin and vancomycin was added infectious disease was consulted for further management of antibiotic therapy Review of Systems Positive point has been mentioned in the HPI rest of the systems are negative Past Medical History Past Medical History: Coronary Artery Disease (CAD), Cancer, CVA/TIA, Diabetes Mellitus, Hyperlipidemia, Hypertension, Myocardial Infarction ([place]), Thyroid Disorder Additional Past Medical History / Comment(s): R breast cancer/padget's disease with mastectomy, TIA x3 in 2010, IDDM type II with insulin pump, legally blind bilaterally/diabetic retinopathy, diabetic neuropathy bilateral feet, temporal arteritis, tailbone fracture a few months ago still has pain, hypothyroid, constipation, varicosities. Last Myocardial Infarction Date:: 2015 History of Any Multi-Drug Resistant Organisms: VRE Year Discovered:: 06/05/22 MDRO Source:: Urine Past Surgical History: Breast Surgery, Coronary Bypass/CABG, Heart Catheterization, Hysterectomy, Orthopedic Surgery Additional Past Surgical History / Comment(s): 2016 CABG 3 vessel, right mastectomy, R temporal arteritis, bilateral cataracts removed/bilateral laser eye surgery. Past Anesthesia/Blood Transfusion Reactions: No Reported Reaction Additional Past Anesthesia/Blood Transfusion Reaction / Comm: Pt has received blood in past without reaction. Past Psychological History: Anxiety Additional Psychological History / Comment(s): Pt's Nicky grimes resides with her and is her caregiver. Patient bedrest. Pam's drive her to [employer] Smoking Status: Former smoker Past Alcohol Use History: None Reported Additional Past Alcohol Use History / Comment(s): Pt started smoking in 1951 and quit in 1969. Past Drug Use History: None Reported - Past Family History Mother Family Medical History: Cancer, Diabetes Mellitus, Vascular Disorder Additional Family Medical History / Comment(s): Breast cancer, autoimmune disease, aneurysm in brain Father Family Medical History: Cancer, Coronary Artery Disease (CAD) Additional Family Medical History / Comment(s): Laryngeal cancer. Father was a smoker. Medications and Allergies Home Medications Medication Instructions Recorded Confirmed Type LORazepam [Ativan] 0.5 mg PO BID 02/15/15 06/16/22 History Metoprolol Tartrate [Lopressor] 25 mg PO BID #60 tab 11/25/15 06/16/22 Rx Escitalopram [Lexapro] 5 mg PO DAILY 10/13/18 06/16/22 History Ezetimibe [Zetia] 10 mg PO DAILY 10/13/18 06/16/22 History Levothyroxine Sodium [Synthroid] 75 mcg PO DAILY@1200 10/13/18 06/16/22 History Loratadine [Claritin] 10 mg PO DAILY@1200 10/13/18 06/16/22 History Pantoprazole [Protonix] 40 mg PO HS 10/13/18 06/16/22 History Pravastatin Sodium [Pravachol] 20 mg PO HS 10/13/18 06/16/22 History Qommdlmnlccfhw-MX-Euffqzjpip 1 tab PO DAILY 11/12/19 06/16/22 History [Folbic] Insulin Aspart (For Pump) [NovoLOG 0.01 unit SQ-PUMP CONTINUOUS 11/12/19 06/16/22 History (For Pump)] Aspirin [Adult Low Dose Aspirin EC] 162 mg PO HS 08/02/21 06/16/22 History traMADol HCl [Ultram] 50 mg PO HS 08/02/21 06/16/22 History Furosemide [Lasix] 20 mg PO DAILY 06/16/22 06/16/22 History Nitrofurantoin Monohyd/M-Cryst 100 mg PO Q12HR 06/16/22 06/16/22 History [Macrobid] polyethylene glycoL 3350 [Miralax] 4.25 gm PO DAILY 06/16/22 06/16/22 History Allergies Allergy/AdvReac Type Severity Reaction Status Date / Time Iodinated Contrast Media Allergy Anaphylaxis Verified 06/16/22 13:26 iodine Allergy Swelling Verified 06/16/22 13:26 NSAIDS (Non-Steroidal Allergy Rash/Hives Verified 06/16/22 13:26 Anti-Inflamma Sulfa (Sulfonamide Allergy Rash/Hives Verified 06/16/22 13:26 Antibiotics) adhesive tape AdvReac Rash/Hives Verified 06/16/22 13:26 Physical Exam Vitals: Vital Signs Temp Pulse Resp BP Pulse Ox 06/18/22 09:06 98.0 F 76 20 132/67 95 06/18/22 08:35 76 20 06/18/22 04:43 99.2 F 73 15 131/65 92 L 06/17/22 20:30 20 06/17/22 19:27 97.8 F 69 20 141/59 94 L Intake and Output 06/17/22 06/18/22 06/18/22 22:59 06:59 14:59 Intake Total 1600 840 Output Total 500 Balance 1600 340 Intake: Intake, IV Titration 450 600 Amount Sodium Chloride 0.9% 1, 400 600 000 ml @ 50 mls/hr IV . Q20H [facility] Rx#:[id number] cefTRIAXone 1 gm In 50 Sodium Chloride 0.9% 50 ml @ 100 mls/hr IVPB ONCE STA Rx#:[id number] Oral 1150 240 Output: Urine 500 Other: Voiding Method External Catheter External Catheter # Voids 1 GENERAL DESCRIPTION: Elderly female lying in bed, no distress. No tachypnea or accessory muscle of respiration use. HEENT: Shows Pallor , no scleral icterus. Oral mucous membrane is dry. No pharyngeal erythema or thrush NECK: Trachea central, no thyromegaly. LUNGS: Unlabored breathing. Clear to auscultation anteriorly. No wheeze or crackle. HEART: S1, S2, regular rate and rhythm. No loud murmur ABDOMEN: Soft, no tenderness , guarding or rigidity, no organomegaly EXTREMITIES: No edema of feet. SKIN: No rash, no masses palpable. NEUROLOGICAL: The patient is awake, alert, oriented x3, mood and affect normal. Results CBC & Chem 7: 06/18/22 06:43 06/18/22 06:43 Labs: Abnormal Lab Results - Last 24 Hours (Table) 06/18/22 06/18/22 Range/Units 06:43 06:43 RBC 3.39 L (4.10-5.20) X 10*6/uL Hgb 10.5 L (12.0-15.0) g/dL Hct 31.8 L (37.2-46.3) % Immature Gran # 0.05 H (0.00-0.04) X 10*3/uL Lymphocytes # 0.27 L (0.90-5.00) X 10*3/uL Sodium 129 L (135-145) mmol/L Anion Gap 8.40 L (10.00-18.00) mmol/L Est GFR (CKD-EPI)AfAm 53.0 L (60.0-200.0) Est GFR (CKD-EPI)NonAf 45.7 L (60.0-200.0) Glucose 301 H (70-110) mg/dL Calcium 8.2 L (8.7-10.3) mg/dL Microbiology - Last 24 Hours (Table) 06/16/22 13:57 Blood Culture Gram Stain - Preliminary Blood Blood Culture - Preliminary Coagulase Negative Staph 06/16/22 13:40 Blood Culture Gram Stain - Preliminary Blood Blood Culture - Preliminary Staphylococcus epidermidis Assessment and Plan (1) Positive blood culture Current Visit: Yes Status: Acute Code(s): R78.81 - BACTEREMIA SNOMED Code(s): 483476870 (2) Acute urinary tract infection Current Visit: No Status: Acute Code(s): N39.0 - URINARY TRACT INFECTION, SITE NOT SPECIFIED SNOMED Code(s): 341461469 Plan: 1patient presented to hospital with weakness which is multifactorial in this patient who do have a history of recurrent UTI mildly positive UA and a possible concern for UTI with the last urine culture positive for VRE treated with the Macrobid more likely representing failure of the oral antibiotic therapy. 2positive blood culture with staph epi likely skin contamination and no clinical disease to go along with it. 3discontinue vancomycin and Rocephin 4we will start the patient on daptomycin 4 mg/kg daily while waiting for the culture to finalize Multiple family members at the bedside questions Answered We will follow on clinical condition and cultures to further adjust medication if needed Thank you for this consultation will follow this patient along with you Time with Patient: Greater than 30
[2022-06-19] MEDS: INSULIN DETEMIR (LEVEMIR) 100 UNIT/ML SYR SQ SCH (08:49)
[2022-06-19] MEDS: CYANOCOBALAMIN-FA-PYRIDOXINE 1 EACH TAB PO SCH (08:50)
[2022-06-19] MEDS: amLODIPine 2.5 MG TAB PO SCH (08:50)
[2022-06-19] MEDS: EZETIMIBE 10 MG TAB PO SCH (08:50)
[2022-06-19] MEDS: HEPARIN SODIUM,PORCINE/PF 5,000 UNIT/0.5 ML SYRINGE SQ SCH ×2 (08:50→21:48)
[2022-06-19] MEDS: ESCITALOPRAM 5 MG TAB PO SCH (08:50)
[2022-06-19] MEDS: METOPROLOL TARTRATE 25 MG TAB PO SCH ×2 (08:51→21:48)
[2022-06-19] MEDS: polyethylene glycoL 3350 17 GM POWD.PACK PO SCH (08:51)
[2022-06-19] MEDS: NYSTATIN 100,000 UNIT/GM POWD 15 GM TOPICAL SCH ×2 (09:05→21:49)
[2022-06-19] MEDS ORDERED: ACETAMINOPHEN TAB 325 MG TAB PO PRN (09:21)
[2022-06-19 11:42] LABS: Basophils # (A) 0.04 X 10*3/uL (0.00-0.10); Basophils % (A) 0.9 %; Eosinophils # (A) 0.21 X 10*3/uL (0.04-0.35); Eosinophils % (A) 4.6 %; HCT 31.2 % (37.2-46.3); HGB 10.4 g/dL (12.0-15.0); Immature Grans, Automated 0.4 %; Lymphocytes # (A) 0.31 X 10*3/uL (0.90-5.00); Lymphocytes % (A) 6.8 %; MCHC 33.3 g/dL (32.0-37.0); MCV 92.9 fL (80.0-97.0); Mean Platelet Volume 11.4 fL (9.5-12.2); Monocytes # (A) 0.73 X 10*3/uL (0.20-1.00); Monocytes % (A) 15.9 %; NRBC Per 100 WBC 0 /100 WBCS (0.0-0.0); Neutrophils # (A) 3.27 X 10*3/uL (1.80-7.70); Neutrophils % (A) 71.4 %; Platelet Count 195 X 10*3/uL (140-440); RBC 3.36 X 10*6/uL (4.10-5.20); WBC 4.58 X 10*3/uL (4.50-10.00)
[2022-06-19 11:52] LABS: African American GFR (CKD) 51.9 (60.0-200.0); Anion Gap 10.3 mmol/L (10.00-18.00); BUN/Creat Ratio 16.16 Ratio (12.00-20.00); Blood Urea Nitrogen 18.1 mg/dL (9.0-27.0); Calcium 8.4 mg/dL (8.7-10.3); Carbon Dioxide 26.1 mmol/L (20.0-27.5); Non-African American GFR(CKD) 44.8 (60.0-200.0); Potassium 4.1 mmol/L (3.5-5.5)
[2022-06-19] MEDS: LEVOTHYROXINE 75 MCG TAB PO SCH (12:28)
[2022-06-19] MEDS ORDERED: FUROSEMIDE 10 MG/ML 2 ML VIAL IV ONE (14:35)
[2022-06-19] MEDS: Insulin Aspart (For Pump) 100 UNIT/ML VIAL SQ-PUMP SCH (21:45)
[2022-06-19] MEDS: ASPIRIN 81 MG PO SCH (21:46)
[2022-06-19] MEDS: PANTOPRAZOLE 40 MG TABLET PO SCH (21:48)
[2022-06-19] MEDS: DOCUSATE 100 MG CAP PO SCH (21:48)
[2022-06-19] MEDS: traMADol 50 MG TAB PO PRN (22:05)
--- NOTE | 2022-06-19 22:42 | P.PN ---
Subjective Progress Note Date: 06/19/22 07/08/2022 This is a patient of Dr Thomas. This is an 86 year old female brought in by family for altered mental status. Patient was found to have staphylococcus epidermidis bacteremia and also family reports she has been treated for frequent UTIs while outpatient. Urinalysis does show large leukocyte esterase, and occasional yeast. Urine culture was requested. Blood cultures possibly a contaminent, repeats have been taken today. Infectious disease has been consulted. Patient also presents with low sodium, 127, it did improved with IV fluids to 131, and today is now 129. Repeat chest xray is showing no acute disease. Repeat proBNP is ordered. For now will continue 0.9 normal saline at 50 cc per hour. Pt/OT has also been consulted. Patient uses insulin pump, blood glucose currently 301, if blood glucose does not improve would recommend insulin pump be discontinued and switch to hospital protocol for blood glucose management. Afebrile, heart rate 66, blood pressure 126/69, 94% room air. 06/19/2022 Patient evaluated today resting in bed with family at the bedside. Her mentation has improved today she is alert x3 although she is drowsy. She is answer questions appropriately, denying pain. She has not had a BM in 2 days, she received miralax today. Repeat blood culture negative so far, urine culture is pending. She has been started on IV daptomycin and infectious disease is following. Sodium yesterday 129, BNP found to be 2300, she received a one time dose of lasix 20 mg IV and sodium repeat today is again 129. Ammonia level checked is less than 9. Family concerned with slow improvement. She is also pending PT/OT evaluation. All other labs today stable, she is afebrile, heart rate 65, blood pressure 157/79, 96% room air. Blood glucose 300s today, discussed with family blood glucose management, they would like to continue with insulin pump for now. Review of Systems Constitutional: Reports fatigue denied any fever. Cardio vascular: denied any chest pain, palpitations Gastrointestinal: denied any nausea, vomiting, diarrhea, last BM 06/16 Pulmonary: Denied any shortness of breath cough Neurologic denied any new focal deficits All inpatient medications were reviewed and appropriate changes in these medications as dictated in the interval history and assessment and plan. PHYSICAL EXAMINATION: GENERAL: The patient is alert and oriented x2-3, not in any acute distress. Fatigued, drowsy. Well developed, well nourished. HEENT: Pupils are round and equally reacting to light. EOMI. No scleral icterus. No conjunctival pallor. Normocephalic, atraumatic. No pharyngeal erythema. No thyromegaly. CARDIOVASCULAR: S1 and S2 present. No murmurs, rubs, or gallops. PULMONARY: Chest is clear to auscultation, no wheezing or crackles. ABDOMEN: Soft, nontender, nondistended, normoactive bowel sounds. No palpable organomegaly. MUSCULOSKELETAL: No joint swelling or deformity. EXTREMITIES: No cyanosis, clubbing, or pedal edema. NEUROLOGICAL: Gross neurological examination did not reveal any focal deficits. Does displace some mild myoclonus jerking SKIN: Patient has some mild excoriation in groin bilaterally Assessment and Plan Assessment Altered mental status possible acute metabolic encephalopathy ,suspect related to hyperglycemia, electrolyte imbalance, Dehydration. Staphylococcus epidermidis bacteremia/sepsis possible contaminant repeat cultures pending, ID is following patient Hyponatremia, hypovolemic however sodium improved and than worsened, she is being treated for mild overload and receiving IV lasix today Hypochloremia, resolved Possible acute UTI in apatient recently treated for acute UTI approximately 2 weeks ago with history of recurrent UTIs Weakness, acute on chronic Diabetes mellitus II, hyperglycemic, A1c 9.8,has insulin pump. Continued outpatient diabetic education in clinic recommended. Diabetic retinopathy Diabetic neuropathy CAD, history of [place], CABG Paget's disease Right breast cancer with mastectomy History of TIAs Hypothyroidism Prior nicotine dependence Anxiety GI Prophylaxis DVT Prophylaxis Full Code Plan Lasix IV 20 mg x 1 given today Cultures pending Infectious disease on consultation, continues on IV daptomycin Continue blood glucose monitoring, patient is using insulin pump Miralax and colace on board Increase activity level, encourage incentive spirometer. Repeat BMP/CBC in AM PT/OT consultation in place patient will most likely need subacute rehab on discharge The impression and plan of care has been dictated by Helene Zamarripa, Nurse Practitioner as directed. Dr. Jv MD I have performed a history and physical examination and medical decision making of this patient, discussed the same with the dictator, and agree with the dictators assessment and plan as written, documented as a scribe. Based on total visit time, I have performed more than 50% of this visit. Objective - Vital Signs Vital signs: Vital Signs Temp 98.0 F 06/19/22 11:12 Pulse 65 06/19/22 11:12 Resp 16 06/19/22 11:12 BP 157/79 06/19/22 11:12 Pulse Ox 96 06/19/22 11:12 FiO2 Intake & Output 06/18/22 06/19/22 06/19/22 18:59 06:59 18:59 Output Total 400 950 800 Balance -400 -950 -800 Weight 64.41 kg Output: Urine 400 950 800 Other: Voiding Method External Catheter External Catheter External Catheter - Labs CBC & Chem 7: 06/19/22 07:07 06/19/22 07:07 Labs: Abnormal Lab Results - Last 24 Hours (Table) 06/19/22 06/19/22 Range/Units 07:07 07:07 RBC 3.36 L (4.10-5.20) X 10*6/uL Hgb 10.4 L (12.0-15.0) g/dL Hct 31.2 L (37.2-46.3) % Lymphocytes # 0.31 L (0.90-5.00) X 10*3/uL Sodium 129 L (135-145) mmol/L Chloride 92 L (96-109) mmol/L Est GFR (CKD-EPI)AfAm 51.9 L (60.0-200.0) Est GFR (CKD-EPI)NonAf 44.8 L (60.0-200.0) Glucose 305 H (70-110) mg/dL Calcium 8.4 L (8.7-10.3) mg/dL Microbiology - Last 24 Hours (Table) 06/18/22 10:38 Blood Culture - Preliminary Blood No Growth after 24 hours 06/18/22 14:25 Urine Culture - Preliminary Urine,Catheterized 06/16/22 13:57 Blood Culture Gram Stain - Preliminary Blood Blood Culture - Preliminary Coagulase Negative Staph 06/16/22 13:40 Blood Culture Gram Stain - Preliminary Blood Blood Culture - Preliminary Staphylococcus epidermidis Assessment and Plan Time with Patient: Less than 30
[2022-06-20] MEDS: INSULIN DETEMIR (LEVEMIR) 100 UNIT/ML SYR SQ SCH (07:00)
[2022-06-20] MEDS: amLODIPine 2.5 MG TAB PO SCH (09:53)
[2022-06-20] MEDS: EZETIMIBE 10 MG TAB PO SCH (09:53)
[2022-06-20] MEDS: ESCITALOPRAM 5 MG TAB PO SCH (09:53)
[2022-06-20] MEDS: HEPARIN SODIUM,PORCINE/PF 5,000 UNIT/0.5 ML SYRINGE SQ SCH ×2 (09:53→21:18)
[2022-06-20] MEDS: CYANOCOBALAMIN-FA-PYRIDOXINE 1 EACH TAB PO SCH (09:53)
[2022-06-20] MEDS: METOPROLOL TARTRATE 25 MG TAB PO SCH ×2 (09:53→21:18)
[2022-06-20] MEDS: polyethylene glycoL 3350 17 GM POWD.PACK PO SCH (09:54)
[2022-06-20] MEDS: amLODIPine 5 MG TAB PO SCH (10:27)
[2022-06-20] MEDS: traMADol 50 MG TAB PO PRN ×2 (10:34→21:18)
[2022-06-20 11:48] LABS: Anion Gap 11.7 mmol/L (10.00-18.00); Blood Urea Nitrogen 19.8 mg/dL (9.0-27.0); Calcium 8.6 mg/dL (8.7-10.3); Carbon Dioxide 27.3 mmol/L (20.0-27.5); Non-African American GFR(CKD) 45.7 (60.0-200.0); Potassium 4.1 mmol/L (3.5-5.5)
[2022-06-20] MEDS: LEVOTHYROXINE 75 MCG TAB PO SCH (12:34)
[2022-06-20] MEDS: NYSTATIN 100,000 UNIT/GM POWD 15 GM TOPICAL SCH ×2 (12:35→21:19)
[2022-06-20] MEDS: Insulin Aspart (For Pump) 100 UNIT/ML VIAL SQ-PUMP SCH (19:26)
--- NOTE | 2022-06-20 21:00 | P.PN ---
Subjective Progress Note Date: 06/19/22 Principal diagnosis: Urinary tract infection Patient is a 86-year-old female with a past medical history significant for urinary tract infection last urine culture positive for VRE treated with Macrobid presenting to the hospital with weakness and concerning for an episode of UTI. On today's evaluation that is 06/19/2022, the patient is afebrile patient is currently breathing comfortably on room air denies any chest pain shortness of breath or cough no abdominal pain or diarrhea Objective - Vital Signs Vital signs: Vital Signs Temp 98.0 F 06/19/22 11:12 Pulse 65 06/19/22 11:12 Resp 16 06/19/22 11:12 BP 157/79 06/19/22 11:12 Pulse Ox 96 06/19/22 11:12 FiO2 Intake & Output 06/18/22 06/19/22 06/19/22 18:59 06:59 18:59 Output Total 400 950 800 Balance -400 -950 -800 Weight 64.41 kg Output: Urine 400 950 800 Other: Voiding Method External Catheter External Catheter External Catheter - Exam GENERAL DESCRIPTION: An elderly female lying in bed in no distress RESPIRATORY SYSTEM: Unlabored breathing , decreased breath sounds at bases HEART: S1 S2 regular rate and rhythm , ABDOMEN: Soft , no tenderness EXTREMITIES: No edema feet - Labs CBC & Chem 7: 06/19/22 07:07 06/20/22 05:19 Labs: Abnormal Lab Results - Last 24 Hours (Table) 06/19/22 06/19/22 Range/Units 07:07 07:07 RBC 3.36 L (4.10-5.20) X 10*6/uL Hgb 10.4 L (12.0-15.0) g/dL Hct 31.2 L (37.2-46.3) % Lymphocytes # 0.31 L (0.90-5.00) X 10*3/uL Sodium 129 L (135-145) mmol/L Chloride 92 L (96-109) mmol/L Est GFR (CKD-EPI)AfAm 51.9 L (60.0-200.0) Est GFR (CKD-EPI)NonAf 44.8 L (60.0-200.0) Glucose 305 H (70-110) mg/dL Calcium 8.4 L (8.7-10.3) mg/dL Microbiology - Last 24 Hours (Table) 06/16/22 13:57 Blood Culture Gram Stain - Final Blood Blood Culture - Final Staphylococcus epidermidis 06/16/22 13:40 Blood Culture Gram Stain - Final Blood Blood Culture - Final Staphylococcus epidermidis 06/18/22 10:38 Blood Culture - Preliminary Blood No Growth after 24 hours 06/18/22 14:25 Urine Culture - Preliminary Urine,Catheterized Assessment and Plan (1) Positive blood culture Current Visit: Yes Status: Acute Code(s): R78.81 - BACTEREMIA SNOMED Code(s): 091362616 (2) Acute urinary tract infection Current Visit: No Status: Acute Code(s): N39.0 - URINARY TRACT INFECTION, SITE NOT SPECIFIED SNOMED Code(s): 713318048 Plan: 1patient presented to hospital with weakness which is multifactorial in this patient who do have a history of recurrent UTI mildly positive UA and a possible concern for UTI with the last urine culture positive for VRE treated with the Macrobid more likely representing failure of the oral antibiotic therapy. 2positive blood culture with staph epi likely skin contamination and no clinical disease to go along with it none for vancomycin. 3patient to continue with daptomycin 4 mg/kg daily while waiting for the urine culture to finalize Time with Patient: Less than 30
--- NOTE | 2022-06-20 21:01 | P.PN ---
Subjective Progress Note Date: 06/20/22 Principal diagnosis: Urinary tract infection Patient is a 86-year-old female with a past medical history significant for urinary tract infection last urine culture positive for VRE treated with Macrobid presenting to the hospital with weakness and concerning for an episode of UTI. On today's evaluation that is 06/20/2022, the patient continues to be afebrile, the patient is more awake and alert per the family member, patient is breathing comfortably on room air , the patient denies any chest pain shortness of breath or cough no abdominal pain or diarrhea Objective - Vital Signs Vital signs: Vital Signs Temp 97.9 F 06/20/22 11:17 Pulse 58 L 06/20/22 11:17 Resp 18 06/20/22 11:17 BP 166/63 06/20/22 11:17 Pulse Ox 96 06/20/22 11:17 FiO2 Intake & Output 06/19/22 06/20/22 06/20/22 18:59 06:59 18:59 Intake Total 460 300 Output Total 2600 1900 1999 Balance -2139 Intake: Intake, IV Titration 100 Amount DAPTOmycin 250 mg In 100 Sodium Chloride 0.9% 50 ml @ 100 mls/hr IVPB Q24HR [facility] Rx#:[id number] Oral 360 300 Output: Urine 2600 1900 1999 Other: Voiding Method External Catheter External Catheter # Voids 0 # Bowel Movements 0 - Exam GENERAL DESCRIPTION: An elderly female lying in bed in no distress RESPIRATORY SYSTEM: Unlabored breathing , decreased breath sounds at bases HEART: S1 S2 regular rate and rhythm , ABDOMEN: Soft , no tenderness EXTREMITIES: No edema feet - Labs CBC & Chem 7: 06/19/22 07:07 06/20/22 05:19 Labs: Abnormal Lab Results - Last 24 Hours (Table) 06/20/22 Range/Units 05:19 Sodium 129 L (135-145) mmol/L Chloride 90 L (96-109) mmol/L Est GFR (CKD-EPI)AfAm 53.0 L (60.0-200.0) Est GFR (CKD-EPI)NonAf 45.7 L (60.0-200.0) Glucose 174 H (70-110) mg/dL Calcium 8.6 L (8.7-10.3) mg/dL Microbiology - Last 24 Hours (Table) 06/18/22 10:38 Blood Culture - Preliminary Blood No Growth after 48 hours 06/16/22 13:57 Blood Culture Gram Stain - Final Blood Blood Culture - Final Staphylococcus epidermidis 06/16/22 13:40 Blood Culture Gram Stain - Final Blood Blood Culture - Final Staphylococcus epidermidis Assessment and Plan (1) Positive blood culture Current Visit: Yes Status: Acute Code(s): R78.81 - BACTEREMIA SNOMED Code(s): 151216889 (2) Acute urinary tract infection Current Visit: No Status: Acute Code(s): N39.0 - URINARY TRACT INFECTION, SITE NOT SPECIFIED SNOMED Code(s): 382465573 Plan: 1patient presented to hospital with weakness which is multifactorial in this patient who do have a history of recurrent UTI mildly positive UA and a possible concern for UTI with the last urine culture positive for VRE treated with the Macrobid more likely representing failure of the oral antibiotic therapy. 2positive blood culture with staph epi likely skin contamination and no clinical disease to go along with it none for vancomycin. 3patient seemed to have show some clinical improvement and will continue with daptomycin 4 mg/kg daily while waiting for the urine culture to finalize Time with Patient: Less than 30
[2022-06-20] MEDS: PANTOPRAZOLE 40 MG TABLET PO SCH (21:18)
[2022-06-20] MEDS: ASPIRIN 81 MG PO SCH (21:18)
[2022-06-20] MEDS: DOCUSATE 100 MG CAP PO SCH (21:18)
--- NOTE | 2022-06-20 23:02 | P.PN ---
Subjective Progress Note Date: 06/20/22 07/08/2022 This is a patient of Dr Thomas. This is an 86 year old female brought in by family for altered mental status. Patient was found to have staphylococcus epidermidis bacteremia and also family reports she has been treated for frequent UTIs while outpatient. Urinalysis does show large leukocyte esterase, and occasional yeast. Urine culture was requested. Blood cultures possibly a contaminent, repeats have been taken today. Infectious disease has been consulted. Patient also presents with low sodium, 127, it did improved with IV fluids to 131, and today is now 129. Repeat chest xray is showing no acute disease. Repeat proBNP is ordered. For now will continue 0.9 normal saline at 50 cc per hour. Pt/OT has also been consulted. Patient uses insulin pump, blood glucose currently 301, if blood glucose does not improve would recommend insulin pump be discontinued and switch to hospital protocol for blood glucose management. Afebrile, heart rate 66, blood pressure 126/69, 94% room air. 06/19/2022 Patient evaluated today resting in bed with family at the bedside. Her mentation has improved today she is alert x3 although she is drowsy. She is answer questions appropriately, denying pain. She has not had a BM in 2 days, she received miralax today. Repeat blood culture negative so far, urine culture is pending. She has been started on IV daptomycin and infectious disease is following. Sodium yesterday 129, BNP found to be 2300, she received a one time dose of lasix 20 mg IV and sodium repeat today is again 129. Ammonia level checked is less than 9. Family concerned with slow improvement. She is also pending PT/OT evaluation. All other labs today stable, she is afebrile, heart rate 65, blood pressure 157/79, 96% room air. Blood glucose 300s today, discussed with family blood glucose management, they would like to continue with insulin pump for now. 06/20/2022 Patient is resting in bed with family at bedside. Her mentation continues to improved she is alert x 3, oriented, and states she is feeling better. Encouraged to increase activity level she is pending PT/OT evaluation. She remains afebrile, heart rate 64, blood pressure 152/68, 93% room air. She received a dose of IV lasix yesterday. IV fluids were discontinued however noted they continued to infuse at 50 mls per hour today. Sodium repeat is 129. No peripheral edema. On bowel regimen. Infectious disease is following continues on IV daptomycin. She does have staphylococcus bacteremia most likely a contaminent. Repeat blood culture is currently pending. Urine culture is also pending. Norvasc will be increased. Review of Systems Constitutional: Reports fatigue denied any fever. Cardio vascular: denied any chest pain, palpitations Gastrointestinal: denied any nausea, vomiting, diarrhea, last BM 06/16 Pulmonary: Denied any shortness of breath cough Neurologic denied any new focal deficits All inpatient medications were reviewed and appropriate changes in these medications as dictated in the interval history and assessment and plan. PHYSICAL EXAMINATION: GENERAL: The patient is alert and oriented x2-3, not in any acute distress. Fatigued, drowsy. Well developed, well nourished. HEENT: Pupils are round and equally reacting to light. EOMI. No scleral icterus. No conjunctival pallor. Normocephalic, atraumatic. No pharyngeal erythema. No thyromegaly. CARDIOVASCULAR: S1 and S2 present. No murmurs, rubs, or gallops. PULMONARY: Chest is clear to auscultation, no wheezing or crackles. ABDOMEN: Soft, nontender, nondistended, normoactive bowel sounds. No palpable organomegaly. MUSCULOSKELETAL: No joint swelling or deformity. EXTREMITIES: No cyanosis, clubbing, or pedal edema. NEUROLOGICAL: Gross neurological examination did not reveal any focal deficits. Does displace some mild myoclonus jerking SKIN: Patient has some mild excoriation in groin bilaterally Assessment and Plan Assessment Altered mental status possible acute metabolic and toxic encephalopathy suspect related to hyperglycemia, electrolyte imbalance, Dehydration. Patient also with possible mild UTI with failed outpatient antibiotic therapy. Staphylococcus epidermidis bacteremia most likely due to contaminant repeat cultures pending, ID is following patient Hyponatremia, hypovolemic however sodium improved and than worsened, she is being treated for mild overload and received IV lasix Hypochloremia, resolved Possible acute UTI in apatient recently treated for acute UTI approximately 2 weeks ago with history of recurrent UTIs Weakness, acute on chronic Diabetes mellitus II, hyperglycemic, A1c 9.8,has insulin pump. Continued outpatient diabetic education in clinic recommended. Diabetic retinopathy Diabetic neuropathy CAD, history of [place], CABG Paget's disease Right breast cancer with mastectomy History of TIAs Hypothyroidism Prior nicotine dependence Anxiety GI Prophylaxis DVT Prophylaxis Full Code Plan Cultures pending Infectious disease on consultation, continues on IV daptomycin Continue blood glucose monitoring, patient is using insulin pump Miralax and colace on board Increase activity level, encourage incentive spirometer. Repeat sodium level in AM PT/OT consultation in place patient will most likely need subacute rehab on discharge The impression and plan of care has been dictated by Helene Zamarripa, Nurse Practitioner as directed. Dr. Jv MD I have performed a history and physical examination and medical decision making of this patient, discussed the same with the dictator, and agree with the dictators assessment and plan as written, documented as a scribe. Based on total visit time, I have performed more than 50% of this visit. Objective - Vital Signs Vital signs: Vital Signs Temp 97.7 F 06/20/22 04:09 Pulse 64 06/20/22 04:09 Resp 18 06/20/22 04:09 BP 152/68 06/20/22 04:09 Pulse Ox 93 L 06/20/22 04:09 FiO2 Intake & Output 06/19/22 06/20/22 06/20/22 18:59 06:59 18:59 Intake Total 460 300 Output Total 2600 1900 Balance -2140 -1600 Intake: Intake, IV Titration 100 Amount DAPTOmycin 250 mg In 100 Sodium Chloride 0.9% 50 ml @ 100 mls/hr IVPB Q24HR [facility] Rx#:[id number] Oral 360 300 Output: Urine 2600 1900 Other: Voiding Method External Catheter External Catheter # Voids 0 # Bowel Movements 0 - Labs CBC & Chem 7: 06/19/22 07:07 06/20/22 05:19 Labs: Abnormal Lab Results - Last 24 Hours (Table) 06/19/22 06/19/22 Range/Units 07:07 07:07 RBC 3.36 L (4.10-5.20) X 10*6/uL Hgb 10.4 L (12.0-15.0) g/dL Hct 31.2 L (37.2-46.3) % Lymphocytes # 0.31 L (0.90-5.00) X 10*3/uL Sodium 129 L (135-145) mmol/L Chloride 92 L (96-109) mmol/L Est GFR (CKD-EPI)AfAm 51.9 L (60.0-200.0) Est GFR (CKD-EPI)NonAf 44.8 L (60.0-200.0) Glucose 305 H (70-110) mg/dL Calcium 8.4 L (8.7-10.3) mg/dL Microbiology - Last 24 Hours (Table) 06/16/22 13:57 Blood Culture Gram Stain - Final Blood Blood Culture - Final Staphylococcus epidermidis 06/16/22 13:40 Blood Culture Gram Stain - Final Blood Blood Culture - Final Staphylococcus epidermidis 06/18/22 10:38 Blood Culture - Preliminary Blood No Growth after 24 hours Assessment and Plan Time with Patient: Less than 30
[2022-06-21] MEDS: METOPROLOL TARTRATE 25 MG TAB PO SCH ×2 (08:05→22:05)
[2022-06-21] MEDS: EZETIMIBE 10 MG TAB PO SCH (08:05)
[2022-06-21] MEDS: amLODIPine 5 MG TAB PO SCH (08:05)
[2022-06-21] MEDS: HEPARIN SODIUM,PORCINE/PF 5,000 UNIT/0.5 ML SYRINGE SQ SCH ×2 (08:05→22:05)
[2022-06-21] MEDS: polyethylene glycoL 3350 17 GM POWD.PACK PO SCH (08:05)
[2022-06-21] MEDS: CYANOCOBALAMIN-FA-PYRIDOXINE 1 EACH TAB PO SCH (08:05)
[2022-06-21] MEDS: ESCITALOPRAM 5 MG TAB PO SCH (08:05)
[2022-06-21] MEDS: NYSTATIN 100,000 UNIT/GM POWD 15 GM TOPICAL SCH ×2 (08:06→22:05)
[2022-06-21] MEDS: INSULIN DETEMIR (LEVEMIR) 100 UNIT/ML SYR SQ SCH (08:06)
[2022-06-21] MEDS ORDERED: FUROSEMIDE 10 MG/ML 2 ML VIAL IV ONE (09:34)
[2022-06-21] MEDS ORDERED: amLODIPine 5 MG TAB PO STA (09:35)
[2022-06-21] MEDS: LEVOTHYROXINE 75 MCG TAB PO SCH (10:59)
--- NOTE | 2022-06-21 15:59 | P.PN ---
Subjective Progress Note Date: 06/21/22 07/08/2022 This is a patient of Dr Thomas. This is an 86 year old female brought in by family for altered mental status. Patient was found to have staphylococcus epidermidis bacteremia and also family reports she has been treated for frequent UTIs while outpatient. Urinalysis does show large leukocyte esterase, and occasional yeast. Urine culture was requested. Blood cultures possibly a contaminent, repeats have been taken today. Infectious disease has been consulted. Patient also presents with low sodium, 127, it did improved with IV fluids to 131, and today is now 129. Repeat chest xray is showing no acute disease. Repeat proBNP is ordered. For now will continue 0.9 normal saline at 50 cc per hour. Pt/OT has also been consulted. Patient uses insulin pump, blood glucose currently 301, if blood glucose does not improve would recommend insulin pump be discontinued and switch to hospital protocol for blood glucose management. Afebrile, heart rate 66, blood pressure 126/69, 94% room air. 06/19/2022 Patient evaluated today resting in bed with family at the bedside. Her mentation has improved today she is alert x3 although she is drowsy. She is answer questions appropriately, denying pain. She has not had a BM in 2 days, she received miralax today. Repeat blood culture negative so far, urine culture is pending. She has been started on IV daptomycin and infectious disease is following. Sodium yesterday 129, BNP found to be 2300, she received a one time dose of lasix 20 mg IV and sodium repeat today is again 129. Ammonia level checked is less than 9. Family concerned with slow improvement. She is also pending PT/OT evaluation. All other labs today stable, she is afebrile, heart rate 65, blood pressure 157/79, 96% room air. Blood glucose 300s today, discussed with family blood glucose management, they would like to continue with insulin pump for now. 06/20/2022 Patient is resting in bed with family at bedside. Her mentation continues to improved she is alert x 3, oriented, and states she is feeling better. Encouraged to increase activity level she is pending PT/OT evaluation. She remains afebrile, heart rate 64, blood pressure 152/68, 93% room air. She received a dose of IV lasix yesterday. IV fluids were discontinued however noted they continued to infuse at 50 mls per hour today. Sodium repeat is 129. No peripheral edema. On bowel regimen. Infectious disease is following continues on IV daptomycin. She does have staphylococcus bacteremia most likely a contaminent. Repeat blood culture is currently pending. Urine culture is also pending. Norvasc will be increased. 06/21/2022 Patient evaluated today resting in bed. She is alert x 3 and family feels her mentation is improving. They do not want subacute rehab they would like to take her home with extra resources in place. She continues on IV daptomycin clinically improving. Urine culture not able to finalize, showing multiple organisms, gram negative bacilli including pseudomonas species. Further recommendations from infectious disease. Sodium again today 129, will given a dose of lasix and repeat level tomorrow. IV fluids to KVO. Patient continues on insulin pump and continues with hyperglycemia. 10 units levemir had been ordered which family was refusing. She did get the 10 units levemir today and continue monitoring blood glucose. Order was discontinued, family does not want her getting extra insulin. Blood pressure 164/71. Review of Systems Constitutional: Reports fatigue denied any fever. Cardio vascular: denied any chest pain, palpitations Gastrointestinal: denied any nausea, vomiting, diarrhea, had BM Pulmonary: Denied any shortness of breath cough Neurologic denied any new focal deficits All inpatient medications were reviewed and appropriate changes in these medications as dictated in the interval history and assessment and plan. PHYSICAL EXAMINATION: GENERAL: The patient is alert and oriented x2-3, not in any acute distress. Fatigued, drowsy. Well developed, well nourished. HEENT: Pupils are round and equally reacting to light. EOMI. No scleral icterus. No conjunctival pallor. Normocephalic, atraumatic. No pharyngeal erythema. No thyromegaly. CARDIOVASCULAR: S1 and S2 present. No murmurs, rubs, or gallops. PULMONARY: Chest is clear to auscultation, no wheezing or crackles. ABDOMEN: Soft, nontender, nondistended, normoactive bowel sounds. No palpable organomegaly. MUSCULOSKELETAL: No joint swelling or deformity. EXTREMITIES: No cyanosis, clubbing, or pedal edema. NEUROLOGICAL: Gross neurological examination did not reveal any focal deficits. Does displace some mild myoclonus jerking SKIN: Patient has some mild excoriation in groin bilaterally Assessment and Plan Assessment Altered mental status possible acute metabolic and toxic encephalopathy suspect related to hyperglycemia, electrolyte imbalance, Dehydration. Patient also with possible mild UTI with failed outpatient antibiotic therapy. Improving. Staphylococcus epidermidis bacteremia most likely due to contaminant repeat cultures pending, ID is following patient Hyponatremia, hypervolemic received a dose of IV lasix today Hypochloremia, resolved Possible acute UTI in apatient recently treated for acute UTI approximately 2 weeks ago with history of recurrent UTIs Weakness, acute on chronic Diabetes mellitus II, hyperglycemic, A1c 9.8,has insulin pump. Continued outpatient diabetic education in clinic recommended. Diabetic retinopathy Diabetic neuropathy CAD, history of GA, CABG Paget's disease Right breast cancer with mastectomy History of TIAs Hypothyroidism Prior nicotine dependence Anxiety GI Prophylaxis DVT Prophylaxis Full Code Plan Cultures pending Infectious disease on consultation, continues on IV daptomycin Continue blood glucose monitoring, patient is using insulin pump Miralax and colace on board Increase activity level, encourage incentive spirometer. Repeat sodium level in AM PT/OT consultation in place patient will most likely need subacute rehab on discharge, family would like for patient to return home with homecare and additional home PT. The impression and plan of care has been dictated by Helene Zamarripa Nurse Practitioner as directed. Dr. Jv MD I have performed a history and physical examination and medical decision making of this patient, discussed the same with the dictator, and agree with the dictators assessment and plan as written, documented as a scribe. Based on total visit time, I have performed more than 50% of this visit. Objective - Vital Signs Vital signs: Vital Signs Temp 97.4 F L 06/21/22 11:40 Pulse 60 06/21/22 11:40 Resp 18 06/21/22 11:40 BP 164/71 06/21/22 11:40 Pulse Ox 96 06/21/22 11:40 FiO2 Intake & Output 06/20/22 06/21/22 06/21/22 18:59 06:59 18:59 Intake Total 100 Output Total 1999 2550 Balance -190 -200 Intake: Intake, IV Titration 100 Amount DAPTOmycin 250 mg In 100 Sodium Chloride 0.9% 50 ml @ 100 mls/hr IVPB Q24HR [facility] Rx#:[id number] Output: Urine 19990 Other: Voiding Method External Catheter External Catheter - Labs CBC & Chem 7: 06/19/22 07:07 06/21/22 05:12 Labs: Abnormal Lab Results - Last 24 Hours (Table) 06/21/22 Range/Units 05:12 Sodium 129 L (137-145) mmol/L Microbiology - Last 24 Hours (Table) 06/18/22 10:38 Blood Culture - Preliminary Blood No Growth after 72 hours 06/18/22 14:25 Urine Culture - Final Urine,Catheterized Assessment and Plan Time with Patient: Less than 30
[2022-06-21] MEDS: Insulin Aspart (For Pump) 100 UNIT/ML VIAL SQ-PUMP SCH (17:22)
[2022-06-21] MEDS: DOCUSATE 100 MG CAP PO SCH (22:05)
[2022-06-21] MEDS: PANTOPRAZOLE 40 MG TABLET PO SCH (22:05)
[2022-06-21] MEDS: traMADol 50 MG TAB PO PRN (22:08)
[2022-06-21] MEDS: ASPIRIN 81 MG PO SCH (22:08)
[2022-06-22] MEDS: CYANOCOBALAMIN-FA-PYRIDOXINE 1 EACH TAB PO SCH (09:39)
[2022-06-22] MEDS: amLODIPine 10 MG TAB PO SCH (09:39)
[2022-06-22] MEDS: EZETIMIBE 10 MG TAB PO SCH (09:40)
[2022-06-22] MEDS: NYSTATIN 100,000 UNIT/GM POWD 15 GM TOPICAL SCH ×2 (09:40→21:00)
[2022-06-22] MEDS: METOPROLOL TARTRATE 25 MG TAB PO SCH ×2 (09:40→22:15)
[2022-06-22] MEDS: polyethylene glycoL 3350 17 GM POWD.PACK PO SCH (09:40)
[2022-06-22] MEDS: HEPARIN SODIUM,PORCINE/PF 5,000 UNIT/0.5 ML SYRINGE SQ SCH ×2 (09:40→22:15)
[2022-06-22] MEDS: ESCITALOPRAM 5 MG TAB PO SCH (09:42)
[2022-06-22 11:13] LABS: African American GFR (CKD) 67.6 (60.0-200.0); Anion Gap 7.5 mmol/L (10.00-18.00); BUN/Creat Ratio 19.78 Ratio (12.00-20.00); Blood Urea Nitrogen 17.8 mg/dL (9.0-27.0); Calcium 9.1 mg/dL (8.7-10.3); Carbon Dioxide 31.5 mmol/L (20.0-27.5); Non-African American GFR(CKD) 58.3 (60.0-200.0); Potassium 4.1 mmol/L (3.5-5.5)
[2022-06-22] MEDS: LEVOTHYROXINE 75 MCG TAB PO SCH (20:38)
[2022-06-22] MEDS: Insulin Aspart (For Pump) 100 UNIT/ML VIAL SQ-PUMP SCH (20:38)
[2022-06-22] MEDS: ASPIRIN 81 MG PO SCH (22:15)
[2022-06-22] MEDS: traMADol 50 MG TAB PO PRN (22:15)
[2022-06-22] MEDS: PANTOPRAZOLE 40 MG TABLET PO SCH (22:15)
[2022-06-22] MEDS: DOCUSATE 100 MG CAP PO SCH (22:15)
[2022-06-23 06:11] VITALS: RESP 16
[2022-06-23 07:53] VITALS: PULSE 59
--- NOTE | 2022-06-23 10:07 | P.PN ---
Subjective Progress Note Date: 06/21/22 Principal diagnosis: Urinary tract infection Patient is a 86-year-old female with a past medical history significant for urinary tract infection last urine culture positive for VRE treated with Macrobid presenting to the hospital with weakness and concerning for an episode of UTI. On today's evaluation that is 06/21/2022, The patient denies having any fever or any chills, the patient is breathing comfortably on room air, no chest pain no abdominal pain and no diarrhea Objective - Vital Signs Vital signs: Vital Signs Temp 98.2 F 06/21/22 17:22 Pulse 66 06/21/22 17:22 Resp 18 06/21/22 17:22 BP 151/73 06/21/22 17:22 Pulse Ox 95 06/21/22 17:22 FiO2 Intake & Output 06/21/22 06/21/22 06/22/22 06:59 18:59 06:59 Intake Total 200 Output Total 200 3550 Balance -200 -3350 Intake: Intake, IV Titration 200 Amount DAPTOmycin 250 mg In 200 Sodium Chloride 0.9% 50 ml @ 100 mls/hr IVPB Q24HR [facility] Rx#:[id number] Output: Urine 200 3550 Other: Voiding Method External Catheter External Catheter # Bowel Movements 1 - Exam GENERAL DESCRIPTION: An elderly female lying in bed in no distress RESPIRATORY SYSTEM: Unlabored breathing , decreased breath sounds at bases HEART: S1 S2 regular rate and rhythm , ABDOMEN: Soft , no tenderness EXTREMITIES: No edema feet - Labs CBC & Chem 7: 06/19/22 07:07 06/22/22 06:50 Labs: Abnormal Lab Results - Last 24 Hours (Table) 06/21/22 Range/Units 05:12 Sodium 129 L (137-145) mmol/L Microbiology - Last 24 Hours (Table) 06/18/22 10:38 Blood Culture - Preliminary Blood No Growth after 72 hours 06/18/22 14:25 Urine Culture - Final Urine,Catheterized Assessment and Plan (1) Positive blood culture Current Visit: Yes Status: Acute Code(s): R78.81 - BACTEREMIA SNOMED Code(s): 075138186 (2) Acute urinary tract infection Current Visit: No Status: Acute Code(s): N39.0 - URINARY TRACT INFECTION, SITE NOT SPECIFIED SNOMED Code(s): 367855919 Plan: 1patient presented to hospital with weakness which is multifactorial in this patient who do have a history of recurrent UTI mildly positive UA and a possible concern for UTI with the last urine culture positive for VRE treated with the Macrobid more likely representing failure of the oral antibiotic therapy. 2positive blood culture with staph epi likely skin contamination and no clinical disease to go along with it 3patient has show clinical improvement and will continue with daptomycin 4 mg/kg daily while waiting for the urine culture to finalize, To determine discharge antibiotics Time with Patient: Less than 30
--- NOTE | 2022-06-23 10:09 | P.PN ---
Subjective Progress Note Date: 06/22/22 Principal diagnosis: Urinary tract infection Patient is a 86-year-old female with a past medical history significant for urinary tract infection last urine culture positive for VRE treated with Macrobid presenting to the hospital with weakness and concerning for an episode of UTI. On today's evaluation that is 06/22/2022, The patient remains to be afebrile, the patient is breathing comfortably on room air the patient denies having any chest pain shortness of breath or cough no nausea vomiting no abdominal pain and no diarrhea has been reported Objective - Vital Signs Vital signs: Vital Signs Temp 97.8 F 06/22/22 11:00 Pulse 67 06/22/22 11:00 Resp 17 06/22/22 11:00 BP 147/61 06/22/22 11:00 Pulse Ox 95 06/22/22 11:00 FiO2 Intake & Output 06/21/22 06/22/22 06/22/22 18:59 06:59 18:59 Intake Total 200 Output Total 3550 450 1 Balance -3350 -450 -1 Intake: Intake, IV Titration 200 Amount DAPTOmycin 250 mg In 200 Sodium Chloride 0.9% 50 ml @ 100 mls/hr IVPB Q24HR [facility] Rx#:[id number] Output: Urine 3550 450 Stool 1 Other: Voiding Method External Catheter External Catheter # Voids 1 # Bowel Movements 1 - Exam GENERAL DESCRIPTION: An elderly female lying in bed in no distress RESPIRATORY SYSTEM: Unlabored breathing , decreased breath sounds at bases HEART: S1 S2 regular rate and rhythm , ABDOMEN: Soft , no tenderness EXTREMITIES: No edema feet - Labs CBC & Chem 7: 06/19/22 07:07 06/22/22 06:50 Labs: Abnormal Lab Results - Last 24 Hours (Table) 06/22/22 Range/Units 06:50 Sodium 130 L (135-145) mmol/L Chloride 91 L (96-109) mmol/L Carbon Dioxide 31.5 H (20.0-27.5) mmol/L Anion Gap 7.50 L (10.00-18.00) mmol/L Est GFR (CKD-EPI)NonAf 58.3 L (60.0-200.0) Glucose 192 H (70-110) mg/dL Microbiology - Last 24 Hours (Table) 06/18/22 14:25 Urine Culture - Final Urine,Catheterized 06/18/22 10:38 Blood Culture - Preliminary Blood No Growth after 72 hours Assessment and Plan (1) Positive blood culture Current Visit: Yes Status: Acute Code(s): R78.81 - BACTEREMIA SNOMED Code(s): 418789849 (2) Acute urinary tract infection Current Visit: No Status: Acute Code(s): N39.0 - URINARY TRACT INFECTION, SITE NOT SPECIFIED SNOMED Code(s): 057649847 Plan: 1patient presented to hospital with weakness which is multifactorial in this patient who do have a history of recurrent UTI mildly positive UA and a possible concern for UTI with the last urine culture positive for VRE treated with the Macrobid more likely representing failure of the oral antibiotic therapy. 2positive blood culture with staph epi likely skin contamination and no clinical disease to go along with it 3patient has show clinical improvement , With repeat urine culture has been negative so far patient did have possible cystitis and has received about 5 days of daptomycin which should be more than enough for cystitis, no need for an antibiotic on discharge this was discussed in detail with the family at the bedside Time with Patient: Less than 30
[2022-06-23] MEDS: polyethylene glycoL 3350 17 GM POWD.PACK PO SCH (10:14)
[2022-06-23] MEDS: HEPARIN SODIUM,PORCINE/PF 5,000 UNIT/0.5 ML SYRINGE SQ SCH (10:15)
[2022-06-23] MEDS: METOPROLOL TARTRATE 25 MG TAB PO SCH (10:15)
[2022-06-23] MEDS: amLODIPine 10 MG TAB PO SCH (10:15)
[2022-06-23] MEDS: CYANOCOBALAMIN-FA-PYRIDOXINE 1 EACH TAB PO SCH (10:15)
[2022-06-23] MEDS: EZETIMIBE 10 MG TAB PO SCH (10:15)
[2022-06-23] MEDS: NYSTATIN 100,000 UNIT/GM POWD 15 GM TOPICAL SCH (10:16)
[2022-06-23] MEDS: ESCITALOPRAM 5 MG TAB PO SCH (10:16)
[2022-06-23 11:41] VITALS: BP 146/58; TEMP 97.6
[2022-06-23] MEDS: LEVOTHYROXINE 75 MCG TAB PO SCH (14:00)
--- NOTE | 2022-06-23 15:30 | P.PN ---
Subjective Progress Note Date: 06/23/22 Principal diagnosis: Urinary tract infection Patient is a 86-year-old female with a past medical history significant for urinary tract infection last urine culture positive for VRE treated with Macrobid presenting to the hospital with weakness and concerning for an episode of UTI. On today's evaluation that is 06/23/2022, The patient denies having any fever or any chills, the patient is breathing comfortably room air denies any chest pain or shortness of breath or cough no abdominal pain and no diarrhea by the nursing staff Objective - Vital Signs Vital signs: Vital Signs Temp 96.4 F L 06/23/22 07:52 Pulse 59 L 06/23/22 07:52 Resp 16 06/23/22 07:52 BP 140/62 06/23/22 07:52 Pulse Ox 94 L 06/23/22 07:52 FiO2 Intake & Output 06/22/22 06/23/22 06/23/22 18:59 06:59 18:59 Intake Total 250 Output Total 651 2 Balance -651 248 Intake: Intake, IV Titration 0 Amount DAPTOmycin 250 mg In 0 Sodium Chloride 0.9% 50 ml @ 100 mls/hr IVPB Q24HR [facility] Rx#:[id number] Oral 250 Output: Urine 650 Stool 1 2 Other: Voiding Method External Catheter # Voids 1 1 - Exam GENERAL DESCRIPTION: An elderly female lying in bed in no distress RESPIRATORY SYSTEM: Unlabored breathing , decreased breath sounds at bases HEART: S1 S2 regular rate and rhythm , ABDOMEN: Soft , no tenderness EXTREMITIES: No edema feet - Labs CBC & Chem 7: 06/19/22 07:07 06/22/22 06:50 Labs: Abnormal Lab Results - Last 24 Hours (Table) 06/22/22 Range/Units 06:50 Sodium 130 L (135-145) mmol/L Chloride 91 L (96-109) mmol/L Carbon Dioxide 31.5 H (20.0-27.5) mmol/L Anion Gap 7.50 L (10.00-18.00) mmol/L Est GFR (CKD-EPI)NonAf 58.3 L (60.0-200.0) Glucose 192 H (70-110) mg/dL Microbiology - Last 24 Hours (Table) 06/18/22 10:38 Blood Culture - Preliminary Blood No Growth after 96 hours 06/18/22 14:25 Urine Culture - Final Urine,Catheterized Assessment and Plan (1) Positive blood culture Current Visit: Yes Status: Acute Code(s): R78.81 - BACTEREMIA SNOMED Code(s): 671007053 (2) Acute urinary tract infection Current Visit: No Status: Acute Code(s): N39.0 - URINARY TRACT INFECTION, SITE NOT SPECIFIED SNOMED Code(s): 470311703 Plan: 1patient presented to hospital with weakness which is multifactorial in this patient who do have a history of recurrent UTI mildly positive UA and a possible concern for UTI with the last urine culture positive for VRE treated with the Macrobid more likely representing failure of the oral antibiotic therapy. 2positive blood culture with staph epi likely skin contamination and no clinica l disease to go along with it 3patient has show clinical improvement , With repeat urine culture has been negative so far patient did have possible cystitis and has received about 5 days of daptomycin which should be more than enough for cystitis, There is no need for any antibiotic therapy on discharge Time with Patient: Less than 30
--- NOTE | 2022-06-23 18:41 | XR ---
EXAM: XR Chest, 1 View CLINICAL HISTORY: ITS. REASON XR Reason: bruised area on Right side TECHNIQUE: Frontal view of the chest. COMPARISON: 04/27/22. FINDING/impression: Mild basilar atelectasis. No clear consolidation. Status post CABG. No overt pulmonary edema. Right chest wall/axillary surgical clips
== END 2022-06-23 16:20 | disposition home health service (06) | DRG 637 ==
LOC: EC 11:42 → 5NMEDONC 17:06 → OBSVTOIN 06-17 08:34
PROVIDERS: ADMIT Family Medicine; ATTEND Family Medicine
DX: E11.65 Type 2 diabetes mellitus with hyperglycemia (principal); G92.8 Other toxic encephalopathy; R78.81 Bacteremia; N39.0 Urinary tract infection, site not specified; Z16.21 Resistance to vancomycin; M31.6 Other giant cell arteritis; E11.319 Type 2 diabetes mellitus with unspecified diabetic retinopathy without macular edema; E11.42 Type 2 diabetes mellitus with diabetic polyneuropathy; I10 Essential (primary) hypertension; E03.9 Hypothyroidism, unspecified; E87.8 Other disorders of electrolyte and fluid balance, not elsewhere classified; B95.2 Enterococcus as the cause of diseases classified elsewhere; I25.10 Atherosclerotic heart disease of native coronary artery without angina pectoris; E78.5 Hyperlipidemia, unspecified; H54.8 Legal blindness, as defined in USA; F41.9 Anxiety disorder, unspecified; E86.0 Dehydration; I44.0 Atrioventricular block, first degree; I83.90 Asymptomatic varicose veins of unspecified lower extremity; S70.312A Abrasion, left thigh, initial encounter; S70.311A Abrasion, right thigh, initial encounter; E86.1 Hypovolemia; E87.70 Fluid overload, unspecified; B96.5 Pseudomonas (aeruginosa) (mallei) (pseudomallei) as the cause of diseases classified elsewhere; Z96.41 Presence of insulin pump (external) (internal); Z20.822 Contact with and (suspected) exposure to COVID-19; Z86.73 Personal history of transient ischemic attack (TIA), and cerebral infarction without residual deficits; Z87.81 Personal history of (healed) traumatic fracture; Z87.891 Personal history of nicotine dependence; I25.2 Old myocardial infarction; Z95.1 Presence of aortocoronary bypass graft; Z79.890 Hormone replacement therapy; Z79.4 Long term (current) use of insulin; Z79.82 Long term (current) use of aspirin; Z91.041 Radiographic dye allergy status; Z88.6 Allergy status to analgesic agent; Z88.2 Allergy status to sulfonamides; Z85.3 Personal history of malignant neoplasm of breast; Z90.710 Acquired absence of both cervix and uterus; Z79.899 Other long term (current) drug therapy; Z91.048 Other nonmedicinal substance allergy status; Z90.11 Acquired absence of right breast and nipple; Z98.41 Cataract extraction status, right eye; Z98.42 Cataract extraction status, left eye; Z80.3 Family history of malignant neoplasm of breast; Z87.440 Personal history of urinary (tract) infections; Z82.49 Family history of ischemic heart disease and other diseases of the circulatory system; Z80.2 Family history of malignant neoplasm of other respiratory and intrathoracic organs; Z81.2 Family history of tobacco abuse and dependence; Z83.2 Family history of diseases of the blood and blood-forming organs and certain disorders involving the immune mechanism; Z83.3 Family history of diabetes mellitus
CPT/HCPCS: 36415; 70450; 71045; 71046; 80048; 80053; 81001; 82140; 83605; 83735; 83880; 84295; 84484; 85025; 85610; 85730; 87040; 87077; 87086; 87186; 87502; 87635; 93005; 96361; 96365; 96372; 99285

== ENCOUNTER 2022-08-16 10:59 | Observation (INO) | payer MEDICARE, OTHER ==
--- NOTE | 2022-08-16 11:24 | ED ---
General Adult HPI - General Chief complaint: Weakness Stated complaint: UTI Time Seen by Provider: 08/16/22 11:09 Source: patient, family, EMS, RN notes reviewed, old records reviewed Mode of arrival: EMS Limitations: altered mental status - History of Present Illness Initial comments: 86-year-old female presents to the emergency room with daughter complaining of increasing weakness and altered mental status. States she has had increased drowsiness and poor oral intake. She was diagnosed with urinary tract infection on Tuesday last week and put on Macrobid. They're having difficulty getting her up to the commode due to her weakness and she did have a fall with abrasions to right leg. Denies any fevers, no nausea vomiting or diarrhea. -: week(s) (1) Severity scale (1-10): 0 Associated Symptoms: malaise, weakness Treatments Prior to Arrival: other (Macrobid for urinary tract infection) - Related Data Home Medications Medication Instructions Recorded Confirmed LORazepam [Ativan] 0.5 mg PO BID 02/15/15 08/16/22 Escitalopram [Lexapro] 5 mg PO DAILY 10/13/18 08/16/22 Ezetimibe [Zetia] 10 mg PO DAILY 10/13/18 08/16/22 Levothyroxine Sodium [Synthroid] 75 mcg PO MOTUWETHFRSA@1200 10/13/18 08/16/22 Loratadine [Claritin] 10 mg PO DAILY@1200 10/13/18 08/16/22 Pantoprazole [Protonix] 40 mg PO HS 10/13/18 08/16/22 Pravastatin Sodium [Pravachol] 20 mg PO HS 10/13/18 08/16/22 Uxvomlufiuohcr-AA-Uegtothxea 1 tab PO DAILY 11/12/19 08/16/22 [Folbic] Insulin Aspart (For Pump) [NovoLOG 0.01 unit SQ-PUMP CONTINUOUS 11/12/19 08/16/22 (For Pump)] Aspirin [Adult Low Dose Aspirin EC] 162 mg PO HS 08/02/21 08/16/22 traMADol HCl [Ultram] 50 mg PO HS 08/02/21 08/16/22 Furosemide [Lasix] 20 mg PO DAILY 06/16/22 08/16/22 Nitrofurantoin Monohyd/M-Cryst 100 mg PO Q12H 06/16/22 08/16/22 [Macrobid] polyethylene glycoL 3350 [Miralax] 4.25 gm PO DAILY 06/16/22 08/16/22 Previous Rx's Medication Instructions Recorded Metoprolol Tartrate [Lopressor] 25 mg PO BID #60 tab 11/25/15 Docusate [Colace] 100 mg PO HS cap 06/23/22 Allergies Allergy/AdvReac Type Severity Reaction Status Date / Time Iodinated Contrast Media Allergy Anaphylaxis Verified 08/16/22 13:01 iodine Allergy Swelling Verified 08/16/22 13:01 NSAIDS (Non-Steroidal Allergy Rash/Hives Verified 08/16/22 13:01 Anti-Inflamma Sulfa (Sulfonamide Allergy Rash/Hives Verified 08/16/22 13:01 Antibiotics) adhesive tape AdvReac Rash/Hives Verified 08/16/22 13:01 Review of Systems ROS Statement: Those systems with pertinent positive or pertinent negative responses have been documented in the HPI. ROS Other: All systems not noted in ROS Statement are negative. Past Medical History Past Medical History: Coronary Artery Disease (CAD), Cancer, CVA/TIA, Diabetes Mellitus, Hyperlipidemia, Hypertension, Myocardial Infarction ([place]), Thyroid Disorder Additional Past Medical History / Comment(s): R breast cancer/padget's disease with mastectomy, TIA x3 in 2010, IDDM type II with insulin pump, legally blind bilaterally/diabetic retinopathy, diabetic neuropathy bilateral feet, temporal arteritis, tailbone fracture a few months ago still has pain, hypothyroid, constipation, varicosities. Last Myocardial Infarction Date:: 2015 History of Any Multi-Drug Resistant Organisms: VRE Date of last positivie culture/infection: 06/05/22 MDRO Source:: Urine Past Surgical History: Breast Surgery, Coronary Bypass/CABG, Heart Catheterization, Hysterectomy, Orthopedic Surgery Additional Past Surgical History / Comment(s): 2015 CABG 3 vessel, right mastectomy, R temporal arteritis, bilateral cataracts removed/bilateral laser eye surgery. Past Anesthesia/Blood Transfusion Reactions: No Reported Reaction Additional Past Anesthesia/Blood Transfusion Reaction / Comment(s): Pt has received blood in past without reaction. Past Psychological History: Anxiety Smoking Status: Former smoker Past Alcohol Use History: None Reported Past Drug Use History: None Reported - Past Family History Mother Family Medical History: Cancer, Diabetes Mellitus, Vascular Disorder Additional Family Medical History / Comment(s): Breast cancer, autoimmune disease, aneurysm in brain Father Family Medical History: Cancer, Coronary Artery Disease (CAD) Additional Family Medical History / Comment(s): Laryngeal cancer. Father was a smoker. General Exam Limitations: altered mental status General appearance: alert (To person and place only), in no apparent distress Head exam: Present: atraumatic Eye exam: Absent: scleral icterus, periorbital swelling ENT exam: Present: mucous membranes dry Respiratory exam: Present: decreased breath sounds (poor inspiratory effort). Absent: respiratory distress, accessory muscle use Cardiovascular Exam: Present: regular rate GI/Abdominal exam: Present: soft. Absent: distended, tenderness, guarding, rebound, rigid Extremities exam: Present: normal capillary refill. Absent: pedal edema Neurological exam: Present: alert Expanded Patient oriented to: Present: person, place Speech: Present: fluid speech Eye Response: (3) open to voice Psychiatric exam: Present: normal affect, normal mood Skin exam: Present: warm, dry. Absent: cyanosis, diaphoretic Course Vital Signs 08/16/22 11:01 Temperature 97.6 F Pulse Rate 63 Respiratory 18 Rate Blood Pressure 178/77 O2 Sat by Pulse 96 Oximetry EKG Findings - EKG Results: EKG: sinus rhythm (Ventricular rate 60, UT interval 0.284, QRS 0.102, QTC 0.472; normal axis; old 06/17/22) Medical Decision Making - Medical Decision Making Patient presents with increasing weakness, drowsiness and poor oral intake, diagnosed with urinary tract infection August 09 placed on Macrobid by her primary on Tuesday the .. Urine culture showed E. coli on August 11. Per daughter, patient has not seen a primary care doctor in a month, visits have been through telehealth. She has been afebrile. No abdominal pain or vomiting. Sodium 129 corrected for glucose of 310 is 132. No evidence of leukocytosis, hemoglobin and hematocrit are stable. 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 Chest x-ray shows mild cardiomegaly with no acute process CT brain shows chronic small vessel ischemic disease no acute intracranial abnormality, hydrocephalus or midline shift seen. She was given a gram of Rocephin in the ER, will be admitted for urinary tract infection failed outpatient therapy, weakness and fall. Daughter is agreeable to this plan of care. Case discussed with Dr. Mendieta - Lab Data Result diagrams: 08/16/22 11:23 08/16/22 11:23 Lab Results 08/16/22 08/16/22 08/16/22 Range/Units 11:23 11:23 11:23 WBC 4.4 (3.8-10.6) k/uL RBC 4.14 (3.80-5.40) m/uL Hgb 12.8 (11.4-16.0) gm/dL Hct 38.2 (34.0-46.0) % MCV 92.4 (80.0-100.0) fL MCH 30.8 (25.0-35.0) pg MCHC 33.4 (31.0-37.0) g/dL RDW 12.8 (11.5-15.5) % Plt Count 248 (150-450) k/uL MPV 9.2 Neutrophils % 66 % Lymphocytes % 14 % Monocytes % 9 % Eosinophils % 9 % Basophils % 1 % Neutrophils # 2.9 (1.3-7.7) k/uL Lymphocytes # 0.6 L (1.0-4.8) k/uL Monocytes # 0.4 (0-1.0) k/uL Eosinophils # 0.4 (0-0.7) k/uL Basophils # 0.0 (0-0.2) k/uL PT 10.2 (9.0-12.0) sec INR 0.9 (<1.2) APTT 24.6 (22.0-30.0) sec Sodium 129 L (137-145) mmol/L Potassium 4.7 (3.5-5.1) mmol/L Chloride 91 L (98-107) mmol/L Carbon Dioxide 30 (22-30) mmol/L Anion Gap 8 mmol/L BUN 22 H (7-17) mg/dL Creatinine 0.95 (0.52-1.04) mg/dL Est GFR (CKD-EPI)AfAm 64 (>60 ml/min/1.73 sqM) Est GFR (CKD-EPI)NonAf 55 (>60 ml/min/1.73 sqM) Glucose 318 H (74-99) mg/dL POC Glucose (mg/dL) (70-110) mg/dL POC Glu Care Trainer ID Plasma Lactic Acid Alex (0.7-2.0) mmol/L Calcium 8.7 (8.4-10.2) mg/dL Magnesium 1.8 (1.6-2.3) mg/dL Total Bilirubin 0.4 (0.2-1.3) mg/dL AST 21 (14-36) U/L ALT 13 (4-34) U/L Alkaline Phosphatase 97 (38-126) U/L Troponin I (0.000-0.034) ng/mL Total Protein 6.1 L (6.3-8.2) g/dL Albumin 3.6 (3.5-5.0) g/dL Urine Color Urine Appearance (Clear) Urine pH (5.0-8.0) Ur Specific [place] (1.001-1.035) Urine Protein (Negative) Urine Glucose (UA) (Negative) Urine Ketones (Negative) Urine Blood (Negative) Urine Nitrite (Negative) Urine Bilirubin (Negative) Urine Urobilinogen (<2.0) mg/dL Ur Leukocyte Esterase (Negative) Urine WBC (0-5) /hpf Ur Squamous Epith Cells (0-4) /hpf Urine Bacteria (None) /hpf Urine Mucus (None) /hpf 08/16/22 08/16/22 08/16/22 Range/Units 11:23 11:23 11:27 WBC (3.8-10.6) k/uL RBC (3.80-5.40) m/uL Hgb (11.4-16.0) gm/dL Hct (34.0-46.0) % MCV (80.0-100.0) fL MCH (25.0-35.0) pg MCHC (31.0-37.0) g/dL RDW (11.5-15.5) % Plt Count (150-450) k/uL MPV Neutrophils % % Lymphocytes % % Monocytes % % Eosinophils % % Basophils % % Neutrophils # (1.3-7.7) k/uL Lymphocytes # (1.0-4.8) k/uL Monocytes # (0-1.0) k/uL Eosinophils # (0-0.7) k/uL Basophils # (0-0.2) k/uL PT (9.0-12.0) sec INR (<1.2) APTT (22.0-30.0) sec Sodium (137-145) mmol/L Potassium (3.5-5.1) mmol/L Chloride (98-107) mmol/L Carbon Dioxide (22-30) mmol/L Anion Gap mmol/L BUN (7-17) mg/dL Creatinine (0.52-1.04) mg/dL Est GFR (CKD-EPI)AfAm (>60 ml/min/1.73 sqM) Est GFR (CKD-EPI)NonAf (>60 ml/min/1.73 sqM) Glucose (74-99) mg/dL POC Glucose (mg/dL) 310 H (70-110) mg/dL POC Glu Care Trainer ID Nain Romero Plasma Lactic Acid Alex 1.5 (0.7-2.0) mmol/L Calcium (8.4-10.2) mg/dL Magnesium (1.6-2.3) mg/dL Total Bilirubin (0.2-1.3) mg/dL AST (14-36) U/L ALT (4-34) U/L Alkaline Phosphatase (38-126) U/L Troponin I <0.012 (0.000-0.034) ng/mL Total Protein (6.3-8.2) g/dL Albumin (3.5-5.0) g/dL Urine Color Urine Appearance (Clear) Urine pH (5.0-8.0) Ur Specific [place] (1.001-1.035) Urine Protein (Negative) Urine Glucose (UA) (Negative) Urine Ketones (Negative) Urine Blood (Negative) Urine Nitrite (Negative) Urine Bilirubin (Negative) Urine Urobilinogen (<2.0) mg/dL Ur Leukocyte Esterase (Negative) Urine WBC (0-5) /hpf Ur Squamous Epith Cells (0-4) /hpf Urine Bacteria (None) /hpf Urine Mucus (None) /hpf 08/16/22 Range/Units 12:01 WBC (3.8-10.6) k/uL RBC (3.80-5.40) m/uL Hgb (11.4-16.0) gm/dL Hct (34.0-46.0) % MCV (80.0-100.0) fL MCH (25.0-35.0) pg MCHC (31.0-37.0) g/dL RDW (11.5-15.5) % Plt Count (150-450) k/uL MPV Neutrophils % % Lymphocytes % % Monocytes % % Eosinophils % % Basophils % % Neutrophils # (1.3-7.7) k/uL Lymphocytes # (1.0-4.8) k/uL Monocytes # (0-1.0) k/uL Eosinophils # (0-0.7) k/uL Basophils # (0-0.2) k/uL PT (9.0-12.0) sec INR (<1.2) APTT (22.0-30.0) sec Sodium (137-145) mmol/L Potassium (3.5-5.1) mmol/L Chloride (98-107) mmol/L Carbon Dioxide (22-30) mmol/L Anion Gap mmol/L BUN (7-17) mg/dL Creatinine (0.52-1.04) mg/dL Est GFR (CKD-EPI)AfAm (>60 ml/min/1.73 sqM) Est GFR (CKD-EPI)NonAf (>60 ml/min/1.73 sqM) Glucose (74-99) mg/dL POC Glucose (mg/dL) (70-110) mg/dL POC Glu Care Trainer ID Plasma Lactic Acid Alex (0.7-2.0) mmol/L Calcium (8.4-10.2) mg/dL Magnesium (1.6-2.3) mg/dL Total Bilirubin (0.2-1.3) mg/dL AST (14-36) U/L ALT (4-34) U/L Alkaline Phosphatase (38-126) U/L Troponin I (0.000-0.034) ng/mL Total Protein (6.3-8.2) g/dL Albumin (3.5-5.0) g/dL Urine Color Light Yellow Urine Appearance Turbid H (Clear) Urine pH 5.0 (5.0-8.0) Ur Specific [place] 1.011 (1.001-1.035) Urine Protein Negative (Negative) Urine Glucose (UA) 4+ H (Negative) Urine Ketones Negative (Negative) Urine Blood Small H (Negative) Urine Nitrite Positive H (Negative) Urine Bilirubin Negative (Negative) Urine Urobilinogen <2.0 (<2.0) mg/dL Ur Leukocyte Esterase Negative (Negative) Urine WBC <1 (0-5) /hpf Ur Squamous Epith Cells 1 (0-4) /hpf Urine Bacteria Few H (None) /hpf Urine Mucus Rare H (None) /hpf Disposition Clinical Impression: UTI (urinary tract infection), Weakness, Fall, Altered mental status Disposition: ADMITTED IP TO THIS [facility] Decision Date: 08/16/22 Decision Time: 13:05
[2022-08-16 11:28] LABS: Glucose,Whole Blood 310 mg/dL (70-110)
[2022-08-16 11:47] LABS: Albumin 3.6 g/dL (3.5-5.0); Calcium 8.7 mg/dL (8.4-10.2); Magnesium 1.8 mg/dL (1.6-2.3); Potassium 4.7 mmol/L (3.5-5.1); Total Bilirubin 0.4 mg/dL (0.2-1.3); Total Protein 6.1 g/dL (6.3-8.2)
[2022-08-16 11:49] LABS: Basophils % (A) 1 %; Eosinophils # (A) 0.4 k/uL (0-0.7); Eosinophils % (A) 9 %; HCT 38.2 % (34.0-46.0); HGB 12.8 gm/dL (11.4-16.0); Lymphocytes # (A) 0.6 k/uL (1.0-4.8); Lymphocytes % (A) 14 %; MCH 30.8 pg (25.0-35.0); MCHC 33.4 g/dL (31.0-37.0); MCV 92.4 fL (80.0-100.0); Mean Platelet Volume 9.2; Monocytes # (A) 0.4 k/uL (0-1.0); Monocytes % (A) 9 %; Neutrophils # (A) 2.9 k/uL (1.3-7.7); Neutrophils % (A) 66 %; Platelet Count 248 k/uL (150-450); RBC 4.14 m/uL (3.80-5.40); RDW 12.8 % (11.5-15.5); WBC 4.4 k/uL (3.8-10.6)
[2022-08-16 11:56] LABS: INR 0.9 (<1.2); Partial Thromboplastin Time 24.6 sec (22.0-30.0); Prothrombin Time 10.2 sec (9.0-12.0)
--- NOTE | 2022-08-16 12:04 | XR ---
EXAMINATION TYPE: XR chest 2V DATE OF EXAM: 08/16/2022 COMPARISON: 06/23/2022 HISTORY: 86-year-old female weakness, altered mental status, confusion TECHNIQUE: AP and lateral views FINDINGS: Median sternotomy wires are present. Surgical clips right axilla. Suspect some underlying calcified m ediastinal and hilar nodes suggesting prior granulomatous disease. Large patient body habitus results in hazy densities on both sides. Heart mildly enlarged. No giovanni consolidation or pleural effusion. Apical scarring calcifications throughout the thoracic aorta. IMPRESSION: Mild cardiomegaly. Chronic changes without definite acute process.
[2022-08-16 12:47] LABS: Appearance,Urine Turbid (Clear); Bacteria,Urine Few /hpf; Bilirubin,Urine Negative (Negative); Blood,Urine Small (Negative); Color,Urine Light Yellow; Glucose,Urine (UA) 4+ (Negative); Ketones,Urine Negative (Negative); Leukocyte Esterase,Urine Negative (Negative); Mucus,Urine Rare /hpf; Nitrite,Urine Positive (Negative); Protein,Urine Negative (Negative); Specific Gravity,Urine 1.011 (1.001-1.035); Squamous Epithelial Cell,Urine 1 /hpf (0-4); Urobilinogen,Urine <2.0 mg/dL (<2.0); WBC,Urine <1 /hpf (0-5)
[2022-08-16] MEDS ORDERED: cefTRIAXone IN SWFI 1,000 MG/10 ML SYRINGE IVP STA (12:50)
[2022-08-16] MEDS ORDERED: NALOXONE 0.4 MG/ML 1 ML VIAL IV PRN (13:46)
[2022-08-16] MEDS ORDERED: ACETAMINOPHEN TAB 325 MG TAB PO PRN (13:46)
--- NOTE | 2022-08-16 14:15 | CT ---
EXAMINATION TYPE: CT brain wo con DATE OF EXAM: 08/16/2022 COMPARISON: 06/16/2022 HISTORY: 86-year-old female confusion, Altered mental status, several UTI's TECHNIQUE: Examination was done in axial plane without intravenous contrast. Coronal and sagittal r econstructions performed. CT DLP: 1092.4 mGycm Automated exposure control for dose reduction was used. FINDINGS: There is no evidence of acute intracranial hemorrhage, acute ischemic changes, mass, mass-effect, or extra-axial fluid collection. There is no effacement of cerebral sulci or basal subarachnoid cister ns. There is no hydrocephalus. There is no midline shift. Parada-white matter distinction is preserv ed. Atherosclerotic calcifications in the bilateral carotid siphons. Mild periventricular white matter hy podensities. Paranasal sinuses and mastoid air cells well pneumatized. Orbits and globes are intact. IMPRESSION: Mild burden of chronic small vessel ischemic disease. No acute intracranial abnormality seen.
[2022-08-16] MEDS: Insulin Aspart (For Pump) 100 UNIT/ML VIAL SQ-PUMP SCH (15:33)
[2022-08-16] MEDS: ASPIRIN 81 MG PO SCH (21:11)
[2022-08-16] MEDS: traMADol 50 MG TAB PO SCH (21:11)
[2022-08-16] MEDS: PRAVASTATIN SODIUM 20 MG TAB PO SCH (21:11)
[2022-08-16] MEDS: METOPROLOL TARTRATE 25 MG TAB PO SCH (21:11)
[2022-08-16] MEDS: PANTOPRAZOLE 40 MG TABLET PO SCH (21:12)
[2022-08-16] MEDS: DOCUSATE 100 MG CAP PO SCH (21:12)
[2022-08-16 22:25] LABS: Glucose,Whole Blood 177 mg/dL (70-110)
[2022-08-17 07:29] LABS: Glucose,Whole Blood 203 mg/dL (70-110)
[2022-08-17] MEDS: ESCITALOPRAM 5 MG TAB PO SCH (08:26)
[2022-08-17] MEDS: METOPROLOL TARTRATE 25 MG TAB PO SCH ×2 (08:26→20:41)
[2022-08-17] MEDS: EZETIMIBE 10 MG TAB PO SCH (08:26)
[2022-08-17] MEDS: FUROSEMIDE 20 MG TAB PO SCH (08:26)
[2022-08-17] MEDS: polyethylene glycoL 3350 17 GM POWD.PACK PO SCH (08:27)
[2022-08-17] MEDS ORDERED: [UNRECOGNIZED DRUG - OTHER] PO SCH (09:00)
--- NOTE | 2022-08-17 11:06 | P.CONS ---
History of Present Illness - Reason for Consult Consult date: 08/17/22 Goals of care Requesting physician: Tony Thomas - Chief Complaint AMS, weakness - History of Present Illness The patient is a 86-year-old female with a past medical history significant for Breast CA, Htn, NM, DM and recurrent UTI's. She presented to the emergency room on 08/16/22, with daughter, with complaints of increasing weakness and altered mental status. The daughter reports that the patient has had increased drowsiness and poor oral intake. She was diagnosed with urinary tract infection on 08/10/22 last and prescribed Macrobid. They're having difficulty getting her up to the commode due to her weakness and she did have a fall with abrasions to right leg. Denies any fevers, no nausea vomiting or diarrhea. Review of Systems Constitutional: Reports as per HPI Past Medical History Past Medical History: Coronary Artery Disease (CAD), Cancer, CVA/TIA, Diabetes Mellitus, Hyperlipidemia, Hypertension, Myocardial Infarction ([place]), Thyroid Disorder Additional Past Medical History / Comment(s): R breast cancer/padget's disease with mastectomy, TIA x3 in 2010, IDDM type II with insulin pump, legally blind bilaterally/diabetic retinopathy, diabetic neuropathy bilateral feet, temporal arteritis, tailbone fracture a few months ago still has pain, hypothyroid, constipation, varicosities. Last Myocardial Infarction Date:: 2015 History of Any Multi-Drug Resistant Organisms: VRE Year Discovered:: 06/05/22 MDRO Source:: Urine Past Surgical History: Breast Surgery, Coronary Bypass/CABG, Heart Catheterization, Hysterectomy, Orthopedic Surgery Additional Past Surgical History / Comment(s): 2016 CABG 3 vessel, right mastectomy, R temporal arteritis, bilateral cataracts removed/bilateral laser eye surgery. Past Anesthesia/Blood Transfusion Reactions: No Reported Reaction Additional Past Anesthesia/Blood Transfusion Reaction / Comm: Pt has received blood in past without reaction. Past Psychological History: Anxiety Smoking Status: Former smoker Past Alcohol Use History: None Reported Past Drug Use History: None Reported - Past Family History Mother Family Medical History: Cancer, Diabetes Mellitus, Vascular Disorder Additional Family Medical History / Comment(s): Breast cancer, autoimmune disease, aneurysm in brain Father Family Medical History: Cancer, Coronary Artery Disease (CAD) Additional Family Medical History / Comment(s): Laryngeal cancer. Father was a smoker. Medications and Allergies Home Medications Medication Instructions Recorded Confirmed Type LORazepam [Ativan] 0.5 mg PO BID 02/15/15 08/16/22 History Metoprolol Tartrate [Lopressor] 25 mg PO BID #60 tab 11/25/15 08/16/22 Rx Escitalopram [Lexapro] 5 mg PO DAILY 10/13/18 08/16/22 History Ezetimibe [Zetia] 10 mg PO DAILY 10/13/18 08/16/22 History Levothyroxine Sodium [Synthroid] 75 mcg PO MOTUWETHFRSA@1200 10/13/18 08/16/22 History Loratadine [Claritin] 10 mg PO DAILY@1200 10/13/18 08/16/22 History Pantoprazole [Protonix] 40 mg PO HS 10/13/18 08/16/22 History Pravastatin Sodium [Pravachol] 20 mg PO HS 10/13/18 08/16/22 History Rdeyzncthqojks-MX-Gyxushtgsn 1 tab PO DAILY 11/12/19 08/16/22 History [Folbic] Insulin Aspart (For Pump) [NovoLOG 0.01 unit SQ-PUMP CONTINUOUS 11/12/19 08/16/22 History (For Pump)] Aspirin [Adult Low Dose Aspirin EC] 162 mg PO HS 08/02/21 08/16/22 History traMADol HCl [Ultram] 50 mg PO HS 08/02/21 08/16/22 History Furosemide [Lasix] 20 mg PO DAILY 06/16/22 08/16/22 History Nitrofurantoin Monohyd/M-Cryst 100 mg PO Q12H 06/16/22 08/16/22 History [Macrobid] polyethylene glycoL 3350 [Miralax] 4.25 gm PO DAILY 06/16/22 08/16/22 History Docusate [Colace] 100 mg PO HS cap 06/23/22 08/16/22 Rx Allergies Allergy/AdvReac Type Severity Reaction Status Date / Time Iodinated Contrast Media Allergy Anaphylaxis Verified 08/16/22 13:01 iodine Allergy Swelling Verified 08/16/22 13:01 NSAIDS (Non-Steroidal Allergy Rash/Hives Verified 08/16/22 13:01 Anti-Inflamma Sulfa (Sulfonamide Allergy Rash/Hives Verified 08/16/22 13:01 Antibiotics) adhesive tape AdvReac Rash/Hives Verified 08/16/22 13:01 Physical Exam Vitals: Vital Signs Temp Pulse Pulse Resp BP BP Pulse Ox 08/17/22 08:00 67 16 08/17/22 06:38 97.9 F 67 16 164/74 94 L 08/17/22 02:56 98.1 F 66 16 139/69 93 L 08/16/22 20:37 97.6 F 68 18 163/68 98 08/16/22 19:07 97.9 F 64 15 149/80 98 08/16/22 18:00 98.2 F 67 18 161/61 97 08/16/22 11:01 97.6 F 63 18 178/77 96 Intake and Output 08/16/22 08/17/22 08/17/22 22:59 06:59 14:59 Intake Total 296 Output Total 250 400 Balance -250 -400 296 Intake: Oral 296 Output: Urine 250 400 Other: Voiding Method External Catheter External Catheter External Catheter General: Well developed, well nourished. No acute distress. Chronically ill appearing HEENT: Head is atraumatic, normocephalic. Sclerae are clear. Mucus membranes moist. Pt legally blind CV: Heart regular in rate and rhythm positive S1 and S2. Peripheral pulses equal. 2/4 Lungs: Clear to auscultation bilaterally. No wheezes rales or rhonchi. Respirations even and nonlabored. Abdomen/GI: Soft, No guarding, rigidity, or abdominal tenderness. : External catheter in place with clear yellow urine Musculoskeletal/ Extremities: [place], No gross atrophy. + generalized weakness Vascular: Radial pulses equal. 2/4. + trace peripheral edema Skin: Warm and dry Neurologic: Awake, alert and oriented times 2 Psychiatric: Appropriate mood and affect. Results CBC & Chem 7: 08/16/22 11:23 08/16/22 11:23 Labs: Abnormal Lab Results - Last 24 Hours (Table) 08/16/22 08/16/22 08/16/22 Range/Units 11:23 11:23 11:27 Lymphocytes # 0.6 L (1.0-4.8) k/uL Sodium 129 L (137-145) mmol/L Chloride 91 L (98-107) mmol/L BUN 22 H (7-17) mg/dL Glucose 318 H (74-99) mg/dL POC Glucose (mg/dL) 310 H (70-110) mg/dL Total Protein 6.1 L (6.3-8.2) g/dL Urine Appearance (Clear) Urine Glucose (UA) (Negative) Urine Blood (Negative) Urine Nitrite (Negative) Urine Bacteria (None) /hpf Urine Mucus (None) /hpf 08/16/22 08/16/22 08/17/22 Range/Units 12:01 22:23 07:28 Lymphocytes # (1.0-4.8) k/uL Sodium (137-145) mmol/L Chloride (98-107) mmol/L BUN (7-17) mg/dL Glucose (74-99) mg/dL POC Glucose (mg/dL) 177 H 203 H (70-110) mg/dL Total Protein (6.3-8.2) g/dL Urine Appearance Turbid H (Clear) Urine Glucose (UA) 4+ H (Negative) Urine Blood Small H (Negative) Urine Nitrite Positive H (Negative) Urine Bacteria Few H (None) /hpf Urine Mucus Rare H (None) /hpf Chest x-ray: report reviewed CT Scan - head: report reviewed Assessment and Plan Assessment: Social * Occupation - Retired, 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 * Marital status - * Children/grandchildren - 3 adult children, 2 daughters and 1 son * Residence - Senior apartment * Who do you reside with - Her daughter, Nicky * ETOH - no * Tobacco - remote history * Illicit drugs - no Spiritual/Cultural * A spiritual person - Yes * Judaism - Anabaptism * Belong to a particular zoroastrianism - [employer] [place] * Beliefs a source of comfort and strength - Yes * Moravian or cultural practices restrictions - no * EOL considerations/rituals - no Functional Assessment * Able to walk independently - no, patient has progressively gotten weaker * Assistive devices - walker and wheelchair * Able to use the bathroom independently - Patient struggling to get up to [facility] with 2 person assist * Continent - No * Require assistance bathing- Yes * Able to feed self - No, legally blind * Who prepares meals - Daughter * How many meals a day eaten - 2-3 * Able to clean house/do laundry - No * Transportation - Children * Able to shop - no * Who manages medications - daughter * Who manages finances - daughter PPS score - 30% Psychological/Emotional * Dementia present - Yes * Insight and judgment - Not intact * Depression - No * Suicidal thoughts - No * Good support system - Yes, family * Patients goals - comfort * Frequent hospitalizations - Yes * Desire to keep coming back to the hospital for treatment - No Symptoms * Pain - No, continue Tylenol and Ultram prn * Fatigue - + generalized weakness and fatigue * SOB - No * Insomnia - No * N/V - No * Anxiety - No, continue Lexapro * Depression - No, continue Lexapro * Confusion - Yes * Agitation - No * Hallucinations - No * Appetite/weight loss - No recent weight loss. Daughter reports a good appetite. Continue with Consistent carb diet * Dysphagia -No * Constipation - Yes, chronic. Continue Miralax and colace * Incontinence - Yes * Itch - No Plan: Summary/Goals - The patient is pleasantly confused and appears comfortable. Her daughter, Nicky TapiaPOAntonina), is at the bedside. Palliative care and hospice philosophies and services available discussed at length. Nicky states that her mother is having frequent hospitalizations. She is slowly declining and not able to get back to her previous baseline. She is debilitated and fragile. The daughter has also noted a decline in her functional status. She is struggling to get the patient up to the bedside commode with a 2 person assist. She would like her mother to have the best quality of life and focus on comfort for whatever time she has remaining. She is very interested in hospice services. A consult was placed for an informational visit. Recommendations - Home with hospice services Advanced Directives - None on file, daughter to bring in Code Status - Full Code Thank you for this consultation Jalyn Ann [facility] Palliative Care Spectralink [phone] Email: [email or web address] Time with Patient: Greater than 30
--- NOTE | 2022-08-17 11:49 | P.HPIM ---
History of Present Illness H&P Date: 08/17/22 Chief Complaint: Medical deconditioning, AMS, weakness This is an 86-year-old female with past medical history of recurrent UTIs, CAD,AL, CABG, diabetes mellitus, diabetic retinopathy, diabetic Neuropathy, hypertension , right breast cancer, Paget's disease with mastectomy , hypothyroidism, anxiety , former nicotine dependence admitted with altered mental status, increased weakness, medical debility, frequent hospitalizations brought into the ER by her daughter. Daughter reports since last admission patient has continued to decline, increased weakness, sustained another fall with right lower extremity abrasion, without head trauma, requires a 2 person assist with transfer, minimal oral intake, more withdrawn, conversing less. Patient currently not conversing, daughter states that patient denies pain, denies nausea ,vomiting or diarrhea and denies chest pain, palpitations or shortness of breath. Brain CT reported no acute intracranial abnormality. Afebrile, normal WBC. Sodium 129, bicarb 30, BUN 22, creatinine 0.95, blood sugars elevated on admission at 310, currently 177-203. Magnesium 1.8, lactic acid 1.5. Total protein 6.1. UA reported few bacteria, negative leukocytes, less than 1 wbc's, positive nitrates, + 4 glucose. Review of Systems Information obtained by daughter at bedside, patient currently withdrawn, not c onversing; ROS Statement: Those systems with pertinent positive or pertinent negative responses have been documented in the HPI. ROS Other: All systems not noted in ROS Statement are negative. Past Medical History Past Medical History: Coronary Artery Disease (CAD), Cancer, CVA/TIA, Diabetes Mellitus, Hyperlipidemia, Hypertension, Myocardial Infarction (AL), Thyroid Disorder Additional Past Medical History / Comment(s): R breast cancer/padget's disease with mastectomy, TIA x3 in 2010, IDDM type II with insulin pump, legally blind bilaterally/diabetic retinopathy, diabetic neuropathy bilateral feet, temporal arteritis, tailbone fracture a few months ago still has pain, hypothyroid, constipation, varicosities. Last Myocardial Infarction Date:: 2016 History of Any Multi-Drug Resistant Organisms: VRE Date of last positivie culture/infection: 06/05/22 MDRO Source:: Urine Past Surgical History: Breast Surgery, Coronary Bypass/CABG, Heart Catheterizat ion, Hysterectomy, Orthopedic Surgery Additional Past Surgical History / Comment(s): 2016 CABG 3 vessel, right mastectomy, R temporal arteritis, bilateral cataracts removed/bilateral laser eye surgery. Past Anesthesia/Blood Transfusion Reactions: No Reported Reaction Additional Past Anesthesia/Blood Transfusion Reaction / Comment(s): Pt has received blood in past without reaction. Past Psychological History: Anxiety Smoking Status: Former smoker Past Alcohol Use History: None Reported Past Drug Use History: None Reported - Past Family History Mother Family Medical History: Cancer, Diabetes Mellitus, Vascular Disorder Additional Family Medical History / Comment(s): Breast cancer, autoimmune disease, aneurysm in brain Father Family Medical History: Cancer, Coronary Artery Disease (CAD) Additional Family Medical History / Comment(s): Laryngeal cancer. Father was a smoker. Medications and Allergies Home Medications Medication Instructions Recorded Confirmed Type LORazepam [Ativan] 0.5 mg PO BID 02/15/15 08/16/22 History Metoprolol Tartrate [Lopressor] 25 mg PO BID #60 tab 11/25/15 08/16/22 Rx Escitalopram [Lexapro] 5 mg PO DAILY 10/13/18 08/16/22 History Ezetimibe [Zetia] 10 mg PO DAILY 10/13/18 08/16/22 History Levothyroxine Sodium [Synthroid] 75 mcg PO MOTUWETHFRSA@1200 10/13/18 08/16/22 History Loratadine [Claritin] 10 mg PO DAILY@1200 10/13/18 08/16/22 History Pantoprazole [Protonix] 40 mg PO HS 10/13/18 08/16/22 History Pravastatin Sodium [Pravachol] 20 mg PO HS 10/13/18 08/16/22 History Rtzmysdzcabvxg-BH-Tnpvxfujpx 1 tab PO DAILY 11/12/19 08/16/22 History [Folbic] Insulin Aspart (For Pump) [NovoLOG 0.01 unit SQ-PUMP CONTINUOUS 11/12/19 08/16/22 History (For Pump)] Aspirin [Adult Low Dose Aspirin EC] 162 mg PO HS 08/02/21 08/16/22 History traMADol HCl [Ultram] 50 mg PO HS 08/02/21 08/16/22 History Furosemide [Lasix] 20 mg PO DAILY 06/16/22 08/16/22 History Nitrofurantoin Monohyd/M-Cryst 100 mg PO Q12H 06/16/22 08/16/22 History [Macrobid] polyethylene glycoL 3350 [Miralax] 4.25 gm PO DAILY 06/16/22 08/16/22 History Docusate [Colace] 100 mg PO HS cap 06/23/22 08/16/22 Rx Allergies Allergy/AdvReac Type Severity Reaction Status Date / Time Iodinated Contrast Media Allergy Anaphylaxis Verified 08/16/22 13:01 iodine Allergy Swelling Verified 08/16/22 13:01 NSAIDS (Non-Steroidal Allergy Rash/Hives Verified 08/16/22 13:01 Anti-Inflamma Sulfa (Sulfonamide Allergy Rash/Hives Verified 08/16/22 13:01 Antibiotics) adhesive tape AdvReac Rash/Hives Verified 08/16/22 13:01 Physical Exam Vitals: Vital Signs Temp Pulse Pulse Resp BP BP Pulse Ox 08/17/22 08:00 67 16 08/17/22 06:38 97.9 F 67 16 164/74 94 L 08/17/22 02:56 98.1 F 66 16 139/69 93 L 08/16/22 20:37 97.6 F 68 18 163/68 98 08/16/22 19:07 97.9 F 64 15 149/80 98 08/16/22 18:00 98.2 F 67 18 161/61 97 Intake and Output 08/16/22 08/17/22 08/17/22 22:59 06:59 14:59 Intake Total 296 Output Total 250 400 Balance -250 -400 296 Intake: Oral 296 Output: Urine 250 400 Other: Voiding Method External Catheter External Catheter External Catheter - Exam GENERAL: This is a 86-year-old in no apparent distress at the time of examination. Nonverbal currently. HEENT: Head is atraumatic, normocephalic. Pupils are equal, round, and reactive to light. Sclerae anicteric. Conjunctivae are clear. Mucus membranes of the mouth are moist. Neck is supple, no JVD. RESPIRATORY: Unlabored, Clear to auscultation. No wheezes, rales, or rhonchi. No use of accessory muscles. CARDIOVASCULAR: Regular rate and rhythm. S1 and S2 noted. No systolic or diastolic murmur auscultated. No JVD noted. No S3 or S4 noted. GASTROINTESTINAL: No distention noted. Abdomen soft and round. Normal active bowel sounds auscultated x 4 quadrants. No pain or tenderness noted upon palpation. INTEGUMENTARY: No cyanosis. No jaundice. No rashes noted. No cellulitis noted. EXTREMITIES: 2+ peripheral pulses. Trace peripheral edema. No calf tenderness noted. Right lower calf abrasion, nondraining. NEUROLOGIC: Limited evaluation, unable to evaluate fully at this time; alert and oriented 1. PSYCHIATRIC: Alert, withdrawn, currently not conversing. Results CBC & Chem 7: 08/16/22 11:23 08/16/22 11:23 Labs: Abnormal Lab Results - Last 24 Hours (Table) 08/16/22 08/16/22 08/16/22 Range/Units 11:23 11:23 11:27 Lymphocytes # 0.6 L (1.0-4.8) k/uL Sodium 129 L (137-145) mmol/L Chloride 91 L (98-107) mmol/L BUN 22 H (7-17) mg/dL Glucose 318 H (74-99) mg/dL POC Glucose (mg/dL) 310 H (70-110) mg/dL Total Protein 6.1 L (6.3-8.2) g/dL Urine Appearance (Clear) Urine Glucose (UA) (Negative) Urine Blood (Negative) Urine Nitrite (Negative) Urine Bacteria (None) /hpf Urine Mucus (None) /hpf 08/16/22 08/16/22 08/17/22 Range/Units 12:01 22:23 07:28 Lymphocytes # (1.0-4.8) k/uL Sodium (137-145) mmol/L Chloride (98-107) mmol/L BUN (7-17) mg/dL Glucose (74-99) mg/dL POC Glucose (mg/dL) 177 H 203 H (70-110) mg/dL Total Protein (6.3-8.2) g/dL Urine Appearance Turbid H (Clear) Urine Glucose (UA) 4+ H (Negative) Urine Blood Small H (Negative) Urine Nitrite Positive H (Negative) Urine Bacteria Few H (None) /hpf Urine Mucus Rare H (None) /hpf Thrombosis Risk Factor Assmnt - Choose All That Apply Each Factor Represents 1 point: Obesity (BMI >25) Each Risk Factor Represents 3 Points: Age 75 years or older Thrombosis Risk Factor Assessment Total Risk Factor Score: 4 Thrombosis Risk Factor Assessment Level: Moderate Risk Assessment and Plan Assessment: Weakness, acute on chronic, medical debility, declining. Diabetes mellitus II, hyperglycemic. Diabetic retinopathy Diabetic neuropathy CAD, history of AL, CABG Paget's disease Right breast cancer with mastectomy History of TIAs Hypothyroidism Prior nicotine dependence Anxiety Please: Continue on current medication regime ,monitoring and symptomatic treatment. Daughter Nicky at bedside; both she and her sister are interested in comfort care/quality of life. Discussed palliative/hospice care as her mother continues to medically decline with significant functional status decline. Maintain supportive care, hospice/palliative NETWORK OPERATIONS SPECIALIST consulted. Urine culture pending. The impression and plan of care has been dictated as directed. : I performed a history and examination of this patient, discussed the same with the dictator. I agree with the dictator's note ,documented as a scribe. Any additional findings or plans will be noted.
[2022-08-17] MEDS ORDERED: LORATADINE 10 MG TAB PO SCH (12:00)
[2022-08-17] MEDS ORDERED: LEVOTHYROXINE 75 MCG TAB PO SCH (12:00)
[2022-08-17 12:39] LABS: Glucose,Whole Blood 250 mg/dL (70-110)
[2022-08-17 17:38] LABS: Glucose,Whole Blood 294 mg/dL (70-110)
[2022-08-17] MEDS: Insulin Aspart (For Pump) 100 UNIT/ML VIAL SQ-PUMP SCH (17:47)
[2022-08-17 20:24] LABS: Glucose,Whole Blood 473 mg/dL (70-110)
[2022-08-17] MEDS: traMADol 50 MG TAB PO SCH (20:41)
[2022-08-17] MEDS: ASPIRIN 81 MG PO SCH (20:41)
[2022-08-17] MEDS: DOCUSATE 100 MG CAP PO SCH (20:41)
[2022-08-17] MEDS: PANTOPRAZOLE 40 MG TABLET PO SCH (20:41)
[2022-08-17] MEDS: PRAVASTATIN SODIUM 20 MG TAB PO SCH (20:42)
[2022-08-18 06:29] VITALS: BP 177/77; PULSE 64; RESP 12; TEMP 98.3
[2022-08-18 06:59] LABS: Glucose,Whole Blood 312 mg/dL (70-110)
[2022-08-18] MEDS: polyethylene glycoL 3350 17 GM POWD.PACK PO SCH (08:06)
[2022-08-18] MEDS: FUROSEMIDE 20 MG TAB PO SCH (08:07)
[2022-08-18] MEDS: METOPROLOL TARTRATE 25 MG TAB PO SCH (08:07)
[2022-08-18] MEDS: ESCITALOPRAM 5 MG TAB PO SCH (08:07)
[2022-08-18] MEDS: EZETIMIBE 10 MG TAB PO SCH (08:07)
[2022-08-18 08:10] LABS: Glucose,Whole Blood 271 mg/dL (70-110)
--- NOTE | 2022-08-18 08:45 | P.PN ---
Subjective Progress Note Date: 08/18/22 Principal diagnosis: UTI The patient is a 86-year-old female with a past medical history significant for Breast CA, Htn, NC, DM and recurrent UTI's. She presented to the emergency room on 08/16/22, with daughter, with complaints of increasing weakness and altered mental status. The daughter reports that the patient has had increased drowsiness and poor oral intake. She was diagnosed with urinary tract infection on 08/10/22 last and prescribed Macrobid. They're having difficulty getting her up to the commode due to her weakness and she did have a fall with abrasions to right leg. Denied any fevers, no nausea vomiting or diarrhea. 08/17 The patient is pleasantly confused and appears comfortable. Her daughter, Nicky HULL), is at the bedside. Palliative care and hospice philosophies and services available discussed at length. Nicky states that her mother is having frequent hospitalizations. She is slowly declining and not able to get back to her previous baseline. She is debilitated and fragile. The daughter has also noted a decline in her functional status. She is struggling to get the patient up to the bedside commode with a 2 person assist. She would like her mother to have the best quality of life and focus on comfort for whatever time she has remaining. She is very interested in hospice services. A consult was placed for an informational visit. Objective - Vital Signs Vital signs: Vital Signs Temp 98.3 F 08/18/22 06:28 Pulse 64 08/18/22 06:28 Resp 12 08/18/22 06:28 BP 177/77 08/18/22 06:28 Pulse Ox 94 L 08/18/22 06:28 FiO2 Intake & Output 08/17/22 08/18/22 08/18/22 18:59 06:59 18:59 Intake Total 296 250 Output Total 1050 650 Balance -754 -400 Intake: Oral 296 250 Output: Urine 1050 650 Other: Voiding Method External Catheter External Catheter - Labs CBC & Chem 7: 08/16/22 11:23 08/16/22 11:23 Labs: Abnormal Lab Results - Last 24 Hours (Table) 08/17/22 08/17/22 08/17/22 Range/Units 12:38 17:37 20:22 POC Glucose (mg/dL) 250 H 294 H 473 H (70-110) mg/dL 08/18/22 08/18/22 Range/Units 06:57 07:59 POC Glucose (mg/dL) 312 H 271 H (70-110) mg/dL Microbiology - Last 24 Hours (Table) 08/17/22 17:43 Urine Culture - Preliminary Urine,Clean Catch 08/16/22 14:00 Blood Culture - Preliminary Blood No Growth after 24 hours 08/16/22 14:00 Blood Culture - Preliminary Blood No Growth after 24 hours Assessment and Plan Assessment: Symptoms * Pain - No, continue Tylenol and Ultram prn * Fatigue - + generalized weakness and fatigue * SOB - No * Insomnia - No * N/V - No * Anxiety - No, continue Lexapro * Depression - No, continue Lexapro * Confusion - Yes * Agitation - No * Hallucinations - No * Appetite/weight loss - No recent weight loss. Daughter reports a good appetite. Continue with Consistent carb diet * Dysphagia -No * Constipation - Yes, chronic. Continue Miralax and colace * Incontinence - Yes * Itch - No Plan: Summary/Goals - The patient appears comfortable. Her daughterNicky is at the bedside. Nicky states she met with the [facility] hospice team yesterday for an informational meeting. The patient's children are all in agreement that the support services provided by hospice is needed. The patient is to be signed on with hospice and discharged home today. Recommendations - Home with hospice services Advanced Directives - None on file, daughter to bring in Code Status - Full Code Thank you for this consultation Jalyn Ann [facility] Palliative Care [facility] [id number] Email: [email or web address] Time with Patient: Less than 30
--- NOTE | 2022-08-18 10:05 | P.DS ---
Providers Date of admission: 08/16/22 13:49 Expected date of discharge: 08/18/22 Attending physician: Tony Thomas Consults: 08/17/22 08:20 Consult to Palliative Care Routine Consulting Provider: Jalyn Ann Consult Reason/Comments: need for hospice? Do you want consulting provider notified?: Yes Primary care physician: Tony Thomas Hospital Course: Final Diagnoses: Weakness, acute on chronic, medical debility, declining. Diabetes mellitus II, hyperglycemic. Diabetic retinopathy Diabetic neuropathy CAD, history of LA, CABG Paget's disease Right breast cancer with mastectomy History of TIAs Hypothyroidism Prior nicotine dependence Anxiety Hospital course:This is an 86-year-old female with past medical history of recurrent UTIs, CAD,LA, CABG, diabetes mellitus, diabetic retinopathy, diabetic Neuropathy, hypertension , right breast cancer, Paget's disease with mastectomy , hypothyroidism, anxiety , former nicotine dependence admitted with altered mental status, increased weakness, medical debility, frequent hospitalizations brought into the ER by her daughter. Daughter reports since last admission patient has continued to decline, increased weakness, sustained another fall with right lower extremity abrasion, without head trauma, requires a 2 person assist with transfer, minimal oral intake, more withdrawn, conversing less. Patient currently not conversing, daughter states that patient denies pain, denies nausea ,vomiting or diarrhea and denies chest pain, palpitations or shortness of breath. Brain CT reported no acute intracranial abnormality. A febrile, normal WBC. Sodium 129, bicarb 30, BUN 22, creatinine 0.95, blood sugars elevated on admission at 310, currently 177-203. Magnesium 1.8, lactic acid 1.5. Total protein 6.1. UA reported few bacteria, negative leukocytes, less than 1 wbc's, positive nitrates, + 4 glucose. Daughter Nicky at bedside; both she and her sister are interested in comfort care/quality of life. Discussed palliative/hospice care as her mother continues to medically decline with significant functional status decline. Maintain supportive care, hospice/palliative EARTH SCIENCE PROFESSOR consulted. Urine culture pending. Family has decided to proceed with home with hospice. DME/equipment arranged for arrival this morning. Patient will be discharged home today in a stable condition with guarded prognosis. The impression and plan of care has been dictated as directed. : I performed a history and examination of this patient, discussed the same with the dictator. I agree with the dictator's note ,documented as a scribe. Any additional findings or plans will be noted. Patient Condition at Discharge: Stable Plan - Discharge Summary New Discharge Prescriptions: Continue LORazepam [Ativan] 0.5 mg PO BID Metoprolol Tartrate [Lopressor] 25 mg PO BID #60 tab Pravastatin Sodium [Pravachol] 20 mg PO HS Pantoprazole [Protonix] 40 mg PO HS Loratadine [Claritin] 10 mg PO DAILY@1200 Ezetimibe [Zetia] 10 mg PO DAILY Escitalopram [Lexapro] 5 mg PO DAILY Levothyroxine Sodium [Synthroid] 75 mcg PO MOTUWETHFRSA@1200 Insulin Aspart (For Pump) [NovoLOG (For Pump)] 0.01 unit SQ-PUMP CONTINUOUS Oxgyldquktbyly-GO-Cjyepvmtiz [Folbic] 1 tab PO DAILY Aspirin [Adult Low Dose Aspirin EC] 162 mg PO HS polyethylene glycoL 3350 [Miralax] 4.25 gm PO DAILY traMADol HCl [Ultram] 50 mg PO HS Furosemide [Lasix] 20 mg PO DAILY Docusate [Colace] 100 mg PO HS cap Discontinued Nitrofurantoin Monohyd/M-Cryst [Macrobid] 100 mg PO Q12H Discharge Medication List LORazepam [Ativan] 0.5 mg PO BID 02/15/15 [History] Metoprolol Tartrate [Lopressor] 25 mg PO BID #60 tab 11/25/15 [Rx] Escitalopram [Lexapro] 5 mg PO DAILY 10/13/18 [History] Ezetimibe [Zetia] 10 mg PO DAILY 10/13/18 [History] Levothyroxine Sodium [Synthroid] 75 mcg PO MOTUWETHFRSA@1200 10/13/18 [History] Loratadine [Claritin] 10 mg PO DAILY@1200 10/13/18 [History] Pantoprazole [Protonix] 40 mg PO HS 10/13/18 [History] Pravastatin Sodium [Pravachol] 20 mg PO HS 10/13/18 [History] Lqeuvrqzzwjuvn-JN-Iobvztrazo [Folbic] 1 tab PO DAILY 11/12/19 [History] Insulin Aspart (For Pump) [NovoLOG (For Pump)] 0.01 unit SQ-PUMP CONTINUOUS 11/12/19 [History] Aspirin [Adult Low Dose Aspirin EC] 162 mg PO HS 08/02/21 [History] traMADol HCl [Ultram] 50 mg PO HS 08/02/21 [History] Furosemide [Lasix] 20 mg PO DAILY 06/16/22 [History] polyethylene glycoL 3350 [Miralax] 4.25 gm PO DAILY 06/16/22 [History] Docusate [Colace] 100 mg PO HS cap 06/23/22 [Rx] Follow up Appointment(s)/Referral(s): Tony Thomas DO [Primary Care Provider] - As Needed Discharge Disposition: HOME WITH HOSPICE
== END 2022-08-18 11:45 | disposition hospice, home (50) ==
LOC: EC 10:59 → 6NMEDSUR 13:49
PROVIDERS: ADMIT Family Medicine; ATTEND Family Medicine
DX: R53.1 Weakness (principal); R53.81 Other malaise; N39.0 Urinary tract infection, site not specified; I44.0 Atrioventricular block, first degree; I25.10 Atherosclerotic heart disease of native coronary artery without angina pectoris; K59.09 Other constipation; E78.5 Hyperlipidemia, unspecified; I25.2 Old myocardial infarction; E03.9 Hypothyroidism, unspecified; H54.8 Legal blindness, as defined in USA; I11.9 Hypertensive heart disease without heart failure; E11.40 Type 2 diabetes mellitus with diabetic neuropathy, unspecified; E11.319 Type 2 diabetes mellitus with unspecified diabetic retinopathy without macular edema; F41.9 Anxiety disorder, unspecified; Z79.899 Other long term (current) drug therapy; Z79.890 Hormone replacement therapy; Z79.4 Long term (current) use of insulin; Z96.41 Presence of insulin pump (external) (internal); Z85.3 Personal history of malignant neoplasm of breast; Z79.82 Long term (current) use of aspirin; Z88.2 Allergy status to sulfonamides; Z91.041 Radiographic dye allergy status; Z86.73 Personal history of transient ischemic attack (TIA), and cerebral infarction without residual deficits; Z90.710 Acquired absence of both cervix and uterus; Z87.891 Personal history of nicotine dependence; Z95.1 Presence of aortocoronary bypass graft; Z90.11 Acquired absence of right breast and nipple; Z98.42 Cataract extraction status, left eye; Z98.41 Cataract extraction status, right eye; Z80.3 Family history of malignant neoplasm of breast; Z80.2 Family history of malignant neoplasm of other respiratory and intrathoracic organs; Z83.3 Family history of diabetes mellitus; Z82.49 Family history of ischemic heart disease and other diseases of the circulatory system; Z83.2 Family history of diseases of the blood and blood-forming organs and certain disorders involving the immune mechanism; Z51.5 Encounter for palliative care
CPT/HCPCS: 96374; 99285; 36415; 93005; 80053; 83605; 83735; 84484; 85025; 85610; 85730; 81001; 87040; 87086; 87077; 87186; 71046; 70450; G0378 ×3; J0696